=== PATIENT | female | born 1950 | race Caucasian/White ===

== ENCOUNTER 2020-02-10 18:45 | Inpatient (IN) ==
--- NOTE | 2020-02-10 19:08 | XRay Report ---
XR chest 1V portable CLINICAL HISTORY: Shortness of breath. COMPARISON STUDY: No previous studies for comparison. FINDINGS: A chondroid proximal left humeral lesion favors an enchondroma. There is no pneumothorax. Small bilateral pleural effusions, right larger than left, are noted. There are mild bibasilar opacit ies. There is pulmonary vascular congestion with possible mild pulmonary edema. Moderate enlargement of the cardiac silhouette is noted. Mild left hilar prominence is noted. IMPRESSION: 1. Suspected mild pulmonary edema. 2. Small bilateral pleural effusions with bibasilar opacities, right greater than left. 3. Moderate enlargement of the cardiac silhouette. 4. Mild left hilar prominence. This is likely due to pulmonary vessels however nonemergent PA and lat eral chest radiographs are recommended. ACT 112: Negative or not required by law. Electronically signed by: Mike Gallegos M.D. 02/10/2020 7:07 PM
[2020-02-10 19:11] LABS: Basophils # (auto) 0.03 K/uL (0-0.2); Basophils % (auto) 0.4 %; Eosinophils # (auto) 0.17 K/uL (0-0.5); Eosinophils % (auto) 2.1 %; Hematocrit (blood only) 46.7 % (37-47); Hemoglobin 15.6 g/dL (12.0-16.0); Immature Granulocytes # (auto) 0.02 K/uL (0.00-0.02); Immature Granulocytes % (auto) 0.3 %; Lymphocytes # (auto) 1.26 K/uL (1.2-3.4); Lymphocytes % (auto) 15.8 %; Mean Corpuscular Hemoglobin 32.6 pg (25-34); Mean Corpuscular Hgb Conc 33.4 g/dL (32-36); Mean Corpuscular Volume 97.7 fL (80-100); Mean Platelet Volume 11.5 fL (7.4-10.4); Monocytes # (auto) 0.53 K/uL (0.11-0.59); Monocytes % (auto) 6.7 %; Neutrophils # (auto) 5.94 K/uL (1.4-6.5); Neutrophils % (auto) 74.7 %; Platelet Count 240 K/uL (130-400); RDW Coefficient of Variation 14.9 % (11.5-14.5); RDW Standard Deviation 52.8 fL (36.4-46.3); Red Blood Count 4.78 M/uL (4.2-5.4); White Blood Count 7.95 K/uL (4.8-10.8)
--- NOTE | 2020-02-10 19:17 | Emergency Department Note ---
History of Present Illness General Chief complaint: Cardiac Assessment Time Seen by Provider: 02/10/20 18:46 History of Present Illness The patient is a 69-year-old female who presented to the emergency department by ambulance from her office in [place]. The patient has been complaining of GI symptoms over the last few months. She states that she has been noticing abnormal abdominal distention which is been ongoing for quite some time. She was noted to have an elevation in her LFTs and did have a work-up with gastroenterology. She was complaining of lower extremity swelling and abdominal distention. She was sent for a follow-up appointment at the clinic today and was noted to have an abnormal EKG. She was given aspirin. She was sent to the emergency department by ambulance. The patient denies having any chest pain. She does complain of weight gain as well as orthopnea. She complains of lower extremity swelling but no pain. She does complain of nausea but no vomiting. She states that she does have daily bowel movements but they are smaller in amount to usual. She denies any black stool or bloody stool. She did have an ultrasound in January which revealed mild gallbladder wall thickening with a possible polyp. She was also noted to have a right pleural effusion. She had a HIDA scan on February 022019. This was normal and was administered with CCK. The patient was started on proton pump inhibitors. She was also started on dicyclomine. Home Medications Home Medications Medication Instructions Recorded Confirmed Type docusate sodium [Stool Softener] 100 mg PO BID 02/10/20 02/10/20 History omeprazole 20 mg PO QAM 02/10/20 02/10/20 History Allergies Allergy/AdvReac Type Severity Reaction Status Date / Time No Known Allergies Allergy Verified 02/10/20 19:37 Past Med/Surg History Medical History Dyslipidemia Surgical History Hx of dilation and curettage Hx of tubal ligation S/P tonsillectomy Family History Other Breast cancer FHx: multiple myeloma FHx: uterine cancer Social History Preferred Language: Occitan Feels Safe at Home: Yes Smoking Status: Current every day smoker Hx Alcohol Use: Yes Hx Substance Use: No Review of Systems See HPI for pertinent positives & negatives. and A total of 10 systems reviewed and were otherwise negative Physical Exam Vital Signs Vital Signs - 24 hr 02/10/20 18:49 02/10/20 18:52 02/10/20 18:54 Temperature 36.6 C Temperature Source Oral Pulse Rate 110 H 109 H 109 H Pulse Rate [Apical] Pulse Rate from SpO2 Sensor 110 H 110 H Respiratory Rate 33 H 26 H 18 Respiratory Effort / Characteristics Blood Pressure 144/95 H 144/95 H Blood Pressure [Left Arm] Blood Pressure Mean 113 111 Blood Pressure Mean [Left Arm] Blood Pressure Position Sitting Pulse Oximetry 95 95 98 Oxygen Delivery Method Room Air Room Air Room Air Sepsis Recent Fever Within 48 Hours No Sepsis New/Unexplained Change in Mental Status No Sepsis Action Taken by Nursing No Action Required 02/10/20 19:00 02/10/20 19:10 02/10/20 19:20 Temperature Temperature Source Pulse Rate 109 H 110 H 105 H Pulse Rate [Apical] Pulse Rate from SpO2 Sensor Respiratory Rate 22 40 H 36 H Respiratory Effort / Characteristics Blood Pressure Blood Pressure [Left Arm] Blood Pressure Mean Blood Pressure Mean [Left Arm] Blood Pressure Position Pulse Oximetry Oxygen Delivery Method Room Air Room Air Room Air Sepsis Recent Fever Within 48 Hours Sepsis New/Unexplained Change in Mental Status Sepsis Action Taken by Nursing 02/10/20 19:30 02/10/20 19:40 02/10/20 19:50 Temperature Temperature Source Pulse Rate 108 H 102 H 100 H Pulse Rate [Apical] 100 H Pulse Rate from SpO2 Sensor Respiratory Rate 30 H 31 H 31 H Respiratory Effort / Characteristics Blood Pressure 127/90 Blood Pressure [Left Arm] 127/90 Blood Pressure Mean 103 Blood Pressure Mean [Left Arm] 102 Blood Pressure Position Pulse Oximetry 95 Oxygen Delivery Method Room Air Room Air Room Air Sepsis Recent Fever Within 48 Hours Sepsis New/Unexplained Change in Mental Status Sepsis Action Taken by Nursing 02/10/20 20:00 02/10/20 20:10 02/10/20 20:20 Temperature Temperature Source Pulse Rate 102 H 99 H 98 H Pulse Rate [Apical] Pulse Rate from SpO2 Sensor Respiratory Rate 29 H 29 H 28 H Respiratory Effort / Characteristics Blood Pressure 133/92 Blood Pressure [Left Arm] Blood Pressure Mean 115 Blood Pressure Mean [Left Arm] Blood Pressure Position Pulse Oximetry Oxygen Delivery Method Room Air Room Air Room Air Sepsis Recent Fever Within 48 Hours Sepsis New/Unexplained Change in Mental Status Sepsis Action Taken by Nursing 02/10/20 20:30 02/10/20 21:15 02/10/20 21:20 Temperature Temperature Source Pulse Rate 94 H 111 H 106 H Pulse Rate [Apical] Pulse Rate from SpO2 Sensor 106 H Respiratory Rate 28 H 29 H 37 H Respiratory Effort / Characteristics Blood Pressure Blood Pressure [Left Arm] Blood Pressure Mean Blood Pressure Mean [Left Arm] Blood Pressure Position Pulse Oximetry 95 Oxygen Delivery Method Room Air Room Air Room Air Sepsis Recent Fever Within 48 Hours Sepsis New/Unexplained Change in Mental Status Sepsis Action Taken by Nursing 02/10/20 21:30 02/10/20 22:13 02/10/20 22:47 Temperature Temperature Source Pulse Rate 101 H Pulse Rate [Apical] 102 H 103 H Pulse Rate from SpO2 Sensor 101 H Respiratory Rate 22 20 35 H Respiratory Effort / Characteristics Spontaneous SOB on Exertion Blood Pressure Blood Pressure [Left Arm] 123/95 Blood Pressure Mean Blood Pressure Mean [Left Arm] 104 Blood Pressure Position Pulse Oximetry 95 96 94 Oxygen Delivery Method Room Air Room Air Room Air Sepsis Recent Fever Within 48 Hours Sepsis New/Unexplained Change in Mental Status Sepsis Action Taken by Nursing GENERAL: Patient is awake alert in no acute distress patient is resting comfortably and showing no signs of anxiety EYES: The conjunctivae are clear. The pupils are round and reactive. EARS, NOSE, MOUTH AND THROAT: The nose is without any evidence of any deformity. Mucous membranes are moist. Tongue is midline. NECK: The neck is nontender and supple. RESPIRATORY: Diminished breath sounds are noted at both bases. There were faint rales at the right base. There was no tachypnea or conversational dyspnea. CARDIOVASCULAR: Regular rate and rhythm noted there no murmurs rubs or gallops normal S1 normal S2. GASTROINTESTINAL: The abdomen was moderately distended and diffusely tender. There is no guarding or rigidity. There is no specific area of tenderness. MUSCULOSKELETAL/EXTREMITIES: There is no evidence of gross deformity full range of motion is noted in the hips and shoulders. SKIN: There is no obvious evidence of any rash. Skin was warm and dry. There is pedal edema bilaterally. Pulses are symmetric in both feet. NEUROLOGIC: Patient is awake alert and oriented x3 strength is symmetric bee llar reflexes are 2+ bilaterally Course Course 2150: I discussed this case with Dr. Lea. He was covering for the [facility] hospitalist group. He is agreed to evaluate the patient in the emergency department for further management disposition. Administered Medications Ioversol (Optiray 320 125ml) 107 ml IV ONCE PRN PRN Reason: Interaction Checking Stop: 02/14/20 20:56 Last Admin: 02/10/20 20:58 Dose: 107 ml Documented by: [id number] Discontinued Medications Albuterol (Duoneb) 3 ml NEB NOW STA Stop: 02/10/20 22:00 Last Admin: 02/10/20 22:12 Dose: 3 ml Documented by: [id number] Furosemide (Lasix) 40 mg IV NOW STA Stop: 02/10/20 21:58 Last Admin: 02/10/20 22:04 Dose: 40 mg Documented by: [id number] Metoprolol Tartrate (Lopressor) 12.5 mg PO NOW STA Stop: 02/10/20 22:07 Last Admin: 02/10/20 22:48 Dose: 12.5 mg Documented by: [id number] Medical Decision Making Differential Diagnosis Etiologies such as appendicitis, diverticulitis, obstruction, inflammatory bowel disease, renal colic, PUD, biliary pathology, pancreatitis, mesenteric ischemia, aortic pathology, infections, genitourinary, UTI, perforated viscus, as well as others were entertained. Medical Records Attestation: I reviewed the patient's medical records. Home Medications Current Medication List: was personally reviewed by me Laboratory Data Attestation: I reviewed the patient's lab results. Result diagrams: 02/10/20 18:25 02/10/20 18:25 Lab Results 02/10/20 02/10/20 02/10/20 Range/Units 18:25 18:25 18:25 WBC 7.95 (4.8-10.8) K/uL RBC 4.78 (4.2-5.4) M/uL Hgb 15.6 (12.0-16.0) g/dL Hct 46.7 (37-47) % MCV 97.7 (80-100) fL MCH 32.6 (25-34) pg MCHC 33.4 (32-36) g/dL RDW Std Deviation 52.8 H (36.4-46.3) fL RDW Coeff of Angélica 14.9 H (11.5-14.5) % Plt Count 240 (130-400) K/uL MPV 11.5 H (7.4-10.4) fL Immature Gran % (Auto) 0.3 % Neut % (Auto) 74.7 % Lymph % (Auto) 15.8 % Yates % (Auto) 6.7 % Eos % (Auto) 2.1 % Baso % (Auto) 0.4 % Immature Gran # (Auto) 0.02 (0.00-0.02) K/uL Neut # (Auto) 5.94 (1.4-6.5) K/uL Lymph # (Auto) 1.26 (1.2-3.4) K/uL Yates # (Auto) 0.53 (0.11-0.59) K/uL Eos # (Auto) 0.17 (0-0.5) K/uL Baso # (Auto) 0.03 (0-0.2) K/uL ESR 9 (0-21) mm/hr APTT (21.0-31.0) Seconds PTT Ratio Sodium 139 (136-145) mmol/L Potassium 4.3 (3.5-5.1) mmol/L Chloride 107 (98-107) mmol/L Carbon Dioxide 28 (21-32) mmol/L Anion Gap 4.0 (3-11) BUN 21 H (7-18) mg/dl Creatinine 1.18 (0.6-1.2) mg/dl Est Cr Clr Drug Dosing 41.8 ml/min Est GFR ( Amer) 54.9 Est GFR (Non-Af Amer) 47.4 BUN/Creatinine Ratio 17.8 (10-20) Glucose 123 H (70-99) mg/dl Calcium 8.9 (8.5-10.1) mg/dl Magnesium Cancelled Total Bilirubin 0.5 (0.2-1) mg/dl AST 39 H (15-37) U/L ALT 71 (12-78) U/L Alkaline Phosphatase 105 (45-117) U/L Troponin I (0-0.045) ng/ml C-Reactive Protein 0.67 H (0-0.29) mg/dl Total Protein 6.7 (6.4-8.2) gm/dl Albumin 3.2 L (3.4-5.0) gm/dl Globulin 3.5 (2.5-4.0) gm/dl Albumin/Globulin Ratio 0.9 (0.9-2) Lipase 209 (73-393) U/L TSH Cancelled Urine Color Urine Appearance (Clear) Urine pH (4.5-7.5) Ur Specific [place] (1.000-1.030) Urine Protein (Negative) Urine Glucose (UA) (Negative) Urine Ketones (Negative) Urine Blood (Negative) Urine Nitrite (Negative) Urine Bilirubin (Negative) Urine Urobilinogen (Negative) Ur Leukocyte Esterase (Negative) Urine WBC (Auto) (0-5) /hpf Urine RBC (Auto) (0-4) /hpf U Hyaline Cast (Auto) (0-5) /lpf U Epithel Cells (Auto) (0-5) /lpf Urine Bacteria (Auto) (Negative) 02/10/20 02/10/20 02/10/20 Range/Units 18:25 20:45 21:00 WBC (4.8-10.8) K/uL RBC (4.2-5.4) M/uL Hgb (12.0-16.0) g/dL Hct (37-47) % MCV (80-100) fL MCH (25-34) pg MCHC (32-36) g/dL RDW Std Deviation (36.4-46.3) fL RDW Coeff of Angélica (11.5-14.5) % Plt Count (130-400) K/uL MPV (7.4-10.4) fL Immature Gran % (Auto) % Neut % (Auto) % Lymph % (Auto) % Yates % (Auto) % Eos % (Auto) % Baso % (Auto) % Immature Gran # (Auto) (0.00-0.02) K/uL Neut # (Auto) (1.4-6.5) K/uL Lymph # (Auto) (1.2-3.4) K/uL Yates # (Auto) (0.11-0.59) K/uL Eos # (Auto) (0-0.5) K/uL Baso # (Auto) (0-0.2) K/uL ESR (0-21) mm/hr APTT 23.3 (21.0-31.0) Seconds PTT Ratio 0.8 Sodium (136-145) mmol/L Potassium (3.5-5.1) mmol/L Chloride (98-107) mmol/L Carbon Dioxide (21-32) mmol/L Anion Gap (3-11) BUN (7-18) mg/dl Creatinine (0.6-1.2) mg/dl Est Cr Clr Drug Dosing ml/min Est GFR ( Amer) Est GFR (Non-Af Amer) BUN/Creatinine Ratio (10-20) Glucose (70-99) mg/dl Calcium (8.5-10.1) mg/dl Magnesium Total Bilirubin (0.2-1) mg/dl AST (15-37) U/L ALT (12-78) U/L Alkaline Phosphatase (45-117) U/L Troponin I 0.021 (0-0.045) ng/ml C-Reactive Protein (0-0.29) mg/dl Total Protein (6.4-8.2) gm/dl Albumin (3.4-5.0) gm/dl Globulin (2.5-4.0) gm/dl Albumin/Globulin Ratio (0.9-2) Lipase (73-393) U/L TSH Urine Color Yellow Urine Appearance Clear (Clear) Urine pH 5.0 (4.5-7.5) Ur Specific [place] 1.025 (1.000-1.030) Urine Protein Negative (Negative) Urine Glucose (UA) Negative (Negative) Urine Ketones Negative (Negative) Urine Blood Negative (Negative) Urine Nitrite Negative (Negative) Urine Bilirubin Negative (Negative) Urine Urobilinogen Negative (Negative) Ur Leukocyte Esterase 1+ H (Negative) Urine WBC (Auto) 5-10 H (0-5) /hpf Urine RBC (Auto) 0-4 (0-4) /hpf U Hyaline Cast (Auto) 0 (0-5) /lpf U Epithel Cells (Auto) 20-30 H (0-5) /lpf Urine Bacteria (Auto) Negative (Negative) 02/10/20 Range/Units 21:00 WBC (4.8-10.8) K/uL RBC (4.2-5.4) M/uL Hgb (12.0-16.0) g/dL Hct (37-47) % MCV (80-100) fL MCH (25-34) pg MCHC (32-36) g/dL RDW Std Deviation (36.4-46.3) fL RDW Coeff of Angélica (11.5-14.5) % Plt Count (130-400) K/uL MPV (7.4-10.4) fL Immature Gran % (Auto) % Neut % (Auto) % Lymph % (Auto) % Yates % (Auto) % Eos % (Auto) % Baso % (Auto) % Immature Gran # (Auto) (0.00-0.02) K/uL Neut # (Auto) (1.4-6.5) K/uL Lymph # (Auto) (1.2-3.4) K/uL Yates # (Auto) (0.11-0.59) K/uL Eos # (Auto) (0-0.5) K/uL Baso # (Auto) (0-0.2) K/uL ESR (0-21) mm/hr APTT (21.0-31.0) Seconds PTT Ratio Sodium (136-145) mmol/L Potassium (3.5-5.1) mmol/L Chloride (98-107) mmol/L Carbon Dioxide (21-32) mmol/L Anion Gap (3-11) BUN (7-18) mg/dl Creatinine (0.6-1.2) mg/dl Est Cr Clr Drug Dosing ml/min Est GFR ( Amer) Est GFR (Non-Af Amer) BUN/Creatinine Ratio (10-20) Glucose (70-99) mg/dl Calcium (8.5-10.1) mg/dl Magnesium 2.5 H Total Bilirubin (0.2-1) mg/dl AST (15-37) U/L ALT (12-78) U/L Alkaline Phosphatase (45-117) U/L Troponin I (0-0.045) ng/ml C-Reactive Protein (0-0.29) mg/dl Total Protein (6.4-8.2) gm/dl Albumin (3.4-5.0) gm/dl Globulin (2.5-4.0) gm/dl Albumin/Globulin Ratio (0.9-2) Lipase (73-393) U/L TSH 2.630 Urine Color Urine Appearance (Clear) Urine pH (4.5-7.5) Ur Specific [place] (1.000-1.030) Urine Protein (Negative) Urine Glucose (UA) (Negative) Urine Ketones (Negative) Urine Blood (Negative) Urine Nitrite (Negative) Urine Bilirubin (Negative) Urine Urobilinogen (Negative) Ur Leukocyte Esterase (Negative) Urine WBC (Auto) (0-5) /hpf Urine RBC (Auto) (0-4) /hpf U Hyaline Cast (Auto) (0-5) /lpf U Epithel Cells (Auto) (0-5) /lpf Urine Bacteria (Auto) (Negative) Imaging Data Radiologist's Impression: CT ANGIOGRAPHY OF THE CHEST, PULMONARY EMBOLUS PROTOCOL CLINICAL HISTORY: Shortness of breath. COMPARISON STUDY: Chest radiograph February 10, 2020 6:53 PM. TECHNIQUE: Following IV administration of 107 mL of Optiray-320, helical axial images of the chest were obtained utilizing the pulmonary embolus protocol. Maximal intensity projections and sagittal and coronal reformats were viewed on an independent 3D workstation. IV contrast was administered without complication. Automated exposure control was utilized for the study. A dose lowering technique was utilized adhering to the principles of ALARA. CT DOSE: 852.77 mGy.cm FINDINGS: No pulmonary emboli are identified opacification of the subsegmental pulmonary arteries within the bilateral lower lobes is suboptimal. The heart is moderately enlarged. There is no pericardial effusion. Small to moderate right and small left pleural effusions are noted. Associated bibasilar opacities favor atelectasis. Interlobular septal thickening indicates pulmonary edema. There are mild groundglass opacities within the lungs. Mild bronchial wall thickening is noted. Bony thorax is unremarkable. The abdomen and pelvis will be reported separately. IMPRESSION: 1. No pulmonary emboli identified although opacification of the subsegmental pulmonary arteries within the bilateral lower lobes is suboptimal. 2. Small to moderate right and small left pleural effusions with associated bibasilar opacities suggestive of atelectasis. 3. Mild pulmonary edema. 4. Moderate cardiomegaly. ACT 112: Negative or not required by law. Electronically signed by: Mike Gallegos M.D. 02/10/2020 9:22 PM Dictated: 02/10/202112 Transcribed: 02/10/202112 XR chest 1V portable CLINICAL HISTORY: Shortness of breath. COMPARISON STUDY: No previous studies for comparison. FINDINGS: A chondroid proximal left humeral lesion favors an enchondroma. There is no pneumothorax. Small bilateral pleural effusions, right larger than left, are noted. There are mild bibasilar opacities. There is pulmonary vascular congestion with possible mild pulmonary edema. Moderate enlargement of the cardiac silhouette is noted. Mild left hilar prominence is noted. IMPRESSION: 1. Suspected mild pulmonary edema. 2. Small bilateral pleural effusions with bibasilar opacities, right greater than left. 3. Moderate enlargement of the cardiac silhouette. 4. Mild left hilar prominence. This is likely due to pulmonary vessels however nonemergent PA and lateral chest radiographs are recommended. ACT 112: Negative or not required by law. Electronically signed by: Mike Gallegos M.D. 02/10/2020 7:07 PM Dictated: 02/10/201903 Transcribed: 02/10/201903 CT OF THE ABDOMEN AND PELVIS WITH CONTRAST CLINICAL HISTORY: Abdominal pain and distention. COMPARISON STUDY: None. TECHNIQUE: Following IV administration of 107 mL of Optiray-320, axial images of the abdomen and pelvis were obtained from the lung bases to the proximal femurs. Images were reviewed in the axial, sagittal, and coronal planes. IV contrast was administered without complication. Automated exposure control was utilized for the study. A dose lowering technique was utilized adhering to the principles of ALARA. Oral contrast was administered. FINDINGS: Please note that the chest CT will be reported separately. Note is made of small to moderate right and small left pleural effusions with moderate cardiomegaly. Mild heterogeneity of the liver is noted. There may be fatty infiltration of the liver. No hepatic lesions are present. The spleen, adrenal glands, right kidney and pancreas are unremarkable. There is scarring within the upper pole of the left kidney. This exam is compromised by motion artifact. There is no biliary or pancreatic ductal dilatation. There is no evidence for a bowel obstruction. The appendix is normal. Sigmoid diverticulosis is noted. There is no convincing evidence for acute diverticulitis. There is trace ascites within the pelvis. No lymphadenopathy is present. No pneumatosis, free air or portal venous gas is present. Major vasculature is patent. IMPRESSION: 1. Trace pelvic ascites. Mild anasarca. 2. No bowel distention. Normal appendix. 3. Possible fatty infiltration of the liver. 4. Colonic diverticulosis without evidence for acute diverticulitis. ACT 112: Negative or not required by law. Electronically signed by: Mike Gallegos M.D. 02/10/2020 9:37 PM ECG Data Attestation: I personally reviewed and interpreted this ECG as follows: Indication: + SOB/dyspnea Rate (beats per minute): 104 Additional Comments: EKG was obtained in the emergency department. My interpret ation is sinus tachycardia at 104 bpm. There is no ectopy. Left bundle branch block pattern was favored. No previous tracing was available for comparison. This tracing was compared to the EKG obtained in the office. There is no significant change from the tracing that was done in the office other than PVCs were noted in the earlier tracing. Blood Pressure Blood Pressure Findings: Normal blood pressure MDM Narrative The patient is a 69-year-old female who presented to the emergency department for evaluation of lower extremity edema and an abnormal EKG. The patient was being worked up for abdominal distention. She had a GI work-up as well as radiographic studies but no definite cause for her symptoms could be found. She was referred back to her primary care physician because of weight gain and lower extremity edema. She is also been experiencing orthopnea. On exam the patient had abnormal brown lung sounds. She appears to have pleural effusion. The patient had CT the chest abdomen pelvis to further evaluate the cause of her lower extremity edema and abdominal discomfort. There was no signs of pulmonary venous thromboembolic disease. The patient was found to have a large pleural effusion. I discussed the patient's laboratory and radiographic studies with her. I do feel that she may require further inpatient work-up for her findings. For this reason I discussed her case with the on-call [facility] hospitalist. They have agreed to evaluate the patient in the emergency department for further management and disposition. Impression & Plan Pleural effusion, Chest pain, Orthopnea, Edema of both lower legs, Abnormal ECG Discharge Plan Visit Data Chief Complaint: Cardiac Assessment ED Provider: Seymour Lara Discharge Problem: Pleural effusion, Chest pain, Orthopnea, Edema of both lower legs, Abnormal ECG Patient Disposition: Being Evaluated by Hospitalist Condition: Good Forms Stand Alone Forms: My [employer] Prescriptions Prescriptions: No Action docusate sodium [Stool Softener] 100 mg capsule 100 mg PO BID RF: 0 omeprazole 20 mg capsule,delayed release(DR/EC) 20 mg PO QAM RF: 0 Referrals Referrals: Girish Barron MD [Primary Care Provider] - Discharge Problem: Chest pain Qualifiers: Chest pain type: unspecified Qualified Code(s): R07.9 - Chest pain, unspecified
[2020-02-10 19:24] LABS: Albumin Level 3.2 gm/dl (3.4-5.0); BUN Creatinine Ratio 17.8 (10-20); Calcium 8.9 mg/dl (8.5-10.1); Creatinine Clr Calc Pharmacy 41.8 ml/min; Est GFR (African American) 54.9; Est GFR (Non-African American) 47.4; Potassium 4.3 mmol/L (3.5-5.1)
[2020-02-10 19:25] LABS: Albumin Globulin Ratio 0.9 (0.9-2); Bilirubin,Total 0.5 mg/dl (0.2-1); C Reactive Protein 0.67 mg/dl (0-0.29); Globulin 3.5 gm/dl (2.5-4.0); Total Protein 6.7 gm/dl (6.4-8.2)
[2020-02-10] MEDS ORDERED: OPTIRAY 320 125ml IV PRN (20:57)
[2020-02-10 21:03] LABS: Appearance Urine Clear (Clear); Bacteria Urine Automated Negative (Negative); Bilirubin Urine Negative (Negative); Blood Urine Negative (Negative); Cast Urine Automated 0 /lpf (0-5); Color Urine Yellow; Epithelial Cell Urine Auto 20-30 /lpf (0-5); Glucose Urine UA Negative (Negative); Ketones Urine Negative (Negative); Leukocyte Esterase Urine 1+ (Negative); Nitrite Urine Negative (Negative); Protein Urine Negative (Negative); RBC Urine Automated 0-4 /hpf (0-4); Specific Gravity Urine 1.025 (1.000-1.030); Urobilinogen Urine Negative (Negative)
--- NOTE | 2020-02-10 21:24 | CT Scan Report ---
CT ANGIOGRAPHY OF THE CHEST, PULMONARY EMBOLUS PROTOCOL CLINICAL HISTORY: Shortness of breath. COMPARISON STUDY: Chest radiograph February 10, 2020 6:53 PM. TECHNIQUE: Following IV administration of 107 mL of Optiray-320, helical axial images of the chest we re obtained utilizing the pulmonary embolus protocol. Maximal intensity projections and sagittal and coronal reformats were viewed on an independent 3D workstation. IV contrast was administered withou t complication. Automated exposure control was utilized for the study. A dose lowering technique wa s utilized adhering to the principles of ALARA. CT DOSE: 852.77 mGy.cm FINDINGS: No pulmonary emboli are identified opacification of the subsegmental pulmonary arteries wi thin the bilateral lower lobes is suboptimal. The heart is moderately enlarged. There is no pericardi al effusion. Small to moderate right and small left pleural effusions are noted. Associated bibasilar opacities favor atelectasis. Interlobular septal thickening indicates pulmonary edema. There are mil d groundglass opacities within the lungs. Mild bronchial wall thickening is noted. Bony thorax is unr emarkable. The abdomen and pelvis will be reported separately. IMPRESSION: 1. No pulmonary emboli identified although opacification of the subsegmental pulmonary arteries withi n the bilateral lower lobes is suboptimal. 2. Small to moderate right and small left pleural effusions with associated bibasilar opacities sugge stive of atelectasis. 3. Mild pulmonary edema. 4. Moderate cardiomegaly. ACT 112: Negative or not required by law. Electronically signed by: Mike Gallegos M.D. 02/10/2020 9:22 PM
--- NOTE | 2020-02-10 21:38 | CT Scan Report ---
CT OF THE ABDOMEN AND PELVIS WITH CONTRAST CLINICAL HISTORY: Abdominal pain and distention. COMPARISON STUDY: None. TECHNIQUE: Following IV administration of 107 mL of Optiray-320, axial images of the abdomen and pelv is were obtained from the lung bases to the proximal femurs. Images were reviewed in the axial, sagit bridger, and coronal planes. IV contrast was administered without complication. Automated exposure contr ol was utilized for the study. A dose lowering technique was utilized adhering to the principles of ALARA. Oral contrast was administered. FINDINGS: Please note that the chest CT will be reported separately. Note is made of small to moderat e right and small left pleural effusions with moderate cardiomegaly. Mild heterogeneity of the liver is noted. There may be fatty infiltration of the liver. No hepatic lesions are present. The spleen, a drenal glands, right kidney and pancreas are unremarkable. There is scarring within the upper pole of the left kidney. This exam is compromised by motion artifact. There is no biliary or pancreatic duct al dilatation. There is no evidence for a bowel obstruction. The appendix is normal. Sigmoid divertic ulosis is noted. There is no convincing evidence for acute diverticulitis. There is trace ascites wit hin the pelvis. No lymphadenopathy is present. No pneumatosis, free air or portal venous gas is prese nt. Major vasculature is patent. IMPRESSION: 1. Trace pelvic ascites. Mild anasarca. 2. No bowel distention. Normal appendix. 3. Possible fatty infiltration of the liver. 4. Colonic diverticulosis without evidence for acute diverticulitis. ACT 112: Negative or not required by law. Electronically signed by: Mike Gallegos M.D. 02/10/2020 9:37 PM
[2020-02-10] MEDS ORDERED: FUROSEMIDE 40 MG/4 ML VIAL IV STA (21:57)
[2020-02-10] MEDS ORDERED: ALBUT/IPRATROP 3MG/0.5MG NEB 3 ML VIAL NEB STA (21:59)
[2020-02-10] MEDS ORDERED: METOPROLOL TARTRATE 25 MG TAB PO STA (22:06)
[2020-02-10 22:24] LABS: Partial Thromboplastin Ratio 0.8; Partial Thromboplastin Time 23.3 Seconds (21.0-31.0)
--- NOTE | 2020-02-10 22:38 | History & Physical Report ---
Date of Service February 10, 2020 Assessment & Plan (1) CHF (congestive heart failure): Subacute symptoms over the last few weeks Cardiomyopathy [ischemic vs nonischemic etio (? alcohol)] hyperlipidemia (not on statin rx as per patient preference) ongoing tobacco abuse PCU Diuretic Rx Strict I/Os, daily weights, CHF education Beta-cachorro at low dose for now Aspirin for CAD prevention until ischemic etio for CHF symptoms ruled out TTE, Cardiology consult RE CHF nicotine patch PRN DVT prophylaxis. Lovenox subcu Full code Text document was generated using [employer] voice recognition software. It may contain grammatical or spelling errors. Kindly contact undersigned for clarification of any documentation item in question. History of Present Illness Caregiver Chief Complaint: Shortness of breath, abnormal EKG Primary Care Provider: Girish Barron MD History obtained from patient and records. Medical history significant for hyperlipidemia (not on statin rx as per patient preference), daily alcohol intake, ongoing tobacco abuse. 2 weeks history of shortness of breath especially on exertion without chest pain. Weight gain with some leg swelling over the last few months associated with some bloating symptoms. Denies inordinate salty food intake. No recent flulike illness. Hepatic steatosis noted on outpatient GI work-up. Patient seen at PCPs office today for worsening shortness of breath associated with orthopnea symptoms. EKG at the office showed possible ST elevation on V2 V3 as per records. Aspirin given at the office. Patient transported by EMS to the ER. 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, big data developer Allergies Allergy/AdvReac Type Severity Reaction Status Date / Time No Known Allergies Allergy Verified 02/10/20 19:37 Home Medications Home Medications Medication Instructions Recorded Confirmed Type docusate sodium [Stool Softener] 100 mg PO BID 02/10/20 02/10/20 History omeprazole 20 mg PO QAM 02/10/20 02/10/20 History Past Med/Surg History Medical History Dyslipidemia Surgical History Hx of dilation and curettage Hx of tubal ligation S/P tonsillectomy Family History Other Breast cancer FHx: multiple myeloma FHx: uterine cancer Social History Preferred Language: Georgian Communication Ability: Effective 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 Beliefs That Will Affect Care: None Current Living Situation: Alone Other Information That Helps Us Care for You: No Feels Safe at Home: Yes Safety Concerns: Feels Safe At This Time Smoking Status: Former smoker Hx Alcohol Use: No Hx Substance Use: No Review of Systems Review of Systems: As per HPI, all 10 systems reviewed, all other ROS negative Physical Exam Physical Exam: GENERAL: Comfortable, obese, slightly anxious, pleasant, minimal respiratory distress SKIN: Normal color, warm HEENT: [place] palpebral conjunctivae, no ptosis, moist buccal mucosa NECK : Supple, short neck, no tenderness CHEST : Decreased breath sounds , no tenderness HEART : Tachycardic, diminished S1-S2 , no obvious murmurs ABDOMEN: Some distention, nontender EXTREMITIES : Minimal LE swelling, no LE tenderness, no other conspicuous deformities noted NEUROLOGIC : Coherent, no facial asymmetry, mild hearing impairment, no other gross focality Results & Data Results & Data ([facility]) Vital Signs (Past 12 Hours) Vital Signs Temp Pulse Pulse Resp BP BP Pulse Ox 02/10/20 22:13 102 H 20 96 02/10/20 21:30 101 H 22 95 02/10/20 21:20 106 H 37 H 95 02/10/20 21:15 111 H 29 H 02/10/20 20:30 94 H 28 H 02/10/20 20:20 98 H 28 H 02/10/20 20:10 99 H 29 H 02/10/20 20:00 102 H 29 H 133/92 02/10/20 19:50 100 H 100 H 31 H 127/90 127/90 95 02/10/20 19:40 102 H 31 H 02/10/20 19:30 108 H 30 H 02/10/20 19:20 105 H 36 H 02/10/20 19:10 110 H 40 H 02/10/20 19:00 109 H 22 02/10/20 18:54 36.6 C 109 H 18 144/95 H 98 02/10/20 18:52 109 H 26 H 95 02/10/20 18:49 110 H 33 H 144/95 H 95 Laboratory Results Laboratory Results WBC 7.95 K/uL (4.8-10.8) 02/10/20 18:25 RBC 4.78 M/uL (4.2-5.4) 02/10/20 18:25 Hgb 15.6 g/dL (12.0-16.0) 02/10/20 18:25 Hct 46.7 % (37-47) 02/10/20 18: MCV 97.7 fL (80-100) 02/10/20 18:25 MCH 32.6 pg (25-34) 02/10/20 18: MCHC 33.4 g/dL (32-36) 02/10/20 18: RDW Std Deviation 52.8 fL (36.4-46.3) H 02/10/20 18: RDW Coeff of Angélica 14.9 % (11.5-14.5) H 02/10/20 18: Plt Count 240 K/uL (130-400) 02/10/20 18:25 MPV 11.5 fL (7.4-10.4) H 02/10/20 18:25 Immature Gran % (Auto) 0.3 % 02/10/20 18:25 Neut % (Auto) 74.7 % 02/10/20 18:25 Lymph % (Auto) 15.8 % 02/10/20 18:25 Ashley % (Auto) 6.7 % 02/10/20 18:25 Eos % (Auto) 2.1 % 02/10/20 18:25 Baso % (Auto) 0.4 % 02/10/20 18:25 Immature Gran # (Auto) 0.02 K/uL (0.00-0.02) 02/10/20 18: Neut # (Auto) 5.94 K/uL (1.4-6.5) 02/10/20 18:25 Lymph # (Auto) 1.26 K/uL (1.2-3.4) 02/10/20 18:25 Ashley # (Auto) 0.53 K/uL (0.11-0.59) 02/10/20 18:25 Eos # (Auto) 0.17 K/uL (0-0.5) 02/10/20 18:25 Baso # (Auto) 0.03 K/uL (0-0.2) 02/10/20 18:25 ESR 9 mm/hr (0-21) 02/10/20 18:25 APTT 23.3 Seconds (21.0-31.0) 02/10/20 18:25 PTT Ratio 0.8 02/10/20 18:25 Sodium 139 mmol/L (136-145) 02/10/20 18:25 Potassium 4.3 mmol/L (3.5-5.1) 02/10/20 18:25 Chloride 107 mmol/L (98-107) 02/10/20 18:25 Carbon Dioxide 28 mmol/L (21-32) 02/10/20 18:25 Anion Gap 4.0 (3-11) 02/10/20 18:25 BUN 21 mg/dl (7-18) H 02/10/20 18:25 Creatinine 1.18 mg/dl (0.6-1.2) 02/10/20 18:25 Est Cr Clr Drug Dosing 41.8 ml/min 02/10/20 18:25 Est GFR ( Amer) 54.9 02/10/20 18:25 Est GFR (Non-Af Amer) 47.4 02/10/20 18:25 BUN/Creatinine Ratio 17.8 (10-20) 02/10/20 18:25 Glucose 123 mg/dl (70-99) H 02/10/20 18:25 Calcium 8.9 mg/dl (8.5-10.1) 02/10/20 18:25 Magnesium Cancelled 02/10/20 18:25 Total Bilirubin 0.5 mg/dl (0.2-1) 02/10/20 18:25 AST 39 U/L (15-37) H 02/10/20 18:25 ALT 71 U/L (12-78) 02/10/20 18:25 Alkaline Phosphatase 105 U/L (45-117) 02/10/20 18:25 Troponin I 0.021 ng/ml (0-0.045) 02/10/20 21:00 C-Reactive Protein 0.67 mg/dl (0-0.29) H 02/10/20 18:25 Total Protein 6.7 gm/dl (6.4-8.2) 02/10/20 18:25 Albumin 3.2 gm/dl (3.4-5.0) L 02/10/20 18:25 Globulin 3.5 gm/dl (2.5-4.0) 02/10/20 18:25 Albumin/Globulin Ratio 0.9 (0.9-2) 02/10/20 18:25 Lipase 209 U/L (73-393) 02/10/20 18:25 TSH Cancelled 02/10/20 18:25 Urine Color Yellow 02/10/20 20:45 Urine Appearance Clear (Clear) 02/10/20 20:45 Urine pH 5.0 (4.5-7.5) 02/10/20 20:45 Ur Specific [place] 1.025 (1.000-1.030) 02/10/20 20:45 Urine Protein Negative (Negative) 02/10/20 20:45 Urine Glucose (UA) Negative (Negative) 02/10/20 20:45 Urine Ketones Negative (Negative) 02/10/20 20:45 Urine Blood Negative (Negative) 02/10/20 20:45 Urine Nitrite Negative (Negative) 02/10/20 20:45 Urine Bilirubin Negative (Negative) 02/10/20 20:45 Urine Urobilinogen Negative (Negative) 02/10/20 20:45 Ur Leukocyte Esterase 1+ (Negative) H 02/10/20 20:45 Urine WBC (Auto) 5-10 /hpf (0-5) H 02/10/20 20:45 Urine RBC (Auto) 0-4 /hpf (0-4) 02/10/20 20:45 U Hyaline Cast (Auto) 0 /lpf (0-5) 02/10/20 20:45 U Epithel Cells (Auto) 20-30 /lpf (0-5) H 02/10/20 20:45 Urine Bacteria (Auto) Negative (Negative) 02/10/20 20:[address] chest: 1. No pulmonary emboli identified although opacification of the subsegmental pulmonary arteries within the bilateral lower lobes is suboptimal. 2. Small to moderate right and small left pleural effusions with associated bibasilar opacities suggestive of atelectasis. 3. Mild pulmonary edema. 4. Moderate cardiomegaly. CT abdomen pelvis: 1. Trace pelvic ascites. Mild anasarca. 2. No bowel distention. Normal appendix. 3. Possible fatty infiltration of the liver. 4. Colonic diverticulosis without evidence for acute diverticulitis. EKG as per my interpretation : Rate 110, sinus tachycardia, LAD, LAFB, incomplete LBBB, anteroseptal infarct, PVCs
[2020-02-10 22:46] LABS: Magnesium 2.5 mg/dl (1.8-2.4); Thyroid Stimulating Hormone 2.63 uIu/ml (0.300-4.500)
[2020-02-11] MEDS ORDERED: OXYCODONE HCL IR 5 MG TAB (IMMEDIATE RELEASE) PO PRN (00:08)
[2020-02-11] MEDS ORDERED: NITROGLYCERIN SL 0.4 MG/TAB TAB SL PRN (00:08)
[2020-02-11] MEDS ORDERED: LORazepam 0.25 MG/0.5 ML VIAL IV PRN (00:08)
[2020-02-11] MEDS ORDERED: COUGH DROP (SUGAR FREE) LOZ 24 LOZ/1 BOX BUCCAL PRN (04:59)
[2020-02-11 07:00] LABS: Basophils # (auto) 0.04 K/uL (0-0.2); Basophils % (auto) 0.6 %; Eosinophils # (auto) 0.22 K/uL (0-0.5); Eosinophils % (auto) 3.5 %; Hematocrit (blood only) 44.2 % (37-47); Hemoglobin 14.9 g/dL (12.0-16.0); Immature Granulocytes # (auto) 0.01 K/uL (0.00-0.02); Immature Granulocytes % (auto) 0.2 %; Lymphocytes # (auto) 1.54 K/uL (1.2-3.4); Lymphocytes % (auto) 24.2 %; Mean Corpuscular Hemoglobin 33.2 pg (25-34); Mean Corpuscular Hgb Conc 33.7 g/dL (32-36); Mean Corpuscular Volume 98.4 fL (80-100); Mean Platelet Volume 11.4 fL (7.4-10.4); Monocytes # (auto) 0.49 K/uL (0.11-0.59); Monocytes % (auto) 7.7 %; Neutrophils # (auto) 4.06 K/uL (1.4-6.5); Neutrophils % (auto) 63.8 %; Platelet Count 225 K/uL (130-400); RDW Coefficient of Variation 14.9 % (11.5-14.5); RDW Standard Deviation 54.1 fL (36.4-46.3); Red Blood Count 4.49 M/uL (4.2-5.4); White Blood Count 6.36 K/uL (4.8-10.8)
[2020-02-11 07:38] LABS: BUN Creatinine Ratio 17.5 (10-20); Calcium 8.6 mg/dl (8.5-10.1); Creatinine Clr Calc Pharmacy 44.4 ml/min; Est GFR (African American) 59.7; Est GFR (Non-African American) 51.5
[2020-02-11] MEDS: DOCUSATE SODIUM 100 MG CAP PO SCH ×2 (08:22→21:32)
[2020-02-11] MEDS: PANTOprazole 40 MG TAB PO SCH (08:23)
[2020-02-11] MEDS: ASPIRIN 81 MG ECTAB PO SCH (08:23)
[2020-02-11] MEDS: FUROSEMIDE 40 MG in SYRINGE 0 ML IV SCH ×2 (08:27→17:13)
[2020-02-11] MEDS: ENOXAPARIN INJ 40 MG/0.4 ML SYR SQ SCH (08:28)
[2020-02-11] MEDS ORDERED: METOPROLOL TARTRATE 25 MG TAB PO SCH (09:00)
[2020-02-11] MEDS ORDERED: FOLIC ACID 1 MG TAB PO SCH (09:00)
[2020-02-11] MEDS ORDERED: THIAMINE HCL 100 MG TAB PO SCH (09:00)
[2020-02-11] MEDS ORDERED: FUROSEMIDE 40 MG/4 ML VIAL IV SCH (09:00)
--- NOTE | 2020-02-11 13:20 | Cardiology Consultation ---
Date of Consultation February 11, 2020 Assessment & Plan (1) Acute left systolic heart failure: The patient does present and is significantly volume overloaded. Responding well to IV diuresis and will continue with Lasix 40 mg IV twice daily. Her volume status should be followed clinically Electrolytes followed closely and repleted as necessary. (2) Mitral regurgitation: New finding, severe. Likely no pulmonary hypertension Likely the nidus for her cardiomyopathy Will likely require surgical evaluation for intervention in the future (3) Cardiomyopathy: Newly discovered. Severe. Doubt ischemia as the cause, however, will require rule out. To be determined further ischemic evaluation at this time. Will change beta-cachorro to evidence-based beta-cachorro in the a.m. We will also start aldosterone antagonist in the a.m. ARB should be started if her blood pressure tolerates above med changes Continue with loop diuretic as well for acute volume overload (4) Tobacco abuse: Counseled on the absolute need for smoking cessation History of Present Illness Reason for Consultation: Acute LV systolic heart failure Requesting Physician: Dr. Donnelly Attending Physician: Rickie Donnelly MD History of Present Illness It was my pleasure to see Ms. Perkins in consultation today February 11, 2020. She is a very pleasant 69-year-old woman who is not known to our cardiology practice. She presents to [facility] on 02/11/2020 with complaints of worsening abdominal distention and lower extremity edema. She states her symptoms started approximately 2 weeks ago. Her abdomen first became significantly bloated and she became short of breath which she attributed to her abdominal fullness. Her shortness of breath is particularly worsened when she lie down and she is not been able to lie flat for 2 weeks. She is also been getting dyspneic with exertion but likely has not sprains any chest pain, palpitations, lightheadedness, dizziness or syncope. She was seen by her PCP and a GI work-up was started but unremarkable. Her symptoms presented to the point where she presented to [facility] today and was found to be significantly volume overloaded. She received a dose of IV Lasix in the ER with significant improvement of her symptoms. She denies any previous cardiac history other than being told she had a murmur as a child. Allergies Allergy/AdvReac Type Severity Reaction Status Date / Time No Known Allergies Allergy Verified 02/10/20 19:37 Home Medications Home Medications Medication Instructions Recorded Confirmed Type docusate sodium [Stool Softener] 100 mg PO BID 02/10/20 02/10/20 History omeprazole 20 mg PO QAM 02/10/20 02/10/20 History Patient History Medical History Dyslipidemia Surgical History Hx of dilation and curettage Hx of tubal ligation S/P tonsillectomy Family History Other Breast cancer FHx: multiple myeloma FHx: uterine cancer Social History Preferred Language: Welsh Communication Ability: Effective 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 No acute distress. HEENT: Normocephalic, atraumatic. Pupils equal, round and reactive to light and accommodation. Extraocular muscles are intact. Anicteric sclera. Moist mucous membranes. Neck: No JVD. No bruit. Cardiovascular: Regular. Positive S-4. Normal S-1 and S-2. No S-3. 3/6 holosystolic ejection murmur, left sternal border, mid-clavicular line with radiation to the axilla. No rubs. Pulmonary: Decreased breath sounds in the bilateral bases with scant crackles Abdomen: Bowel sounds x 4, distended. No rebound, guarding or tenderness. No organomegaly. Extremities: No clubbing, cyanosis. +1 b/l le pitting edema. +2 pedal pulses bilaterally. Skin: Warm and dry. Results & Data ([facility]) Vital Signs (Past 12 Hours) Vital Signs Temp Pulse Resp BP BP Pulse Ox 02/11/20 12:43 36.5 C 83 20 101/59 L 95 02/11/20 08:16 36.7 C 92 H 20 125/85 93 02/11/20 03:56 36.3 C L 86 20 98/71 L 95
--- NOTE | 2020-02-11 15:30 | Electrocardiogram Report ---
Test Reason : Blood Pressure : / mmHG Vent. Rate : 109 BPM Atrial Rate : 109 BPM P-R Int : 188 ms QRS Dur : 120 ms QT Int : 364 ms P-R-T Axes : 093 -40 032 degrees QTc Int : 490 ms Poor data quality, interpretation may be adversely affected Sinus tachycardia Left bundle branch block Left axis deviation Abnormal ECG No previous ECGs available Confirmed by Efraín Batista ([id number]) on 02/11/2020 3:30:44 PM Referred By: REFERRED SELF Confirmed By:Efraín Batista
--- NOTE | 2020-02-11 15:38 | Electrocardiogram Report ---
Test Reason : Blood Pressure : / mmHG Vent. Rate : 105 BPM Atrial Rate : 105 BPM P-R Int : 164 ms QRS Dur : 124 ms QT Int : 386 ms P-R-T Axes : 076 -31 068 degrees QTc Int : 510 ms Sinus tachycardia Possible Left atrial enlargement Left bundle branch block Left axis deviation Abnormal ECG When compared with ECG of 10-FEB-2020 18:56, (unconfirmed) No significant change was found Confirmed by Efraín Batista ([id number]) on 02/11/2020 3:37:51 PM Referred By: REFERRED SELF Confirmed By:Efraín Batista
--- NOTE | 2020-02-11 15:55 | Hospitalist Progress Note ---
Date of Service February 11, 2020 Assessment & Plan (1) CHF (congestive heart failure): 69-year-old female with history of dyslipidemia, alcoholism, smoking, presenting with shortness of breath Congestive heart failure, systolic type, likely acute on chronic exacerbation Resting well so far EF 15% Discussed with airport operations supervisor Dr. Whalen Continue Lasix 40 mg IV every 12 hours, metoprolol 12.5 mg p.o. twice daily Further recommendations per Dr. Whalen Alcoholism We will start alcohol withdrawal protocol including gabapentin taper Smoker Patient declining nicotine patch Counseled on alcohol as well as tobacco cessation hyperlipidemia (not on statin rx as per patient preference) DVT prophylaxis. Lovenox subcu Full code Disposition Anticipate discharge to home medically stable Admission and Anticipated Discharge Date Admission Date: February 10, 2020 Subjective Follow-up for CHF exacerbation Seen sitting up in bed, comfortable, in good spirits States she feels improved today Shortness of breath has resolved, no abdominal bloating Denies chest pain, palpitations, dizziness No tremors, anxiety, hallucinations No other symptoms Review of Systems Review of Systems: All systems reviewed & are unremarkable except as noted in HPI & below Physical Exam Physical Exam: General- oriented x 3, not in distress, speaks in sentences with no effort or accessory muscle use Head- atraumatic Eyes- PERRL, EOMI, anicteric ENT- oropharynx clear Neck- supple, no JVD, no adenopathy, no thyromegaly; carotids +2/2, no bruits appreciated Lungs-mild rales bilateral bases Heart- normal rate, regular rhythm; no murmur, no gallop, no rub appreciated Abdomen- normal bowel sounds, nondistended, soft, nontender, no masses or hepatosplenomegaly Extremities-mild space pretibial edema, no calf tenderness; peripheral pulses i ntact Neuro- alert, oriented x 3; CN 2-12 grossly intact; motor 5/5 bilaterally;sensation 100% on all extremities; no other gross focal neurologic deficits Skin- warm & dry Results & Data Results & Data ([facility]) Vital Signs (Past 12 Hours) Vital Signs Temp Pulse Pulse Resp BP BP Pulse Ox 02/11/20 15:47 36.5 C 88 21 98/70 L 96 02/11/20 15:44 87 02/11/20 12:43 36.5 C 83 20 101/59 L 95 02/11/20 08:16 36.7 C 92 H 20 125/85 93 02/11/20 03:56 36.3 C L 86 20 98/71 L 95 Laboratory Results Laboratory Results - last 24 hr 02/10/20 02/10/20 02/10/20 18:25 18:25 18:25 WBC 7.95 RBC 4.78 Hgb 15.6 Hct 46.7 MCV 97.7 MCH 32.6 MCHC 33.4 RDW Std Deviation 52.8 H RDW Coeff of Angélica 14.9 H Plt Count 240 MPV 11.5 H Immature Gran % (Auto) 0.3 Neut % (Auto) 74.7 Lymph % (Auto) 15.8 [place] % (Auto) 6.7 Eos % (Auto) 2.1 Baso % (Auto) 0.4 Immature Gran # (Auto) 0.02 Neut # (Auto) 5.94 Lymph # (Auto) 1.26 [place] # (Auto) 0.53 Eos # (Auto) 0.17 Baso # (Auto) 0.03 ESR 9 APTT PTT Ratio Sodium 139 Potassium 4.3 Chloride 107 Carbon Dioxide 28 Anion Gap 4.0 BUN 21 H Creatinine 1.18 Est Cr Clr Drug Dosing 41.8 Est GFR ( Amer) 54.9 Est GFR (Non-Af Amer) 47.4 BUN/Creatinine Ratio 17.8 Glucose 123 H Calcium 8.9 Magnesium Cancelled Total Bilirubin 0.5 AST 39 H ALT 71 Alkaline Phosphatase 105 Troponin I C-Reactive Protein 0.67 H Total Protein 6.7 Albumin 3.2 L Globulin 3.5 Albumin/Globulin Ratio 0.9 Triglycerides Cholesterol LDL Cholesterol, Calc VLDL Cholesterol, Calc HDL Cholesterol Cholesterol/HDL Ratio Lipase 209 TSH Cancelled Urine Color Urine Appearance Urine pH Ur Specific [place] Urine Protein Urine Glucose (UA) Urine Ketones Urine Blood Urine Nitrite Urine Bilirubin Urine Urobilinogen Ur Leukocyte Esterase Urine WBC (Auto) Urine RBC (Auto) U Hyaline Cast (Auto) U Epithel Cells (Auto) Urine Bacteria (Auto) Hepatitis C Ab Screen 02/10/20 02/10/20 02/10/20 18:25 20:45 21:00 WBC RBC Hgb Hct MCV MCH MCHC RDW Std Deviation RDW Coeff of Angélica Plt Count MPV Immature Gran % (Auto) Neut % (Auto) Lymph % (Auto) [place] % (Auto) Eos % (Auto) Baso % (Auto) Immature Gran # (Auto) Neut # (Auto) Lymph # (Auto) [place] # (Auto) Eos # (Auto) Baso # (Auto) ESR APTT 23.3 PTT Ratio 0.8 Sodium Potassium Chloride Carbon Dioxide Anion Gap BUN Creatinine Est Cr Clr Drug Dosing Est GFR ( Amer) Est GFR (Non-Af Amer) BUN/Creatinine Ratio Glucose Calcium Magnesium Total Bilirubin AST ALT Alkaline Phosphatase Troponin I 0.021 C-Reactive Protein Total Protein Albumin Globulin Albumin/Globulin Ratio Triglycerides Cholesterol LDL Cholesterol, Calc VLDL Cholesterol, Calc HDL Cholesterol Cholesterol/HDL Ratio Lipase TSH Urine Color Yellow Urine Appearance Clear Urine pH 5.0 Ur Specific [place] 1.025 Urine Protein Negative Urine Glucose (UA) Negative Urine Ketones Negative Urine Blood Negative Urine Nitrite Negative Urine Bilirubin Negative Urine Urobilinogen Negative Ur Leukocyte Esterase 1+ H Urine WBC (Auto) 5-10 H Urine RBC (Auto) 0-4 U Hyaline Cast (Auto) 0 U Epithel Cells (Auto) 20-30 H Urine Bacteria (Auto) Negative Hepatitis C Ab Screen 02/10/20 02/11/20 02/11/20 21:00 00:12 06:02 WBC 6.36 RBC 4.49 Hgb 14.9 Hct 44.2 MCV 98.4 MCH 33.2 MCHC 33.7 RDW Std Deviation 54.1 H RDW Coeff of Angélica 14.9 H Plt Count 225 MPV 11.4 H Immature Gran % (Auto) 0.2 Neut % (Auto) 63.8 Lymph % (Auto) 24.2 [place] % (Auto) 7.7 Eos % (Auto) 3.5 Baso % (Auto) 0.6 Immature Gran # (Auto) 0.01 Neut # (Auto) 4.06 Lymph # (Auto) 1.54 [place] # (Auto) 0.49 Eos # (Auto) 0.22 Baso # (Auto) 0.04 ESR APTT PTT Ratio Sodium Potassium Chloride Carbon Dioxide Anion Gap BUN Creatinine Est Cr Clr Drug Dosing Est GFR ( Amer) Est GFR (Non-Af Amer) BUN/Creatinine Ratio Glucose Calcium Magnesium 2.5 H Total Bilirubin AST ALT Alkaline Phosphatase Troponin I 0.017 C-Reactive Protein Total Protein Albumin Globulin Albumin/Globulin Ratio Triglycerides Cholesterol LDL Cholesterol, Calc VLDL Cholesterol, Calc HDL Cholesterol Cholesterol/HDL Ratio Lipase TSH 2.630 Urine Color Urine Appearance Urine pH Ur Specific [place] Urine Protein Urine Glucose (UA) Urine Ketones Urine Blood Urine Nitrite Urine Bilirubin Urine Urobilinogen Ur Leukocyte Esterase Urine WBC (Auto) Urine RBC (Auto) U Hyaline Cast (Auto) U Epithel Cells (Auto) Urine Bacteria (Auto) Hepatitis C Ab Screen 02/11/20 02/11/20 06:02 06:02 WBC RBC Hgb Hct MCV MCH MCHC RDW Std Deviation RDW Coeff of Angélica Plt Count MPV Immature Gran % (Auto) Neut % (Auto) Lymph % (Auto) [place] % (Auto) Eos % (Auto) Baso % (Auto) Immature Gran # (Auto) Neut # (Auto) Lymph # (Auto) [place] # (Auto) Eos # (Auto) Baso # (Auto) ESR APTT PTT Ratio Sodium 141 Potassium 4.0 Chloride 105 Carbon Dioxide 31 Anion Gap 6.0 BUN 19 H Creatinine 1.10 Est Cr Clr Drug Dosing 44.4 Est GFR ( Amer) 59.7 Est GFR (Non-Af Amer) 51.5 BUN/Creatinine Ratio 17.5 Glucose 101 H Calcium 8.6 Magnesium Total Bilirubin AST ALT Alkaline Phosphatase Troponin I C-Reactive Protein Total Protein Albumin Globulin Albumin/Globulin Ratio Triglycerides 169 H Cholesterol 167 LDL Cholesterol, Calc 106 VLDL Cholesterol, Calc 34 HDL Cholesterol 27 Cholesterol/HDL Ratio 6 Lipase TSH Urine Color Urine Appearance Urine pH Ur Specific [place] Urine Protein Urine Glucose (UA) Urine Ketones Urine Blood Urine Nitrite Urine Bilirubin Urine Urobilinogen Ur Leukocyte Esterase Urine WBC (Auto) Urine RBC (Auto) U Hyaline Cast (Auto) U Epithel Cells (Auto) Urine Bacteria (Auto) Hepatitis C Ab Screen Neg
[2020-02-11] MEDS ORDERED: GABAPENTIN 1200MG ALCOHOL WITHDRAWAL LOAD PO STA (15:56)
[2020-02-11] MEDS ORDERED: LORazepam 1 MG TAB PO PRN (15:56)
[2020-02-11] MEDS ORDERED: GABAPENTIN 600 MG TAB PO SCH (16:00)
[2020-02-11] MEDS: THIAMINE HCL 100 MG TAB PO SCH (17:13)
[2020-02-11] MEDS: FOLIC ACID 1 MG TAB PO SCH (17:13)
[2020-02-11] MEDS: GABAPENTIN 600 MG TAB PO SCH (21:32)
[2020-02-12] MEDS: GABAPENTIN 600 MG TAB PO SCH ×3 (03:53→20:21)
[2020-02-12] MEDS: PANTOprazole 40 MG TAB PO SCH (07:51)
[2020-02-12] MEDS: ASPIRIN 81 MG ECTAB PO SCH (07:51)
[2020-02-12] MEDS: METOPROLOL SUCC 25MG EXT REL TAB PO SCH (07:52)
[2020-02-12] MEDS: DOCUSATE SODIUM 100 MG CAP PO SCH ×2 (07:52→20:20)
[2020-02-12] MEDS: FOLIC ACID 1 MG TAB PO SCH (07:52)
[2020-02-12] MEDS: ENOXAPARIN INJ 40 MG/0.4 ML SYR SQ SCH (07:52)
[2020-02-12] MEDS: THIAMINE HCL 100 MG TAB PO SCH (07:55)
[2020-02-12] MEDS: FUROSEMIDE 40 MG in SYRINGE 0 ML IV SCH (07:55)
[2020-02-12] MEDS ORDERED: SPIRONOLACTONE 12.5 MG TAB PO SCH (09:00)
[2020-02-12 09:46] LABS: BUN Creatinine Ratio 16.9 (10-20); Calcium 8.6 mg/dl (8.5-10.1); Creatinine Clr Calc Pharmacy 38.5 ml/min; Est GFR (African American) 51.2; Est GFR (Non-African American) 44.2; Magnesium 2.2 mg/dl (1.8-2.4); Potassium 3.4 mmol/L (3.5-5.1)
[2020-02-12] MEDS ORDERED: lisinopriL 5 MG TAB PO ONE (11:29)
--- NOTE | 2020-02-12 11:35 | Cardiology Progress Note ---
Date of Service February 12, 2020 Assessment & Plan (1) Acute left systolic heart failure: (2) Mitral regurgitation: (3) Cardiomyopathy: (4) Tobacco abuse: The patient is clinically comfortable and I believe out of congestive heart failure. I am going to switch her IV Lasix over to oral. She was started on long-acting metoprolol I think the addition of an SANDRA inhibitor is important for guideline directed medications. I will hold her Aldactone that was started yesterday and start low-dose lisinopril today. Subjective The patient is feeling markedly improved. She has no new cardiac complaints. Review of Systems Review of Systems: All systems reviewed & are unremarkable except as noted in HPI & below Nothing additional to add. Physical Exam Physical Exam: General: no acute distress and stated age Head: normocephalic, no masses, lesions, tenderness or abnormalities Eyes: conjunctiva are pink and non-injected, sclera clear Neck: supple, no adenopathy, no bruits, normal jugular venous pulse, no hepatojugular reflux Chest: normal shape and normal respiratory effort Lungs: clear to auscultation and percussion Cardiac Exam: - regular rate & rhythm, no murmurs gallops or rubs - normal S1, normal S2 and S3 is present. Pulses: 2(+) throughout Abdomen: abdomen soft, non-tender, no abnormal masses and no hepatosplenomegaly Musculoskeletal: no gait disturbance, no joint inflammation, no deforming arthritis Extremities: no edema and no cyanosis Neuro: grossly normal exam Results & Data Vital Signs (Past 12 Hours) Vital Signs Temp Pulse Pulse Resp BP BP Pulse Ox 02/12/20 11: 36.8 C 108 H 18 104/77 90 02/12/20 08:10 36.1 C L 94 H 18 110/71 92 02/12/20 03:14 36.6 C 90 17 101/62 90 02/12/20 00:52 02/11/20 23:46 36.6 C 68 17 108/72 95 02/11/20 23:45 86 Pulse Ox 02/12/20 11:20 02/12/20 08:10 02/12/20 03:14 02/12/20 00:52 95 02/11/20 23:46 02/11/20 23:45 95 Laboratory Results Laboratory Results - last 24 hr 02/11/20 02/12/20 16:02 09:09 Sodium 141 Potassium 3.4 L Chloride 104 Carbon Dioxide 32 Anion Gap 5.0 BUN 21 H Creatinine 1.25 H Est Cr Clr Drug Dosing 38.5 Est GFR ( Amer) 51.2 Est GFR (Non-Af Amer) 44.2 BUN/Creatinine Ratio 16.9 Glucose 99 Calcium 8.6 Magnesium 2.2 Folate 15.16 Medications Administered Current Inpatient Medications Acetaminophen (Tylenol) 325 mg PO Q6H PRN PRN Reason: Pain or Fever Stop: 03/12/20 00:07 Aspirin (Ecotrin Ectab) 81 mg PO [facility] Stop: 03/12/20 08:59 Last Admin: 02/12/20 07:51 Dose: 81 mg Documented by: Docusate Sodium (Colace) 100 mg PO BID [facility] Stop: 03/12/20 08:59 Last Admin: 02/12/20 07:52 Dose: 100 mg Documented by: Enoxaparin Sodium (Lovenox) 40 mg SQ [facility] Stop: 03/12/20 08:59 Last Admin: 02/12/20 07:52 Dose: 40 mg Documented by: Folic Acid (Folvite) [facility] [facility] [place]: 03/12/20 16:29 Last Admin: 02/12/20 07:52 Dose: 1 mg Documented by: Furosemide (Lasix) 40 mg PO [id number] [facility] Stop: 03/13/20 16:59 Gabapentin (Neurontin) 600 mg PO Q8H [facility] Stop: 02/13/20 06:01 Gabapentin (Neurontin) 600 mg PO Q12H [facility] Stop: 02/14/20 06:01 Gabapentin (Neurontin) 600 mg PO Q24H [facility] Stop: 02/15/20 06:01 Promethazine HCl 12.5 mg/ (Sodium Chloride) 50.5 mls @ 202 mls/hr IV Q6H PRN PRN Reason: Nausea And Vomiting Stop: 03/12/20 00:07 Lorazepam (Ativan) 0.25 mg in 0.5 mls @ 0.5 mls/min IV Q4H PRN PRN Reason: Anxiety Stop: 03/12/20 00:07 Lisinopril (Zestril) 5 mg PO NOW ONE Stop: 02/12/20 11:30 Lisinopril (Zestril) [facility] [place]: 03/14/20 08:59 Lorazepam (Ativan) 1 mg PO ONE PRN; Protocol PRN Reason: EtoH Withdrawal AWSS 6-10 Menthol (Nice) 1 rolf BUCCAL PRN PRN PRN Reason: Sore Throat Stop: 03/12/20 04:58 Last Admin: 02/11/20 05:46 Dose: 1 rolf Documented by: Metoprolol Succinate (Toprol Xl) 25 mg PO [facility] Stop: 03/13/20 08:59 Last Admin: 02/12/20 07:52 Dose: 25 mg Documented by: Nitroglycerin (Nitrostat) 0.4 mg SL UD PRN PRN Reason: Chest Pain Stop: 03/12/20 00:07 Oxycodone HCl (Roxicodone Immediate Rel) 5 mg PO Q4H PRN PRN Reason: Pain Stop: 02/25/20 00:07 Pantoprazole Sodium (Protonix) 40 mg PO [facility] Stop: 03/12/20 08:59 Last Admin: 02/12/20 07:51 Dose: 40 mg Documented by: Thiamine HCl (Vitamin B-1) 100 mg PO [facility] Stop: 03/12/20 16:29 Last Admin: 02/12/20 07:55 Dose: 100 mg Documented by:
[2020-02-12] MEDS ORDERED: POTASSIUM CHLORIDE 20 MEQ TABCR PO SCH (12:15)
--- NOTE | 2020-02-12 12:17 | Hospitalist Progress Note ---
Date of Service February 12, 2020 Assessment & Plan (1) Acute CHF: (1) CHF (congestive heart failure): 69-year-old female with history of dyslipidemia, alcoholism, smoking, presenting with shortness of breath Congestive heart failure, systolic and diastolic type, likely acute on chronic exacerbation Severe Mitral regurgitation - echo: mildly dilated LV chamber size with gloabl wall thinning severely reduced LV systolic function with severe global hypokinesis EF 15- 20% Grade 2 diastolic dysfunction severe mitral regurgitation with pulmonary vein flow reversal severe left atrial enlargement - diuresed well - lasix changed to PO Metoprolol 25mg changed to XL Lisinopril 5mg daily added Alcoholism no signs of overt alcohol withdrawal continue alcohol withdrawal protocol including gabapentin taper Smoker Patient declining nicotine patch Counseled on alcohol as well as tobacco cessation hyperlipidemia - not on statin rx as per patient preference LDL 106 TG 169 DVT prophylaxis. Lovenox subcu Full code Disposition Anticipate discharge to home medically stable Admission and Anticipated Discharge Date Admission Date: February 10, 2020 Subjective ff up for CHF exacerbation, volume overload seen sleeping but easily awakened not in distress, comfortable states she feels improved today no dyspnea, cough no chest pain, palpitations no other symptoms Review of Systems Review of Systems: All systems reviewed & are unremarkable except as noted in HPI & below Physical Exam Physical Exam: General- oriented x 3, not in distress, speaks in sentences with no effort or accessory muscle use Eyes- anicteric Neck- no JVD Lungs- clear breath sounds bilaterally, no rales/wheezes Heart- normal rate, regular rhythm; (+) murmur- holosystolic Abdomen- normal bowel sounds, nondistended, soft, nontender Extremities- no pretibial edema, no calf tenderness Neuro- alert, oriented x 3; no gross focal neurologic deficits Skin- warm & dry Results & Data Results & Data ([facility]) Vital Signs (Past 12 Hours) Vital Signs Temp Pulse Resp BP BP Pulse Ox Pulse Ox 02/12/20 11:20 36.8 C 108 H 18 104/77 90 02/12/20 08:10 36.1 C L 94 H 18 110/71 92 02/12/20 03:14 36.6 C 90 17 101/62 90 02/12/20 00:52 95 Laboratory Results Laboratory Results - last 24 hr 02/11/20 02/12/20 16:02 09:09 Sodium 141 Potassium 3.4 L Chloride 104 Carbon Dioxide 32 Anion Gap 5.0 BUN 21 H Creatinine 1.25 H Est Cr Clr Drug Dosing 38.5 Est GFR ( Amer) 51.2 Est GFR (Non-Af Amer) 44.2 BUN/Creatinine Ratio 16.9 Glucose 99 Calcium 8.6 Magnesium 2.2 Folate 15.16
[2020-02-12] MEDS ORDERED: FUROSEMIDE 40 MG TAB PO SCH (17:00)
[2020-02-12] MEDS ORDERED: ALBUMIN 25% 50 ML IV ONE (19:48)
[2020-02-12 20:32] LABS: BUN Creatinine Ratio 17.7 (10-20); Calcium 8.4 mg/dl (8.5-10.1); Creatinine Clr Calc Pharmacy 36.2 ml/min; Est GFR (African American) 47.5; Magnesium 2.3 mg/dl (1.8-2.4); Potassium 4.7 mmol/L (3.5-5.1)
[2020-02-13 01:55] LABS: Appearance Urine Clear (Clear); Bacteria Urine Automated Negative (Negative); Bilirubin Urine Negative (Negative); Blood Urine Negative (Negative); Color Urine Yellow; Epithelial Cell Urine Auto 20-30 /lpf (0-5); Glucose Urine UA Negative (Negative); Ketones Urine Negative (Negative); Leukocyte Esterase Urine 1+ (Negative); Nitrite Urine Negative (Negative); Protein Urine Negative (Negative); RBC Urine Automated 0-4 /hpf (0-4); Urobilinogen Urine Negative (Negative); pH Urine 8.5 (4.5-7.5)
--- NOTE | 2020-02-13 02:39 | Communication Note ---
Date of Service: February 12, 2020 Made aware by RN of SBP 80s. Patient asymptomatic as per RN. serum crea 1.34 from 1.25 in a.m. AP Hypotension secondary to possible overdiuresis ARF secondary to above IV albumin 1 dose Hold Lasix, lisinopril for now Baseline UA, monitor renal function Will relay to AM provider.
[2020-02-13] MEDS: GABAPENTIN 600 MG TAB PO SCH ×2 (05:46→16:33)
[2020-02-13 06:35] LABS: BUN Creatinine Ratio 20.1 (10-20); Calcium 8.5 mg/dl (8.5-10.1); Est GFR (African American) 58.5; Est GFR (Non-African American) 50.4; Potassium 4.4 mmol/L (3.5-5.1)
[2020-02-13] MEDS: FOLIC ACID 1 MG TAB PO SCH (07:55)
[2020-02-13] MEDS: PANTOprazole 40 MG TAB PO SCH (07:55)
[2020-02-13] MEDS: ENOXAPARIN INJ 40 MG/0.4 ML SYR SQ SCH (07:55)
[2020-02-13] MEDS: ASPIRIN 81 MG ECTAB PO SCH (07:55)
[2020-02-13] MEDS: DOCUSATE SODIUM 100 MG CAP PO SCH ×2 (07:55→20:02)
[2020-02-13] MEDS: THIAMINE HCL 100 MG TAB PO SCH (07:56)
[2020-02-13] MEDS: METOPROLOL SUCC 25MG EXT REL TAB PO SCH ×2 (07:56→11:06)
[2020-02-13] MEDS ORDERED: lisinopriL 5 MG TAB PO SCH (09:00)
--- NOTE | 2020-02-13 09:54 | Cardiology Progress Note ---
Date of Service February 13, 2020 Assessment & Plan (1) Cardiomyopathy: (2) Mitral regurgitation: (3) Acute left systolic heart failure: I reviewed the patient's echocardiogram from earlier in her admission. She has severe mitral regurgitation and it could be the etiology for her cardiomyopathy. 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 Her blood pressure has been running low and unfortunately her medications were held last night and this morning. We have to accept a systolic blood pressure of 90 in this patient with mitral regurgitation and severe cardiomyopathy. She needs the medications. She had a run of nonsustained ventricular tachycardia this morning and I think she would benefit from a beta-cachorro. I will restart the Toprol XL at 12.5 mg daily. I also will provide lisinopril 2.5 mg nightly so that we split the dosing. All her electrolytes appear to be okay. I had a long discussion with the patient and I believe she will require a transesophageal echocardiogram at some point. She does not examine like she is in heart failure right now so I think holding her diuretics at this point would be okay. Subjective The patient was noted to have low blood pressure last night. Unfortunately medications have been held. This morning she had nonsustained ventricular tachycardia. Review of Systems Review of Systems: All systems reviewed & are unremarkable except as noted in HPI & below Nothing additional to add. Physical Exam Physical Exam: General: no acute distress and stated age Head: normocephalic, no masses, lesions, tenderness or abnormalities Eyes: conjunctiva are pink and non-injected, sclera clear Neck: supple, no adenopathy, no bruits, normal jugular venous pulse, no hepatojugular reflux Chest: normal shape and normal respiratory effort Lungs: clear to auscultation and percussion Cardiac Exam: - regular rate & rhythm, no murmurs gallops or rubs - normal S1, normal S2 Pulses: 2(+) throughout Abdomen: abdomen soft, non-tender, no abnormal masses and no hepatosplenomegaly Musculoskeletal: no gait disturbance, no joint inflammation, no deforming arthritis Extremities: no edema and no cyanosis Neuro: grossly normal exam Results & Data Vital Signs (Past 12 Hours) Vital Signs Temp Pulse Pulse Resp BP Pulse Ox 02/13/20 09:39 94/61 L 02/13/20 08:00 92 H 02/13/20 07:51 36.9 C 94 H 28 H 92/44 L 90 02/13/20 03:36 36.8 C 98 H 20 104/71 91 02/12/20 22:59 37.1 C 101 H 17 110/74 93 02/12/20 22:20 111 H Laboratory Results Laboratory Results - last 24 hr 02/12/20 02/12/20 02/13/20 20:05 20:05 01:45 Sodium 137 Potassium 4.7 D Chloride 102 Carbon Dioxide 33 H Anion Gap 2.0 L BUN 24 H Creatinine 1.33 H Est Cr Clr Drug Dosing 36.2 Est GFR ( Amer) 47.5 Est GFR (Non-Af Amer) 41.0 BUN/Creatinine Ratio 17.7 Glucose 116 H Lactate 1.1 Calcium 8.4 L Magnesium 2.3 Urine Color Yellow Urine Appearance Clear Urine pH 8.5 H Ur Specific [place] 1.020 Urine Protein Negative Urine Glucose (UA) Negative Urine Ketones Negative Urine Blood Negative Urine Nitrite Negative Urine Bilirubin Negative Urine Urobilinogen Negative Ur Leukocyte Esterase 1+ H Urine WBC (Auto) 10-30 H Urine RBC (Auto) 0-4 U Hyaline Cast (Auto) 1-5 U Epithel Cells (Auto) 20-30 H Urine Bacteria (Auto) Negative 02/13/20 05:26 Sodium 136 Potassium 4.4 Chloride 103 Carbon Dioxide 29 Anion Gap 4.0 BUN 23 H Creatinine 1.12 Est Cr Clr Drug Dosing 43.0 Est GFR ( Amer) 58.5 Est GFR (Non-Af Amer) 50.4 BUN/Creatinine Ratio 20.1 H Glucose 108 H Lactate Calcium 8.5 Magnesium Urine Color Urine Appearance Urine pH Ur Specific [place] Urine Protein Urine Glucose (UA) Urine Ketones Urine Blood Urine Nitrite Urine Bilirubin Urine Urobilinogen Ur Leukocyte Esterase Urine WBC (Auto) Urine RBC (Auto) U Hyaline Cast (Auto) U Epithel Cells (Auto) Urine Bacteria (Auto) Medications Administered Current Inpatient Medications Acetaminophen (Tylenol) 325 mg PO Q6H PRN PRN Reason: Pain or Fever Stop: 03/12/20 00:07 Aspirin ([facility]rin Ectab) [facility] [place] Stop: 03/12/20 08:59 Last Admin: 02/13/20 07:55 Dose: 81 mg Documented by: Docusate Sodium (Colace) 100 mg PO BID [facility] Stop: 03/12/20 08:59 Last Admin: 02/13/20 07:55 Dose: 100 mg Documented by: Enoxaparin Sodium (Lovenox) 40 mg SQ QAM [facility] Stop: 03/12/20 08:59 Last Admin: 02/13/20 07:55 Dose: 40 mg Documented by: Folic Acid (Folvite) [facility] [place] Stop: 03/12/20 16:29 Last Admin: 02/13/20 07:55 Dose: 1 mg Documented by: Gabapentin (Neurontin) 600 mg PO Q12H [facility] Stop: 02/14/20 06:01 Gabapentin (Neurontin) 600 mg PO Q24H [facility] Stop: 02/15/20 06:01 Promethazine HCl 12.5 mg/ (Sodium Chloride) 50.5 mls @ 202 mls/hr IV Q6H PRN PRN Reason: Nausea And Vomiting Stop: 03/12/20 00:07 Lorazepam (Ativan) 0.25 mg in 0.5 mls @ 0.5 mls/min IV Q4H PRN PRN Reason: Anxiety Stop: 03/12/20 00:07 Lisinopril (Zestril) 2.5 mg PO HS [facility] Stop: 03/14/20 21:59 Lorazepam (Ativan) 1 mg PO ONE PRN; Protocol PRN Reason: EtoH Withdrawal AWSS 6-10 Menthol (Nice) 1 rolf BUCCAL PRN PRN PRN Reason: Sore Throat Stop: 03/12/20 04:58 Last Admin: 02/11/20 05:46 Dose: 1 rolf Documented by: Metoprolol Succinate (Toprol Xl) 12.[facility] [place] Stop: 03/14/20 09:59 Nitroglycerin (Nitrostat) 0.4 mg SL UD PRN PRN Reason: Chest Pain Stop: 03/12/20 00:07 Oxycodone HCl (Roxicodone Immediate Rel) 5 mg PO Q4H PRN PRN Reason: Pain Stop: 02/25/20 00:07 Pantoprazole Sodium (Protonix) [facility] [place] Stop: 03/12/20 08:59 Last Admin: 02/13/20 07:55 Dose: 40 mg Documented by: Thiamine HCl (Vitamin B-1) 100 mg PO QAM [facility] Stop: 03/12/20 16:29 Last Admin: 02/13/20 07:56 Dose: 100 mg Documented by:
[2020-02-13] MEDS: PROMETHAZINE HCL 12.5 MG in SODIUM CHLORIDE 0.9% 50 ML IV PRN (17:03)
--- NOTE | 2020-02-13 17:32 | Hospitalist Progress Note ---
Date of Service February 13, 2020 Assessment & Plan (1) Acute CHF: (1) CHF (congestive heart failure): 69-year-old female with history of dyslipidemia, alcoholism, smoking, presenting with shortness of breath Congestive heart failure, systolic and diastolic type, likely acute on chronic exacerbation Severe Mitral regurgitation - echo: mildly dilated LV chamber size with gloabl wall thinning severely reduced LV systolic function with severe global hypokinesis EF 15- 20% Grade 2 diastolic dysfunction severe mitral regurgitation with pulmonary vein flow reversal severe left atrial enlargement - BP low, crea increased overnight - hold diuretics Metoprolol XL reduced to 12.5mg po daily Lisinopril reduced to 2.5mg po daily Alcoholism - no signs of overt alcohol withdrawal continue alcohol withdrawal protocol including gabapentin taper Smoker Patient declining nicotine patch Counseled on alcohol as well as tobacco cessation hyperlipidemia - not on statin rx as per patient preference LDL 106 TG 169 DVT prophylaxis. Lovenox subcu Full code Disposition Anticipate discharge to home medically stable Admission and Anticipated Discharge Date Admission Date: February 10, 2020 Subjective ff up for CHF seen resting in bed, comfortable denies dizziness, weakness no chest pain, dyspnea, palpitations no anxiety, tremors, hallucinations no other symptoms Review of Systems Review of Systems: All systems reviewed & are unremarkable except as noted in HPI & below Physical Exam Physical Exam: General- oriented x 3, not in distress, speaks in sentences with no effort or accessory muscle use Eyes- anicteric Neck- no JVD Lungs- clear breath sounds bilaterally, no crackles Heart- normal rate, regular rhythm; (+) holosystolic murmur Abdomen- normal bowel sounds, nondistended, soft, nontender Extremities- no pretibial edema, no calf tenderness Neuro- alert, oriented x 3; no gross focal neurologic deficits Skin- warm & dry Results & Data Results & Data ([facility]) Vital Signs (Past 12 Hours) Vital Signs Temp Pulse Pulse Resp BP Pulse Ox 02/13/20 11:00 36.8 C 90 18 99/66 L 94 02/13/20 09:39 94/61 L 02/13/20 08:00 92 H 02/13/20 07:51 36.9 C 94 H 28 H 92/44 L 90
[2020-02-14] MEDS: GABAPENTIN 600 MG TAB PO SCH (05:51)
[2020-02-14 06:50] LABS: BUN Creatinine Ratio 16.9 (10-20); Calcium 8.5 mg/dl (8.5-10.1); Creatinine Clr Calc Pharmacy 46.5 ml/min; Est GFR (African American) 63.9; Est GFR (Non-African American) 55.2; Potassium 4.4 mmol/L (3.5-5.1)
[2020-02-14] MEDS: METOPROLOL SUCC 25MG EXT REL TAB PO SCH (07:55)
[2020-02-14] MEDS: DOCUSATE SODIUM 100 MG CAP PO SCH ×2 (07:55→20:22)
[2020-02-14] MEDS: THIAMINE HCL 100 MG TAB PO SCH (07:56)
[2020-02-14] MEDS: ASPIRIN 81 MG ECTAB PO SCH (07:56)
[2020-02-14] MEDS: PANTOprazole 40 MG TAB PO SCH (07:56)
[2020-02-14] MEDS ORDERED: METOPROLOL TARTRATE 1 MG/ML VIAL IV ONE (09:15)
[2020-02-14] MEDS ORDERED: METOPROLOL TARTRATE 1 MG/ML VIAL IV STA ×2 (09:18→12:59)
[2020-02-14] MEDS ORDERED: AMIODARONE IV BOLUS & DRIP IV STA (09:22)
[2020-02-14] MEDS ORDERED: AMIODARONE / D5W 150 MG/100 ML BAG IV STA (09:22)
[2020-02-14] MEDS ORDERED: STAT IV Infusion **Titration per Protocol STA (09:22)
[2020-02-14] MEDS ORDERED: 0.2 MICRON FILTER SET 1 EA IV ONE (09:30)
[2020-02-14] MEDS: AMIODARONE 450 MG in D5W 250ML IN *POLYOLEFIN BAG* 241 ML IV SCH ×3 (09:46→20:20)
[2020-02-14] MEDS: ENOXAPARIN INJ 40 MG/0.4 ML SYR SQ SCH (10:04)
[2020-02-14] MEDS: FOLIC ACID 1 MG TAB PO SCH (10:04)
--- NOTE | 2020-02-14 10:10 | Cardiology Progress Note ---
Date of Service February 14, 2020 Assessment & Plan (1) Acute CHF: (2) Tobacco abuse: (3) Cardiomyopathy: (4) Mitral regurgitation: (5) Acute left systolic heart failure: The patient was started immediately on an amiodarone infusion when the atrial fibrillation started. Hopefully she will convert quickly back to normal sinus rhythm. She had been doing well and I considered repeating the echocardiogram to see if there was improvement in her MR after diuresis and the start of an SANDRA inhibitor. I will recheck her later today but currently despite the arrhythmia she is stable. (6) Atrial fibrillation: Subjective Patient had the start of rapid atrial fibrillation this morning which is persistent. No chest pain or shortness of breath with this arrhythmia. She appears to be comfortable. Review of Systems Review of Systems: All systems reviewed & are unremarkable except as noted in HPI & below Nothing additional to add. Physical Exam Physical Exam: General: no acute distress and stated age Head: normocephalic, no masses, lesions, tenderness or abnormalities Eyes: conjunctiva are pink and non-injected, sclera clear Neck: supple, no adenopathy, no bruits, normal jugular venous pulse, no hepatojugular reflux Chest: normal shape and normal respiratory effort Lungs: clear to auscultation and percussion Cardiac Exam: - irregular rate & rhythm with tachycardia, no murmurs gallops or rubs - normal S1, normal S2 Pulses: 2(+) throughout Abdomen: abdomen soft, non-tender, no abnormal masses and no hepatosplenomegaly Musculoskeletal: no gait disturbance, no joint inflammation, no deforming arthritis Extremities: no edema and no cyanosis Neuro: grossly normal exam Results & Data Vital Signs (Past 12 Hours) Vital Signs Temp Pulse Pulse Resp BP BP Pulse Ox 02/14/20 08:00 36.7 C 87 22 116/76 98 02/14/20 04:36 36.5 C 89 21 99/62 L 99 02/14/20 00:28 36.6 C 92 H 20 103/78 97 Laboratory Results Laboratory Results - last 24 hr 02/14/20 05:17 Sodium 135 L Potassium 4.4 Chloride 101 Carbon Dioxide 29 Anion Gap 5.0 BUN 18 Creatinine 1.04 Est Cr Clr Drug Dosing 46.5 Est GFR ( Amer) 63.9 Est GFR (Non-Af Amer) 55.2 BUN/Creatinine Ratio 16.9 Glucose 100 H Calcium 8.5 Medications Administered Current Inpatient Medications Acetaminophen (Tylenol) 325 mg PO Q6H PRN PRN Reason: Pain or Fever Stop: 03/12/20 00:07 Amiodarone HCl () 1 ea N/A ONE ONE Stop: 02/14/20 15:46 Aspir[facility] ([facility]rin [facility]ab) [facility] [place] Stop: 03/12/20 08:59 Last Admin: 02/14/20 07:56 Dose: 81 mg Documented by: Docusate Sodium (Colace) 100 mg PO BID [facility] Stop: 03/12/20 08:59 Last Admin: 02/14/20 07:55 Dose: 100 mg Documented by: Enoxaparin Sodium (Lovenox) 40 mg SQ [facility] Stop: 03/12/20 08:59 Last Admin: 02/14/20 10:04 Dose: 40 mg Documented by: Folic Acid (Folvite) [facility] [place] Stop: 03/12/20 16:29 Last Admin: 02/14/20 10:04 Dose: 1 mg Documented by: Gabapentin (Neurontin) 600 mg PO Q24H [facility] Stop: 02/15/20 06:01 Promethazine HCl 12.5 mg/ (Sodium Chloride) 50.5 mls @ 202 mls/hr IV Q6H PRN PRN Reason: Nausea And Vomiting Stop: 03/12/20 00:07 Last Infusion: 02/13/20 17:25 Dose: Infused Documented by: Lorazepam (Ativan) 0.25 mg in 0.5 mls @ 0.5 mls/min IV Q4H PRN PRN Reason: Anxiety Stop: 03/12/20 00:07 Amiodarone HCl 450 mg/ (Dextrose) 250 mls @ 33.333 mls/hr IV .Q7H30M [facility]; Protocol Stop: 03/15/20 09:44 Last Admin: 02/14/20 09:46 Dose: 1 mg/min, 33.3 mls/hr Documented by: Lisinopril (Zestril) 5 mg PO HS [facility] Stop: 03/15/20 20:59 Lorazepam (Ativan) 1 mg PO ONE PRN; Protocol PRN Reason: EtoH Withdrawal AWSS 6-10 Menthol (Nice) 1 rolf BUCCAL PRN PRN PRN Reason: Sore Throat Stop: 03/12/20 04:58 Last Admin: 02/11/20 05:46 Dose: 1 rolf Documented by: Metoprolol Succinate (Toprol Xl) 12.5 mg PO [facility] Stop: 03/14/20 09:59 Last Admin: 02/14/20 07:55 Dose: 12.5 mg Documented by: Nitroglycerin (Nitrostat) 0.4 mg SL UD PRN PRN Reason: Chest Pain Stop: 03/12/20 00:07 Oxycodone HCl (Roxicodone Immediate Rel) 5 mg PO Q4H PRN PRN Reason: Pain Stop: 02/25/20 00:07 Pantoprazole Sodium (Protonix) 40 mg PO [facility] Stop: 03/12/20 08:59 Last Admin: 02/14/20 07:56 Dose: 40 mg Documented by: Thiamine HCl (Vitamin B-1) 100 mg PO [facility] Stop: 03/12/20 16:29 Last Admin: 02/14/20 07:56 Dose: 100 mg Documented by:
--- NOTE | 2020-02-14 11:12 | Hospitalist Progress Note ---
Date of Service February 14, 2020 Assessment & Plan (1) Acute CHF: (1) CHF (congestive heart failure): 69-year-old female with history of dyslipidemia, alcoholism, smoking, presenting with shortness of breath Congestive heart failure, systolic and diastolic type, likely acute on chronic exacerbation Severe Mitral regurgitation - echo: mildly dilated LV chamber size with gloabl wall thinning severely reduced LV systolic function with severe global hypokinesis EF 15- 20% Grade 2 diastolic dysfunction severe mitral regurgitation with pulmonary vein flow reversal severe left atrial enlargement - received lasix IV, became hypotensive, crea increased at one point BP and crea stable now -- started on Metoprolol XL, reduced to 12.5mg po daily and Lisinopril 5mg po daily A fib with RVR -- started 02/14/20 - Amiodarone IV started Alcoholism - no signs of overt alcohol withdrawal continue alcohol withdrawal protocol including gabapentin taper Smoker Patient declining nicotine patch Counseled on alcohol as well as tobacco cessation hyperlipidemia - not on statin rx as per patient preference LDL 106 TG 169 DVT prophylaxis. Lovenox subcu Full code Disposition Anticipate discharge to home medically stable Admission and Anticipated Discharge Date Admission Date: February 10, 2020 Subjective ff up for CHF noted to be in a fib with RVR 140s resting in bed, not in distress states she feels bloated again denies chest pain, dyspnea, palpitations, dizziness no tremors, shaking, anxiety no other symptoms Review of Systems Review of Systems: All systems reviewed & are unremarkable except as noted in HPI & below Physical Exam Physical Exam: General- oriented x 3, not in distress, speaks in sentences with no effort or accessory muscle use Eyes- anicteric Neck- no JVD Lungs- clear breath sounds bilaterally, no rales/wheezes Heart- normal rate, regular rhythm; no murmurs Abdomen- normal bowel sounds, nondistended, soft, nontender Extremities- no pretibial edema, no calf tenderness Neuro- alert, oriented x 3; no gross focal neurologic deficits Skin- warm & dry Results & Data Results & Data ([facility]) Vital Signs (Past 12 Hours) Vital Signs Temp Pulse Pulse Resp BP BP Pulse Ox 02/14/20 08:00 36.7 C 87 22 116/76 98 02/14/20 04:36 36.5 C 89 21 99/62 L 99 02/14/20 00:28 36.6 C 92 H 20 103/78 97
--- NOTE | 2020-02-14 13:36 | Electrocardiogram Report ---
Test Reason : Blood Pressure : / mmHG Vent. Rate : 146 BPM Atrial Rate : 138 BPM P-R Int : 000 ms QRS Dur : 126 ms QT Int : 292 ms P-R-T Axes : 000 -42 085 degrees QTc Int : 455 ms Atrial fibrillation with rapid ventricular response Left axis deviation Left bundle branch block Abnormal ECG When compared with ECG of 10-FEB-2020 18:57, Atrial fibrillation has replaced Sinus rhythm Confirmed by El Monitel ([id number]) on 02/14/2020 1:35:40 PM Referred By: REFERRED SELF Confirmed By:El Montiel
[2020-02-14] MEDS ORDERED: Heparin IV Low Dose *NO* Bolus IV SCH (14:16)
[2020-02-14] MEDS ORDERED: Heparin IV Standard *NO* Bolus ONE (14:16)
--- NOTE | 2020-02-14 14:24 | Communication Note ---
Date of Service: February 14, 2020 The patient remains in atrial fibrillation. Approximately an hour ago she was given 2.5 mg of IV Lopressor which have improved her heart rate to 110-220 bpm in atrial fibrillation. Blood pressure remains marginal and is a problem with medications. Currently manual blood pressure is 110/60. The patient is complaining of her usual abdominal bloating. She has been off of Lasix for over 24 hours and I am going to give her a small dose of IV Lasix so she does not slip back into heart failure. I will continue the amiodarone however, the patient had an IV placed prehospital in the left antecubital space which is now red and erythematous along with a cord indicating phlebitis. The amiodarone will have to be switched to the other arm. Also going to switch her from Lovenox for DVT prophylaxis to IV heparin due to her persistent atrial fibrillation. I am still hopeful she will convert on her own to normal sinus rhythm.
[2020-02-14] MEDS ORDERED: HEPARIN SODIUM/DEXTROSE 25,000 UNITS/500 ML BAG IV SCH (14:30)
[2020-02-14] MEDS ORDERED: FUROSEMIDE 20 MG in SYRINGE 0 ML IV ONE (14:30)
[2020-02-14] MEDS: HEPARIN SODIUM/DEXTROSE 25,000 UNITS/500 ML BAG IV SCH (15:03)
[2020-02-14] MEDS ORDERED: AMIODARONE RATE CHANGE ONE (15:45)
[2020-02-14] MEDS ORDERED: AMIODARONE 450 MG in D5W 250ML IN *POLYOLEFIN BAG* 241 ML IV SCH (15:45)
[2020-02-14] MEDS: PROMETHAZINE HCL 12.5 MG in SODIUM CHLORIDE 0.9% 50 ML IV PRN (16:24)
[2020-02-14] MEDS: lisinopriL 5 MG TAB PO SCH (20:22)
[2020-02-14 23:01] LABS: Partial Thromboplastin Ratio 1.7
[2020-02-14 23:04] LABS: Partial Thromboplastin Time 46.7 Seconds (21.0-31.0)
[2020-02-15] MEDS ORDERED: GABAPENTIN 600 MG TAB PO SCH (06:00)
[2020-02-15 08:01] LABS: Partial Thromboplastin Ratio 1.4; Partial Thromboplastin Time 40.3 Seconds (21.0-31.0)
[2020-02-15] MEDS: METOPROLOL SUCC 25MG EXT REL TAB PO SCH (08:05)
[2020-02-15] MEDS: DOCUSATE SODIUM 100 MG CAP PO SCH ×2 (08:05→21:12)
[2020-02-15] MEDS: PANTOprazole 40 MG TAB PO SCH (08:05)
[2020-02-15] MEDS: THIAMINE HCL 100 MG TAB PO SCH (08:05)
[2020-02-15] MEDS: FOLIC ACID 1 MG TAB PO SCH (08:05)
[2020-02-15] MEDS: ASPIRIN 81 MG ECTAB PO SCH (08:05)
[2020-02-15] MEDS: AMIODARONE 450 MG in D5W 250ML IN *POLYOLEFIN BAG* 241 ML IV SCH (08:06)
[2020-02-15 08:28] LABS: BUN Creatinine Ratio 23.5 (10-20); Calcium 8.7 mg/dl (8.5-10.1); Creatinine Clr Calc Pharmacy 37.3 ml/min; Est GFR (African American) 48.8; Est GFR (Non-African American) 42.1; Potassium 4.6 mmol/L (3.5-5.1)
[2020-02-15] MEDS ORDERED: HEPARIN IV BOLUS 4,000 UNITS in SYRINGE 0 ML IV ONE (08:45)
--- NOTE | 2020-02-15 10:18 | Cardiology Progress Note ---
Date of Service February 15, 2020 Assessment & Plan (1) PAF (paroxysmal atrial fibrillation): (2) Cardiomyopathy: (3) Mitral regurgitation: (4) Acute left systolic heart failure: The patient is maintaining sinus rhythm and I will switch the amiodarone over to p.o. She had a limited echocardiogram completed this morning which I will will review. Hopefully her MR has improved along with her LV function. She has some prerenal azotemia and therefore I will hold her Lasix today. At some point she will need to be switched over from heparin to warfarin. Subjective The patient is feeling improved today. She is maintaining sinus rhythm. Review of Systems Review of Systems: All systems reviewed & are unremarkable except as noted in HPI & below Nothing additional to add. Physical Exam Physical Exam: General: no acute distress and stated age Head: normocephalic, no masses, lesions, tenderness or abnormalities Eyes: conjunctiva are pink and non-injected, sclera clear Neck: supple, no adenopathy, no bruits, normal jugular venous pulse, no hepa tojugular reflux Chest: normal shape and normal respiratory effort Lungs: clear to auscultation and percussion Cardiac Exam: - regular rate & rhythm, no murmurs gallops or rubs - normal S1, normal S2 Pulses: 2(+) throughout Abdomen: abdomen soft, non-tender, no abnormal masses and no hepatosplenomegaly Musculoskeletal: no gait disturbance, no joint inflammation, no deforming arthritis Extremities: no edema and no cyanosis Neuro: grossly normal exam Results & Data Vital Signs (Past 12 Hours) Vital Signs Temp Pulse Resp BP BP Pulse Ox 02/15/20 07:05 36.5 C 74 18 114/73 97 02/15/20 02:58 36.4 C L 74 18 130/82 98 02/15/20 00:00 36.4 C L 83 20 99/66 L 99 02/14/20 23:14 88/60 L Laboratory Results Laboratory Results - last 24 hr 02/14/20 02/15/20 02/15/20 22:08 07:08 07:08 APTT 46.7 H* 40.3 H PTT Ratio 1.7 1.4 Sodium 132 L Potassium 4.6 Chloride 98 Carbon Dioxide 27 Anion Gap 7.0 BUN 31 H D Creatinine 1.30 H Est Cr Clr Drug Dosing 37.3 Est GFR ( Amer) 48.8 Est GFR (Non-Af Amer) 42.1 BUN/Creatinine Ratio 23.5 H Glucose 100 H Calcium 8.7 Medications Administered Current Inpatient Medications Acetaminophen (Tylenol) 325 mg PO Q6H PRN PRN Reason: Pain or Fever Stop: 03/12/20 00:07 Amiodarone HCl (Cordarone) 200 mg PO [facility] Stop: 03/16/20 16:59 Aspirin (Ecotrin Ectab) [address] [facility] Stop: 03/12/20 08:59 Last Admin: 02/15/20 08:05 Dose: 81 mg Documented by: Docusate Sodium (Colace) 100 mg PO BID [facility] Stop: 03/12/20 08:59 Last Admin: 02/15/20 08:05 Dose: 100 mg Documented by: Folic Acid (Folvite) [address] [facility] Stop: 03/12/20 16:29 Last Admin: 02/15/20 08:05 Dose: 1 mg Documented by: Promethazine HCl 12.5 mg/ (Sodium Chloride) 50.5 mls @ 202 mls/hr IV Q6H PRN PRN Reason: Nausea And Vomiting Stop: 03/12/20 00:07 Last Infusion: 02/14/20 16:43 Dose: Infused Documented by: Lorazepam (Ativan) 0.25 mg in 0.5 mls @ 0.5 mls/min IV Q4H PRN PRN Reason: Anxiety Stop: 03/12/20 00:07 Last Admin: 02/14/20 20:45 Dose: 0.5 mls/min Documented by: Heparin Sodium/Dextrose (Heparin Sodium/Dextrose) 25,000 units in 500 mls @ 16 mls/hr IV .Q24H [facility]; Protocol Stop: 03/15/20 14:29 Last Titration: 02/15/20 08:38 Dose: 800 units/hr, 16 mls/hr Documented by: Lisinopril (Zestril) 5 mg PO HS [facility] Stop: 03/15/20 20:59 Last Admin: 02/14/20 20:22 Dose: 5 mg Documented by: Lorazepam (Ativan) 1 mg PO ONE PRN; Protocol PRN Reason: EtoH Withdrawal AWSS 6-10 Menthol (Nice) 1 rolf BUCCAL PRN PRN PRN Reason: Sore Throat Stop: 03/12/20 04:58 Last Admin: 02/11/20 05:46 Dose: 1 rolf Documented by: Metoprolol Succinate (Toprol Xl) [address] [facility] Stop: 03/16/20 08:59 Last Admin: 02/15/20 08:05 Dose: 25 mg Documented by: Nitroglycerin (Nitrostat) 0.4 mg SL UD PRN PRN Reason: Chest Pain Stop: 03/12/20 00:07 Oxycodone HCl (Roxicodone Immediate Rel) 5 mg PO Q4H PRN PRN Reason: Pain Stop: 02/25/20 00:07 Pantoprazole Sodium (Protonix) [address] [facility] Stop: 03/12/20 08:59 Last Admin: 02/15/20 08:05 Dose: 40 mg Documented by: Thiamine HCl (Vitamin B-1) [address] [facility] Stop: 03/12/20 16:29 Last Admin: 02/15/20 08:05 Dose: 100 mg Documented by:
[2020-02-15] MEDS ORDERED: AMIODARONE 200 MG TAB PO ONE (11:45)
[2020-02-15] MEDS: METOCLOPRAMIDE HCL INJ 5 MG/ML 2 ML VIAL IV PRN ×2 (15:23→21:33)
[2020-02-15 15:30] LABS: Partial Thromboplastin Ratio 2.6
[2020-02-15 15:32] LABS: Partial Thromboplastin Time 73.1 Seconds (21.0-31.0)
[2020-02-15] MEDS: HEPARIN SODIUM/DEXTROSE 25,000 UNITS/500 ML BAG IV SCH ×2 (15:33→23:26)
[2020-02-15] MEDS: WARFARIN SOD 5 MG TAB PO SCH (16:44)
[2020-02-15] MEDS: AMIODARONE 200 MG TAB PO SCH (16:45)
--- NOTE | 2020-02-15 17:55 | Hospitalist Progress Note ---
Date of Service February 15, 2020 Assessment & Plan (1) Acute CHF: (1) CHF (congestive heart failure): 69-year-old female with history of dyslipidemia, alcoholism, smoking, presenting with shortness of breath Congestive heart failure, systolic and diastolic type, likely acute on chronic exacerbation Severe Mitral regurgitation - new diagnosis of CHF - echo: mildly dilated LV chamber size with gloabl wall thinning severely reduced LV systolic function with severe global hypokinesis EF 15- 20% Grade 2 diastolic dysfunction severe mitral regurgitation with pulmonary vein flow reversal severe left atrial enlargement - received lasix IV, became hypotensive, crea increased at one point BP and crea stable now -- started on Metoprolol XL titrated, now at 25mg po daily Lisinopril 5mg po daily Lasix held for elevated crea of 1.3 A fib with RVR -- started 02/14/20 - Amiodarone IV started--> converted to SR since - transitioned from IV to PO Amiodarone Heparin + Warfarin started Alcoholism - no signs of overt alcohol withdrawal continue alcohol withdrawal protocol, already finished Gabapentin protocol Smoker - Patient declining nicotine patch - Counseled on alcohol as well as tobacco cessation hyperlipidemia - not on statin rx as per patient preference LDL 106 TG 169 DVT prophylaxis. heparin drip Full code Disposition Anticipate discharge to home medically stable will need home health services or [facility] at home for CHF Admission and Anticipated Discharge Date Admission Date: February 10, 2020 Subjective ff up for acute CHF exacerbation remains in SR while on Amio drip resting in bed, comfortable, not in distress states she feels improved today compared to yesterday no chest pain, dyspnea no abdominal bloating no other symptoms Review of Systems Review of Systems: All systems reviewed & are unremarkable except as noted in HPI & below Physical Exam Physical Exam: General- oriented x 3, not in distress, speaks in sentences with no effort or accessory muscle use Eyes- anicteric Neck- no JVD Lungs- clear BS BL no rales Heart- normal rate, regular rhythm; no murmurs Abdomen- normal bowel sounds, nondistended, soft, nontender Extremities- no pretibial edema, no calf tenderness Neuro- alert, oriented x 3; no gross focal neurologic deficits Skin- warm & dry Results & Data Results & Data ([facility]) Vital Signs (Past 12 Hours) Vital Signs Temp Pulse Resp BP BP Pulse Ox 02/15/20 15:43 36.3 C L 65 18 86/55 L 98 02/15/20 11:18 68 20 78/54 L 81/57 L 100 02/15/20 07:05 36.5 C 74 18 114/73 97 Laboratory Results Laboratory Results - last 24 hr 02/14/20 02/15/20 02/15/20 22:08 07:08 07:08 APTT 46.7 H* 40.3 H PTT Ratio 1.7 1.4 Sodium 132 L Potassium 4.6 Chloride 98 Carbon Dioxide 27 Anion Gap 7.0 BUN 31 H D Creatinine 1.30 H Est Cr Clr Drug Dosing 37.3 Est GFR ( Amer) 48.8 Est GFR (Non-Af Amer) 42.1 BUN/Creatinine Ratio 23.5 H Glucose 100 H Calcium 8.7 02/15/20 14:54 APTT 73.1 H* PTT Ratio 2.6 Sodium Potassium Chloride Carbon Dioxide Anion Gap BUN Creatinine Est Cr Clr Drug Dosing Est GFR ( Amer) Est GFR (Non-Af Amer) BUN/Creatinine Ratio Glucose Calcium
[2020-02-15] MEDS: lisinopriL 5 MG TAB PO SCH (21:35)
[2020-02-15 21:50] LABS: Partial Thromboplastin Ratio 1.6; Partial Thromboplastin Time 43.6 Seconds (21.0-31.0)
[2020-02-15] MEDS ORDERED: HEPARIN IV BOLUS 2,000 UNITS in SYRINGE 0 ML IV ONE (22:45)
[2020-02-16 05:16] LABS: BUN Creatinine Ratio 26.5 (10-20); Calcium 8.4 mg/dl (8.5-10.1); Creatinine Clr Calc Pharmacy 37.9 ml/min; Est GFR (African American) 49.7; Est GFR (Non-African American) 42.9; Magnesium 2.3 mg/dl (1.8-2.4)
[2020-02-16 05:24] LABS: INR 1.2 (0.9-1.1); Partial Thromboplastin Ratio 2.1; Partial Thromboplastin Time 59.1 Seconds (21.0-31.0); Prothrombin Time 12.7 Seconds (9.0-12.0)
[2020-02-16] MEDS: AMIODARONE 200 MG TAB PO SCH ×2 (07:51→15:58)
[2020-02-16] MEDS: THIAMINE HCL 100 MG TAB PO SCH (07:54)
[2020-02-16] MEDS: PANTOprazole 40 MG TAB PO SCH (07:54)
[2020-02-16] MEDS: METOPROLOL SUCC 25MG EXT REL TAB PO SCH (07:54)
[2020-02-16] MEDS: DOCUSATE SODIUM 100 MG CAP PO SCH ×2 (07:54→19:54)
[2020-02-16] MEDS: ASPIRIN 81 MG ECTAB PO SCH (07:54)
[2020-02-16] MEDS: FOLIC ACID 1 MG TAB PO SCH (07:54)
[2020-02-16] MEDS ORDERED: FUROSEMIDE 20 MG TAB PO ONE (09:19)
--- NOTE | 2020-02-16 09:19 | Cardiology Progress Note ---
Date of Service February 16, 2020 Assessment & Plan (1) PAF (paroxysmal atrial fibrillation): (2) Ischemic cardiomyopathy: (3) Acute CHF: (4) Tobacco abuse: (5) Mitral regurgitation: I reviewed the patient's echocardiogram yesterday. This echocardiogram is little bit more clear and it appears that the patient had a remote anterior wall myocardial infarction which resulted in an ischemic cardiomyopathy. The mitral regurgitation unfortunately is centrally located and most likely due to dilatation of the mitral annulus along with dyssynchrony of the left ventricle. This patient will need an ICD and perhaps may benefit from a biventricular pacemaker. At this point were going to continue to load her with warfarin. I suspect she will be discharged in the next 1 to 2 days with a LifeVest. After discharge we will do an outpatient pharmacologic nuclear stress test and then refer her to the EP service for an ICD/biventricular pacemaker. She is hyponatremic today and I am going to tighten her fluid restriction to 1500 cc daily. I do not know she will tolerate a daily dose of Lasix her BUN and creatinine are improving and I think she should have a 20 mg oral dose of Lasix today. She will most likely need some sort of diuretic perhaps Lasix every other day but I believe she will need diuretics after discharge. Subjective Patient had an uneventful night. Maintaining sinus rhythm. Review of Systems Review of Systems: All systems reviewed & are unremarkable except as noted in HPI & below Nothing additional to add. Physical Exam Physical Exam: General: no acute distress and stated age Head: normocephalic, no masses, lesions, tenderness or abnormalities Eyes: conjunctiva are pink and non-injected, sclera clear Neck: supple, no adenopathy, no bruits, normal jugular venous pulse, no hepatojugular reflux Chest: normal shape and normal respiratory effort Lungs: clear to auscultation and percussion Cardiac Exam: - regular rate & rhythm, no murmurs gallops or rubs - normal S1, normal S2 Pulses: 2(+) throughout Abdomen: abdomen soft, non-tender, no abnormal masses and no hepatosplenomegaly Musculoskeletal: no gait disturbance, no joint inflammation, no deforming arthritis Extremities: no edema and no cyanosis Neuro: grossly normal exam Results & Data Vital Signs (Past 12 Hours) Vital Signs Temp Pulse Pulse Resp BP Pulse Ox 02/16/20 07:35 67 02/16/20 07:00 36.3 C L 72 16 98/63 L 99 02/16/20 03:25 36.8 C 72 19 96/65 L 98 02/16/20 00:08 64 02/15/20 23:38 36.6 C 67 20 97/66 L 97 Laboratory Results Laboratory Results - last 24 hr 02/15/20 02/15/20 02/16/20 14:54 21:27 04:22 PT 12.7 H INR 1.2 H APTT 73.1 H* 43.6 H 59.1 H* PTT Ratio 2.6 1.6 2.1 Sodium Potassium Chloride Carbon Dioxide Anion Gap BUN Creatinine Est Cr Clr Drug Dosing Est GFR ( Amer) Est GFR (Non-Af Amer) BUN/Creatinine Ratio Glucose Calcium Magnesium 02/16/20 04:22 PT INR APTT PTT Ratio Sodium 126 L Potassium 4.0 Chloride 99 Carbon Dioxide 28 Anion Gap -1.0 L BUN 34 H Creatinine 1.28 H Est Cr Clr Drug Dosing 37.9 Est GFR ( Amer) 49.7 Est GFR (Non-Af Amer) 42.9 BUN/Creatinine Ratio 26.5 H Glucose 104 H Calcium 8.4 L Magnesium 2.3 Medications Administered Current Inpatient Medications Acetaminophen (Tylenol) 325 mg PO Q6H PRN PRN Reason: Pain or Fever Stop: 03/12/20 00:07 [facility] Stop: 03/16/20 16:59 Last Admin: 02/16/20 07:51 Dose: 200 mg Documented by: Aspirin (Ecotrin Ectab) 81 mg PO [facility] Stop: 03/12/20 08:59 Last Admin: 02/16/20 07:54 Dose: 81 mg Documented by: Docusate Sodium (Colace) 100 mg PO BID [facility] Stop: 03/12/20 08:59 Last Admin: 02/16/20 07:54 Dose: 100 mg Documented by: Folic Acid (Folvite) 1 mg PO [facility] Stop: 03/12/20 16:29 Last Admin: 02/16/20 07:54 Dose: 1 mg Documented by: Promethazine HCl 12.5 mg/ (Sodium Chloride) 50.5 mls @ 202 mls/hr IV Q6H PRN PRN Reason: Nausea And Vomiting Stop: 03/12/20 00:07 Last Infusion: 04/13/20 16:43 Dose: Infused Documented by: Lorazepam (Ativan) 0.25 mg in 0.5 mls @ 0.5 mls/min IV Q4H PRN PRN Reason: Anxiety Stop: 03/12/20 00:07 Last Admin: 02/14/20 20:45 Dose: 0.5 mls/min Documented by: Heparin Sodium/Dextrose (Heparin Sodium/Dextrose) 25,000 units in 500 mls @ 16 mls/hr IV .Q24H [facility]; Protocol Stop: 03/15/20 14:29 Last Titration: 02/16/20 07:15 Dose: 800 units/hr, 16 mls/hr Documented by: Lisinopril (Zestril) 5 mg PO [facility] Stop: 03/15/20 20:59 Last Admin: 02/15/20 21:35 Dose: Not Given Documented by: Menthol (Nice) 1 rolf BUCCAL PRN PRN PRN Reason: Sore Throat Stop: 03/12/20 04:58 Last Admin: 02/11/20 05:46 Dose: 1 rolf Documented by: Metoclopramide HCl (Reglan) 10 mg IV Q6H PRN PRN Reason: Nausea Stop: 03/16/20 12:51 Last Admin: 02/15/20 21:33 Dose: 10 mg Documented by: Metoprolol Succinate (Toprol Xl) 25 mg PO [facility] Stop: 03/16/20 08:59 Last Admin: 02/16/20 07:54 Dose: 25 mg Documented by: Nitroglycerin (Nitrostat) 0.4 mg SL UD PRN PRN Reason: Chest Pain Stop: 03/12/20 00:07 Oxycodone HCl (Roxicodone Immediate Rel) 5 mg PO Q4H PRN PRN Reason: Pain Stop: 02/25/20 00:07 Pantoprazole Sodium (Protonix) 40 mg PO [facility] Stop: 03/12/20 08:59 Last Admin: 02/16/20 07:54 Dose: 40 mg Documented by: Thiamine HCl (Vitamin B-1) 100 mg PO [facility] Stop: 03/12/20 16:29 Last Admin: 02/16/20 07:54 Dose: 100 mg Documented by: Warfarin Sodium (Coumadin) 5 mg PO DAILY@1600 [facility] Stop: 03/16/20 15:59 Last Admin: 02/15/20 16:44 Dose: 5 mg Documented by:
[2020-02-16] MEDS ORDERED: NURSING DECISION MEDICATION ONE (10:19)
[2020-02-16] MEDS: SODIUM CHLORIDE 0.65% NA SOLN 45 ML (OCEAN) PRN (10:50)
--- NOTE | 2020-02-16 15:55 | Hospitalist Progress Note ---
Date of Service February 16, 2020 Assessment & Plan (1) Acute CHF: (1) CHF (congestive heart failure): admitted with acute decompensation of biventricular CHF combined systolic and diastolic with underlying significant valvular heart disease Severe Mitral regurgitation - new diagnosis this admission - echo: mildly dilated LV chamber size with gloabl wall thinning severely reduced LV systolic function with severe global hypokinesis EF 15- 20% Grade 2 diastolic dysfunction severe mitral regurgitation with pulmonary vein flow reversal severe left atrial enlargement Continue fluid restriction 1500 mL daily Lasix dosing reduced to 20 mg daily, monitoring creatinine -appreciate input from Cardiology : Possible ischemic cardiomyopathy, echo shows evidence of remote anterior wall WA Patient will AICD placement and will benefit from a biventricular pacemaker on Coumadin anticoagulation Afib Will need be discharged home with LifeVest Patient will need outpatient pharmacological nuclear stress test for ischemic work-up Later referred to EP service for ICD biventricular placement -- started on Metoprolol XL 25mg po daily Lisinopril 5mg po daily A fib with RVR Due to severe ischemic cardiomyopathy causing decompensated CHF Started on p.o. amiodarone, remains in normal sinus rhythm Continue IV heparin and Coumadin goal INR 23 Alcoholism - no signs of overt alcohol withdrawal continue alcohol withdrawal protocol, finished Gabapentin protocol Smoker - Patient declining nicotine patch - Counseled on alcohol as well as tobacco cessation hyperlipidemia - LDL 106 TG 169 Will need statin with goal LDL less than 70 DVT prophylaxis. heparin drip/Coumadin Full code Disposition Anticipate discharge to home medically stable will need home health services or [facility] at home for CHF Admission and Anticipated Discharge Date Admission Date: February 10, 2020 Subjective no SOB , no cough or orthopnea no chest pain , no fever or chills comfortable , offers no complain Review of Systems Review of Systems: All systems reviewed & are unremarkable except as noted in HPI & below Constitutional: no fever and no chills Respiratory: no cough, no dyspnea and no dyspnea on exertion Cardiovascular: no chest pain, no orthopnea, no palpitations, no lightheadedness and no syncope Physical Exam Constitutional: WD/WN, vitals as above no acute distress Eyes: PERRL, conjunctivae normal, anicteric sclerae ENMT: external ear and nose normal, oropharynx normal Neck: trachea midline, no thyromegaly Respiratory: normal respiratory effort, lungs clear to auscultation Cardiovascular: RRR, no murmur, no edema Gastrointestinal (Abdomen): normal bowel sounds, soft, nontender, no hepatosplenomegaly Musculoskeletal: no cyanosis or clubbing, extremities motor strength 5/5 Skin: no rashes, warm and dry Neurologic: PERRL, EOMI, accommodation nl, no face palsy, no dysarthria Psychiatric: A+Ox3, euthymic affect Results & Data Results & Data ([facility]) Vital Signs (Past 12 Hours) Vital Signs Temp Pulse Pulse Resp BP BP Pulse Ox 02/16/20 15:25 36.6 C 56 L 18 105/65 100 02/16/20 12:00 36.7 C 56 L 105/65 92 02/16/20 07:35 67 02/16/20 07:30 77 106/72 02/16/20 07:00 36.3 C L 72 16 98/63 L 99
[2020-02-16] MEDS: WARFARIN SOD 5 MG TAB PO SCH (15:58)
[2020-02-16] MEDS: lisinopriL 5 MG TAB PO SCH (19:53)
[2020-02-16] MEDS: ACETAMINOPHEN 325 MG TAB PO PRN (19:53)
[2020-02-16] MEDS ORDERED: ATORVASTATIN 20 MG TAB PO SCH (21:00)
[2020-02-17] MEDS: ACETAMINOPHEN 325 MG TAB PO PRN ×2 (03:42→09:52)
[2020-02-17] MEDS: HEPARIN SODIUM/DEXTROSE 25,000 UNITS/500 ML BAG IV SCH (05:41)
[2020-02-17 06:16] LABS: INR 1.2 (0.9-1.1); Partial Thromboplastin Ratio 1.6; Prothrombin Time 12.9 Seconds (9.0-12.0)
[2020-02-17 06:17] LABS: Partial Thromboplastin Time 45.7 Seconds (21.0-31.0)
[2020-02-17 06:34] LABS: Calcium 8.6 mg/dl (8.5-10.1); Est GFR (African American) 67.9; Est GFR (Non-African American) 58.6; Magnesium 2.4 mg/dl (1.8-2.4); Potassium 3.8 mmol/L (3.5-5.1)
[2020-02-17] MEDS ORDERED: HEPARIN IV BOLUS 2,000 UNITS in SYRINGE 0 ML IV ONE (06:45)
[2020-02-17] MEDS: PANTOprazole 40 MG TAB PO SCH (08:34)
[2020-02-17] MEDS: AMIODARONE 200 MG TAB PO SCH (08:34)
[2020-02-17] MEDS: DOCUSATE SODIUM 100 MG CAP PO SCH (08:34)
[2020-02-17] MEDS: FOLIC ACID 1 MG TAB PO SCH (08:35)
[2020-02-17] MEDS: THIAMINE HCL 100 MG TAB PO SCH (08:35)
[2020-02-17] MEDS: ASPIRIN 81 MG ECTAB PO SCH (08:35)
[2020-02-17] MEDS: METOPROLOL SUCC 25MG EXT REL TAB PO SCH (08:37)
--- NOTE | 2020-02-17 09:31 | Cardiology Progress Note ---
Date of Service February 17, 2020 Assessment & Plan (1) Ischemic cardiomyopathy: (2) PAF (paroxysmal atrial fibrillation): (3) Mitral regurgitation: (4) Acute left systolic heart failure: The patient will be fitted for a LifeVest today. I believe she is on a stable group of medications and she should continue them at home. Her sodium has improved today with a fluid restriction. I will arrange follow-up as an outpatient. She will have an outpatient pharmacologic nuclear stress test and eventually will be evaluated by the EP service for a primary prevention ICD and potentially resynchronization with a by ventricular pacemaker. Subjective The patient had an uneventful night. She has not been fitted for the LifeVest yet but is scheduled for today. Review of Systems Review of Systems: All systems reviewed & are unremarkable except as noted in HPI & below Nothing additional to add. Physical Exam Physical Exam: General: no acute distress and stated age Head: normocephalic, no masses, lesions, tenderness or abnormalities Eyes: conjunctiva are pink and non-injected, sclera clear Neck: supple, no adenopathy, no bruits, normal jugular venous pulse, no hepatojugular reflux Chest: normal shape and normal respiratory effort Lungs: clear to auscultation and percussion Cardiac Exam: - regular rate & rhythm, no murmurs gallops or rubs - normal S1, normal S2 Pulses: 2(+) throughout Abdomen: abdomen soft, non-tender, no abnormal masses and no hepatosplenomegaly Musculoskeletal: no gait disturbance, no joint inflammation, no deforming arthritis Extremities: no edema and no cyanosis Neuro: grossly normal exam Results & Data Vital Signs (Past 12 Hours) Vital Signs Temp Pulse Pulse Resp BP BP Pulse Ox 02/17/20 08:37 94/59 L 02/17/20 07:10 36.5 C 62 19 97/63 L 100 02/17/20 03:31 36.6 C 73 20 92/60 L 100 02/17/20 00:48 64 02/16/20 23:15 36.5 C 65 18 100/65 100 Laboratory Results Laboratory Results - last 24 hr 02/17/20 02/17/20 05:27 05:27 PT 12.9 H INR 1.2 H APTT 45.7 H* PTT Ratio 1.6 Sodium 136 D Potassium 3.8 Chloride 101 Carbon Dioxide 30 Anion Gap 5.0 BUN 24 H Creatinine 0.99 Est Cr Clr Drug Dosing 49.0 Est GFR ( Amer) 67.9 Est GFR (Non-Af Amer) 58.6 BUN/Creatinine Ratio 24.0 H Glucose 99 Calcium 8.6 Magnesium 2.4 Medications Administered Current Inpatient Medications Acetaminophen (Tylenol) 325 mg PO Q6H PRN PRN Reason: Pain or Fever Stop: 03/12/20 00:07 Last Admin: 02/17/20 03:42 Dose: 325 mg Documented by: Amiodarone HCl (Cordarone) [facility] Stop: 03/16/20 16:59 Last Admin: 02/17/20 08:34 Dose: 200 mg Documented by: Aspirin (Ecotrin Ectab) 81 mg PO [facility] Stop: 03/12/20 08:59 Last Admin: 02/17/20 08:35 Dose: 81 mg Documented by: Atorvastatin Calcium (Lipitor) 20 mg PO [facility] Stop: 03/17/20 20:59 Last Admin: 02/16/20 19:54 Dose: 20 mg Documented by: Docusate Sodium (Colace) 100 mg PO BID [facility] Stop: 03/12/20 08:59 Last Admin: 02/17/20 08:34 Dose: 100 mg Documented by: Folic Acid (Folvite) 1 mg PO [facility] Stop: 03/12/20 16:29 Last Admin: 02/17/20 08:35 Dose: 1 mg Documented by: Promethazine HCl 12.5 mg/ (Sodium Chloride) 50.5 mls @ 202 mls/hr IV Q6H PRN PRN Reason: Nausea And Vomiting Stop: 03/12/20 00:07 Last Infusion: 02/14/20 16:43 Dose: Infused Documented by: Lorazepam (Ativan) 0.25 mg in 0.5 mls @ 0.5 mls/min IV Q4H PRN PRN Reason: Anxiety Stop: 03/12/20 00:07 Last Admin: 02/14/20 20:45 Dose: 0.5 mls/min Documented by: Heparin Sodium/Dextrose (Heparin Sodium/Dextrose) 25,000 units in 500 mls @ 17 mls/hr IV .Q24H [facility]; Protocol Stop: 03/15/20 14:29 Last Titration: 02/17/20 06:54 Dose: 850 units/hr, 17 mls/hr Documented by: Lisinopril (Zestril) 5 mg PO HS [facility] Stop: 03/15/20 20:59 Last Admin: 02/16/20 19:53 Dose: 5 mg Documented by: Menthol (Nice) 1 rolf BUCCAL PRN PRN PRN Reason: Sore Throat Stop: 03/12/20 04:58 Last Admin: 02/11/20 05:46 Dose: 1 rolf Documented by: Metoclopramide HCl (Reglan) 10 mg IV Q6H PRN PRN Reason: Nausea Stop: 03/16/20 12:51 Last Admin: 02/15/20 21:33 Dose: 10 mg Documented by: Metoprolol Succinate (Toprol Xl) 25 mg PO [facility] Stop: 03/16/20 08:59 Last Admin: 02/17/20 08:37 Dose: Not Given Documented by: Nitroglycerin (Nitrostat) 0.4 mg SL UD PRN PRN Reason: Chest Pain Stop: 03/12/20 00:07 Oxycodone HCl (Roxicodone Immediate Rel) 5 mg PO Q4H PRN PRN Reason: Pain Stop: 02/25/20 00:07 Pantoprazole Sodium (Protonix) 40 mg PO [facility] Stop: 03/12/20 08:59 Last Admin: 02/17/20 08:34 Dose: 40 mg Documented by: Sodium Chloride ([place] Nasal) 1 sprays NA QID PRN PRN Reason: Dryness Stop: 03/17/20 10:27 Last Admin: 02/16/20 10:50 Dose: 1 sprays Documented by: Thiamine HCl (Vitamin B-1) 100 mg PO [facility] Stop: 03/12/20 16:29 Last Admin: 02/17/20 08:35 Dose: 100 mg Documented by: Warfarin Sodium (Coumadin) 5 mg PO DAILY@1600 [facility] Stop: 03/16/20 15:59 Last Admin: 02/16/20 15:58 Dose: 5 mg Documented by:
[2020-02-17] MEDS ORDERED: FUROSEMIDE 20 MG TAB PO SCH (09:45)
[2020-02-17] MEDS: SODIUM CHLORIDE 0.65% NA SOLN 45 ML (OCEAN) PRN (09:47)
--- NOTE | 2020-02-17 11:23 | Hospitalist Progress Note ---
Date of Service February 17, 2020 Assessment & Plan (1) Acute CHF: (1) CHF (congestive heart failure): admitted with acute decompensation of biventricular CHF combined systolic and diastolic with underlying significant valvular heart disease Severe Mitral regurgitation noted in ECHO -appreciate input from Cardiology : Possible ischemic cardiomyopathy, echo shows evidence of remote anterior wall CO Patient will AICD placement and will benefit from a biventricular pacemaker on Coumadin anticoagulation Afib fitted with LifeVest today being discharged home outpatient cardiology follow up and pharmacological nuclear stress test for ischemic [id number] be scheduled by [facility] Cardiology Later will be referred to EP service for ICD biventricular placement -- started on Metoprolol XL 25mg po daily Lisinopril 5mg po daily cont Aspirin 81 mg daily - no prior Dx of CAD or CHF -newly diagnosed during this admission - echo: mildly dilated LV chamber size with global wall thinning severely reduced LV systolic function with severe global hypokinesis EF 15- 20% Grade 2 diastolic dysfunction severe mitral regurgitation with pulmonary vein flow reversal severe left atrial enlargement Continue fluid restriction 1500 mL daily Lasix 20 mg daily, Lisinopril 5 mg daily pt is counselled to avoid salt in diet A fib with RVR Due to severe ischemic cardiomyopathy causing decompensated CHF Started on p.o. amiodarone, remains in normal sinus rhythm treated with IV heparin and Coumadin goal INR 23 pt is discharged today with Coumadin 2.5 mg daily -needs close monitoring of INR by coag clinic for drug interaction with Amiodarone Alcoholism - no signs of overt alcohol withdrawal continue alcohol withdrawal protocol, finished Gabapentin protocol Smoker - Patient declined nicotine patch - Counseled on alcohol as well as tobacco cessation hyperlipidemia - LDL 106 TG 169 Atorvastatin 20 mg daily added with goal LDL less than 70 DVT prophylaxis. Coumadin Full code Disposition stable to be discharged home today Admission and Anticipated Discharge Date Admission Date: February 10, 2020 Subjective no complain of Shortness of breath no chest pain or chest heaviness no cough ,no fever or chills Fitted with Live Vest today Review of Systems Review of Systems: All systems reviewed & are unremarkable except as noted in HPI & below Constitutional: no fever and no chills Respiratory: no cough, no dyspnea, no dyspnea on exertion, no pain with cough, no sputum production and no wheezing Cardiovascular: no chest pain, no dyspnea, no orthopnea, no paroxysmal nocturnal dyspnea, no lightheadedness, no syncope and no edema Physical Exam Constitutional: WD/WN, vitals as above no acute distress Eyes: PERRL, conjunctivae normal, anicteric sclerae ENMT: external ear and nose normal, oropharynx normal Neck: trachea midline, no thyromegaly Respiratory: normal respiratory effort, lungs clear to auscultation Cardiovascular: RRR, no murmur, no edema Gastrointestinal (Abdomen): normal bowel sounds, soft, nontender, no hepatosplenomegaly Musculoskeletal: no cyanosis or clubbing, extremities motor strength 5/5 Skin: no rashes, warm and dry Neurologic: PERRL, EOMI, accommodation nl, no face palsy, no dysarthria Psychiatric: A+Ox3, euthymic affect Results & Data Results & Data ([facility]) Vital Signs (Past 12 Hours) Vital Signs Temp Pulse Pulse Resp BP Pulse Ox 02/17/20 08:37 94/59 L 02/17/20 07:10 36.5 C 62 19 97/63 L 100 02/17/20 03:31 36.6 C 73 20 92/60 L 100 02/17/20 00:48 64
--- NOTE | 2020-02-17 11:47 | Discharge Summary ---
Date of Service February 17, 2020 Admission HPI Per Admitting Provider History obtained from patient and records. Medical history significant for hyperlipidemia (not on statin rx as per patient preference), daily alcohol intake, ongoing tobacco abuse. 2 weeks history of shortness of breath especially on exertion without chest pain. Weight gain with some leg swelling over the last few months associated with some bloating symptoms. Denies inordinate salty food intake. No recent flulike illness. Hepatic steatosis noted on outpatient GI work-up. Patient seen at PCPs office today for worsening shortness of breath associated with orthopnea symptoms. EKG at the office showed possible ST elevation on V2 V3 as per records. Aspirin given at the office. Patient transported by EMS to the ER. 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, company manager Principal Diagnosis CONGESTIVE HEART FAILURE SEVERE MITRAL VALVE DISEASE ATRIAL FIBRILLATION Discharge Exam Constitutional WD/WN, vitals as above no acute distress Eyes PERRL, conjunctivae normal, anicteric sclerae ENMT external ear and nose normal, oropharynx normal Neck trachea midline, no thyromegaly Respiratory normal respiratory effort, lungs clear to auscultation Cardiovascular RRR, no murmur, no edema Gastrointestinal (Abdomen) normal bowel sounds, soft, nontender, no hepatosplenomegaly Musculoskeletal no cyanosis or clubbing, extremities motor strength 5/5 Skin no rashes, warm and dry Neurologic PERRL, EOMI, accommodation nl, no face palsy, no dysarthria Psychiatric A+Ox3, euthymic affect Discharge Data Allergies Allergy/AdvReac Type Severity Reaction Status Date / Time No Known Allergies Allergy Verified 02/10/20 19:37 Consultations 02/10/20 21:50 ED Decision to Admit Stat 02/11/20 00:08 Consult Cardiology Routine Ordered Studies 02/10/20 18:53 CT abd pelvis oral and IV con Stat 02/10/20 19:19 CT angio chest PE protocol Stat Hospital Course (1) Acute CHF: (1) CHF (congestive heart failure): admitted with acute decompensation of biventricular CHF combined systolic and diastolic with underlying significant valvular heart disease Severe Mitral regurgitation noted in ECHO -appreciate input from Cardiology : Possible ischemic cardiomyopathy, echo shows evidence of remote anterior wall OR Patient will AICD placement and will benefit from a biventricular pacemaker on Coumadin anticoagulation Afib fitted with LifeVest today being discharged home outpatient cardiology follow up and pharmacological nuclear stress test for ischemic [id number] be scheduled by [facility] Cardiology Later will be referred to EP service for ICD biventricular placement -- started on Metoprolol XL 25mg po daily Lisinopril 5mg po daily cont Aspirin 81 mg daily - no prior Dx of CAD or CHF -newly diagnosed during this admission - echo: mildly dilated LV chamber size with global wall thinning severely reduced LV systolic function with severe global hypokinesis EF 15- 20% Grade 2 diastolic dysfunction severe mitral regurgitation with pulmonary vein flow reversal severe left atrial enlargement Continue fluid restriction 1500 mL daily Lasix 20 mg daily, Lisinopril 5 mg daily pt is counselled to avoid salt in diet A fib with RVR Due to severe ischemic cardiomyopathy causing decompensated CHF Started on p.o. amiodarone, remains in normal sinus rhythm treated with IV heparin and Coumadin goal INR 23 pt is discharged today with Coumadin 2.5 mg daily -needs close monitoring of INR by coag clinic for drug interaction with Amiodarone Alcoholism - no signs of overt alcohol withdrawal continue alcohol withdrawal protocol, finished Gabapentin protocol Smoker - Patient declined nicotine patch - Counseled on alcohol as well as tobacco cessation hyperlipidemia - LDL 106 TG 169 Atorvastatin 20 mg daily added with goal LDL less than 70 DVT prophylaxis. Coumadin Full code Disposition stable to be discharged home today Total Time Total Time Spent Total Time Spent (In Minutes): 40 mins Total Time Includes: Examination of the Patient, Discharge Planning, Medication Reconciliation and Communication With Other Providers Discharge Plan Discharge Items Patient Disposition: Home - Self-Care Reason For Visit: CHF Discharge Diagnosis: CONGESTIVE HEART FAILURE SEVERE MITRAL VALVE DISEASE ATRIAL FIBRILLATION Condition on Discharge: Good Activity: Resume your previous activity Non-emergency contact: Primary Care Provider Call non-emergency contact if: you have any medication questions Follow-up/Referrals: Mikey Maldonado DO [[employer]] - Girish Barron MD [Primary Care Provider] - 02/21/20 9:20 am Diet: Heart Healthy and Low Sodium (2gm) Fluids: 1500ml (6 cups) Ambulatory Orders: Prothrombin Time INR (Routine) Timeframe: 20200218 Location: Determined by Patient Ordered By: Jesusita Mari Addtl Attending Provider Instructions: IT IS VERY IMPORTANT FOR YOU TO QUIT SMOKING TO PREVENT FUTURE HEART ATTACK CARDIOLOGY FOLLOW UP IN 1-2 WEEKS , OFFICE WILL CALL WITH APPOINTMENT YOU ARE DISCHARGED WITH [facility] WILL SCHEDULE FOR CARDIAC STRESS TEST AND ELECTROPHYSIOLOGY FOLLOW UP FOR PACEMAKER /AICD PLACEMENT YOU ARE DISCHARGED WITH BLOOD THINNER COUMADIN 2.5 MG TAKE 1 TABLET DAILY FOLLOW UP WITH COUMADIN CLINIC FOR PT/INR MONITORING AND COUMADIN DOSE ADJUSTMENT Call your Primary Care doctor if any of the following symptoms or problems start or get worse: * Shortness of breath or difficulty breathing * Wake up at night short of breath * Chest pain * Cough * Swelling of your hands, feet, or legs * More fatigued or tired with your normal activity * Palpitations - sudden fast heart beats WEIGHT * Weigh yourself every morning after using the bathroom. * Use the same scale. * Wear the same amount of clothing. * Write your weight down on a chart. * Call your Primary Care doctor if you gain more than 2-3 pounds in 1-2 days. MEDICATIONS * Use this discharge instruction sheet for medication instructions. * Take your medications at the time your doctor ordered. * Do not skip a dose of your medicines. * If you miss a dose of medicine, take it as soon as possible, but DO NOT DOUBLE A DOSE. * Read your medicine information when you get home. * Know all of the side effects of your medicine. If in doubt, ask your pharmacist * Call your Primary Care doctor's office if you have any side effects. * Be sure all of your doctors know what medicine and herbs you take (including cold, flu, and herbal medicine). Take the following with you to your follow-up doctor appointments: * Weight Chart * Medication List * List of questions Do not drink excessive alcohol, beer or wine. Pending Studies at Discharge: Yes Studies:: INR LEVEL CHECK TOMORROW Friday02/18/20 Stand-Alone Forms: My [facility], Smoking Cessation Medications and DC Order Prescriptions: New warfarin [Coumadin] 2.5 mg tablet 2.5 mg PO DAILY Qty: 30 RF: 2 atorvastatin 20 mg Tablet 20 mg PO HS Qty: 30 RF: 2 amiodarone 200 mg Tablet 200 mg PO BID Qty: 60 RF: 2 aspirin 81 mg Tablet,Delayed Release (Dr/Ec) 81 mg PO QAM 30 Days Qty: 30 RF: 2 nitroglycerin [Nitrostat] 0.4 mg Tablet, Sublingual 0.4 mg sublingual UD PRN (Reason: CHEST PAIN) Qty: 30 RF: 2 lisinopril [Zestril] 5 mg Tablet 5 mg PO HS 30 Days Qty: 30 RF: 2 furosemide 20 mg Tablet 20 mg PO QAM Qty: 30 RF: 2 metoprolol succinate 25 mg Tablet Extended Release 24 Hr 25 mg PO QAM 30 Days Qty: 30 RF: 2 Continued docusate sodium [Stool Softener] 100 mg capsule 100 mg PO BID RF: 0 omeprazole 20 mg capsule,delayed release(DR/EC) 20 mg PO QAM RF: 0 Discharge Orders: Discharge Order (Routine); Ordered 02/17/20 Ordered By: Jesusita Echols/Other Patient Handouts: Heart Failure, Low-Salt Choices, Heart Valve Probs, Mitral Insufficiency, Smoking Quit Plan, Withdrawal Smoking [place], Smoking Health Effects, Discharge Instructions for Atrial Fibrillation, Cardiomyopathy Dc, Heart Failure Dc, Foods Heart Healthy, Stroke Prevent Live W Atrial Fib, AFib Admission Data Admit Date/Time: 02/10/20 22:39 Attending Provider: Jesusita Mari Admit Provider: Rivas Hung Primary Care Provider: Girish Barron Other Providers: Rivas Hung ; Leandro Squires Other Interventions: Discharge Summary Assessment (RN) Last Done: 02/17/20 11:09
== END 2020-02-17 13:57 | disposition home or self-care (01) | DRG 292 ==
LOC: ED 18:45 → 2S 22:39 → SUATTDRO 22:39 → 2S 23:40

== ENCOUNTER 2020-03-20 16:32 | Inpatient (IN) ==
[2020-03-20 18:53] LABS: Basophils # (auto) 0.03 K/uL (0-0.2); Basophils % (auto) 0.4 %; Eosinophils # (auto) 0.06 K/uL (0-0.5); Eosinophils % (auto) 0.8 %; Hematocrit (blood only) 45.7 % (37-47); Hemoglobin 15.7 g/dL (12.0-16.0); Immature Granulocytes # (auto) 0.02 K/uL (0.00-0.02); Immature Granulocytes % (auto) 0.3 %; Lymphocytes # (auto) 1.47 K/uL (1.2-3.4); Lymphocytes % (auto) 20.4 %; Mean Corpuscular Hemoglobin 32.6 pg (25-34); Mean Corpuscular Hgb Conc 34.4 g/dL (32-36); Monocytes # (auto) 0.58 K/uL (0.11-0.59); Neutrophils # (auto) 5.05 K/uL (1.4-6.5); Neutrophils % (auto) 70.1 %; Platelet Count 185 K/uL (130-400); RDW Coefficient of Variation 15.6 % (11.5-14.5); RDW Standard Deviation 53.6 fL (36.4-46.3); Red Blood Count 4.81 M/uL (4.2-5.4); White Blood Count 7.21 K/uL (4.8-10.8)
--- NOTE | 2020-03-20 18:56 | XRay Report ---
SINGLE VIEW CHEST CLINICAL HISTORY: Atypical chest pain. FINDINGS: An AP, portable, upright chest radiograph is compared to chest x-ray and chest CT dated 02/09. The examination is degraded by portable technique and patient rotation. The heart is enlarged noting atherosclerotic calcification of the thoracic aorta. The pulmonary vasculature is noncongested . There is bibasilar atelectasis. Question trace pleural effusions. No airspace consolidation is seen typical for pneumonia. No pneumothorax is seen. The skeletal structures are osteopenic. The bony tho rax is grossly intact. IMPRESSION: 1. Cardiomegaly without radiographic evidence of congestive failure. 2. Suspect trace pleural effusions. ACT 112: Negative or not required by law. Electronically signed by: Sundar Copeland M.D. 03/20/2020 6:54 PM
[2020-03-20 19:16] LABS: INR 5.3 (0.9-1.1); Partial Thromboplastin Ratio 1.2; Partial Thromboplastin Time 33.1 Seconds (21.0-31.0)
[2020-03-20 19:26] LABS: Alanine Aminotransferase 68 U/L (12-78); Albumin Level 3.2 gm/dl (3.4-5.0); Aspartate Aminotransferase 64 U/L (15-37); BUN Creatinine Ratio 26.6 (10-20); Blood Urea Nitrogen 42 mg/dl (7-18); Calcium 8.8 mg/dl (8.5-10.1); Carbon Dioxide 31 mmol/L (21-32); Chloride 94 mmol/L (98-107); Est GFR (African American) 38.6; Est GFR (Non-African American) 33.3; Glucose 130 mg/dl (70-99); Lipase 154 U/L (73-393); Magnesium 2.3 mg/dl (1.8-2.4); Potassium 3.5 mmol/L (3.5-5.1); Sodium 137 mmol/L (136-145)
[2020-03-20 19:52] LABS: Albumin Globulin Ratio 0.9 (0.9-2); Alkaline Phosphatase 172 U/L (45-117); Bilirubin,Total 0.6 mg/dl (0.2-1); Globulin 3.6 gm/dl (2.5-4.0); NT Pro B Type Natriuretic Pept 6117 pg/ml (0-900); Phosphorus 4.1 mg/dl (2.5-4.9); Total Protein 6.8 gm/dl (6.4-8.2); Troponin I 0.046 ng/ml (0-0.045)
[2020-03-20] MEDS ORDERED: STAT IV Infusion **Titration per Protocol STA (20:07)
[2020-03-20] MEDS ORDERED: FAMOTIDINE 20MG IV PUSH 20 MG/5 ML SYR IV STA (20:07)
[2020-03-20] MEDS ORDERED: FUROSEMIDE 40 MG/4 ML VIAL IV STA (20:07)
[2020-03-20] MEDS ORDERED: dilTIAZem HCL 125 MG in DEXTROSE 5% 100 ML IV SCH (20:15)
[2020-03-20] MEDS ORDERED: HEPARIN 25000 UNIT/500 ML D5W IV ONE (21:48)
[2020-03-20] MEDS ORDERED: HEPARIN SODIUM/DEXTROSE 25,000 UNITS/500 ML BAG IV SCH (22:37)
[2020-03-20] MEDS ORDERED: NITROGLYCERIN SL 0.4 MG/TAB TAB SL PRN ×2 (22:37)
[2020-03-20] MEDS ORDERED: DICYCLOMINE HCL 10 MG CAP PO PRN (22:37)
[2020-03-20] MEDS ORDERED: Heparin IV Low Dose *NO* Bolus IV SCH (22:50)
[2020-03-20] MEDS ORDERED: PNEUMOCOCCAL ADMINISTRATION CHARGE ONE (23:11)
[2020-03-20] MEDS ORDERED: PNEUMOCOCCAL POLYSACCHARIDES 25 MCG/0.5 ML VIAL/SYR IM ONE (23:11)
[2020-03-20] MEDS: lisinopriL 5 MG TAB PO SCH (23:54)
[2020-03-21] MEDS: ATORVASTATIN 20 MG TAB PO SCH ×2 (00:14→20:35)
--- NOTE | 2020-03-21 00:28 | History and Physical Report ---
DATE OF ADMISSION: 03/20/2020 CHIEF COMPLAINT: Abdominal discomfort and some shortness of breath on exertion. HISTORY OF PRESENT ILLNESS: This is a 69-year-old female with past medical history significant for hyperlipidemia, atrial fibrillation, CHF combined, hx of nonsustained ventricular tachycardia, non-rheumatic mitral valve regurgitation, left bundle branch block, history of coronary artery disease presents with rapid AFib. The patient says whenever she gets fluid in her stomach, she gets bloated and nausea feeling and some pressure in her abdomen. She is also feeling on and off palpitations and she went to cardiology office today. She has recent history of ischemic cardiomyopathy with late presentation of an anterior wall DC and she has developed AFib and paroxysmal V-tach. She is on amiodarone, on LifeVest. Echo done in 02/15/2020 shows EF of 15-20% even after medical therapy thus plan for AICD on 03/22/2020.She has gained about 5-10 pounds and increased lower extremity edema . Has some cough and some nausea.In the clinic today, she was in atrial flutter with RVR and she was advised to come to the ER for Cardizem drip and possible Lasix. The patient resting comfortably and blood pressure is somewhat on the lower side, received a dose of Lasix. Denies any chest pain, no fever, no chills, no headaches. She says she has medications sometimes cause blurred visions or dizziness. No runny nose, no sore throat. Appetite is okay. Did not sleep well last night because of abdominal discomfort. Normal bowel and bladder movements. No hematuria, no burning micturition, no blood in the stools. No rash. ALLERGIES: No known drug allergies. PAST MEDICAL HISTORY: As mentioned above. PAST SURGICAL HISTORY: Ligation of oviduct, tonsillectomy, treatment of incomplete . MEDICATIONS: The patient is on Coumadin 5-7.5 mg as directed, amiodarone 200 mg p.o. daily, Lipitor 20 mg p.o. at bedtime, Lasix 20 mg p.o. daily, lisinopril 5 mg p.o. at bedtime, Toprol-XL 25 mg p.o. daily, nitroglycerin 0.4 mg sublingual p.r.n., aspirin 81 mg p.o. daily, dicyclomine 10 mg p.o. t.i.d. p.r.n., Colace 100 mg p.o. b.i.d., omeprazole 20 mg p.o. daily. FAMILY HISTORY: Significant for father had multiple myeloma, mother had breast cancer. Sister has breast cancer. Paternal grandmother had uterine cancer. SOCIAL HISTORY: , smokes 1 pack a day for 13 years, currently smoking 5 cigarettes daily. She drinks 4 drinks of alcohol per week. No drug use. REVIEW OF SYMPTOMS: As per HPI. Rest of review of symptoms negative. PHYSICAL EXAMINATION: GENERAL: The patient is of moderate built. HEENT: No pallor, no icterus. Pupils equal, round, and reactive to light. NECK: No JVD, no neck masses. CARDIOVASCULAR: S1, S2 heard. Tachycardia, irregular rhythm. RESPIRATORY SYSTEM: Normal AP diameter. No accessory muscle use. No wheezing, no crackles. ABDOMEN: Soft, bowel sounds present. Mild abdominal discomfort. No guarding. No rigidity. CENTRAL NERVOUS SYSTEM: Cranial nerves II-XII grossly intact, nonfocal. EXTREMITIES: Bilateral lower extremity, +2 edema present. LABORATORY DATA: WBC 7.3, hemoglobin 15.7, hematocrit 45.7, platelets 185. PT 5.1, INR 5.3, APTT 33.1. Sodium 137, potassium 3.5, chloride 94, bicarbonate 31, BUN 42, creatinine 1.58, serum glucose 130, calcium 8.8, phosphorus 4.1, magnesium 2.3, total bilirubin 0.6, AST 64, ALT 68, alkaline phosphatase 172. Troponin I 0.04. BNP 6117. Lipase 154. TSH 6.3, free T4 1.5. Chest x-ray shows cardiomegaly without radiographic evidence of congestive heart failure, suspect trace pleural effusions. EKG: Rapid atrial flutter with PVCs at a rate of 138, T-wave inversions in inferior leads. ASSESSMENT AND PLAN: A 69-year-old female with ischemic cardiomyopathy, atrial fibrillation, presents with abdominal discomfort and rapid atrial fibrillation. 1. Rapid atrial fibrillation. Will continue home amiodarone, started on low dosage Cardizem drip. INR is supratherapeutic. Follow PT/INR in a.m. and closely monitor in tele floor. Cardiology consult. 2. Ischemic cardiomyopathy, EF of 15-20%, history of recent DC, received a dose of IV Lasix in the ER, creatinine is 1.6. We will follow the labs in a.m. and further diuretics as per cardiology in a.m. Continue lisinopril with hold parameters. Planned for AICD possible this hospitalization. Close monitor. 3. Mild elevation in troponin, most likely demand ischemia. Follow serial cardiac enzymes. 4. Alcoholism. Not drinking lately.. 5. Hyperlipidemia, on statin. 6. Acute kidney injury: Could be cardiorenal. We will follow the labs in a.m., the patient received a dose of IV Lasix in the ER today. 7. Deep venous thrombosis prophylaxis. INR is supratherapeutic. DISPOSITION: Closely monitor in tele floor. Level 1 full code. Expect discharge home and follow with family doctor. RON
--- NOTE | 2020-03-21 00:45 | Emergency Department Note ---
Impression & Plan Atrial fibrillation with RVR, Ischemic cardiomyopathy, Volume overload, CKD (chronic kidney disease) ED Provider Note NAME: PRABHA BURROWS AGE: 69 SEX: F ARRIVES VIA: Walk-In INFORMANT: Patient, ED PROVIDER(S): Jose Juan Ivey MD CHIEF COMPLAINT: Shortness of breath PLAN: Disposition: Admit MEDICAL DECISION MAKING: The patient is a pleasant 69-year-old woman with a past medical history of CAD, ischemic cardiomyopathy, paroxysmal VT currently with life vest, paroxysmal A. fib on Coumadin who presents emergency department with worsening shortness of breath and abdominal bloating over the past several days in the setting of having a scheduled AICD placement this Thursday 03/22 seen by cardiology clinic today and referred the emergency department for evaluation and admission for rate control and IV diuresis with increased weight gain/fluid retention and afib with rvr. On arrival the patient is no acute distress, afebrile with heart rates ranging from the 100s to 140s and blood pressure 80s-100s/50s-70s. O2 sat 96% on RA. On exam patient appears Euvolemic to slightly fluid overloaded, Scant BLE edema. Diminished at bases, otherwise clear. EKG demonstrates aflutter with rvr. Chronic LBBB. No sgarbossa criteria. Chest Xray without vascular congestion or pulmonary edema but with likely trace effusions. WBC, H/H, platelets wnl. Chemistry without acidosis. Cr. 1.5 similar to prior range of values. AST 64 approximate to prior value. Otherwise, LFTs and electrolytes unremarkable. Troponin 0.046. BNP6K without prior for comparison. UA with epitheleal cells and patient denies urinary sx. Given the patient's worsening sx in the setting of her RVR and increased fluid retention, reasonable to admit for further management/optimization for AICD placement. Patient is agreeable. Patient ordered for diltiazem drip without bolus for cautious rate control in the setting of low BP. Additionally ordered for IV lasix. Case was discussed with Dr. Moore, [facility] hospitalist, who will evaluate the patient for admission. Triage Nursing notes reviewed and agree them. Additional history obtained from [facility] records Prior medical records reviewed Vital Signs: reviewed and remarkable for low blood pressure. Differential diagnosis: Reactive airway disease, pneumonia, pneumothorax, COPD, CHF, infections, cardiac ischemia, pulmonary embolism, musculoskeletal, gastrointestinal, as well as other pathologies. ER treatment provided: See below. Diagnostics interpreted by me: ECG: Atrial flutter with variable AV block, 138 bpm, no ectopy, LAD, LBBB, No sgarbossa criteria. Cardiac Monitoring: An order for continuous cardiac monitoring was placed and demonstrated atrial flutter, 138 bpm, no ectopy. Laboratory studies: See below Imaging studies: SINGLE VIEW CHEST CLINICAL HISTORY: Atypical chest pain. FINDINGS: An AP, portable, upright chest radiograph is compared to chest x-ray and chest CT dated 02/10/2020. The examination is degraded by portable technique and patient rotation. The heart is enlarged noting atherosclerotic calcification of the thoracic aorta. The pulmonary vasculature is noncongested. There is bibasilar atelectasis. Question trace pleural effusions. No airspace cons olidation is seen typical for pneumonia. No pneumothorax is seen. The skeletal structures are osteopenic. The bony thorax is grossly intact. IMPRESSION: 1. Cardiomegaly without radiographic evidence of congestive failure. 2. Suspect trace pleural effusions. ACT 112: Negative or not required by law. Consultation(s): Case was discussed with Dr. Moore, [facility] hospitalist, who will evaluate the patient for admission. HPI: The patient is a pleasant 69-year-old woman with a past medical history of CAD, ischemic cardiomyopathy, paroxysmal VT currently with life vest, paroxysmal A. fib on Coumadin who presents emergency department with worsening shortness of breath and abdominal bloating over the past several days in the setting of hav ing a scheduled AICD placement this Thursday 03/22 seen by cardiology clinic today and referred the emergency department for evaluation and admission for rate control and IV diuresis with increased weight gain/fluid retention and afib with rvr. Denies fevers, cough, nausea, vomiting, diarrhea, or urinary sx. ROS: See above HPI for pertinent positives & negatives. A total of 10 systems reviewed and were otherwise negative. PAST MEDICAL HISTORY:See Below PAST SURGICAL HISTORY:See Below FAMILY HISTORY:See Below SOCIAL HISTORY:See Below HOME MEDICATIONS:See Below ALLERGIES:See Below VITALS:See Below PHYSICAL EXAMINATION: GENERAL: Awake, alert, fatigued-appearing, in no distress HENT: Normocephalic, atraumatic. Oropharynx with dry mucous membranes and ot herwise unremarkable. EYES: Normal conjunctiva. Sclera non-icteric. NECK: Supple. No nuchal rigidity. FROM. No JVD. RESPIRATORY: Diminished at the bases and otherwise clear to auscultation. CARDIAC: Tachycardic rate, irregular rhythm. Extremities warm and well perfused. Pulses equal. ABDOMEN: Soft, non-distended. No tenderness to palpation. No rebound or guarding. No masses. RECTAL: Deferred. MUSCULOSKELETAL: Chest examination reveals no tenderness. The back is symmetrical on inspection without obvious abnormality. There is no CVA tenderness to palpation. No joint edema. LOWER EXTREMITIES: Calves are equal size bilaterally and non-tender. Scant BLE edema. No discoloration. NEURO: Normal sensorium. No sensory or motor deficits noted. SKIN: No rash or jaundice noted. ED COURSE: Critical Care: I have personally spent greater than 45 minutes of critical care time in the direct management of this patient. This includes bedside care, interpretation of diagnostic studies, and testing, discussion with consultants, patient, and family members, and other required patient management activities. This 45 minutes is in excess of all separately billable procedures. Jose Juan Ivey MD Past Med/Surg History Medical History Atrial fibrillation Dyslipidemia Ischemic cardiomyopathy (Acute) Surgical History Hx of dilation and curettage Hx of tubal ligation S/P tonsillectomy Family History Other Breast cancer FHx: multiple myeloma FHx: uterine cancer Social History Preferred Language: Zambian Communication Ability: Effective Free Lance Artist Required: No Beliefs That Will Affect Care: None Current Living Situation: Spouse Other Information That Helps Us Care for You: No Feels Safe at Home: Yes Safety Concerns: Feels Safe At This Time Smoking Status: Current some day smoker Tobacco Type: cigarettes ; Cigarettes Per Day: 2 ; Do You Dip or Chew Tobacco: No ; Second Hand Exposure: No ; Tobacco Cessation Education Requested by Patient: No Hx Alcohol Use: No Hx Substance Use: No Allergies Allergies Allergy/AdvReac Type Severity Reaction Status Date / Time No Known Allergies Allergy Verified 02/10/20 19:37 Home Meds Home Medications Medication Instructions Recorded Confirmed amiodarone 200 mg PO DAILY 03/20/20 03/20/20 dicyclomine 10 mg PO TID PRN 03/20/20 03/20/20 metoprolol succinate 25 mg PO QAM 03/20/20 03/20/20 Previous Rx's Medication Instructions Recorded aspirin 81 mg PO QAM 30 Days #30 tab 02/17/20 atorvastatin 20 mg PO HS #30 tab 02/17/20 furosemide 20 mg PO QAM #30 tab 02/17/20 lisinopril [Zestril] 5 mg PO HS 30 Days #30 tab 02/17/20 nitroglycerin [Nitrostat] 0.4 mg SUBLINGUAL UD PRN #30 tab 02/17/20 warfarin [Coumadin] 2.5 mg PO DAILY #30 tab 02/17/20 Results & Data (ED) Vital Signs Vital Signs - 24 hr 03/20/20 16:35 03/20/20 17:14 03/20/20 18:01 Temperature 36.6 C Temperature Source Oral Pulse Rate 142 H 143 H Pulse Rate [Bilateral Apical] Pulse Rate from SpO2 Sensor 156 H Pulse Rhythm Regular Respiratory Rate 20 18 Respiratory Effort / Characteristics Non-Labored Spontaneous Respiratory Depth Normal Blood Pressure 81/62 L Blood Pressure [Right Arm] Blood Pressure Mean 68 84 Blood Pressure Mean [Right Arm] Blood Pressure Position Sitting Pulse Oximetry 98 95 Oxygen Delivery Method Room Air Room Air Sepsis Recent Fever Within 48 Hours No Sepsis New/Unexplained Change in Mental Status No Sepsis Action Taken by Nursing No Action Required 03/20/20 18:06 03/20/20 18:11 03/20/20 18:16 Temperature Temperature Source Pulse Rate 128 H 129 H 126 H Pulse Rate [Bilateral Apical] Pulse Rate from SpO2 Sensor 151 H Pulse Rhythm Respiratory Rate 28 H 32 H 24 Respiratory Effort / Characteristics Respiratory Depth Blood Pressure 91/71 L 80/71 L Blood Pressure [Right Arm] Blood Pressure Mean 82 72 Blood Pressure Mean [Right Arm] Blood Pressure Position Pulse Oximetry 99 Oxygen Delivery Method Sepsis Recent Fever Within 48 Hours Sepsis New/Unexplained Change in Mental Status Sepsis Action Taken by Nursing 03/20/20 18:30 03/20/20 18:31 03/20/20 18:42 Temperature Temperature Source Pulse Rate 129 H 127 H 153 H Pulse Rate [Bilateral Apical] Pulse Rate from SpO2 Sensor 149 H 135 H 145 H Pulse Rhythm Respiratory Rate 23 27 H 32 H Respiratory Effort / Characteristics Respiratory Depth Blood Pressure 94/71 L Blood Pressure [Right Arm] Blood Pressure Mean 78 78 Blood Pressure Mean [Right Arm] Blood Pressure Position Pulse Oximetry 95 95 97 Oxygen Delivery Method Sepsis Recent Fever Within 48 Hours Sepsis New/Unexplained Change in Mental Status Sepsis Action Taken by Nursing 03/20/20 18:46 03/20/20 19:01 03/20/20 19:53 Temperature Temperature Source Pulse Rate 131 H Pulse Rate [Bilateral Apical] 131 H 126 H Pulse Rate from SpO2 Sensor 121 H Pulse Rhythm Respiratory Rate 31 H 20 20 Respiratory Effort / Characteristics Respiratory Depth Blood Pressure Blood Pressure [Right Arm] 83/59 L 107/64 Blood Pressure Mean 79 Blood Pressure Mean [Right Arm] 67 78 Blood Pressure Position Pulse Oximetry 95 98 97 Oxygen Delivery Method Room Air Room Air Sepsis Recent Fever Within 48 Hours Sepsis New/Unexplained Change in Mental Status Sepsis Action Taken by Nursing 03/20/20 20:52 Temperature Temperature Source Pulse Rate Pulse Rate [Bilateral Apical] 128 H Pulse Rate from SpO2 Sensor Pulse Rhythm Respiratory Rate 20 Respiratory Effort / Characteristics Respiratory Depth Blood Pressure Blood Pressure [Right Arm] 94/72 L Blood Pressure Mean Blood Pressure Mean [Right Arm] 79 Blood Pressure Position Pulse Oximetry 100 Oxygen Delivery Method Room Air Sepsis Recent Fever Within 48 Hours Sepsis New/Unexplained Change in Mental Status Sepsis Action Taken by Nursing Laboratory Data Attestation: I reviewed the patient's lab results. Result diagrams: 03/20/20 18:45 03/20/20 18:45 Lab Results 03/20/20 03/20/20 03/20/20 Range/Units 18:45 18:45 18:45 WBC 7.21 (4.8-10.8) K/uL RBC 4.81 (4.2-5.4) M/uL Hgb 15.7 (12.0-16.0) g/dL Hct 45.7 (37-47) % MCV 95.0 (80-100) fL MCH 32.6 (25-34) pg MCHC 34.4 (32-36) g/dL RDW Std Deviation 53.6 H (36.4-46.3) fL RDW Coeff of Angélica 15.6 H (11.5-14.5) % Plt Count 185 (130-400) K/uL MPV 13.0 H (7.4-10.4) fL Immature Gran % (Auto) 0.3 % Neut % (Auto) 70.1 % Lymph % (Auto) 20.4 % [place] % (Auto) 8.0 % Eos % (Auto) 0.8 % Baso % (Auto) 0.4 % Immature Gran # (Auto) 0.02 (0.00-0.02) K/uL Neut # (Auto) 5.05 (1.4-6.5) K/uL Lymph # (Auto) 1.47 (1.2-3.4) K/uL [place] # (Auto) 0.58 (0.11-0.59) K/uL Eos # (Auto) 0.06 (0-0.5) K/uL Baso # (Auto) 0.03 (0-0.2) K/uL PT 51.0 H (9.0-12.0) Seconds INR 5.3 H (0.9-1.1) APTT 33.1 H (21.0-31.0) Seconds PTT Ratio 1.2 Sodium 137 (136-145) mmol/L Potassium 3.5 (3.5-5.1) mmol/L Chloride 94 L (98-107) mmol/L Carbon Dioxide 31 (21-32) mmol/L Anion Gap 12.0 H (3-11) BUN 42 H (7-18) mg/dl Creatinine 1.58 H (0.6-1.2) mg/dl Est Cr Clr Drug Dosing Not Reportable Est GFR ( Amer) 38.6 Est GFR (Non-Af Amer) 33.3 BUN/Creatinine Ratio 26.6 H (10-20) Glucose 130 H (70-99) mg/dl Calcium 8.8 (8.5-10.1) mg/dl Phosphorus 4.1 (2.5-4.9) mg/dl Magnesium 2.3 (1.8-2.4) mg/dl Total Bilirubin 0.6 (0.2-1) mg/dl AST 64 H (15-37) U/L ALT 68 (12-78) U/L Alkaline Phosphatase 172 H (45-117) U/L Troponin I 0.046 H* (0-0.045) ng/ml NT-Pro-B Natriuret Pep 6117 H (0-900) pg/ml Total Protein 6.8 (6.4-8.2) gm/dl Albumin 3.2 L (3.4-5.0) gm/dl Globulin 3.6 (2.5-4.0) gm/dl Albumin/Globulin Ratio 0.9 (0.9-2) Lipase 154 (73-393) U/L TSH 6.390 H (0.300-4.500) uIu/ml Free T4 1.50 (0.8-1.6) ng/dl Specimen Hemolysis Administered Medications Atorvastatin Calcium (Lipitor) 20 mg PO HS BERNIE Stop: 04/19/20 22:36 Last Admin: 03/21/20 00:14 Dose: 20 mg Documented by: [id number] Diltiazem HCl 125 mg/ Dextrose 125 mls @ 5 mls/hr IV .Q24H BERNIE; Protocol Stop: 04/19/20 20:14 Last Titration: 03/20/20 23:03 Dose: 5 mg/hr, 5 mls/hr Documented by: [id number] Cosigned by: [id number] Admin: 03/20/20 20:46 Dose: 5 mg/hr, 5 mls/hr Documented by: [id number] Cosigned by: [id number] Heparin Sodium/Dextrose (Heparin Sodium/Dextrose) 25,000 units in 500 mls @ 14 mls/hr IV .Q24H BERNIE; Protocol Stop: 04/19/20 22:36 Last Admin: 03/20/20 23:03 Dose: 700 units/hr, 14 mls/hr Documented by: [id number] Cosigned by: [id number] Lisinopril (Zestril) 5 mg PO HS BERNIE Stop: 04/19/20 22:36 Last Admin: 03/20/20 23:54 Dose: Not Given Documented by: [id number] Discontinued Medications Furosemide (Lasix) 20 mg IV NOW STA Stop: 03/20/20 20:08 Last Admin: 03/20/20 20:23 Dose: 20 mg Documented by: [id number] Heparin Sodium/Dextrose (Heparin Sodium/Dextrose) Confirm Administered Dose 25,000 units IV .STK-MED ONE Stop: 03/20/20 21:49 Last Admin: 03/20/20 22:10 Dose: 700 units Documented by: [id number] Cosigned by: [id number] Heparin Sodium/Dextrose () 1 ea IV Q15M BERNIE; Protocol Stop: 03/21/20 03:00 Last Admin: 03/20/20 23:57 Dose: Not Given Documented by: [id number] Famotidine (Pepcid 20mg Iv Push) 20 mg in 5 mls @ 2.5 mls/min IV NOW STA Stop: 03/20/20 20:08 Last Admin: 03/20/20 20:23 Dose: 2.5 mls/min Documented by: [id number] Miscellaneous () 1 ea N/A NOW STA Stop: 03/20/20 20:08 Last Admin: 03/20/20 21:14 Dose: Not Given Documented by: [id number] Blood Pressure Blood Pressure Findings: Low blood pressure Blood Pressure Disposition: further management by hospitalist Discharge Plan Visit Data *Final* Discharge Date/Time: 03/20/20 22:30 Chief Complaint: Cardiac Assessment Stated Complaint: PACEMAKER ED Provider: Jose Juan Ivey Discharge Problem: Atrial fibrillation with RVR, Ischemic cardiomyopathy, Volume overload, CKD (chronic kidney disease) Patient Disposition: Admitted As Inpatient Discharge Instructions Interventions: ED Discharge Assessment Last Done: 03/20/20 22:30 Discharge Problem: Volume overload Qualifiers: Hypervolemia type: unspecified Qualified Code(s): E87.70 - Fluid overload, unspecified
[2020-03-21 02:42] LABS: Appearance Urine Clear (Clear); Bacteria Urine Automated Negative (Negative); Bilirubin Urine Negative (Negative); Blood Urine Negative (Negative); Color Urine Yellow; Glucose Urine UA Negative (Negative); Ketones Urine Negative (Negative); Leukocyte Esterase Urine 2+ (Negative); Nitrite Urine Negative (Negative); Protein Urine Negative (Negative); Specific Gravity Urine 1.019 (1.000-1.030); Urobilinogen Urine Negative (Negative)
[2020-03-21 02:54] LABS: RBC Urine Automated 0-4 /hpf (0-4)
[2020-03-21 05:06] LABS: Basophils # (auto) 0.05 K/uL (0-0.2); Basophils % (auto) 0.8 %; Eosinophils % (auto) 1.5 %; Immature Granulocytes # (auto) 0.01 K/uL (0.00-0.02); Immature Granulocytes % (auto) 0.2 %; Lymphocytes # (auto) 1.65 K/uL (1.2-3.4); Mean Corpuscular Hemoglobin 31.6 pg (25-34); Mean Corpuscular Hgb Conc 33.3 g/dL (32-36); Mean Corpuscular Volume 94.7 fL (80-100); Mean Platelet Volume 12.7 fL (7.4-10.4); Monocytes # (auto) 0.52 K/uL (0.11-0.59); Monocytes % (auto) 7.9 %; Neutrophils # (auto) 4.27 K/uL (1.4-6.5); Neutrophils % (auto) 64.6 %; Platelet Count 159 K/uL (130-400); RDW Coefficient of Variation 15.5 % (11.5-14.5); RDW Standard Deviation 52.7 fL (36.4-46.3); Red Blood Count 4.75 M/uL (4.2-5.4)
[2020-03-21 05:26] LABS: BUN Creatinine Ratio 28.2 (10-20); Calcium 8.2 mg/dl (8.5-10.1); Creatinine Clr Calc Pharmacy 32.6 ml/min; Est GFR (African American) 43.1; Est GFR (Non-African American) 37.2; Magnesium 2.2 mg/dl (1.8-2.4); Potassium 3.5 mmol/L (3.5-5.1)
[2020-03-21 05:27] LABS: INR 5.3 (0.9-1.1); Partial Thromboplastin Ratio 1.8; Prothrombin Time 51.3 Seconds (9.0-12.0)
[2020-03-21 05:33] LABS: Troponin I 0.054 ng/ml (0-0.045)
[2020-03-21 05:38] LABS: Partial Thromboplastin Time 49.4 Seconds (21.0-31.0)
[2020-03-21] MEDS ORDERED: DIGOXIN 500 MCG/2 ML AMP IV ONE (08:20)
[2020-03-21] MEDS ORDERED: FUROSEMIDE 80 MG in SYRINGE 0 ML IV ONE (09:00)
[2020-03-21] MEDS ORDERED: DIGOXIN 500 MCG in SYRINGE 9 ML IV ONE (09:00)
[2020-03-21] MEDS ORDERED: AMIODARONE 200 MG TAB PO SCH (09:00)
[2020-03-21] MEDS: ASPIRIN 81 MG ECTAB PO SCH (09:17)
[2020-03-21] MEDS: POTASSIUM CHLORIDE 20 MEQ TABCR PO SCH (09:17)
--- NOTE | 2020-03-21 09:34 | Cardiology Consultation ---
Date of Consultation March 21, 2020 Assessment & Plan (1) Ischemic cardiomyopathy: (2) Atrial fibrillation with RVR: (3) Volume overload: (4) CKD (chronic kidney disease): (5) Acute left systolic heart failure: (6) Mitral regurgitation: As mentioned above the patient's heparin has been placed on hold due to his supratherapeutic INR. The patient will continue oral amiodarone and has been loaded with digoxin. She will not receive a maintenance dose of digoxin due to potential toxicity but it is okay to load the patient with digoxin while on amiodarone. She is receiving extra diuretics. Pending the results of the above, hopefully she can receive her biventricular pacemaker later this week. Since the patient had a repeat INR that indicates still a therapeutic number at 5.4, I will give vitamin K 2.5 mg p.o. now. History of Present Illness Attending Physician: Jesusita Mari MD History of Present Illness This is a 69-year-old female with an ischemic cardiomyopathy and severe LV dysfunction. She also has a left bundle branch block with severe mitral regurgitation due to dyssynchrony. She was scheduled for to have an ICD/biventricular pacemaker inserted. During her last hospital admission she had runs of both atrial fibrillation as well as nonsustained ventricular tachycardia and was given a LifeVest after being started on amiodarone. The patient of the past several days has felt symptoms of bloating which was her initial presentation due to congestive heart failure. It progressed over the past several days and she presented to the clinic yesterday and heart failure along with atrial fibrillation with RVR. Upon presentation to the hospital she was at first started on a diltiazem drip which has since been discontinued due to her heart failure. She has been continued on amiodarone and now is being loaded with digoxin based on the recommendations of EP. Her outpatient INR seem to be subtherapeutic at 1.7 however the hospital INR is 5.4. Heparin was initially started but is now been discontinued. She denies chest pain. She has not felt her heart racing. She received no therapies from her LifeVest. Past medical history: 1. Recurrent atrial flutter with RVR at 146 bpm, symptomatic 2. Acute systolic HF, likely related to recent return of aflutter RVR. Evidence of volume overload on exam 3. Chronic systolic heart failure with severely reduced LVEF 4. Paroxysmally atrial fibrillation 5. Estimated left ventricular ejection fraction is around 30% 6. Severe mitral regurgitation Allergies Allergy/AdvReac Type Severity Reaction Status Date / Time No Known Allergies Allergy Verified 02/10/20 19:37 Home Medications Home Medications Medication Instructions Recorded Confirmed Type aspirin 81 mg PO QAM 30 Days #30 tab 02/17/20 03/22/20 Rx atorvastatin 20 mg PO HS #30 tab 02/17/20 03/22/20 Rx furosemide 20 mg PO QAM #30 tab 02/17/20 03/22/20 Rx lisinopril [Zestril] 5 mg PO HS 30 Days #30 tab 02/17/20 03/22/20 Rx nitroglycerin [Nitrostat] 0.4 mg SUBLINGUAL UD PRN #30 tab 02/17/20 03/22/20 Rx warfarin [Coumadin] 2.5 mg PO DAILY #30 tab 02/17/20 03/22/20 Rx amiodarone 200 mg PO DAILY 03/20/20 03/22/20 History dicyclomine 10 mg PO TID PRN 03/20/20 03/22/20 History metoprolol succinate 25 mg PO QAM 03/20/20 03/22/20 History docusate sodium [Colace] 100 mg PO BID 03/22/20 03/22/20 History omeprazole magnesium [Prilosec OTC] 20 mg PO DAILY 03/22/20 03/22/20 History Patient History Medical History Atrial fibrillation Dyslipidemia Ischemic cardiomyopathy (Acute) Surgical History Hx of dilation and curettage Hx of tubal ligation S/P tonsillectomy Family History Other Breast cancer FHx: multiple myeloma FHx: uterine cancer Social History Preferred Language: Indonesian Communication Ability: Effective Bench Molder Required: No Beliefs That Will Affect Care: None Current Living Situation: Spouse Feels Safe at Home: Yes Smoking Status: Current some day smoker Tobacco Type: cigarettes ; Cigarettes Per Day: 2 ; Second Hand Exposure: No ; Hx Alcohol Use: No Hx Substance Use: No Review of Systems Review of Systems: All systems reviewed & are unremarkable except as noted in HPI & below Physical Exam Physical Exam: General: no acute distress and stated age Head: normocephalic, no masses, lesions, tenderness or abnormalities Eyes: conjunctiva are pink and non-injected, sclera clear Neck: supple, no adenopathy, no bruits, normal jugular venous pulse, no hepatojugular reflux Chest: normal shape and normal respiratory effort Lungs: clear to auscultation and percussion Cardiac Exam: - irregular rate & rhythm, no murmurs gallops or rubs - normal S1, normal S2 Pulses: 2(+) throughout Abdomen: abdomen soft, non-tender, no abnormal masses and no hepatosplenomegaly Musculoskeletal: no gait disturbance, no joint inflammation, no deforming arthritis Extremities: no edema and no cyanosis Neuro: grossly normal exam Results & Data ([facility]) Vital Signs (Past 12 Hours) Vital Signs Temp Pulse Pulse Resp BP BP Pulse Ox 03/21/20 09:17 128 H 03/21/20 08:30 130 H 24 90/77 L 03/21/20 08:00 36.7 C 130 H 25 H 97/57 L 03/21/20 07:41 130 H 25 H 101/70 03/21/20 07:01 128 H 27 H 84/57 L 97 03/21/20 03:54 36.5 C 130 H 19 94/68 L 96 03/21/20 00:00 36.7 C 120 H 16 87/64 L 98 03/20/20 22:46 37.1 C 131 H 20 92/61 L 96 03/20/20 22:08 132 H 20 113/90 98 03/20/20 21:38 130 H 20 126/79 98 Laboratory Results Laboratory Results - last 24 hr 03/20/20 03/20/20 03/20/20 18:45 18:45 18:45 WBC 7.21 RBC 4.81 Hgb 15.7 Hct 45.7 MCV 95.0 MCH 32.6 MCHC 34.4 RDW Std Deviation 53.6 H RDW Coeff of Angélica 15.6 H Plt Count 185 MPV 13.0 H Immature Gran % (Auto) 0.3 Neut % (Auto) 70.1 Lymph % (Auto) 20.4 Anson % (Auto) 8.0 Eos % (Auto) 0.8 Baso % (Auto) 0.4 Immature Gran # (Auto) 0.02 Neut # (Auto) 5.05 Lymph # (Auto) 1.47 Anson # (Auto) 0.58 Eos # (Auto) 0.06 Baso # (Auto) 0.03 PT 51.0 H INR 5.3 H APTT 33.1 H PTT Ratio 1.2 Sodium 137 Potassium 3.5 Chloride 94 L Carbon Dioxide 31 Anion Gap 12.0 H BUN 42 H Creatinine 1.58 H Est Cr Clr Drug Dosing Not Reportable Est GFR ( Amer) 38.6 Est GFR (Non-Af Amer) 33.3 BUN/Creatinine Ratio 26.6 H Glucose 130 H Calcium 8.8 Phosphorus 4.1 Magnesium 2.3 Total Bilirubin 0.6 AST 64 H ALT 68 Alkaline Phosphatase 172 H Troponin I 0.046 H* NT-Pro-B Natriuret Pep 6117 H Total Protein 6.8 Albumin 3.2 L Globulin 3.6 Albumin/Globulin Ratio 0.9 Lipase 154 TSH 6.390 H Free T4 1.50 Specimen Hemolysis Urine Color Urine Appearance Urine pH Ur Specific Lincoln Urine Protein Urine Glucose (UA) Urine Ketones Urine Blood Urine Nitrite Urine Bilirubin Urine Urobilinogen Ur Leukocyte Esterase Urine WBC (Auto) Urine RBC (Auto) U Hyaline Cast (Auto) U Epithel Cells (Auto) Urine Bacteria (Auto) Urine Yeast Nasal Screen MRSA (PCR) 03/20/20 03/20/20 03/21/20 22:55 Unknown 02:30 WBC RBC Hgb Hct MCV MCH MCHC RDW Std Deviation RDW Coeff of Angélica Plt Count MPV Immature Gran % (Auto) Neut % (Auto) Lymph % (Auto) Anson % (Auto) Eos % (Auto) Baso % (Auto) Immature Gran # (Auto) Neut # (Auto) Lymph # (Auto) Anson # (Auto) Eos # (Auto) Baso # (Auto) PT INR APTT PTT Ratio Sodium Potassium Chloride Carbon Dioxide Anion Gap BUN Creatinine Est Cr Clr Drug Dosing Est GFR ( Amer) Est GFR (Non-Af Amer) BUN/Creatinine Ratio Glucose Calcium Phosphorus Magnesium Total Bilirubin AST ALT Alkaline Phosphatase Troponin I 0.056 H* NT-Pro-B Natriuret Pep Total Protein Albumin Globulin Albumin/Globulin Ratio Lipase TSH Free T4 Specimen Hemolysis Urine Color Yellow Urine Appearance Clear Urine pH 5.0 Ur Specific Lincoln 1.019 Urine Protein Negative Urine Glucose (UA) Negative Urine Ketones Negative Urine Blood Negative Urine Nitrite Negative Urine Bilirubin Negative Urine Urobilinogen Negative Ur Leukocyte Esterase 2+ H Urine WBC (Auto) 10-30 H Urine RBC (Auto) 0-4 U Hyaline Cast (Auto) 1-5 U Epithel Cells (Auto) 10-20 H Urine Bacteria (Auto) Negative Urine Yeast Not Reportable Nasal Screen MRSA (PCR) Negative 03/21/20 03/21/20 03/21/20 04:50 04:50 04:50 WBC 6.60 RBC 4.75 Hgb 15.0 Hct 45.0 MCV 94.7 MCH 31.6 MCHC 33.3 RDW Std Deviation 52.7 H RDW Coeff of Angélica 15.5 H Plt Count 159 MPV 12.7 H Immature Gran % (Auto) 0.2 Neut % (Auto) 64.6 Lymph % (Auto) 25.0 Anson % (Auto) 7.9 Eos % (Auto) 1.5 Baso % (Auto) 0.8 Immature Gran # (Auto) 0.01 Neut # (Auto) 4.27 Lymph # (Auto) 1.65 Anson # (Auto) 0.52 Eos # (Auto) 0.10 Baso # (Auto) 0.05 PT 51.3 H INR 5.3 H APTT 49.4 H* PTT Ratio 1.8 Sodium 136 Potassium 3.5 Chloride 97 L Carbon Dioxide 32 Anion Gap 7.0 BUN 41 H Creatinine 1.44 H Est Cr Clr Drug Dosing 32.6 Est GFR ( Amer) 43.1 Est GFR (Non-Af Amer) 37.2 BUN/Creatinine Ratio 28.2 H Glucose 116 H Calcium 8.2 L Phosphorus Magnesium 2.2 Total Bilirubin AST ALT Alkaline Phosphatase Troponin I 0.054 H* NT-Pro-B Natriuret Pep Total Protein Albumin Globulin Albumin/Globulin Ratio Lipase TSH Free T4 Specimen Hemolysis Urine Color Urine Appearance Urine pH Ur Specific Lincoln Urine Protein Urine Glucose (UA) Urine Ketones Urine Blood Urine Nitrite Urine Bilirubin Urine Urobilinogen Ur Leukocyte Esterase Urine WBC (Auto) Urine RBC (Auto) U Hyaline Cast (Auto) U Epithel Cells (Auto) Urine Bacteria (Auto) Urine Yeast Nasal Screen MRSA (PCR) Medications Administered Current Inpatient Medications Acetaminophen (Tylenol) 650 mg PO Q4H PRN PRN Reason: Pain or Fever Stop: 04/19/20 22:36 Amiodarone HCl (Cordarone) 200 mg PO DAILY [facility] Stop: 04/20/20 08:59 Last Admin: 03/21/20 07:31 Dose: 200 mg Documented by: Aspirin ([facility]rin [facility]ctab) [facility] Stop: 04/20/20 08:59 Last Admin: 03/21/20 09:17 Dose: 81 mg Documented by: Atorvastatin Calcium (Lipitor) 20 mg PO [facility] Stop: 04/19/20 22:36 Last Admin: 03/21/20 00:14 Dose: 20 mg Documented by: Dicyclomine HCl (Bentyl) 10 mg PO TID PRN PRN Reason: Cramps Stop: 04/19/20 22:36 Lisinopril (Zestril) 5 mg PO [facility] Stop: 04/19/20 22:36 Last Admin: 03/20/20 23:54 Dose: Not Given Documented by: Metoprolol Succinate (Toprol Xl) [facility] Stop: 04/20/20 08:59 Nitroglycerin (Nitrostat) 0.4 mg SL UD PRN PRN Reason: Chest Pain Stop: 04/19/20 22:36 Ondansetron HCl (Zofran) 4 mg IV Q6H PRN PRN Reason: Nausea Stop: 04/20/20 09:22 Potassium Chloride (Klor-Con M20) 20 meq PO [facility] Stop: 04/20/20 08:59 Last Admin: 03/21/20 09:17 Dose: 20 meq Documented by: (1) Volume overload Hypervolemia type: unspecified Qualified Code(s): E87.70 - Fluid overload, unspecified
[2020-03-21] MEDS: ONDANSETRON INJ 2 MG/ML 2 ML VIAL IV PRN ×2 (09:49→19:44)
[2020-03-21] MEDS ORDERED: PHYTONADIONE 5 MG TAB PO ONE ×2 (10:00→15:15)
[2020-03-21 11:00] LABS: INR 3.5 (0.9-1.1); Prothrombin Time 34.5 Seconds (9.0-12.0)
[2020-03-21 11:09] LABS: Calcium 8.4 mg/dl (8.5-10.1); Creatinine Clr Calc Pharmacy 31.9 ml/min; Est GFR (African American) 41.7; Potassium 3.9 mmol/L (3.5-5.1)
[2020-03-21] MEDS: METOPROLOL SUCC 25MG EXT REL TAB PO SCH (11:14)
[2020-03-21] MEDS ORDERED: PHYTONADIONE 2.5 MG in SODIUM CHLORIDE 0.9% 50 ML IV ONE (12:05)
[2020-03-21] MEDS ORDERED: AMIODARONE IV BOLUS & DRIP IV STA (14:48)
[2020-03-21] MEDS ORDERED: STAT IV Infusion **Titration per Protocol STA (14:48)
--- NOTE | 2020-03-21 14:59 | Communication Note ---
Date of Service: March 21, 2020 The patient continues to be tachycardic with heart rates in the 120s. She typically runs a low blood pressure which makes it difficult to treat her heart failure as well as arrhythmias. Previous hospital admission responded well to IV amiodarone. Also it is uncertain as to how compliant she has been with her medications before being admitted. Therefore, I think it is reasonable to try a bolus and drip of amiodarone for heart rate control.
[2020-03-21] MEDS ORDERED: AMIODARONE / D5W 150 MG/100 ML BAG IV ONE (15:00)
[2020-03-21] MEDS ORDERED: 0.2 MICRON FILTER SET 1 EA IV ONE (15:30)
[2020-03-21] MEDS: AMIODARONE 450 MG in D5W 250ML IN *POLYOLEFIN BAG* 241 ML IV SCH (15:32)
--- NOTE | 2020-03-21 15:40 | Electrocardiogram Report ---
Test Reason : Blood Pressure : / mmHG Vent. Rate : 138 BPM Atrial Rate : 258 BPM P-R Int : 000 ms QRS Dur : 140 ms QT Int : 342 ms P-R-T Axes : 087 -66 090 degrees QTc Int : 518 ms Atrial flutter with variable A-V block with premature ventricular or aberrantly conducted complexes Left axis deviation Non-specific intra-ventricular conduction block Poor R wave progression, consider anterior AR vs. lead placement vs. LVH Abnormal ECG When compared with ECG of 14-FEB-2020 09:19, Atrial flutter has replaced Atrial fibrillation T wave inversion now evident in Inferior leads Confirmed by Clarence Joe ([id number]) on 03/21/2020 3:40:38 PM Referred By: REFERRED SELF Confirmed By:Pepe Joe
--- NOTE | 2020-03-21 15:53 | Electrocardiogram Report ---
Test Reason : Blood Pressure : / mmHG Vent. Rate : 129 BPM Atrial Rate : 258 BPM P-R Int : 000 ms QRS Dur : 138 ms QT Int : 400 ms P-R-T Axes : 000 -68 063 degrees QTc Int : 586 ms Atrial flutter with 2:1 A-V conduction Left axis deviation Left bundle branch block Abnormal ECG When compared with ECG of 20-MAR-2020 17:08, (unconfirmed) Borderline criteria for Lateral infarct are no longer Present Confirmed by Clarence Joe ([id number]) on 03/21/2020 3:52:23 PM Referred By: REFERRED SELF Confirmed By:Pepe Joe
[2020-03-21] MEDS: ACETAMINOPHEN 325 MG TAB PO PRN ×2 (16:07→20:37)
--- NOTE | 2020-03-21 16:43 | Hospitalist Progress Note ---
Date of Service March 21, 2020 Assessment & Plan (1) Ischemic cardiomyopathy: Hypertensive heart and CKD 3 with chronic systolic/diastolic heart failure pt admitted with acute decompensation of combined systolic and diastolic heart failure vol overload -in creased abdominal girth , lower ext edema , BERNARD Echo done in 02/15/2020 shows EF of 15-20% pt was on life vest scheduled for AICD placement in am (2) Atrial fibrillation with RVR: due to decompensated CHF on IC amiodarone on coumadin already INR elevated apprecite input from cardiology given vit K for planned AICD placement in am (3) CKD (chronic kidney disease): acute renal failure on CKD stage 3 possible to decompensated CHF /rapid afib causing poor renal perfusion given IV lasix for diuresis follow BMP elevated troponin : type 2 NSTEMI due to demand ischemia in setting of decomensated biventricular CHF /afib rvr appreciate input from cardiology cont cardiac meds scheduled for AICD placement for severe ischemic cardiomyopathy FULL CODE Admission and Anticipated Discharge Date Admission Date: March 20, 2020 Subjective pt reports of improvement of sob no complain of chest pain or palpitation no cough or fever scheduled for AICD placement in am Physical Exam Constitutional: WD/WN, vitals as above Eyes: PERRL, conjunctivae normal, anicteric sclerae ENMT: external ear and nose normal, oropharynx normal Neck: trachea midline, no thyromegaly Respiratory: normal respiratory effort; no respiratory distress and no cough Auscultation: + rales Cardiovascular: Rate/Rhythm: + abnormal rhythm Extremities: + pedal edema and + edema Gastrointestinal (Abdomen): Percussion/Palpation: abdomen soft; abdomen nontender Musculoskeletal: no cyanosis or clubbing, extremities motor strength 5/5 Extremities: strength 5/5 throughout Neurologic: PERRL, EOMI, accommodation nl, no face palsy, no dysarthria Psychiatric: A+Ox3, euthymic affect Results & Data Results & Data ([facility]) Vital Signs (Past 12 Hours) Vital Signs Temp Pulse Pulse Resp BP BP Pulse Ox 03/21/20 15:23 121 H 22 104/67 95 03/21/20 15:20 36.6 C 121 H 20 80/73 L 98 03/21/20 15:01 119 H 27 H 03/21/20 14:30 121 H 27 H 101/61 03/21/20 11:00 106 H 29 H 120/70 03/21/20 10:30 122 H 23 107/73 96 03/21/20 10:01 103 H 21 106/64 03/21/20 09:51 124 H 23 97/70 L 03/21/20 09:17 128 H 03/21/20 09:02 130 H 26 H 101/67 03/21/20 08:30 130 H 24 90/77 L 03/21/20 08:00 36.7 C 130 H 25 H 97/57 L 03/21/20 07:41 130 H 25 H 101/70 03/21/20 07:01 128 H 27 H 84/57 L 97
[2020-03-21 18:47] LABS: INR 2.6 (0.9-1.1); Prothrombin Time 26.4 Seconds (9.0-12.0)
[2020-03-21] MEDS: lisinopriL 5 MG TAB PO SCH (20:34)
[2020-03-21] MEDS ORDERED: AMIODARONE RATE CHANGE ONE (21:30)
[2020-03-22] MEDS: ACETAMINOPHEN 325 MG TAB PO PRN ×3 (00:43→23:52)
[2020-03-22] MEDS: AMIODARONE 450 MG in D5W 250ML IN *POLYOLEFIN BAG* 241 ML IV SCH ×3 (01:19→16:20)
[2020-03-22 04:22] LABS: INR 2.6 (0.9-1.1); Prothrombin Time 25.6 Seconds (9.0-12.0)
[2020-03-22] MEDS: ASPIRIN 81 MG ECTAB PO SCH (08:22)
[2020-03-22] MEDS: POTASSIUM CHLORIDE 20 MEQ TABCR PO SCH (08:22)
[2020-03-22] MEDS: METOPROLOL SUCC 25MG EXT REL TAB PO SCH (08:22)
--- NOTE | 2020-03-22 10:09 | Cardiology Progress Note ---
Date of Service March 22, 2020 Assessment & Plan (1) Ischemic cardiomyopathy: (2) Atrial fibrillation with RVR: (3) Volume overload: (4) CKD (chronic kidney disease): (5) Acute left systolic heart failure: (6) Mitral regurgitation: The patient's INR is acceptable today and she will receive a BIV pacemaker. Heart rates remained a little high but acceptable. Otherwise she is stable and ready to go. Subjective Patient waiting for BIV placement later this morning. Review of Systems Review of Systems: All systems reviewed & are unremarkable except as noted in HPI & below Nothing additional to add. Physical Exam Physical Exam: General: no acute distress and stated age Head: normocephalic, no masses, lesions, tenderness or abnormalities Eyes: conjunctiva are pink and non-injected, sclera clear Neck: supple, no adenopathy, no bruits, normal jugular venous pulse, no hepatojugular reflux Chest: normal shape and normal respiratory effort Lungs: clear to auscultation and percussion Cardiac Exam: - regular rate & rhythm, no murmurs gallops or rubs - normal S1, normal S2 Pulses: 2(+) throughout Abdomen: abdomen soft, non-tender, no abnormal masses and no hepatosplenomegaly Musculoskeletal: no gait disturbance, no joint inflammation, no deforming arthritis Extremities: no edema and no cyanosis Neuro: grossly normal exam Results & Data Vital Signs (Past 12 Hours) Vital Signs Temp Pulse Pulse Resp BP BP Pulse Ox 03/22/20 08:03 111 H 17 03/22/20 07:56 36.6 C 115 H 19 108/75 94 03/22/20 04:54 36.6 C 112 H 18 98/68 L 96 03/22/20 00:00 103 H 03/21/20 23:32 36.5 C 105 H 31 H 96/67 L 93 Laboratory Results Laboratory Results - last 24 hr 03/21/20 03/21/20 03/21/20 10:37 10:37 10:37 PT 34.5 H INR 3.5 H Sodium 136 Potassium 3.9 Chloride 96 L Carbon Dioxide 32 Anion Gap 8.0 BUN 41 H Creatinine 1.48 H Est Cr Clr Drug Dosing 31.9 Est GFR ( Amer) 41.7 Est GFR (Non-Af Amer) 36.0 BUN/Creatinine Ratio 28.0 H Glucose 164 H Calcium 8.4 L Troponin I 0.044 Hepatitis C Ab Screen 03/21/20 03/22/20 03/22/20 18:22 03:54 03:54 PT 26.4 H 25.6 H INR 2.6 H 2.6 H Sodium Potassium Chloride Carbon Dioxide Anion Gap BUN Creatinine Est Cr Clr Drug Dosing Est GFR ( Amer) Est GFR (Non-Af Amer) BUN/Creatinine Ratio Glucose Calcium Troponin I Hepatitis C Ab Screen Neg Medications Administered Current Inpatient Medications Acetaminophen (Tylenol) 650 mg PO Q4H PRN PRN Reason: Pain or Fever Stop: 04/19/20 22:36 Last Admin: 03/22/20 08:26 Dose: 650 mg Documented by: Aspirin (Ecotrin Ectab) 81 mg PO [facility] Stop: 04/20/20 08:59 Last Admin: 03/22/20 08:22 Dose: 81 mg Documented by: Atorvastatin Calcium (Lipitor) 20 mg PO [facility] Stop: 04/19/20 22:36 Last Admin: 03/21/20 20:35 Dose: 20 mg Documented by: Dicyclomine HCl (Bentyl) 10 mg PO TID PRN PRN Reason: Cramps Stop: 04/19/20 22:36 Amiodarone HCl 450 mg/ (Dextrose) 250 mls @ 33.333 mls/hr IV .Q7H30M [facility]; Protocol Stop: 04/20/20 15:29 Last Titration: 03/22/20 08:22 Dose: 0.5 mg/min, 16.7 mls/hr Documented by: Lisinopril (Zestril) 5 mg PO [facility] Stop: 04/19/20 22:36 Last Admin: 03/21/20 20:34 Dose: Not Given Documented by: Metoprolol Succinate (Toprol Xl) 25 mg PO [facility] Stop: 04/20/20 08:59 Last Admin: 03/22/20 08:22 Dose: 25 mg Documented by: Nitroglycerin (Nitrostat) 0.4 mg SL UD PRN PRN Reason: Chest Pain Stop: 04/19/20 22:36 Ondansetron HCl (Zofran) 4 mg IV Q6H PRN PRN Reason: Nausea Stop: 04/20/20 09:22 Last Admin: 03/21/20 19:44 Dose: 4 mg Documented by: Potassium Chloride (Klor-Con M20) 20 meq PO QAM [facility] Stop: 04/20/20 08:59 Last Admin: 03/22/20 08:22 Dose: 20 meq Documented by: (1) Volume overload Hypervolemia type: unspecified Qualified Code(s): E87.70 - Fluid overload, unspecified
[2020-03-22] MEDS ORDERED: BACITRACIN INJ 50,000 UNIT VIAL ONE (11:43)
[2020-03-22] MEDS ORDERED: BUPIVACAINE 0.25% 30 ML VIAL ONE (11:43)
[2020-03-22] MEDS ORDERED: LIDOCAINE HCL 1% 20 ML VIAL ONE (11:43)
[2020-03-22] MEDS ORDERED: MIDAZOLAM HCL 5 MG/ML 1 ML VIAL ONE ×2 (11:45→13:32)
[2020-03-22] MEDS ORDERED: fentaNYL citrate 100 MCG/2 ML VIAL ONE ×2 (11:45→12:59)
[2020-03-22] MEDS ORDERED: CEFAZOLIN 250 MG/ML 1 GM VIAL ONE (11:45)
--- NOTE | 2020-03-22 11:47 | History & Physical Bridge Note ---
Date of Service March 22, 2020 History & Physical Bridge Note I have examined the patient, reviewed the History & Physical and in the interval since the performance of the History & Physical I have noted the following changes of clinical significance: pt for BIV ICD due to NICM, LBBB and chronic systolic HF; consents obtained
--- NOTE | 2020-03-22 11:48 | Pre Anesthesia Assessment ---
Date of Service March 22, 2020 Pre Sedation Assessment Vital Signs Temp Pulse Pulse Resp BP BP Pulse Ox 03/22/20 10:00 108 H 18 03/22/20 08:03 111 H 17 03/22/20 07:56 36.6 C 115 H 19 108/75 94 03/22/20 04:54 36.6 C 112 H 18 98/68 L 96 03/22/20 00:00 103 H 03/21/20 23:32 36.5 C 105 H 31 H 96/67 L 93 03/21/20 20:15 98 H 03/21/20 19:40 114 H 23 101/42 L 97 03/21/20 19:16 106 H 21 89/46 L 03/21/20 19:05 36.6 C 103 H 30 H 85/50 L 95 03/21/20 15:23 121 H 22 104/67 95 03/21/20 15:20 36.6 C 121 H 20 80/73 L 98 03/21/20 15:01 119 H 27 H 03/21/20 14:30 121 H 27 H 101/61 Cardiovascular + tachycardic Respiratory normal respiratory effort, lungs clear to auscultation Pre-Sedation Airway Assessment Smoking Status: Current some day smoker Hx Sleep Apnea: No Short, Thick Neck: No Thyromental Distance: > or= 3.5 Finger Breadths Oral Cavity: + Dentures Mallampati Class: III ASA: ASA3 NPO Status Date of Last Intake of Fluids: 03/21/20 Time of Last Intake of Fluids: 21:00 Date of Last Intake of Solid Food: 03/21/20 Time of Last Intake of Solid Foods: 21:00 Procedure Planning Contraindications for Sedation: none Current Medications Reviewed: Yes Notes The planned sedation has been discussed with the patient. Informed Consent was obtained. I have identified the patient, determined the appropriateness of sedation and have assessed the patient immediately prior to the procedure. All medicine(s) and interventions are by my order.
--- NOTE | 2020-03-22 12:40 | Hospitalist Progress Note ---
Date of Service March 22, 2020 Assessment & Plan (1) Acute left systolic heart failure: (2) Ischemic cardiomyopathy: pt admitted with acute decompensation of combined systolic heart failure volume overload -increased abdominal girth , lower ext edema , BERNARD Echo done in 02/15/2020 shows EF of 15-20% pt wearing life vest - last hospitalization - discharged on lifevest scheduled for biventricular pacemaker placement today (03/22) (3) Atrial fibrillation with RVR: due to decompensated CHF on IC amiodarone loaded w/ digoxin initially on cardizem gtt which was stopped on coumadin already rate better controlled today INR therapeutic today appreciate input from cardiology given vit K yesterday for suprather. INR, for planned bivent. pacemaker placement today (4) CKD (chronic kidney disease): acute renal failure on CKD stage 3 possible to decompensated CHF /rapid afib causing poor renal perfusion given IV lasix for diuresis follow BMP elevated troponin : type 2 NSTEMI due to demand ischemia in setting of decomensated biventricular CHF /afib rvr appreciate input from cardiology cont cardiac meds scheduled for bivent. pacemaker placement for severe ischemic cardiomyopathy, LBBB and chronic systolic HF FULL CODE Admission and Anticipated Discharge Date Admission Date: March 20, 2020 Subjective Patient seen and examined in room E 111 this morning, patient sitting up in bed, in no acute distress. Currently denies any chest pain, palpitations, shortness of breath however she states that if she is not resting she does get short of breath. Current heart rate is about 108. States she was already seen by cardiology this morning, plan for possible biventricular pacemaker later today. Patient also denies any fevers, chills, abdominal pain, nausea or vomiting. Denies any dizziness or lightheadedness. She is speaking in full sentences. Review of Systems Review of Systems: All systems reviewed & are unremarkable except as noted in HPI & below Constitutional: no fever and no chills Respiratory: no cough and no dyspnea (but reports dyspnea w/ mild exertion) Cardiovascular: no chest pain and no palpitations Gastrointestinal: no abdominal pain, no nausea and no vomiting Physical Exam Physical Exam: Constitutional: Elderly female sitting up in bed in NAD, WD/WN, vitals as above Eyes: EOMI, PERRL, conjunctivae normal, anicteric sclerae ENMT: external ear and nose normal, oropharynx normal Neck: trachea midline, no thyromegaly Respiratory: normal respiratory effort; no respiratory distress and no cough Auscultation: + mild b/l rales Cardiovascular: Rate/Rhythm: tachycardic HR 108 and irregular, syst. murmur, Extremities: + pedal edema b/l Chest: pt wearing lifevest Gastrointestinal (Abdomen): Percussion/Palpation: abdomen soft; abdomen nontender, + bowel sounds, mildly distended Musculoskeletal: no cyanosis or clubbing, extremities motor strength 5/5 Extremities: strength 5/5 throughout, moves extremities spontaneously Neurologic: PERRL, EOMI, accommodation nl, no face palsy, no dysarthria, moves extremities spontaneously Psychiatric: A+Ox3, euthymic affect Results & Data Results & Data ([facility]) Vital Signs (Past 12 Hours) Vital Signs Temp Pulse Pulse Resp BP Pulse Ox 03/22/20 10:00 108 H 18 03/22/20 08:03 111 H 17 03/22/20 07:56 36.6 C 115 H 19 108/75 94 03/22/20 04:54 36.6 C 112 H 18 98/68 L 96 Laboratory Results 03/22/20 03/22/20 03/21/20 Range/Units 03:54 03:54 18:22 PT 25.6 H 26.4 H (9.0-12.0) Seconds INR 2.6 H 2.6 H (0.9-1.1) Hepatitis C Ab Screen Neg (Neg) Medications Administered Current Inpatient Medications Acetaminophen (Tylenol) 650 mg PO Q4H PRN PRN Reason: Pain or Fever Stop: 04/19/20 22:36 Last Admin: 03/22/20 08:26 Dose: 650 mg Documented by: Aspirin ([facility]rin Ectab) [facility] [place]: 04/20/20 08:59 Last Admin: 03/22/20 08:22 Dose: 81 mg Documented by: Atorvastatin Calcium (Lipitor) 20 mg PO [facility] Stop: 04/19/20 22:36 Last Admin: 03/21/20 20:35 Dose: 20 mg Documented by: Dicyclomine HCl (Bentyl) 10 mg PO TID PRN PRN Reason: Cramps Stop: 04/19/20 22:36 Amiodarone HCl 450 mg/ (Dextrose) 250 mls @ 33.333 mls/hr IV .Q7H30M [facility]; Protocol Stop: 04/20/20 15:29 Last Titration: 03/22/20 08:22 Dose: 0.5 mg/min, 16.7 mls/hr Documented by: Lisinopril (Zestril) 5 mg PO [facility] Stop: 04/19/20 22:36 Last Admin: 03/21/20 20:34 Dose: Not Given Documented by: Metoprolol Succinate (Toprol Xl) 25 mg PO [facility] Stop: 04/20/20 08:59 Last Admin: 03/22/20 08:22 Dose: 25 mg Documented by: Nitroglycerin (Nitrostat) 0.4 mg SL UD PRN PRN Reason: Chest Pain Stop: 04/19/20 22:36 Ondansetron HCl (Zofran) 4 mg IV Q6H PRN PRN Reason: Nausea Stop: 04/20/20 09:22 Last Admin: 03/21/20 19:44 Dose: 4 mg Documented by: Potassium Chloride (Klor-Con M20) 20 meq PO [facility] Stop: 04/20/20 08:59 Last Admin: 03/22/20 08:22 Dose: 20 meq Documented by:
--- NOTE | 2020-03-22 14:18 | Post Anesthesia Assessment ---
Date of Service March 22, 2020 Post Sedation Assessment Vital Signs Temp Pulse Pulse Resp BP BP Pulse Ox 03/22/20 10:00 108 H 18 03/22/20 08:03 111 H 17 03/22/20 07:56 36.6 C 115 H 19 108/75 94 03/22/20 04:54 36.6 C 112 H 18 98/68 L 96 03/22/20 00:00 103 H 03/21/20 23:32 36.5 C 105 H 31 H 96/67 L 93 03/21/20 20:15 98 H 03/21/20 19:40 114 H 23 101/42 L 97 03/21/20 19:16 106 H 21 89/46 L 03/21/20 19:05 36.6 C 103 H 30 H 85/50 L 95 03/21/20 15:23 121 H 22 104/67 95 03/21/20 15:20 36.6 C 121 H 20 80/73 L 98 03/21/20 15:01 119 H 27 H 03/21/20 14:30 121 H 27 H 101/61 Recovery Score Activity: Moves 4 extremities Respiration: Deep Breath/Cough Circulation: +/-20% PreAnes Value Consciousness: Fully Awake Oxygen Saturation: > 92% On Room Air Discharge Sedation Level of Care: Fast Track Phase II Post Sedation Plan On clinical assessment, the patient appears to have tolerated the sedation without complications. Patient is recovering as anticipated. Patient will continue to be monitored by nursing and may be discharged when sedation discharge criteria are met per below protocol. Upon Completions of procedure up to 15 minutes continue every 5 minute vital signs and the P.A.R. score; then discharge to a Phase I or Fast Track to Phase II per the following guidelines: * Discharge Patient to appropriate Phase II area if PAR is 8 or greater or return to pre- procedure baseline. The post - procedure orders will be as directed. * If PAR score is less than 8 or not return to pre-procedure baseline then patient will follow Phase I monitoring till PAR is reached for Phase II. The Phase I may be done in procedure room or may call to secure a Phase I area. * If naloxone or flumazenil are used for reversal, hold in Phase I for continued monitoring from when last reversal dose was given for a minimum of 60 minutes or longer pending the nurse and/or physician discretion of patient condition before discharge to Phase II. Please call the Sedation Physician to re-evaluate and complete post-note for discharge to Phase II area. Do NOT discharge from procedure sedation or Phase 1 until post- sedation evaluation note is complete by procedure /sedation MD Sedation Discharge Instructions to be given to the patient at discharge to home.
--- NOTE | 2020-03-22 14:18 | Operative Report ---
Post Operative Report Pre & Post Diagnosis ICM, LBBB, chronic systolic HF NYHA Class III Operation Date: 03/22/20 12:00 <No data on this case meets the specified criteria> I identified the patient and participated in the time-out.: Yes Procedure Operation Date: 03/22/20 12:00 Actual Procedures p ICD Insertion Single or Dual - DO ericka Soler Lead LV (No Priopr Implant) - DO ericka Soler Venogram, Unilateral - Leelee Lainez DO Surgeon Leelee Lainez, Litigation Coordinator none Estimated Blood Loss 75 Findings Consistent with Post-Op Diagnosis Specimens none Description of Procedure see official report I attest to the content of the Intraoperative Record and any orders documented therein. Any exceptions are noted below.
--- NOTE | 2020-03-22 14:45 | Electrocardiogram Report ---
Test Reason : Blood Pressure : / mmHG Vent. Rate : 101 BPM Atrial Rate : 220 BPM P-R Int : 000 ms QRS Dur : 146 ms QT Int : 342 ms P-R-T Axes : 000 256 034 degrees QTc Int : 443 ms Atrial flutter with variable A-V block Non-specific intra-ventricular conduction block Possible Lateral infarct , age undetermined Abnormal ECG When compared with ECG of 21-MAR-2020 08:21, No significant change was found Confirmed by Clarence Joe ([id number]) on 03/22/2020 2:45:25 PM Referred By: REFERRED SELF Confirmed By:Pepe Joe
--- NOTE | 2020-03-22 16:23 | Electrocardiogram Report ---
Test Reason : Blood Pressure : / mmHG Vent. Rate : 070 BPM Atrial Rate : 070 BPM P-R Int : 000 ms QRS Dur : 158 ms QT Int : 516 ms P-R-T Axes : 000 018 037 degrees QTc Int : 557 ms AV dual-paced rhythm Abnormal ECG When compared with ECG of 22-MAR-2020 07:24, Electronic ventricular pacemaker has replaced Atrial flutter Confirmed by Clarence Joe ([id number]) on 03/22/2020 4:23:24 PM Referred By: REFERRED SELF Confirmed By:Pepe Joe
[2020-03-22] MEDS ORDERED: WARFARIN SOD 2 MG TAB PO ONE (18:00)
[2020-03-22] MEDS: ATORVASTATIN 20 MG TAB PO SCH (20:17)
[2020-03-22] MEDS: lisinopriL 5 MG TAB PO SCH (20:17)
--- NOTE | 2020-03-23 06:59 | XRay Report ---
XR chest 2V PA/lateral CLINICAL HISTORY: post biv icd implant COMPARISON STUDY: Chest CT February 10, 2020. Chest radiograph March 20, 2020. FINDINGS: There is no pneumothorax following placement of a left subclavian biventricular pacer/AICD. Lead tips project over the right atrial appendage and right ventricle and a third lead extending thr ough the coronary sinus. Moderate cardiomegaly is noted. Small to moderate right pleural effusion jered ears to have increased in size. There is a trace left pleural effusion. There is pulmonary vascular c ongestion. IMPRESSION: 1. No pneumothorax following placement of a left subclavian biventricular pacer/AICD. 2. Small to moderate right and trace left pleural effusions. Pulmonary vascular congestion. ACT 112: Negative or not required by law. Electronically signed by: Mike Gallegos M.D. 03/23/2020 6:58 AM
[2020-03-23] MEDS: METOPROLOL SUCC 25MG EXT REL TAB PO SCH (07:34)
[2020-03-23] MEDS: POTASSIUM CHLORIDE 20 MEQ TABCR PO SCH (07:35)
[2020-03-23] MEDS: ASPIRIN 81 MG ECTAB PO SCH (07:35)
[2020-03-23 07:49] LABS: Hematocrit (blood only) 41.1 % (37-47); Hemoglobin 13.6 g/dL (12.0-16.0); Mean Corpuscular Hemoglobin 31.8 pg (25-34); Mean Corpuscular Hgb Conc 33.1 g/dL (32-36); Mean Platelet Volume 12.5 fL (7.4-10.4); Platelet Count 153 K/uL (130-400); RDW Standard Deviation 53.6 fL (36.4-46.3); Red Blood Count 4.28 M/uL (4.2-5.4); White Blood Count 7.05 K/uL (4.8-10.8)
[2020-03-23 08:05] LABS: INR 1.4 (0.9-1.1); Prothrombin Time 14.7 Seconds (9.0-12.0)
[2020-03-23 08:17] LABS: BUN Creatinine Ratio 28.6 (10-20); Calcium 8.4 mg/dl (8.5-10.1); Creatinine Clr Calc Pharmacy 42.3 ml/min; Est GFR (African American) 58.5; Est GFR (Non-African American) 50.4; Magnesium 2.3 mg/dl (1.8-2.4); Phosphorus 2.3 mg/dl (2.5-4.9)
[2020-03-23] MEDS ORDERED: WARFARIN SOD 5 MG TAB PO ONE (08:30)
--- NOTE | 2020-03-23 08:36 | Cardiology Progress Note ---
Date of Service March 23, 2020 Assessment & Plan (1) CHF (congestive heart failure): Subjective POD 1 from BiV ICD; pt doing well; minimal pain at the incision site. Breathing and abdominal bloating improved. Review of Systems Review of Systems: All systems reviewed & are unremarkable except as noted in HPI & below Physical Exam Physical Exam: aaox3, NAD NC/AT, EOMI Supple No JVD Nrl S1/S2, No murmur CTA b/l no w/r/r soft nt/nd no LE edema b/l skin intact no focal deficits left pectoral incision intact, no hematoma mild ecchymosis Results & Data Vital Signs (Past 12 Hours) Vital Signs Temp Pulse Pulse Resp BP Pulse Ox 03/23/20 07:38 36.9 C 84 18 115/60 96 03/23/20 04:39 36.4 C L 72 16 102/69 95 03/23/20 00:00 69 03/22/20 23:24 36.5 C 70 16 103/70 94 Abnormal Lab Results 03/22/20 03/23/20 03/23/20 03:54 07:33 07:33 WBC 7.05 RBC 4.28 Hgb 13.6 Hct 41.1 MCV 96.0 MCH 31.8 MCHC 33.1 RDW Std Deviation 53.6 H RDW Coeff of Angélica 16.0 H Plt Count 153 MPV 12.5 H PT INR Sodium 134 L Potassium 4.0 Chloride 94 L Carbon Dioxide 32 Anion Gap 8.0 BUN 32 H Creatinine 1.12 D Est Cr Clr Drug Dosing 42.3 Est GFR ( Amer) 58.5 Est GFR (Non-Af Amer) 50.4 BUN/Creatinine Ratio 28.6 H Glucose 108 H Calcium 8.4 L Phosphorus 2.3 L Magnesium 2.3 Hepatitis C Ab Screen Neg 03/23/20 07:33 WBC RBC Hgb Hct MCV MCH MCHC RDW Std Deviation RDW Coeff of Angélica Plt Count MPV PT 14.7 H INR 1.4 H Sodium Potassium Chloride Carbon Dioxide Anion Gap BUN Creatinine Est Cr Clr Drug Dosing Est GFR ( Amer) Est GFR (Non-Af Amer) BUN/Creatinine Ratio Glucose Calcium Phosphorus Magnesium Hepatitis C Ab Screen Telemetr Diagnostic Findings CXR: no PTX, leads in position ECG: AP-LV paced ICD Interrogation Today: Normal function and lead testing; no arrhythmias Medications Administered Current Inpatient Medications Acetaminophen (Tylenol) 650 mg PO Q4H PRN PRN Reason: Pain or Fever Stop: 04/19/20 22:36 Last Admin: 03/22/20 23:52 Dose: 650 mg Documented by: Aspirin (Ecotrin Ectab) 81 mg PO [facility] Stop: 04/20/20 08:59 Last Admin: 03/23/20 07:35 Dose: 81 mg Documented by: Atorvastatin Calcium (Lipitor) 20 mg PO [facility] Stop: 04/19/20 22:36 Last Admin: 03/22/20 20:17 Dose: 20 mg Documented by: Dicyclomine HCl (Bentyl) 10 mg PO TID PRN PRN Reason: Cramps Stop: 04/19/20 22:36 Lisinopril (Zestril) 5 mg PO [facility] Stop: 04/19/20 22:36 Last Admin: 03/22/20 20:17 Dose: 5 mg Documented by: Metoprolol Succinate (Toprol Xl) 25 mg PO [facility] Stop: 04/20/20 08:59 Last Admin: 03/23/20 07:34 Dose: 25 mg Documented by: Miscellaneous Information (Nursing To Pharmacy Communication) 1 ea N/A ONE ONE Stop: 03/23/20 08:32 Nitroglycerin (Nitrostat) 0.4 mg SL UD PRN PRN Reason: Chest Pain Stop: 04/19/20 22:36 Ondansetron HCl (Zofran) 4 mg IV Q6H PRN PRN Reason: Nausea Stop: 04/20/20 09:22 Last Admin: 03/21/20 19:44 Dose: 4 mg Documented by: Potassium Chloride (Klor-Con M20) 20 meq PO [facility] Stop: 04/20/20 08:59 Last Admin: 03/23/20 07:35 Dose: 20 meq Documented by:
--- NOTE | 2020-03-23 10:26 | Hospitalist Progress Note ---
Date of Service March 23, 2020 Assessment & Plan (1) Acute left systolic heart failure: (2) Ischemic cardiomyopathy: pt admitted with acute decompensation of systolic heart failure volume overload -increased abdominal girth , lower ext edema , BERNARD Echo done in 02/15/2020 shows EF of 15-20% On admission pt wearing life vest - last hospitalization - discharged on lifevest Now s/p biventricular pacemaker placement (03/22) by Dr. Lainez - tolerated procedure well (3) Atrial fibrillation with RVR: due to decompensated CHF on amiodarone loaded w/ digoxin initially on cardizem gtt which was stopped on coumadin already INR currently subtherapeutic due to procedure appreciate input from cardiology (4) CKD (chronic kidney disease): acute renal failure on CKD stage 3 possible to decompensated CHF /rapid afib causing poor renal perfusion given IV lasix for diuresis follow BMP elevated troponin : type 2 NSTEMI due to demand ischemia in setting of decomensated biventricular CHF /afib rvr appreciate input from cardiology cont cardiac meds Now s/p bivent. pacemaker placement (03/22) for severe ischemic cardiomyopathy, LBBB and chronic systolic HF FULL CODE Admission and Anticipated Discharge Date Admission Date: March 20, 2020 Subjective POD 1 from BiV ICD; pt tolerated procedure well ,minimal pain at the incision site. Currently patient is sitting up in bed, in no acute distress. Denies any fevers, chills, chest pain, shortness of breath, abdominal pain, nausea or vomiting. Review of Systems Review of Systems: All systems reviewed & are unremarkable except as noted in HPI & below Constitutional: no fever and no chills Respiratory: no cough and no dyspnea Cardiovascular: no chest pain and no palpitations Gastrointestinal: no abdominal pain, no nausea and no vomiting Physical Exam Physical Exam: Constitutional: Elderly female sitting up in bed in NAD, WD/WN, vitals as above Eyes: EOMI, PERRL, conjunctivae normal, anicteric sclerae ENMT: external ear and nose normal, oropharynx normal Neck: trachea midline, no thyromegaly Respiratory: normal respiratory effort; no respiratory distress and no cough A uscultation: + mild b/l rales Cardiovascular: Rate/Rhythm: Regular, +syst. murmur, Extremities: + pedal edema b/l Gastrointestinal (Abdomen): Percussion/Palpation: abdomen soft; abdomen nontender, + bowel sounds, mildly distended Musculoskeletal: no cyanosis or clubbing, moves extremities spontaneously, left arm in a sling due to procedure Neurologic: PERRL, EOMI, accommodation nl, no face palsy, no dysarthria, moves extremities spontaneously Psychiatric: A+Ox3, euthymic affect Results & Data Results & Data ([facility]) Vital Signs (Past 12 Hours) Vital Signs Temp Pulse Pulse Resp BP Pulse Ox 03/23/20 07:38 36.9 C 84 18 115/60 96 03/23/20 04:39 36.4 C L 72 16 102/69 95 03/23/20 00:00 69 03/22/20 23:24 36.5 C 70 16 103/70 94 Laboratory Results 03/23/20 03/23/20 03/23/20 Range/Units 07:33 07:33 07:33 WBC 7.05 (4.8-10.8) K/uL RBC 4.28 (4.2-5.4) M/uL Hgb 13.6 (12.0-16.0) g/dL Hct 41.1 (37-47) % MCV 96.0 (80-100) fL MCH 31.8 (25-34) pg MCHC 33.1 (32-36) g/dL RDW Std Deviation 53.6 H (36.4-46.3) fL RDW Coeff of Angélica 16.0 H (11.5-14.5) % Plt Count 153 (130-400) K/uL MPV 12.5 H (7.4-10.4) fL PT 14.7 H (9.0-12.0) Seconds INR 1.4 H (0.9-1.1) Sodium 134 L (136-145) mmol/L Potassium 4.0 (3.5-5.1) mmol/L Chloride 94 L (98-107) mmol/L Carbon Dioxide 32 (21-32) mmol/L Anion Gap 8.0 (3-11) BUN 32 H (7-18) mg/dl Creatinine 1.12 D (0.6-1.2) mg/dl Est Cr Clr Drug Dosing 42.3 ml/min Est GFR ( Amer) 58.5 Est GFR (Non-Af Amer) 50.4 BUN/Creatinine Ratio 28.6 H (10-20) Glucose 108 H (70-99) mg/dl Calcium 8.4 L (8.5-10.1) mg/dl Phosphorus 2.3 L (2.5-4.9) mg/dl Magnesium 2.3 (1.8-2.4) mg/dl Medications Administered Current Inpatient Medications Acetaminophen (Tylenol) 650 mg PO Q4H PRN PRN Reason: Pain or Fever Stop: 04/19/20 22:36 Last Admin: 03/22/20 23:52 Dose: 650 mg Documented by: Aspirin (Ecotrin Ectab) 81 mg PO [facility] Stop: 04/20/20 08:59 Last Admin: 03/23/20 07:35 Dose: 81 mg Documented by: Atorvastatin Calcium (Lipitor) 20 mg PO [facility] Stop: 04/19/20 22:36 Last Admin: 03/22/20 20:17 Dose: 20 mg Documented by: Dicyclomine HCl (Bentyl) 10 mg PO TID PRN PRN Reason: Cramps Stop: 04/19/20 22:36 Lisinopril (Zestril) 5 mg PO [facility] Stop: 04/19/20 22:36 Last Admin: 03/22/20 20:17 Dose: 5 mg Documented by: Metoprolol Succinate (Toprol Xl) 25 mg PO [facility] Stop: 04/20/20 08:59 Last Admin: 03/23/20 07:34 Dose: 25 mg Documented by: Miscellaneous (No Heparin Or Lmwh) 1 ea N/A QS [facility] Stop: 04/22/20 08:59 Nitroglycerin (Nitrostat) 0.4 mg SL UD PRN PRN Reason: Chest Pain Stop: 04/19/20 22:36 Ondansetron HCl (Zofran) 4 mg IV Q6H PRN PRN Reason: Nausea Stop: 04/20/20 09:22 Last Admin: 03/21/20 19:44 Dose: 4 mg Documented by: Potassium Chloride (Klor-Con M20) 20 meq PO [facility] Stop: 04/20/20 08:59 Last Admin: 03/23/20 07:35 Dose: 20 meq Documented by:
--- NOTE | 2020-03-23 10:56 | Cardiology Progress Note ---
Date of Service March 23, 2020 Assessment & Plan (1) Ischemic cardiomyopathy: (2) Atrial fibrillation with RVR: (3) Volume overload: (4) CKD (chronic kidney disease): (5) Acute left systolic heart failure: (6) Mitral regurgitation: The patient tolerated her procedure well yesterday. We are still adjusting medications. She will be restarted on oral amiodarone today. She received an additional dose of warfarin this morning. It will take several days for her INR to be therapeutic. The INR will not hold up her discharge. Subjective The patient is alert today. Still recovering from her surgery yesterday. Review of Systems Review of Systems: All systems reviewed & are unremarkable except as noted in HPI & below Nothing additional to add. Physical Exam Physical Exam: General: no acute distress and stated age Head: normocephalic, no masses, lesions, tenderness or abnormalities Eyes: conjunctiva are pink and non-injected, sclera clear Neck: supple, no adenopathy, no bruits, normal jugular venous pulse, no hepatojugular reflux Chest: normal shape and normal respiratory effort Lungs: clear to auscultation and percussion Cardiac Exam: - regular rate & rhythm, no murmurs gallops or rubs - normal S1, normal S2 Pulses: 2(+) throughout Abdomen: abdomen soft, non-tender, no abnormal masses and no hepatosplenomegaly Musculoskeletal: no gait disturbance, no joint inflammation, no deforming arthritis Extremities: no edema and no cyanosis Neuro: grossly normal exam Results & Data Vital Signs (Past 12 Hours) Vital Signs Temp Pulse Pulse Resp BP Pulse Ox 03/23/20 10:39 68 03/23/20 08:00 68 03/23/20 07:38 36.9 C 84 18 115/60 96 03/23/20 04:39 36.4 C L 72 16 102/69 95 03/23/20 00:00 69 03/22/20 23:24 36.5 C 70 16 103/70 94 Laboratory Results Laboratory Results - last 24 hr 03/23/20 03/23/20 03/23/20 07:33 07:33 07:33 WBC 7.05 RBC 4.28 Hgb 13.6 Hct 41.1 MCV 96.0 MCH 31.8 MCHC 33.1 RDW Std Deviation 53.6 H RDW Coeff of Angélica 16.0 H Plt Count 153 MPV 12.5 H PT 14.7 H INR 1.4 H Sodium 134 L Potassium 4.0 Chloride 94 L Carbon Dioxide 32 Anion Gap 8.0 BUN 32 H Creatinine 1.12 D Est Cr Clr Drug Dosing 42.3 Est GFR ( Amer) 58.5 Est GFR (Non-Af Amer) 50.4 BUN/Creatinine Ratio 28.6 H Glucose 108 H Calcium 8.4 L Phosphorus 2.3 L Magnesium 2.3 Medications Administered Current Inpatient Medications Acetaminophen (Tylenol) 650 mg PO Q4H PRN PRN Reason: Pain or Fever Stop: 04/19/20 22:36 Last Admin: 03/22/20 23:52 Dose: 650 mg Documented by: Amiodarone HCl (Cordarone) 200 mg PO [facility] Stop: 04/22/20 10:59 Aspirin (Ecotrin Ectab) 81 mg PO [facility] Stop: 04/20/20 08:59 Last Admin: 03/23/20 07:35 Dose: 81 mg Documented by: Atorvastatin Calcium (Lipitor) 20 mg PO [facility] Stop: 04/19/20 22:36 Last Admin: 03/22/20 20:17 Dose: 20 mg Documented by: Dicyclomine HCl (Bentyl) 10 mg PO TID PRN PRN Reason: Cramps Stop: 04/19/20 22:36 Lisinopril (Zestril) 5 mg PO [facility] Stop: 04/19/20 22:36 Last Admin: 03/22/20 20:17 Dose: 5 mg Documented by: Metoprolol Succinate (Toprol Xl) 25 mg PO [facility] Stop: 04/20/20 08:59 Last Admin: 03/23/20 07:34 Dose: 25 mg Documented by: Miscellaneous (No Heparin Or Lmwh) 1 ea N/A QS [facility] Stop: 04/22/20 08:59 Last Admin: 03/23/20 10:44 Dose: 1 ea Documented by: Nitroglycerin (Nitrostat) 0.4 mg SL UD PRN PRN Reason: Chest Pain Stop: 04/19/20 22:36 Ondansetron HCl (Zofran) 4 mg IV Q6H PRN PRN Reason: Nausea Stop: 04/20/20 09:22 Last Admin: 03/21/20 19:44 Dose: 4 mg Documented by: Potassium Chloride (Klor-Con M20) 20 meq PO [facility] Stop: 04/20/20 08:59 Last Admin: 03/23/20 07:35 Dose: 20 meq Documented by: (1) Volume overload Hypervolemia type: unspecified Qualified Code(s): E87.70 - Fluid overload, unspecified
[2020-03-23] MEDS: AMIODARONE 200 MG TAB PO SCH (11:24)
[2020-03-23] MEDS: POLYETHYLENE (MIRALAX) 17 GM PACK PO SCH (13:03)
[2020-03-23] MEDS ORDERED: POLYETHYLENE (MIRALAX) 17 GM PACK ONE (13:05)
[2020-03-23] MEDS: lisinopriL 5 MG TAB PO SCH (21:16)
[2020-03-23] MEDS: ATORVASTATIN 20 MG TAB PO SCH (21:16)
[2020-03-24 06:35] LABS: Hematocrit (blood only) 37.4 % (37-47); Hemoglobin 12.7 g/dL (12.0-16.0); Mean Corpuscular Hemoglobin 32.3 pg (25-34); Mean Corpuscular Volume 95.2 fL (80-100); Mean Platelet Volume 11.9 fL (7.4-10.4); Platelet Count 117 K/uL (130-400); RDW Standard Deviation 54.2 fL (36.4-46.3); Red Blood Count 3.93 M/uL (4.2-5.4); White Blood Count 6.47 K/uL (4.8-10.8)
[2020-03-24 06:46] LABS: INR 1.3 (0.9-1.1); Prothrombin Time 13.3 Seconds (9.0-12.0)
[2020-03-24 07:06] LABS: BUN Creatinine Ratio 29.6 (10-20); Calcium 8.3 mg/dl (8.5-10.1); Creatinine Clr Calc Pharmacy 56.1 ml/min; Est GFR (African American) 81.6; Est GFR (Non-African American) 70.4; Magnesium 2.3 mg/dl (1.8-2.4); Potassium 4.1 mmol/L (3.5-5.1)
[2020-03-24] MEDS: AMIODARONE 200 MG TAB PO SCH (07:59)
[2020-03-24] MEDS: POLYETHYLENE (MIRALAX) 17 GM PACK PO SCH (08:00)
[2020-03-24] MEDS: METOPROLOL SUCC 25MG EXT REL TAB PO SCH (08:00)
[2020-03-24] MEDS: POTASSIUM CHLORIDE 20 MEQ TABCR PO SCH (08:00)
[2020-03-24] MEDS: ASPIRIN 81 MG ECTAB PO SCH (08:00)
--- NOTE | 2020-03-24 09:20 | Hospitalist Progress Note ---
Date of Service March 24, 2020 Assessment & Plan (1) Acute left systolic heart failure: (2) Ischemic cardiomyopathy: pt admitted with acute decompensation of systolic heart failure volume overload -increased abdominal girth , lower ext edema , BERNARD Echo done in 02/15/2020 shows EF of 15-20% On admission pt wearing life vest - last hospitalization - discharged on lifevest Now s/p biventricular pacemaker placement (03/22) by Dr. Lainez - tolerated procedure well (3) Atrial fibrillation with RVR: due to decompensated CHF on amiodarone loaded w/ digoxin initially on cardizem gtt which was stopped on coumadin already INR currently subtherapeutic due to procedure appreciate input from cardiology -She was given increased dose of warfarin yesterday, now plan to continue her home warfarin regimen and follow-up INR as outpatient (4) CKD (chronic kidney disease): acute renal failure on CKD stage 3 possible to decompensated CHF /rapid afib causing poor renal perfusion given IV lasix for diuresis follow BMP elevated troponin : type 2 NSTEMI due to demand ischemia in setting of decomensated biventricular CHF /afib rvr appreciate input from cardiology cont cardiac meds Now s/p bivent. pacemaker placement (03/22) for severe ischemic cardiomyopathy, LBBB and chronic systolic HF FULL CODE Disposition: Discussed with cardiology, patient is ready for discharge. She will follow-up with cardiology, appointment will be arranged. Admission and Anticipated Discharge Date Admission Date: March 20, 2020 Subjective No acute events overnight. Patient is feeling well, sitting up in bed, comfortable. He denies any chest pain, shortness of breath, palpitations. She has some ecchymosis around incision site, continues to wear her left arm in a sling. Also denies any fevers or chills, cough, dizziness or lightheadedness. Discussed with cardiology, patient ready for discharge. Review of Systems Review of Systems: All systems reviewed & are unremarkable except as noted in HPI & below Constitutional: no fever and no chills Respiratory: no cough and no dyspnea Cardiovascular: no chest pain and no palpitations Gastrointestinal: no abdominal pain, no nausea and no vomiting Physical Exam Physical Exam: Constitutional: Elderly female sitting up in bed in NAD, WD/WN, vitals as above Eyes: EOMI, PERRL, conjunctivae normal, anicteric sclerae ENMT: external ear and nose normal, oropharynx normal Neck: trachea midline, no thyromegaly Respiratory: normal respiratory effort; no respiratory distress and no cough Auscultation: CTAB Cardiovascular: Rate/Rhythm: Regular, +syst. murmur, Extremities: + mild pedal edema b/l Gastrointestinal (Abdomen): Percussion/Palpation: abdomen soft; abdomen nontender, + bowel sounds, mildly distended Musculoskeletal: no cyanosis or clubbing, moves extremities spontaneously, left arm in a sling due to procedure, some ecchymosis noted over incision site Neurologic: PERRL, EOMI, accommodation nl, no face palsy, no dysarthria, moves extremities spontaneously Psychiatric: A+Ox3, euthymic affect Results & Data Results & Data ([facility]) Vital Signs (Past 12 Hours) Vital Signs Temp Pulse Resp BP Pulse Ox 03/24/20 07:18 36.4 C L 69 18 86/56 L 97 03/24/20 04:13 36.4 C L 74 18 103/71 95 03/24/20 00:00 36.5 C 79 20 109/73 96 Laboratory Results 03/24/20 03/24/20 03/24/20 Range/Units 06:22 06:22 06:22 WBC 6.47 (4.8-10.8) K/uL RBC 3.93 L (4.2-5.4) M/uL Hgb 12.7 (12.0-16.0) g/dL Hct 37.4 (37-47) % MCV 95.2 (80-100) fL MCH 32.3 (25-34) pg MCHC 34.0 (32-36) g/dL RDW Std Deviation 54.2 H (36.4-46.3) fL RDW Coeff of Angélica 16.0 H (11.5-14.5) % Plt Count 117 L (130-400) K/uL MPV 11.9 H (7.4-10.4) fL PT 13.3 H (9.0-12.0) Seconds INR 1.3 H (0.9-1.1) Sodium 135 L (136-145) mmol/L Potassium 4.1 (3.5-5.1) mmol/L Chloride 98 (98-107) mmol/L Carbon Dioxide 30 (21-32) mmol/L Anion Gap 7.0 (3-11) BUN 25 H (7-18) mg/dl Creatinine 0.85 (0.6-1.2) mg/dl Est Cr Clr Drug Dosing 56.1 ml/min Est GFR ( Amer) 81.6 Est GFR (Non-Af Amer) 70.4 BUN/Creatinine Ratio 29.6 H (10-20) Glucose 96 (70-99) mg/dl Calcium 8.3 L (8.5-10.1) mg/dl Magnesium 2.3 (1.8-2.4) mg/dl Medications Administered Current Inpatient Medications Acetaminophen (Tylenol) 650 mg PO Q4H PRN PRN Reason: Pain or Fever Stop: 04/19/20 22:36 Last Admin: 03/22/20 23:52 Dose: 650 mg Documented by: Amiodarone HCl (Cordarone) 200 mg PO [facility] Stop: 04/22/20 10:59 Last Admin: 03/24/20 07:59 Dose: 200 mg Documented by: Aspirin (Ecotrin Ectab) 81 mg PO [facility] Stop: 04/20/20 08:59 Last Admin: 03/24/20 08:00 Dose: 81 mg Documented by: Atorvastatin Calcium (Lipitor) 20 mg PO [facility] Stop: 04/19/20 22:36 Last Admin: 03/23/20 21:16 Dose: 20 mg Documented by: Dicyclomine HCl (Bentyl) 10 mg PO TID PRN PRN Reason: Cramps Stop: 04/19/20 22:36 Lisinopril (Zestril) 5 mg PO [facility] Stop: 04/19/20 22:36 Last Admin: 03/23/20 21:16 Dose: 5 mg Documented by: Metoprolol Succinate (Toprol Xl) 25 mg PO [facility] Stop: 04/20/20 08:59 Last Admin: 03/24/20 08:00 Dose: 25 mg Documented by: Miscellaneous (No Heparin Or Lmwh) 1 ea N/A [facility] Stop: 04/22/20 08:59 Last Admin: 03/24/20 08:00 Dose: 1 ea Documented by: Nitroglycerin (Nitrostat) 0.4 mg SL UD PRN PRN Reason: Chest Pain Stop: 04/19/20 22:36 Ondansetron HCl (Zofran) 4 mg IV Q6H PRN PRN Reason: Nausea Stop: 04/20/20 09:22 Last Admin: 03/21/20 19:44 Dose: 4 mg Documented by: Polyethylene Glycol (Miralax Powder Packet) 17 gm PO DAILY [facility] Stop: 04/22/20 13:14 Last Admin: 03/24/20 08:00 Dose: 17 gm Documented by: Potassium Chloride (Klor-Con M20) 20 meq PO QAM [facility] Stop: 04/20/20 08:59 Last Admin: 03/24/20 08:00 Dose: 20 meq Documented by:
--- NOTE | 2020-03-24 09:29 | Cardiology Progress Note ---
Date of Service March 24, 2020 Assessment & Plan (1) Ischemic cardiomyopathy: (2) Atrial fibrillation with RVR: (3) Volume overload: (4) CKD (chronic kidney disease): (5) Mitral regurgitation: The patient is ready for discharge today. I will provide follow-up through our clinic. She will also have a wound check early next week for her device. Our coag clinic should contact her as well for follow-up pro time and management of her warfarin. Subjective The patient has no new complaints today. She is anxious to return home. Review of Systems Review of Systems: All systems reviewed & are unremarkable except as noted in HPI & below Nothing additional to add. Physical Exam Physical Exam: General: no acute distress and stated age Head: normocephalic, no masses, lesions, tenderness or abnormalities Eyes: conjunctiva are pink and non-injected, sclera clear Neck: supple, no adenopathy, no bruits, normal jugular venous pulse, no hepatojugular reflux Chest: normal shape and normal respiratory effort Lungs: clear to auscultation and percussion Cardiac Exam: - regular rate & rhythm, no murmurs gallops or rubs - normal S1, normal S2 Pulses: 2(+) throughout Abdomen: abdomen soft, non-tender, no abnormal masses and no hepatosplenomegaly Musculoskeletal: no gait disturbance, no joint inflammation, no deforming arthritis Extremities: no edema and no cyanosis Neuro: grossly normal exam Results & Data Vital Signs (Past 12 Hours) Vital Signs Temp Pulse Resp BP Pulse Ox 03/24/20 07:18 36.4 C L 69 18 86/56 L 97 03/24/20 04:13 36.4 C L 74 18 103/71 95 03/24/20 00:00 36.5 C 79 20 109/73 96 Laboratory Results Laboratory Results - last 24 hr 03/24/20 03/24/20 03/24/20 06:22 06:22 06:22 WBC 6.47 RBC 3.93 L Hgb 12.7 Hct 37.4 MCV 95.2 MCH 32.3 MCHC 34.0 RDW Std Deviation 54.2 H RDW Coeff of Angélica 16.0 H Plt Count 117 L MPV 11.9 H PT 13.3 H INR 1.3 H Sodium 135 L Potassium 4.1 Chloride 98 Carbon Dioxide 30 Anion Gap 7.0 BUN 25 H Creatinine 0.85 Est Cr Clr Drug Dosing 56.1 Est GFR ( Amer) 81.6 Est GFR (Non-Af Amer) 70.4 BUN/Creatinine Ratio 29.6 H Glucose 96 Calcium 8.3 L Magnesium 2.3 Medications Administered Current Inpatient Medications Acetaminophen (Tylenol) 650 mg PO Q4H PRN PRN Reason: Pain or Fever Stop: 04/19/20 22:36 Last Admin: 03/22/20 23:52 Dose: 650 mg Documented by: Amiodarone HCl (Cordarone) 200 mg PO [facility] Stop: 04/22/20 10:59 Last Admin: 03/24/20 07:59 Dose: 200 mg Documented by: Aspirin (Ecotrin Ectab) 81 mg PO [facility] Stop: 04/20/20 08:59 Last Admin: 03/24/20 08:00 Dose: 81 mg Documented by: Atorvastatin Calcium (Lipitor) 20 mg PO [facility] Stop: 04/19/20 22:36 Last Admin: 03/23/20 21:16 Dose: 20 mg Documented by: Dicyclomine HCl (Bentyl) 10 mg PO TID PRN PRN Reason: Cramps Stop: 04/19/20 22:36 Lisinopril (Zestril) 5 mg PO [facility] Stop: 04/19/20 22:36 Last Admin: 03/23/20 21:16 Dose: 5 mg Documented by: Metoprolol Succinate (Toprol Xl) 25 mg PO [facility] Stop: 04/20/20 08:59 Last Admin: 03/24/20 08:00 Dose: 25 mg Documented by: Miscellaneous (No Heparin Or Lmwh) 1 ea N/A [facility] Stop: 04/22/20 08:59 Last Admin: 03/24/20 08:00 Dose: 1 ea Documented by: Nitroglycerin (Nitrostat) 0.4 mg SL UD PRN PRN Reason: Chest Pain Stop: 04/19/20 22:36 Ondansetron HCl (Zofran) 4 mg IV Q6H PRN PRN Reason: Nausea Stop: 04/20/20 09:22 Last Admin: 03/21/20 19:44 Dose: 4 mg Documented by: Polyethylene Glycol (Miralax Powder Packet) 17 gm PO DAILY [facility] Stop: 04/22/20 13:14 Last Admin: 03/24/20 08:00 Dose: 17 gm Documented by: Potassium Chloride (Klor-Con M20) 20 meq PO QAM [facility] Stop: 04/20/20 08:59 Last Admin: 03/24/20 08:00 Dose: 20 meq Documented by: Warfarin Sodium (Coumadin) 2.5 mg PO DAILY@1600 [facility] Stop: 04/23/20 15:59 (1) Volume overload Hypervolemia type: unspecified Qualified Code(s): E87.70 - Fluid overload, unspecified
--- NOTE | 2020-03-24 10:18 | Operative Report (OR) ---
DATE OF OPERATION: 03/22/2020 PREOPERATIVE DIAGNOSES: Ischemic cardiomyopathy, left bundle branch block and chronic systolic heart failure with reduced ejection fraction, [place] Heart Association class 3. POSTOPERATIVE DIAGNOSES: Ischemic cardiomyopathy, left bundle branch block and chronic systolic heart failure with reduced ejection fraction, [place] Heart Association class 3 in addition to coronary sinus dissection. PROCEDURE: Biventricular rate responsive implantable cardiac defibrillator along with peripheral venogram and coronary sinus venogram. SURGEON: Leelee Lainez DO. ASSISTANTS: None. ANESTHESIA: Monitored conscious sedation administered under my supervision by Felisha Baltazar. Start time 12:01, end time 2:11. Total of 6 mg of Versed and 150 mcg of fentanyl. INTRAVENOUS FLUIDS: 65 mL. ANTIBIOTICS: 1 gram of Ancef. TOTAL IV CONTRAST: 35 mL. BLOOD LOSS: 75 mL. URINE OUTPUT: Not applicable. SPECIMENS: None. FINDINGS: See below. DRAINS: None. CONDITION: Stable. COMPLICATIONS: Dissection of the coronary sinus, but was stable. INDICATIONS: This is a 69-year-old female with past medical history for ischemic cardiomyopathy, ejection fraction 30%, nonsustained ventricular tachycardia, coronary artery disease with a nuclear stress test showing a large prior old myocardial infarction, severe mitral regurgitation, hypertension, hyperlipidemia, left bundle branch block, chronic systolic heart failure, [place] Heart Association class 3, paroxysmal atrial fibrillation on amiodarone and Coumadin CHADS2-VASc score of 4. She was recommended biventricular defibrillator due to her ischemic cardiomyopathy, heart failure, and left bundle branch block. CONSENT: Consent was obtained prior to the patient going into the electrophysiology lab. The patient was informed of risks, benefits and alternative of procedure. Risks include but not limited to sudden cardiac , cardiac arrhythmias, cerebrovascular accident, myocardial infarction, injury to the blood vessels, chamber of the heart, lung, bleeding, and infection. The patient understood these risks and agreed to the procedure as planned. Informed consent was obtained. DESCRIPTION OF THE PROCEDURE: The patient was brought into the electrophysiology lab in a fasting state. She was connected to continuous radiation monitor. Timeout was performed to ensure patient identity and procedure correctly. The patient received prophylactic antibiotics prior to incision. She was prepped and draped over the left infraclavicular space in normal surgical standard fashion. Monitored conscious sedation was given throughout the procedure for patient's comfort level. [place] precautions were maintained throughout the procedure. 10 mL 1% lidocaine, bupivacaine mixture were given in the left deltopectoral groove. Incision was made in left deltopectoral groove. Blunt dissection was performed down to identify the cephalic vein. Cephalic vein was not identified, so peripheral venogram using 10 mL of contrast followed by 20 mL flush was performed to identify the axillary vein. Venous axillary was obtained in 2 needle stick without any complications. Guidewires were inserted without any resistance. An 9.5-Bengali sheath was inserted over the more lateral stick and the dilator over the guidewire, the dilator was removed and a second guidewire was inserted over that stick to allow for retained venous access. The sheath was removed and flushed and dilator reinserted over it and then it was reinserted in one of guidewires. Guidewire and dilator were removed. Then, the right ventricular defibrillator lead was advanced into right ventricle and positioned in intraventricular apex under fluoroscopic guidance. There was adequate pacing and sensing thresholds and no diaphragmatic stimulation with high output pacing. The 9.5-Bengali was peeled away and lead was fixated to pectoralis muscle using 0 silk suture. A second 8-Bengali sheath was inserted over the retained guidewire without any resistance. Guidewire and dilator removed and then the right atrial lead was advanced into right atrium and positioned interatrial appendage. The patient was in atrial flutter, but there was adequate sensing of the flutter waves. The sheath was then slit and the lead was fixated to pectoralis muscle using 0 silk suture. Since the patient was on Coumadin and she did have high venous backflow, a pursestring using a 2-[address] needle was placed around this more lateral puncture site to maintain backbleeding. Then a 9.5-Bengali sheath was inserted over the guidewire in the more medial access site. The guidewire and dilator removed and the Medtronic MPX coronary sinus catheter sheath was advanced into the right atrium over a guidewire under fluoroscopic guidance. The guidewire and dilator were removed. Then using the [employer] Decapolar diagnostic catheter, the coronary sinus was cannulated. I did not push hard at all, but there was upon giving contrast, a post-contrast dissection was noted. However, in this puff of contrast, I was able to see that there was a very proximal takeoff bailout branch. I was able to pull back on the MPX catheter and placed a Whisper wire through out into this vessel. I then advanced a 90 inner over the Whisper wire and then was able to advance the MPX further into it. The patient remained stable from the coronary sinus dissection with stable blood pressures and heart rates. I then advanced the LV lead out over the Whisper wire into this bailout branch. There was adequate pacing and sensing thresholds and no diaphragmatic stimulation with high output pacing. The Whisper wire was replaced with a stylette. Then the inner 90 was slit under fluoroscopic guidance followed by the MPX was slid under fluoroscopic guidance. Then the 9.5-Bengali sheath was slit and the lead was fixated to pectoralis muscle using 0 silk suture. Defibrillator pocket was created using blunt dissection over the pectoralis muscle within the pectoralis fascia. I did put a 2-0 pursestring around the more medial venous puncture site as well as there was some backbleeding. The pocket was then flushed with copious amounts of bacitracin saline wash and inspected for hemostasis. The leads were then attached to the defibrillator making sure that the pins were in appropriate position, passed set screw and set screws were all tightened. Defibrillator was then placed in an antibiotic pouch followed then by being placed in the pocket, making sure that the leads were lying flat beneath the device. The incision was then closed in 3-layer fashion with 2-0 Vicryl interrupted suture followed by 3-0 Vicryl interrupted suture followed by 4-0 Monocryl running stitch and Dermabond was applied followed then by Omi and micropore dressing. EQUIPMENT: 1. The pulse generator is a [employer] MRI Quad EXTRUSION DIE COORDINATOR-D SureScan, [id number], serial #[id number]. 2. Tyrx pouch was reference number [id number], lot #[id number]. 3. Right atrial lead Medtronic 5076-52 cm, serial #[id number]. 4. Right ventricular lead, Medtronic 6935M-62 cm, serial #[id number]. 5. Left ventricular lead, Medtronic 4598-88 cm, serial #[id number]. INTRAOPERATIVE TESTIN. Right atrial lead flutter waves were 3.4 millivolts, impedance 707 ohms, no threshold testing. The patient is in flutter. 2. Right ventricular lead: R waves 3.6 millivolts, impedance 595 ohms, threshold 1.1 volts at 0.5 milliseconds. 3. Left ventricular lead programmed LV3 to RV coil, impedance 470 ohms, threshold 0.3 volts at 1 milliseconds. FINAL MEASUREMENTS THROUGH THE DEVICE: 1. Right atrial lead flutter waves 3 millivolts, impedance 532 ohms, no threshold testing as patient is in flutter. 2. Right ventricular lead: R-wave 7.5 millivolts, impedance 418 ohms, threshold 0.5 volts at 0.4 milliseconds. 3. The RV coil was 56 ohms. The left ventricular lead is programmed LV1 to RV coil is 418 ohms with 2.5 volts at 1 millisecond. FINAL PARAMETERS: DDDR 60/140, right ventricular and right atrial amplitude 3.5 volts, pulse width 0.4 milliseconds, sensitivity 0.3 millivolts. Left ventricular amplitude 4 volts and pulse width 1 millisecond. A VT monitor zone at 146 beats per minute for 32 detection intervals a VT zone at 167 beats per minute for 16 detection intervals and a VF zone at 200 beats per minute for 30/40 detection intervals. After the patient was taken away into the holding area, I did actually atrial burst pace her out of her atrial flutter back in to A paced and LV only paced. IMPRESSION: Successful biventricular rate responsive implantable cardiac defibrillator implantation under fluoroscopic guidance along with peripheral and coronary sinus venogram as well as burst atrial pacing her out of atrial flutter complicated with a coronary sinus dissection that was stable secondary all due to ischemic cardiomyopathy, chronic heart failure, and left bundle branch block. PLAN: Monitor patient overnight, 12-lead ECG, chest x-ray. She is not allowed to lift left elbow or left shoulder for 1 month. She cannot lift more than 10 pounds with the left arm for 2 weeks. She is to leave the dressing on and dry until her wound check next week. We can keep the IV amiodarone go until tomorrow. She is not allowed any systemic IV heparin or Lovenox. I attest to the content of the Intraoperative Record and any orders documented therein. Any exception s are noted below.
--- NOTE | 2020-03-24 13:09 | Discharge Summary ---
Date of Service March 24, 2020 Admission HPI Per Admitting Provider This is a 69-year-old female with past medical history significant for hyperlipidemia, atrial fibrillation, CHF combined, hx of nonsustained ventricular tachycardia, non-rheumatic mitral valve regurgitation, left bundle branch block, history of coronary artery disease presents with rapid AFib. The patient says whenever she gets fluid in her stomach, she gets bloated and nausea feeling and some pressure in her abdomen. She is also feeling on and off palpitations and she went to cardiology office today. She has recent history of ischemic cardiomyopathy with late presentation of an anterior wall DC and she has developed AFib and paroxysmal V-tach. She is on amiodarone, on LifeVest. Echo done in 02/15/2020 shows EF of 15-20% even after medical therapy thus plan for AICD on 03/22/2020.She has gained about 5-10 pounds and increased lower extremity edema . Has some cough and some nausea.In the clinic today, she was in atrial flutter with RVR and she was advised to come to the ER for Cardizem drip and possible Lasix. The patient resting comfortably and blood pressure is somewhat on the lower side, received a dose of Lasix. Denies any chest pain, no fever, no chills, no headaches. She says she has medications sometimes cause blurred visions or dizziness. No runny nose, no sore throat. Appetite is okay. Did not sleep well last night because of abdominal discomfort. Normal bowel and bladder movements. No hematuria, no burning micturition, no blood in the stools. No rash. Admission Exam Per Admitting Provider GENERAL: The patient is of moderate built. HEENT: No pallor, no icterus. Pupils equal, round, and reactive to light. NECK: No JVD, no neck masses. CARDIOVASCULAR: S1, S2 heard. Tachycardia, irregular rhythm. RESPIRATORY SYSTEM: Normal AP diameter. No accessory muscle use. No wheezing, no crackles. ABDOMEN: Soft, bowel sounds present. Mild abdominal discomfort. No guarding. No rigidity. CENTRAL NERVOUS SYSTEM: Cranial nerves II-XII grossly intact, nonfocal. EXTREMITIES: Bilateral lower extremity, +2 edema present. Principal Diagnosis Atrial fibrillation with RVR Acute decompensated systolic heart failure /volume overload Hx of Ischemic cardiomyopathy Mitral regurgitation LBBB Now status post biventricular pacemaker placement by Dr. Lainez (03/22/20) Discharge Exam Constitutional: Elderly female sitting up in bed in NAD, WD/WN, vitals as above Eyes: EOMI, PERRL, conjunctivae normal, anicteric sclerae ENMT: external ear and nose normal, oropharynx normal Neck: trachea midline, no thyromegaly Respiratory: normal respiratory effort; no respiratory distress and no cough Auscultation: CTAB Cardiovascular: Rate/Rhythm: Regular, +syst. murmur, Extremities: + mild pedal edema b/l Gastrointestinal (Abdomen): Percussion/Palpation: abdomen soft; abdomen nont musa, + bowel sounds, mildly distended Musculoskeletal: no cyanosis or clubbing, moves extremities spontaneously, left arm in a sling due to procedure, some ecchymosis noted over incision site Neurologic: PERRL, EOMI, accommodation nl, no face palsy, no dysarthria, moves extremities spontaneously Psychiatric: A+Ox3, euthymic affect Discharge Data Allergies Allergy/AdvReac Type Severity Reaction Status Date / Time No Known Allergies Allergy Verified 02/10/20 19:37 Consultations 03/20/20 20:07 ED Decision to Admit Stat 03/20/20 22:37 Consult Case Management - Discharge Planning Routine 03/21/20 08:00 Consult Cardiology Routine Procedures Performed Operation Date: 03/22/20 12:00 Actual Procedures p ICD Insertion Single or Dual - Leelee Lainez DO s Lead LV (No Priopr Implant) - Leelee Lainez DO s Venogram, Unilateral - Leelee Lainez DO Ordered Studies 03/22/20 11:53 CL Cath Imgs for PACS use only Routine 03/22/20 12:00 EP Lab Images for PACS ONCE Hospital Course (1) Acute left systolic heart failure: (2) Ischemic cardiomyopathy: pt admitted with acute decompensation of systolic heart failure volume overload -increased abdominal girth , lower ext edema , BERNARD Echo done in 02/15/2020 shows EF of 15-20% On admission pt wearing life vest - last hospitalization - discharged on lifevest Now s/p biventricular pacemaker placement (03/22) by Dr. Lainez - tolerated procedure well (3) Atrial fibrillation with RVR: due to decompensated CHF on amiodarone loaded w/ digoxin initially on cardizem gtt which was stopped on coumadin already INR currently subtherapeutic due to procedure appreciate input from cardiology -She was given increased dose of warfarin yesterday, now plan to continue her home warfarin regimen and follow-up INR as outpatient (4) CKD (chronic kidney disease): acute renal failure on CKD stage 3 possible to decompensated CHF /rapid afib causing poor renal perfusion given IV lasix for diuresis follow BMP elevated troponin : type 2 NSTEMI due to demand ischemia in setting of decomensated biventricular CHF /afib rvr appreciate input from cardiology cont cardiac meds Now s/p bivent. pacemaker placement (03/22) for severe ischemic cardiomyopathy, LBBB and chronic systolic HF Disposition: Discussed with cardiology, patient is ready for discharge. She will follow-up with cardiology, appointment will be arranged. Total Time Total Time Spent Total Time Spent (In Minutes): 40 Total Time Includes: Examination of the Patient, Discharge Planning, Medication Reconciliation and Communication With Other Providers Discharge Plan Discharge Items Patient Disposition: Home - Self-Care Reason For Visit: A FIB AND ABDOMINAL DISCOMFORT Discharge Diagnosis: Atrial fibrillation with RVR Acute decompensated systolic heart failure /volume overload Hx of Ischemic cardiomyopathy Mitral regurgitation LBBB Now status post biventricular pacemaker placement by Dr. Lainez (03/22/20) Activity: As commented below Activity Comment: do not lift the left elbow over the left shoulder for 1 month Lifting: No more than 10 pounds Lifting Comment: do not lift more than 10 pounds with the left arm for 2 weeks Bathing: Keep incision dry Bathing Comment: keep dressing on & dry until wound check next week Sexual Activity: After two weeks Non-emergency contact: Molding Process Technician Call non-emergency contact if: you have any medication questions and your symptoms worsen Follow-up/Referrals: Lex Savage MD [Primary Care Provider] - 03/29/20 12:00 pm (03/29/2020 12:00 PM Provider Girish Barron MD Department Internal Medicine [facility] ) Diet: Heart Healthy Addtl Attending Provider Instructions: Device and wound check at [facility] on 03/31/2020 at 1pm Please try to wear the surgical bra as much as possible for the next 2 weeks Please look at the incision/device area daily for the next month; if you notice any concerns call Dr. Lainez's office You are not allowed to lift left elbow or left shoulder for 1 month. You cannot lift more than 10 pounds with the left arm for 2 weeks. Leave the dressing on and dry until your wound check next week. Make sure to continue to take your home medications, specifically amiodarone 200 mg daily and metoprolol succinate 25 mg daily. I discussed this with your pharmacist, you should have these medications at home. If you do not have any of these medications, please make sure to contact your primary care doctor, hospital, or your capture manager. Addtl Dairy Products Maker Provider Instructions: Call your Primary Care doctor if any of the following symptoms or problems start or get worse: * Shortness of breath or difficulty breathing * Wake up at night short of breath * Chest pain * Cough * Swelling of your hands, feet, or legs * More fatigued or tired with your normal activity * Palpitations - sudden fast heart beats WEIGHT * Weigh yourself every morning after using the bathroom. * Use the same scale. * Wear the same amount of clothing. * Write your weight down on a chart. * Call your Primary Care doctor if you gain more than 2-3 pounds in 1-2 days. MEDICATIONS * Use this discharge instruction sheet for medication instructions. * Take your medications at the time your doctor ordered. * Do not skip a dose of your medicines. * If you miss a dose of medicine, take it as soon as possible, but DO NOT DOUBLE A DOSE. * Read your medicine information when you get home. * Know all of the side effects of your medicine. If in doubt, ask your pharmacist * Call your Primary Care doctor's office if you have any side effects. * Be sure all of your doctors know what medicine and herbs you take (including cold, flu, and herbal medicine). Take the following with you to your follow-up doctor appointments: * Weight Chart * Medication List * List of questions Do not drink excessive alcohol, beer or wine. Pending Studies at Discharge: No Stand-Alone Forms: My AppSame, Smoking Cessation Medications and DC Order Prescriptions: Continued docusate sodium [Colace] 100 mg Capsule 100 mg PO BID RF: 0 omeprazole magnesium [Prilosec OTC] 20 mg Tablet,Delayed Release (Dr/Ec) 20 mg PO DAILY RF: 0 dicyclomine 10 mg capsule 10 mg PO TID PRN (Reason: Cramps) RF: 0 metoprolol succinate 25 mg tablet extended release 24 hr 25 mg PO QAM RF: 0 amiodarone 200 mg tablet 200 mg PO DAILY RF: 0 warfarin [Coumadin] 2.5 mg tablet 2.5 mg PO DAILY Qty: 30 RF: 2 atorvastatin 20 mg Tablet 20 mg PO HS Qty: 30 RF: 2 aspirin 81 mg Tablet,Delayed Release (Dr/Ec) 81 mg PO QAM 30 Days Qty: 30 RF: 2 nitroglycerin [Nitrostat] 0.4 mg Tablet, Sublingual 0.4 mg sublingual UD PRN (Reason: CHEST PAIN) Qty: 30 RF: 2 lisinopril [Zestril] 5 mg Tablet 5 mg PO HS 30 Days Qty: 30 RF: 2 furosemide 20 mg Tablet 20 mg PO QAM Qty: 30 RF: 2 Discharge Orders: Discharge Order (Routine); Ordered 03/24/20 Ordered By: Wesley Echols/Other Patient Handouts: What to Know When TakingWarfarin Admission Data Admit Date/Time: 03/20/20 20:56 Attending Provider: Wesley Mcmanus Admit Provider: Robert Moore Primary Care Provider: Lex Savage Other Providers: Robert Moore ; Mikey Maldonado ; Jesusita Mari Other Interventions: Discharge Summary Assessment (RN) Last Done: 03/24/20 12:20
[2020-03-24] MEDS ORDERED: WARFARIN SOD 2.5 MG TAB PO SCH (16:00)
--- NOTE | 2020-03-29 11:26 | Coding Query ---
CONGESTIVE HEART FAILURE There is documentation on H&P of CHF combined and Cardiology Consult documents Acute left Systolic Heart Failure, Progress Note on 03/21 documents as patient admitted with Acute Decompensation of Combined Systolic and Diastolic Heart Failure and the Op Report documents Chronic Systolic CHF, and the later chart and Discharge Summary document as patient admitted with Acute Decompensation of Systolic Heart Failure. Please clarify below, in your clinical opinion, due to the conflicting documentation. To Promote full compliance with coding requirements relating to patient care, physician participation is requested in all cases of animal ecologist uncertainty. Please assist us with the following questions. A diagnosis of Congestive Heart Failure is documented in the patient's medical record. To accurately code this diagnosis and to compare patient severity, we ask that you specify the type of heart failure by placing an X within the parenthesis (x). SYSTOLIC HEART FAILURE ( ) Acute ( ) Chronic ( x) Acute on Chronic ( ) Rheumatic ( ) Unknown DIASTOLIC HEART FAILURE ( ) Acute ( ) Chronic ( ) Acute on Chronic ( ) Rheumatic ( ) Unknown COMBINED SYSTOLIC AND DIASTOLIC HEART FAILURE ( ) Acute ( ) Chronic ( ) Acute on Chronic ( ) Rheumatic ( ) Unknown Thank you Jenn VELASQUEZ
--- NOTE | 2020-03-29 11:29 | Coding Query ---
CODING QUERY To promote full compliance with coding requirements relating to patient care, provider participation is requested in all cases of museum technician uncertainty. Please assist us with the question(s) below: Coding Question(s): The Operative Report document Coronary Sinus Dissection. Please specify below, in your clinical opinion. ( X ) This was a complication of the procedure-but stable and nothing further to do. ( ) This was not a complication of the procedure ( ) This was Other: Please Specify Physician's Response(s): Thank you Jenn Bosch Principal Diagnosis: "that condition established after study, to be chiefly responsible for occasioning the admission of the patient to the hospital for care." Co-Existing Principal Diagnosis: "when two or more diagnoses equally meet the criteria for principal diagnosis as determined by the circumstances of admission, diagnostic work up, and/or therapy provided, and the Alphabetic Index, Tabular List, or another coding guideline does not provide sequencing direction, any one of the diagnoses may be sequenced first." "When the physician has documented what appears to be a current diagnosis in the body of the record, but has not included the diagnosis in the final diagnostic statement, the physician should be asked whether the diagnosis should be added." (Source [facility]oding [facility] 2 QTR90. p3-4) RON
== END 2020-03-24 13:35 | disposition home or self-care (01) | DRG 226 ==
LOC: ED 16:32 → 1E 20:56 → SUATTDRO 20:56 → 1E 22:30 → 2S 03-22 16:40
PROC: EPB.ICD (2020-03-22 12:00)

== ENCOUNTER 2020-03-25 20:25 | Inpatient (IN) ==
[2020-03-25 21:38] LABS: Basophils # (auto) 0.01 K/uL (0-0.2); Basophils % (auto) 0.1 %; Eosinophils # (auto) 0.17 K/uL (0-0.5); Eosinophils % (auto) 2.3 %; Hematocrit (blood only) 41.2 % (37-47); Hemoglobin 13.9 g/dL (12.0-16.0); Immature Granulocytes # (auto) 0.01 K/uL (0.00-0.02); Immature Granulocytes % (auto) 0.1 %; Lymphocytes # (auto) 1.01 K/uL (1.2-3.4); Lymphocytes % (auto) 13.5 %; Mean Corpuscular Hemoglobin 32.4 pg (25-34); Mean Corpuscular Hgb Conc 33.7 g/dL (32-36); Mean Platelet Volume 11.2 fL (7.4-10.4); Monocytes # (auto) 0.83 K/uL (0.11-0.59); Monocytes % (auto) 11.1 %; Neutrophils # (auto) 5.45 K/uL (1.4-6.5); Neutrophils % (auto) 72.9 %; Platelet Count 156 K/uL (130-400); RDW Coefficient of Variation 16.6 % (11.5-14.5); RDW Standard Deviation 56.5 fL (36.4-46.3); Red Blood Count 4.29 M/uL (4.2-5.4); White Blood Count 7.48 K/uL (4.8-10.8)
[2020-03-25 22:00] LABS: Calcium 8.5 mg/dl (8.5-10.1); Creatinine Clr Calc Pharmacy 46.2 ml/min; Est GFR (African American) 63.9; Est GFR (Non-African American) 55.2; Potassium 4.2 mmol/L (3.5-5.1)
[2020-03-25 22:01] LABS: INR 1.2 (0.9-1.1); Partial Thromboplastin Ratio 0.9; Partial Thromboplastin Time 26.1 Seconds (21.0-31.0); Prothrombin Time 12.1 Seconds (9.0-12.0)
[2020-03-25 22:04] LABS: Albumin Globulin Ratio 0.9 (0.9-2); Bilirubin,Total 0.9 mg/dl (0.2-1); Globulin 3.3 gm/dl (2.5-4.0); Total Protein 6.3 gm/dl (6.4-8.2); Troponin I 0.045 ng/ml (0-0.045)
--- NOTE | 2020-03-25 22:10 | Emergency Department Note ---
History of Present Illness General Chief complaint: Edema To Extremity Stated complaint: EDEMA IN LOWER EXTREMITIES, LEFT ARM REDNESS Time Seen by Provider: 03/25/20 21:29 History of Present Illness This is a 69-year-old female that presents to the emergency department via private vehicle with complaints of "edema in lower extremities, left arm redness". The patient states that she just recently had a pacemaker placed to the left anterior chest and notes that she has bilateral lower extremity edema and left arm edema with associated redness. She denies any chest pain, fevers, chills or shortness of breath. She states that she was discharged from here on this past Friday and notes that it was shortly thereafter that she began with the lower extremity edema. She denies any true pain in the lower extremities. No additional trauma or injury. Home Medications Home Medications Medication Instructions Recorded Confirmed Type aspirin 81 mg PO QAM 30 Days #30 tab 02/17/20 03/25/20 Rx atorvastatin 20 mg PO HS #30 tab 02/17/20 03/25/20 Rx furosemide 20 mg PO QAM #30 tab 02/17/20 03/25/20 Rx lisinopril [Zestril] 5 mg PO HS 30 Days #30 tab 02/17/20 03/25/20 Rx nitroglycerin [Nitrostat] 0.4 mg SUBLINGUAL UD PRN #30 tab 02/17/20 03/25/20 Rx warfarin [Coumadin] 2.5 mg PO DAILY #30 tab 02/17/20 03/25/20 Rx amiodarone 200 mg PO DAILY 03/20/20 03/25/20 History dicyclomine 10 mg PO TID PRN 03/20/20 03/25/20 History metoprolol succinate 25 mg PO QAM 03/20/20 03/25/20 History docusate sodium [Colace] 100 mg PO BID 03/22/20 03/25/20 History omeprazole magnesium [Prilosec OTC] 20 mg PO DAILY 03/22/20 03/25/20 History Allergies Allergy/AdvReac Type Severity Reaction Status Date / Time No Known Allergies Allergy Verified 03/25/20 20:48 Past Med/Surg History Medical History Atrial fibrillation absolutely no systemic lovenox or heparin. 5mg coumadin now. stop IV amiodarone Dyslipidemia Ischemic cardiomyopathy (Acute) POD 1 from BiV ICD; doing well ok for discharge home from EP perspective Surgical History Hx of dilation and curettage Hx of tubal ligation S/P tonsillectomy Family History Other Breast cancer FHx: multiple myeloma FHx: uterine cancer Social History Preferred Language: Thai Communication Ability: Effective Therapist Rrt Required: No Beliefs That Will Affect Care: None Current Living Situation: Spouse Other Information That Helps Us Care for You: No Feels Safe at Home: Yes Safety Concerns: Feels Safe At This Time Smoking Status: Current some day smoker Tobacco Type: cigarettes ; Cigarettes Per Day: 2 ; Do You Dip or Chew Tobacco: No ; Second Hand Exposure: No ; Tobacco Cessation Education Requested by Patient: No Hx Alcohol Use: No Hx Substance Use: No Review of Systems A total of 10 systems reviewed and were otherwise negative Physical Exam Vital Signs Vital Signs - 24 hr 03/25/20 20:28 03/25/20 21:00 03/25/20 22:00 Temperature 36.8 C Temperature Source Oral Pulse Rate 82 Pulse Rate [Finger] 80 81 Pulse Rhythm Regular Pulse Strength Normal Respiratory Rate 20 20 20 Respiratory Effort / Characteristics Non-Labored Spontaneous Respiratory Depth Normal Respiratory Pattern Regular Blood Pressure 106/70 Blood Pressure [Right Arm] 106/72 122/83 Blood Pressure Mean 82 Blood Pressure Mean [Right Arm] 83 96 Blood Pressure Position Sitting Pulse Oximetry 98 98 98 Oxygen Delivery Method Room Air Room Air Room Air Sepsis Recent Fever Within 48 Hours No Sepsis Action Taken by Nursing No Action Required 03/25/20 23:21 03/26/20 00:30 Temperature Temperature Source Pulse Rate Pulse Rate [Finger] 93 H 81 Pulse Rhythm Pulse Strength Respiratory Rate 24 22 Respiratory Effort / Characteristics Respiratory Depth Respiratory Pattern Blood Pressure Blood Pressure [Right Arm] 126/86 122/87 Blood Pressure Mean Blood Pressure Mean [Right Arm] 99 98 Blood Pressure Position Pulse Oximetry 95 98 Oxygen Delivery Method Room Air Room Air Sepsis Recent Fever Within 48 Hours Sepsis Action Taken by Nursing VITAL SIGNS - Vital signs and nursing notes were reviewed. Stable and afebrile. GENERAL -69-year-old female appearing her stated age who is in no acute distress. Communicates well with provider and answers questions appropriately. SKIN -there is erythema surrounding what appears to be a recent IV access site to the left proximal forearm on the ventral aspect that extends to the left bicep with overlying bruising. This is erythematous and slightly indurated. HEAD - NC/AT. EYES - Sclera anicteric. EARS - No deformities of external structures noted on gross examination bilaterally. NOSE - Midline and without cyanosis. MOUTH/OROPHARYNX - Without perioral cyanosis. Buccal mucosa pink and moist and without leukoplakia. Tongue midline with equal elevation of palate bilaterally. NECK - Neck with FROM. Supple to palpation. No lymphadenopathy noted. No nuchal rigidity. LUNGS - Chest wall symmetric without accessory muscle use, intercostals retractions, or central cyanosis. Normal vesicular breath sounds CTA B/L. No wheezes, rales, or rhonchi appreciated. CARDIAC -regular rate with pacemaker noted. ABDOMEN - Abdominal contour normal without pulsations or visible masses. BS normoactive all four quadrants. No tenderness, palpable masses, hepatosplenomegaly, or ascites noted. EXTREMITIES - No clubbing or peripheral cyanosis. There is bilateral lower extremity edema noted. This is mildly pitting. NEUROLOGIC - Cranial nerves II through XII grossly intact. Sensory intact to light touch throughout. PSYCH - A&O, and cooperates fully with examiner. Pt is very pleasant and interacts well with examiner. Course Administered Medications Amiodarone HCl (Cordarone) 200 mg PO DAILY [facility] Stop: 04/25/20 08:59 Last Admin: 03/26/20 07:21 Dose: 200 mg Documented by: [id number] Aspirin (Ecotrin Ectab) 81 mg PO QAM BERNIE Stop: 04/25/20 08:59 Last Admin: 03/26/20 07:21 Dose: 81 mg Documented by: [id number] Docusate Sodium (Colace) 100 mg PO BID BERNIE Stop: 04/25/20 08:59 Last Admin: 03/26/20 07:21 Dose: 100 mg Documented by: [id number] Pantoprazole Sodium (Protonix) 40 mg PO DAILY BERNIE Stop: 04/25/20 08:59 Last Admin: 03/26/20 07:22 Dose: 40 mg Documented by: [id number] Discontinued Medications Furosemide (Lasix) 40 mg IV NOW [facility] Stop: 03/26/20 00:38 Last Admin: 03/26/20 01:22 Dose: 40 mg Documented by: [id number] Doxycycline Hyclate 100 mg/ (Dextrose) 110 mls @ 50 mls/hr IV NOW STA Stop: 03/26/20 03:35 Last Infusion: 03/26/20 04:30 Dose: 0 mls/hr Documented by: [id number] Admin: 03/26/20 02:12 Dose: 50 mls/hr Documented by: [id number] Warfarin Sodium (Coumadin) 5 mg PO NOW ONE Stop: 03/26/20 03:07 Last Admin: 03/26/20 04:35 Dose: 5 mg Documented by: [id number] Medical Decision Making Laboratory Data Result diagrams: 03/26/20 05:33 03/26/20 05:33 Lab Results 03/25/20 03/25/20 03/25/20 Range/Units 21:30 21:30 21:30 WBC 7.48 (4.8-10.8) K/uL RBC 4.29 (4.2-5.4) M/uL Hgb 13.9 (12.0-16.0) g/dL Hct 41.2 (37-47) % MCV 96.0 (80-100) fL MCH 32.4 (25-34) pg MCHC 33.7 (32-36) g/dL RDW Std Deviation 56.5 H (36.4-46.3) fL RDW Coeff of Angélica 16.6 H (11.5-14.5) % Plt Count 156 (130-400) K/uL MPV 11.2 H (7.4-10.4) fL Immature Gran % (Auto) 0.1 % Neut % (Auto) 72.9 % Lymph % (Auto) 13.5 % [place] % (Auto) 11.1 % Eos % (Auto) 2.3 % Baso % (Auto) 0.1 % Immature Gran # (Auto) 0.01 (0.00-0.02) K/uL Neut # (Auto) 5.45 (1.4-6.5) K/uL Lymph # (Auto) 1.01 L (1.2-3.4) K/uL [place] # (Auto) 0.83 H (0.11-0.59) K/uL Eos # (Auto) 0.17 (0-0.5) K/uL Baso # (Auto) 0.01 (0-0.2) K/uL PT 12.1 H (9.0-12.0) Seconds INR 1.2 H (0.9-1.1) APTT 26.1 (21.0-31.0) Seconds PTT Ratio 0.9 Sodium 137 (136-145) mmol/L Potassium 4.2 (3.5-5.1) mmol/L Chloride 99 (98-107) mmol/L Carbon Dioxide 29 (21-32) mmol/L Anion Gap 8.0 (3-11) BUN 20 H (7-18) mg/dl Creatinine 1.04 (0.6-1.2) mg/dl Est Cr Clr Drug Dosing 46.2 ml/min Est GFR ( Amer) 63.9 Est GFR (Non-Af Amer) 55.2 BUN/Creatinine Ratio 19.0 (10-20) Glucose 95 (70-99) mg/dl Calcium 8.5 (8.5-10.1) mg/dl Magnesium 2.4 (1.8-2.4) mg/dl Total Bilirubin 0.9 (0.2-1) mg/dl AST 50 H (15-37) U/L ALT 68 (12-78) U/L Alkaline Phosphatase 188 H (45-117) U/L Troponin I 0.045 (0-0.045) ng/ml NT-Pro-B Natriuret Pep 3155 H (0-900) pg/ml Total Protein 6.3 L (6.4-8.2) gm/dl Albumin 3.0 L (3.4-5.0) gm/dl Globulin 3.3 (2.5-4.0) gm/dl Albumin/Globulin Ratio 0.9 (0.9-2) Urine Color Urine Appearance (Clear) Urine pH (4.5-7.5) Ur Specific Colony (1.000-1.030) Urine Protein (Negative) Urine Glucose (UA) (Negative) Urine Ketones (Negative) Urine Blood (Negative) Urine Nitrite (Negative) Urine Bilirubin (Negative) Urine Urobilinogen (Negative) Ur Leukocyte Esterase (Negative) Urine WBC (Auto) (0-5) /hpf Urine RBC (Auto) (0-4) /hpf U Hyaline Cast (Auto) (0-5) /lpf U Epithel Cells (Auto) (0-5) /lpf Urine Bacteria (Auto) (Negative) 03/25/20 Range/Units 23:20 WBC (4.8-10.8) K/uL RBC (4.2-5.4) M/uL Hgb (12.0-16.0) g/dL Hct (37-47) % MCV (80-100) fL MCH (25-34) pg MCHC (32-36) g/dL RDW Std Deviation (36.4-46.3) fL RDW Coeff of Angélica (11.5-14.5) % Plt Count (130-400) K/uL MPV (7.4-10.4) fL Immature Gran % (Auto) % Neut % (Auto) % Lymph % (Auto) % [place] % (Auto) % Eos % (Auto) % Baso % (Auto) % Immature Gran # (Auto) (0.00-0.02) K/uL Neut # (Auto) (1.4-6.5) K/uL Lymph # (Auto) (1.2-3.4) K/uL [place] # (Auto) (0.11-0.59) K/uL Eos # (Auto) (0-0.5) K/uL Baso # (Auto) (0-0.2) K/uL PT (9.0-12.0) Seconds INR (0.9-1.1) APTT (21.0-31.0) Seconds PTT Ratio Sodium (136-145) mmol/L Potassium (3.5-5.1) mmol/L Chloride (98-107) mmol/L Carbon Dioxide (21-32) mmol/L Anion Gap (3-11) BUN (7-18) mg/dl Creatinine (0.6-1.2) mg/dl Est Cr Clr Drug Dosing ml/min Est GFR ( Amer) Est GFR (Non-Af Amer) BUN/Creatinine Ratio (10-20) Glucose (70-99) mg/dl Calcium (8.5-10.1) mg/dl Magnesium (1.8-2.4) mg/dl Total Bilirubin (0.2-1) mg/dl AST (15-37) U/L ALT (12-78) U/L Alkaline Phosphatase (45-117) U/L Troponin I (0-0.045) ng/ml NT-Pro-B Natriuret Pep (0-900) pg/ml Total Protein (6.4-8.2) gm/dl Albumin (3.4-5.0) gm/dl Globulin (2.5-4.0) gm/dl Albumin/Globulin Ratio (0.9-2) Urine Color Yellow Urine Appearance Clear (Clear) Urine pH 7.0 (4.5-7.5) Ur Specific Colony 1.014 (1.000-1.030) Urine Protein Negative (Negative) Urine Glucose (UA) Negative (Negative) Urine Ketones Negative (Negative) Urine Blood Negative (Negative) Urine Nitrite Negative (Negative) Urine Bilirubin Negative (Negative) Urine Urobilinogen Negative (Negative) Ur Leukocyte Esterase 1+ H (Negative) Urine WBC (Auto) 1-5 (0-5) /hpf Urine RBC (Auto) 0-4 (0-4) /hpf U Hyaline Cast (Auto) 1-5 (0-5) /lpf U Epithel Cells (Auto) 20-30 H (0-5) /lpf Urine Bacteria (Auto) Negative (Negative) Imaging Data Radiologist's Impression: XR chest 1V portable HISTORY: Leg swelling. COMPARISON: Chest 03/23/2020. FINDINGS: No pneumothorax. Left-sided pacemaker/defibrillator. The heart remains mildly enlarged. There is mild central pulmonary vascular congestion without overt edema. Small right pleural effusion has improved. IMPRESSION: 1. Cardiomegaly and mild congestive change are similar to the prior study. 2. Small right pleural effusion has improved. ACT 112: Negative or not required by law. Electronically signed by: Oliver Gregory M.D. 03/25/2020 10:17 PM US VENOUS LEFT UPPER EXTREMITY: Superficial thrombophlebitis involving multiple segments of the left basilic and cephalic veins. No deep vein thrombosis. Pacer wires within the left subclavian vein. Radiologist: Pablo Oleary M.D. Study ready at 23:25 and initial results transmitted at 23:47 US VENOUS BILATERAL LOWER EXTREMITIES: No DVT Radiologist: Pablo Oleary M.D. Study ready at 23:27 and initial results transmitted at 23:47 MDM Narrative Patient was seen and evaluated as above in room A02. Review was performed of nursing notes and vital signs. I did review pertinent previous visits and patient history. After obtaining a thorough history and physical examination the above work up was performed. Patient presents to us today with acute onset of lower extremity edema status post recent discharge/pacemaker placement. She also has left upper extremity edema with an area of erythema to the left forearm. Lower extremities are free of DVT via ultrasound and there is concern that the edema is secondary to her heart. CBC reveals no leukocytosis or anemia. No emergent metabolic disturbance. INR appears to be subtherapeutic. Patient's BNP is 3155. Troponin is high normal. Urinalysis does not suggest infection. Chest x-ray reveals cardiomegaly and mild congestive change. There is also superficial thrombophlebitis involving multiple segments of the left basilic and cephalic veins. No DVT. No DVT in the lower extremities as previously discussed. I am not able to rule out cellulitis overlying the superficial thrombophlebitis. Given the patient's acute lower extremity edema in the absence of DVT I do believe that further evaluation and management the inpatient setting is warranted. Case discussed with the hospitalist/attending. Please refer to further documentation regarding her stay. In the evaluation and treatment of this patient, the following differential diagnoses were considered: NE, ASC, Dysrhythmia, Angina, Mediastinitis, GERD, Esophagitis, PE, Pneumonia, Bronchitis, Costochondritis, Rib Fracture, Zoster. Impression & Plan Edema of both lower legs, Superficial thrombophlebitis of arm Discharge Plan Visit Data *Final* Discharge Date/Time: 03/26/20 02:21 Chief Complaint: Edema To Extremity Stated Complaint: EDEMA IN LOWER EXTREMITIES, LEFT ARM REDNESS ED Provider: Esau Arana ED Midlevel Provider: Edward Matamoros Discharge Problem: Edema of both lower legs, Superficial thrombophlebitis of arm Patient Disposition: Admitted As Inpatient Condition: Good Discharge Instructions Interventions: ED Discharge Assessment Last Done: 03/26/20 02:21
--- NOTE | 2020-03-25 22:18 | XRay Report ---
XR chest 1V portable HISTORY: Leg swelling. COMPARISON: Chest 03/23/2020. FINDINGS: No pneumothorax. Left-sided pacemaker/defibrillator. The heart remains mildly enlarged. The re is mild central pulmonary vascular congestion without overt edema. Small right pleural effusion [place] s improved. IMPRESSION: 1. Cardiomegaly and mild congestive change are similar to the prior study. 2. Small right pleural effusion has improved. ACT 112: Negative or not required by law. Electronically signed by: Oliver Gregory M.D. 03/25/2020 10:17 PM
[2020-03-25 23:35] LABS: Appearance Urine Clear (Clear); Bacteria Urine Automated Negative (Negative); Bilirubin Urine Negative (Negative); Blood Urine Negative (Negative); Color Urine Yellow; Epithelial Cell Urine Auto 20-30 /lpf (0-5); Glucose Urine UA Negative (Negative); Ketones Urine Negative (Negative); Leukocyte Esterase Urine 1+ (Negative); Nitrite Urine Negative (Negative); Protein Urine Negative (Negative); RBC Urine Automated 0-4 /hpf (0-4); Specific Gravity Urine 1.014 (1.000-1.030); Urobilinogen Urine Negative (Negative)
[2020-03-26] MEDS ORDERED: FUROSEMIDE 40 MG/4 ML VIAL IV STA (00:37)
[2020-03-26 00:56] LABS: Magnesium 2.4 mg/dl (1.8-2.4)
[2020-03-26] MEDS ORDERED: DOXYCYCLINE HYCLATE 100 MG in DEXTROSE 5% 100 ML IV STA (01:24)
--- NOTE | 2020-03-26 02:36 | History & Physical Report ---
Date of Service March 26, 2020 Assessment & Plan (1) Fluid retention: hx chronic systolic heart failure secondary to ischemic cardiomyopathy (EF 15 to 20%, TTE 2019) sp ICD hx severe MR Residual fluid retention from recent confinement for decompensated heart failure LUE cellulitis hx ICD placement No sepsis hx CAD as per records hx LBBB A. fib on Coumadin, paced rhythm, INR subtherapeutic HTN, stable hyperlipidemia on statin Rx ongoing tobacco abuse. OBS PCU Diuretic Rx Strict I/Os, daily weights, CHF education, fluid restriction Doxycycline, local measures for LUE cellulitis Cardiology consult RE fluid retention, post op eval nicotine patch PRN DVT prophylaxis. Coumadin INR goal between 2 and 3 Full code Text document was generated using BPT voice recognition software. It may contain grammatical or spelling errors. Kindly contact undersigned for clarification of any documentation item in question. History of Present Illness Redness Chief Complaint: Bilateral leg swelling, left arm swelling Primary Care Provider: Lex Savage MD History obtained from patient and records. Medical history significant for chronic systolic heart failure secondary to ischemic cardiomyopathy (EF 15 to 20%, TTE 2019) sp ICD, CAD as per records, chronic LBBB, A. fib on Coumadin, hx VT, severe mitral regurgitation, HTN, hyperlipidemia, daily alcohol intake, ongoing tobacco abuse. Recent confinement from March 20-2023 A. fib with RVR, decompensated heart failure. Patient underwent ICD placement for ischemic cardiomyopathy during confinement. According to patient, she had noticed progressive left upper extremity (operative site) redness. No fever, no chills. Upon discharge 2 days ago, patient noted bilateral leg swelling on the way to the car. No chest pain, no S OB, no cough. Patient denies dietary indiscretion. Compliant with home meds. Patient returned to ER because of persistent swelling in the left arm and both legs. 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, caregivers homecare Allergies Allergy/AdvReac Type Severity Reaction Status Date / Time No Known Allergies Allergy Verified 03/25/20 20:48 Home Medications Home Medications Medication Instructions Recorded Confirmed Type aspirin 81 mg PO QAM 30 Days #30 tab 02/17/20 03/25/20 Rx atorvastatin 20 mg PO HS #30 tab 02/17/20 03/25/20 Rx furosemide 20 mg PO QAM #30 tab 02/17/20 03/25/20 Rx lisinopril [Zestril] 5 mg PO HS 30 Days #30 tab 02/17/20 03/25/20 Rx nitroglycerin [Nitrostat] 0.4 mg SUBLINGUAL UD PRN #30 tab 02/17/20 03/25/20 Rx warfarin [Coumadin] 2.5 mg PO DAILY #30 tab 02/17/20 03/25/20 Rx amiodarone 200 mg PO DAILY 03/20/20 03/25/20 History dicyclomine 10 mg PO TID PRN 03/20/20 03/25/20 History metoprolol succinate 25 mg PO QAM 03/20/20 03/25/20 History docusate sodium [Colace] 100 mg PO BID 03/22/20 03/25/20 History omeprazole magnesium [Prilosec OTC] 20 mg PO DAILY 03/22/20 03/25/20 History Past Med/Surg History Medical History Atrial fibrillation absolutely no systemic lovenox or heparin. 5mg coumadin now. stop IV amiodarone Dyslipidemia Ischemic cardiomyopathy (Acute) POD 1 from BiV ICD; doing well ok for discharge home from EP perspective Surgical History Hx of dilation and curettage Hx of tubal ligation S/P tonsillectomy Family History Other Breast cancer FHx: multiple myeloma FHx: uterine cancer Social History Preferred Language: Latvian Communication Ability: Effective Aerotriangulation Specialist Required: No Beliefs That Will Affect Care: None Current Living Situation: Spouse Other Information That Helps Us Care for You: No Feels Safe at Home: Yes Safety Concerns: Feels Safe At This Time Smoking Status: Current some day smoker Tobacco Type: cigarettes ; Cigarettes Per Day: 2 ; Do You Dip or Chew Tobacco: No ; Second Hand Exposure: No ; Tobacco Cessation Education Requested by Patient: No Hx Alcohol Use: No Hx Substance Use: No Review of Systems Review of Systems: As per HPI, all 10 systems reviewed, all other ROS negative Physical Exam Physical Exam: GENERAL: Comfortable, pleasant, no respiratory distress, obese SKIN: Normal color, warm HEENT: [place] palpebral conjunctivae, no ptosis, dry buccal mucosa NECK : Supple, no tenderness CHEST : Decreased breath sounds , no tenderness HEART : RRR, diminished S1-S2 , systolic murmur ABDOMEN: Some distention, nontender EXTREMITIES : Bilateral LE swelling, no LE tenderness, mild erythematous mil ration left upper arm with tenderness, no other conspicuous deformities noted NEUROLOGIC : Coherent, no facial asymmetry, no other gross focality Results & Data Results & Data ([facility]) Vital Signs (Past 12 Hours) Vital Signs Temp Pulse Pulse Resp BP BP Pulse Ox 03/26/20 02:00 86 24 123/72 97 03/26/20 00:30 81 22 122/87 98 03/25/20 23:21 93 H 24 126/86 95 03/25/20 22:00 81 20 122/83 98 03/25/20 21:00 80 20 106/72 98 03/25/20 20:28 36.8 C 82 20 106/70 98 Laboratory Results Laboratory Results WBC 7.48 K/uL (4.8-10.8) 03/25/20 21:30 RBC 4.29 M/uL (4.2-5.4) 03/25/20 21:30 Hgb 13.9 g/dL (12.0-16.0) 03/25/20 21:30 Hct 41.2 % (37-47) 03/25/20 21:30 MCV 96.0 fL (80-100) 03/25/20 21:30 MCH 32.4 pg (25-34) 03/25/20 21:30 MCHC 33.7 g/dL (32-36) 03/25/20 21:30 RDW Std Deviation 56.5 fL (36.4-46.3) H 03/25/20 21:30 RDW Coeff of Angélica 16.6 % (11.5-14.5) H 03/25/20 21:30 Plt Count 156 K/uL (130-400) 03/25/20 21:30 MPV 11.2 fL (7.4-10.4) H 03/25/20 21:30 Immature Gran % (Auto) 0.1 % 03/25/20 21:30 Neut % (Auto) 72.9 % 03/25/20 21:30 Lymph % (Auto) 13.5 % 03/25/20 21:30 [place] % (Auto) 11.1 % 03/25/20 21:30 Eos % (Auto) 2.3 % 03/25/20 21:30 Baso % (Auto) 0.1 % 03/25/20 21:30 Immature Gran # (Auto) 0.01 K/uL (0.00-0.02) 03/25/20 21:30 Neut # (Auto) 5.45 K/uL (1.4-6.5) 03/25/20 21: Lymph # (Auto) 1.01 K/uL (1.2-3.4) L 03/25/20 21:30 [place] # (Auto) 0.83 K/uL (0.11-0.59) H 03/25/20 21:30 Eos # (Auto) 0.17 K/uL (0-0.5) 03/25/20 21:30 Baso # (Auto) 0.01 K/uL (0-0.2) 03/25/20 21:30 PT 12.1 Seconds (9.0-12.0) H 03/25/20 21:30 INR 1.2 (0.9-1.1) H 03/25/20 21:30 APTT 26.1 Seconds (21.0-31.0) 03/25/20 21: PTT Ratio 0.9 03/25/20 21:30 Sodium 137 mmol/L (136-145) 03/25/20 21:30 Potassium 4.2 mmol/L (3.5-5.1) 03/25/20 21:30 Chloride 99 mmol/L (98-107) 03/25/20 21: Carbon Dioxide 29 mmol/L (21-32) 03/25/20 21:30 Anion Gap 8.0 (3-11) 03/25/20 21:30 BUN 20 mg/dl (7-18) H 03/25/20 21:30 Creatinine 1.04 mg/dl (0.6-1.2) 03/25/20 21: Est Cr Clr Drug Dosing 46.2 ml/min 03/25/20 21:30 Est GFR ( Amer) 63.9 03/25/20 21:30 Est GFR (Non-Af Amer) 55.2 03/25/20 21: BUN/Creatinine Ratio 19.0 (10-20) 03/25/20 21:30 Glucose 95 mg/dl (70-99) 03/25/20 21: Calcium 8.5 mg/dl (8.5-10.1) 03/25/20: Magnesium 2.4 mg/dl (1.8-2.4) 03/25/20 21: Total Bilirubin 0.9 mg/dl (0.2-1) 03/25/20 21:30 AST 50 U/L (15-37) H 03/25/20 21: ALT 68 U/L (12-78) 03/25/20: Alkaline Phosphatase 188 U/L (45-117) H 03/25/20 21:30 Troponin I 0.045 ng/ml (0-0.045) 03/25/20: NT-Pro-B Natriuret Pep 3155 pg/ml (0-900) H 03/25/20 21:30 Total Protein 6.3 gm/dl (6.4-8.2) L 03/25/20 21: Albumin 3.0 gm/dl (3.4-5.0) L 03/25/20 21: Globulin 3.3 gm/dl (2.5-4.0) 03/25/20 21: Albumin/Globulin Ratio 0.9 (0.9-2) 03/25/20: Urine Color Yellow 03/25/20: Urine Appearance Clear (Clear) 03/25/20: Urine pH 7.0 (4.5-7.5) 03/25/20: Ur Specific [place] 1.014 (1.000-1.030) 03/25/20: Urine Protein Negative (Negative) 03/25/20 Urine Glucose (UA) Negative (Negative) 03/25/20: Urine Ketones Negative (Negative) 03/25/20: Urine Blood Negative (Negative) 03/25/20 Urine Nitrite Negative (Negative) 05/23/20 23:20 Urine Bilirubin Negative (Negative) 03/25/20 23:20 Urine Urobilinogen Negative (Negative) 03/25/20 23:20 Ur Leukocyte Esterase 1+ (Negative) H 03/25/20 23:20 Urine WBC (Auto) 1-5 /hpf (0-5) 03/25/20 23:20 Urine RBC (Auto) 0-4 /hpf (0-4) 03/25/20 23:20 U Hyaline Cast (Auto) 1-5 /lpf (0-5) 03/25/20 23:20 U Epithel Cells (Auto) 20-30 /lpf (0-5) H 03/25/20 23:20 Urine Bacteria (Auto) Negative (Negative) 03/25/20 23:20 Diagnostic Findings Chest x-ray : 1. Cardiomegaly and mild congestive change are similar to the prior study. 2. Small right pleural effusion has improved. Ultrasound venous LUE initial read: Superficial thrombophlebitis involving multiple segments of the left basilic and cephalic veins. No DVT. Pacer wires within the left subclavian vein. Ultrasound LE venous Dopplers initial read: No DVT EKG as per my interpretation : Rate 80, paced rhythm
[2020-03-26] MEDS ORDERED: WARFARIN SOD 5 MG TAB PO ONE (03:06)
[2020-03-26] MEDS ORDERED: ACETAMINOPHEN 325 MG TAB PO PRN (03:06)
[2020-03-26] MEDS ORDERED: PROMETHAZINE HCL 12.5 MG in SODIUM CHLORIDE 0.9% 50 ML IV PRN (03:06)
[2020-03-26] MEDS ORDERED: NITROGLYCERIN SL 0.4 MG/TAB TAB SL PRN ×2 (03:06)
[2020-03-26 06:18] LABS: Hematocrit (blood only) 40.3 % (37-47); Hemoglobin 13.6 g/dL (12.0-16.0); Mean Corpuscular Hemoglobin 32.6 pg (25-34); Mean Corpuscular Hgb Conc 33.7 g/dL (32-36); Mean Corpuscular Volume 96.6 fL (80-100); Platelet Count 145 K/uL (130-400); Red Blood Count 4.17 M/uL (4.2-5.4); White Blood Count 6.19 K/uL (4.8-10.8)
[2020-03-26 06:20] LABS: Mean Platelet Volume 11.4 fL (7.4-10.4); RDW Coefficient of Variation 16.7 % (11.5-14.5); RDW Standard Deviation 56.9 fL (36.4-46.3)
[2020-03-26 06:21] LABS: Basophils # (auto) 0.02 K/uL (0-0.2); Basophils % (auto) 0.3 %; Eosinophils # (auto) 0.36 K/uL (0-0.5); Eosinophils % (auto) 5.8 %; Immature Granulocytes # (auto) 0.01 K/uL (0.00-0.02); Immature Granulocytes % (auto) 0.2 %; Lymphocytes # (auto) 0.95 K/uL (1.2-3.4); Lymphocytes % (auto) 15.3 %; Monocytes # (auto) 0.57 K/uL (0.11-0.59); Monocytes % (auto) 9.2 %; Neutrophils # (auto) 4.28 K/uL (1.4-6.5); Neutrophils % (auto) 69.2 %
[2020-03-26 06:24] LABS: INR 1.2 (0.9-1.1); Prothrombin Time 12.2 Seconds (9.0-12.0)
[2020-03-26 06:36] LABS: Calcium 8.4 mg/dl (8.5-10.1); Creatinine Clr Calc Pharmacy 48.5 ml/min; Est GFR (African American) 68.7; Est GFR (Non-African American) 59.3
[2020-03-26] MEDS: DOCUSATE SODIUM 100 MG CAP PO SCH ×2 (07:21→20:25)
[2020-03-26] MEDS: ASPIRIN 81 MG ECTAB PO SCH (07:21)
[2020-03-26] MEDS: AMIODARONE 200 MG TAB PO SCH (07:21)
[2020-03-26] MEDS: PANTOprazole 40 MG TAB PO SCH (07:22)
[2020-03-26] MEDS ORDERED: FUROSEMIDE 40 MG/4 ML VIAL IV ONE (09:00)
--- NOTE | 2020-03-26 09:52 | Electrocardiogram Report ---
Test Reason : Blood Pressure : / mmHG Vent. Rate : 079 BPM Atrial Rate : 079 BPM P-R Int : 168 ms QRS Dur : 150 ms QT Int : 442 ms P-R-T Axes : 070 002 041 degrees QTc Int : 506 ms Atrial-sensed ventricular-paced rhythm Normal sinus rhythm Abnormal ECG When compared with ECG of 22-MAR-2020 14:55, Vent. rate has increased BY 9 BPM sinus has replaced an atrial paced rhythm Confirmed by Henry David ([id number]) on 03/26/2020 9:52:20 AM Referred By: REFERRED SELF Confirmed By:Henry David
--- NOTE | 2020-03-26 10:06 | Ultrasound Report ---
BILATERAL LOWER EXTREMITY VENOUS DOPPLER CLINICAL HISTORY: Recent pacemaker placement, lower extremity edema, COMPARISON STUDY: No previous studies for comparison. TECHNIQUE: Sonography of the deep venous system of the bilateral lower extremities was performed. Co mpression and augmentation were evaluated. FINDINGS: The bilateral common femoral, superficial femoral and popliteal veins were compressible. A ugmentation was normal. Flow was shown within the deep calf vessels. IMPRESSION: No evidence of deep venous thrombus within the bilateral lower extremities. ACT 112: Negative or not required by law. Electronically signed by: Mike Gallegos M.D. 03/26/2020 10:04 AM
--- NOTE | 2020-03-26 10:06 | Ultrasound Report ---
US venous doppler UE LT CLINICAL HISTORY: Recent pacemaker placement, lower extremity edema, left arm edema COMPARISON STUDY: No previous studies for comparison. FINDINGS: No deep venous thrombus is identified within the left upper extremity. Pacer wires within t he left subclavian vein are noted. Portions of the left subclavian vein are not well visualized on th is exam. Note is made of superficial thrombus within multiple segments of the left basilic and cephal ic veins. Thrombus within the basilic vein is within the upper arm and proximal forearm. Thrombus wit hin the cephalic vein is within the distal upper arm and antecubital fossa. IMPRESSION: 1. No deep venous thrombus within the left upper extremity. Portions of the left subclavian vein obsc ured by bandages. 2. Superficial thrombus within portions of the left cephalic and basilic veins, as described above. ACT 112: Negative or not required by law. Electronically signed by: Mike Gallegos M.D. 03/26/2020 10:04 AM
[2020-03-26] MEDS: METOPROLOL SUCC 25MG EXT REL TAB PO SCH (10:23)
--- NOTE | 2020-03-26 10:24 | Cardiology Consultation ---
Date of Consultation March 26, 2020 Assessment & Plan (1) Ischemic cardiomyopathy: (2) Acute left systolic heart failure: (3) PAF (paroxysmal atrial fibrillation): Continue coumadin load, daily INR levels. Furosemide 20 mg IV x 1 now, then 20 mg BID at 7 am, 1400 tomorrow (low dose, spread out due to h/o low LVEF, low BP). Add low dose spironolactone. Consider transition from lisinopril to Entresto, if BP allows. Starting spironolactone first as it is more affordable. Unfortunately, dosing and administration of ideal medications is limited by her relatively low blood pressure. (4) Superficial thrombophlebitis of arm: Duplex reveals superficial thrombus within portions of the basilic and cephalic veins, with thrombus in the area of the proximal left forearm. The patient presents with a subtherapeutic INR, 1.2. There is been recent issues with her having labile INR readings. Per the she is to be on Coumadin 7.5 mg every Friday, and 5 mg the remaining days of the week. The patient tells me that she was taking "1 pill "instead of 2 pills. I think therefore she may have been taking either 2.5 mg or even perhaps 5 mg. Concerned about the risk of developing a left pocket hematoma while on heparin, and will therefore proceed with resuming her Coumadin 5 mg. Update INR tomorrow. Agree with antibiotic therapy given recent Bi V pacemaker / ICD. Concerned about a superimposed cellulitis, which would be a dangerous situation given her recent cardiac device. This was discussed with Dr. Mcmanus and we therefore transition her from oral doxycycline to IV vancomycin and cefepime for now. Dr Maldonado rounding of 03/27, I will return on 03/28/2020. History of Present Illness Attending Physician: Wesley Mcmanus MD History of Present Illness Eva Perkins is a 69 year old female seen in cardiology consultation per the request of Dr Mtz for the evaluation of CHF. Her primary network control technician is Dr Maldonado. The patient has a longstanding history of dyslipidemia, cigarette smoking, and alcohol use. Her cardiac history dates back to February 2020 when she presented to [facility] with shortness of breath, volume overload symptoms. She was found to have a left bundle branch block, atrial fibrillation, and severe left ventricular systolic dysfunction as well as severe mitral regurgitation related to her dilated cardiomyopathy with tethering of the mitral valve leaflets and resultant mild coaptation from left ventricular chamber dilatation. The 2D findings of the echocardiogram performed during admission are suggestive of left ventricular dyssynchrony. She was placed on appropriate medication therapy, and underwent a follow-up pharmacologic nuclear stress test as an outpatient on 02/23/2020, with findings of a large fixed perfusion defect encompassing the anteroseptal, anterior, apical, and inferior myocardial manzo, with normal perfusion to the circumflex territory noted. Calculated LVEF by gated SPECT was 28%. She had been seen as an outpatient by electrophysiology, and outpatient biventricular pacemaker AICD was planned, however in the meantime, she had reverted back to atrial fibrillation with rapid ventricular response, along with congestive heart failure symptoms, prompting admission last week. She underwent implantation of a [employer] biventricular pacemaker ICD on 03/22/[address] Lainez. During that admission she remained on her prior to hospital dose of amiodarone, and antitachycardia pacing was utilized to restore sinus rhythm. She was subsequently discharged on 03/24/2020. She however presented back to the emergency department last evening just after 10 PM with plaint of bilateral lower extremity edema, and left arm redness. She had been found to have a phlebitis, likely with superimposed cellulitis of the medial portion of her left arm below the elbow, at the site of a previous IV access, per the patient's recollection. She also notes significant worsening lower extremity edema. She received 40 mg of IV furosemide at 1023 last evening with mild interval improvement in her lower extremity edema. At the time my assessment, ongoing sinus rhythm with atrial biventricular control pacemaker activity noted on the monitor without recurrence of atrial fibrillation. PMH: Chronic systolic heart failure (diagnosed 02/2020) Presumed Ischemic Cardiomyopathy, Fixed perfusion defect, on nuclear perfusion imaging, 02/23/20 Paroxysmal atrial fibrillation for which pt is on amiodarone therapy Mitral regurgitation due to dilated cardiomyopathy Dyslipidemia History of alcohol use Allergies Allergy/AdvReac Type Severity Reaction Status Date / Time No Known Allergies Allergy Verified 03/25/20 20:48 Home Medications Home Medications Medication Instructions Recorded Confirmed Type aspirin 81 mg PO QAM 30 Days #30 tab 02/17/20 03/25/20 Rx atorvastatin 20 mg PO HS #30 tab 02/17/20 03/25/20 Rx furosemide 20 mg PO QAM #30 tab 02/17/20 03/25/20 Rx lisinopril [Zestril] 5 mg PO HS 30 Days #30 tab 02/17/20 03/25/20 Rx nitroglycerin [Nitrostat] 0.4 mg SUBLINGUAL UD PRN #30 tab 02/17/20 03/25/20 Rx warfarin [Coumadin] 2.5 mg PO DAILY #30 tab 02/17/20 03/25/20 Rx amiodarone 200 mg PO DAILY 03/20/20 03/25/20 History dicyclomine 10 mg PO TID PRN 03/20/20 03/25/20 History metoprolol succinate 25 mg PO QAM 03/20/20 03/25/20 History docusate sodium [Colace] 100 mg PO BID 03/22/20 03/25/20 History omeprazole magnesium [Prilosec OTC] 20 mg PO DAILY 03/22/20 03/25/20 History Patient History Medical History Atrial fibrillation absolutely no systemic lovenox or heparin. 5mg coumadin now. stop IV amiodarone Dyslipidemia Ischemic cardiomyopathy (Acute) POD 1 from BiV ICD; doing well ok for discharge home from EP perspective Surgical History Hx of dilation and curettage Hx of tubal ligation S/P tonsillectomy Family History Other Breast cancer FHx: multiple myeloma FHx: uterine cancer Social History Preferred Language: Mongolian Communication Ability: Effective Ssn/Ssbn Assistant Navigator Required: No Beliefs That Will Affect Care: None Current Living Situation: Spouse Other Information That Helps Us Care for You: No Feels Safe at Home: Yes Safety Concerns: Feels Safe At This Time Smoking Status: Current some day smoker Tobacco Type: cigarettes ; Cigarettes Per Day: 2 ; Do You Dip or Chew Tobacco: No ; Second Hand Exposure: No ; Tobacco Cessation Education Requested by Patient: No Hx Alcohol Use: No Hx Substance Use: No Review of Systems Review of Systems: All systems reviewed & are unremarkable except as noted in HPI & below Physical Exam Physical Exam: Temp Pulse Resp BP Pulse Ox 36.6 C 71 18 116/63 98 03/26/20 12:56 03/26/20 12:56 03/26/20 12:56 03/26/20 12:56 03/26/20 12:56 Constitutional: WD/WN, vitals as above no acute distress Respiratory: normal respiratory effort, lungs clear to auscultation Cardiovascular: Rate/Rhythm: regular rhythm Heart Sounds: + murmur (I/6 systolic murmur) Extremities: + edema (1-2+ bilateral lower extremity edema mid tibia) Chest (Breasts): Chest: + pacemaker (BiV PM / ICD pocket in the left infraclavicular space, with clean dry and intact incision, no erythema, no drainage) Gastrointestinal (Abdomen): normal bowel sounds, soft, nontender, no hepatosplenomegaly Musculoskeletal: Left arm, erythema of the medial aspect, distal to the elbow, prior IV site Neurologic: PERRL, EOMI, accommodation nl, no face palsy, no dysarthria Results & Data ([facility]) Vital Signs (Past 12 Hours) Vital Signs Temp Pulse Pulse Resp BP Pulse Ox Pulse Ox 03/26/20 08:51 36.8 C 76 20 114/77 98 03/26/20 08:00 71 03/26/20 03:06 100 03/26/20 02:40 36.7 C 79 79 18 106/74 100 03/26/20 02:00 86 24 123/72 97 03/26/20 00:30 81 22 122/87 98 03/25/20 23:21 93 H 24 126/86 95 Laboratory Results Radiology Report: US venous doppler UE LT CLINICAL HISTORY: Recent pacemaker placement, lower extremity edema, left arm edema FINDINGS: No deep venous thrombus is identified within the left upper extremity. Pacer wires within the left subclavian vein are noted. Portions of the left subclavian vein are not well visualized on this exam. Note is made of superficial thrombus within multiple segments of the left basilic and cephalic veins. Thrombus within the basilic vein is within the upper arm and proximal forearm. Thrombus within the cephalic vein is within the distal upper arm and antecubital fossa. IMPRESSION: 1. No deep venous thrombus within the left upper extremity. Portions of the left subclavian vein obscured by bandages. 2. Superficial thrombus within portions of the left cephalic and basilic veins, as described above. Diagnostic Findings EKG performed 03/25/20202125 and reviewed independently: Atrial sensed, ventricular paced rhythm Transthoracic echocardiogram performed after her recent AICD procedure, on 03/23/2020 with images reviewed independently today at the undersigned: Moderate left ventricular chamber dilatation Severe left ventricular systolic dysfunction, there is dyssynchronous contraction of the interventricular septum, severe global hypokinesis otherwise, ventricular septum and anterior manzo are thin Qualitative LVEF 15-20%. Severe left atrial dilatation is present. Severe mitral valve regurgitation is present, with tethering of the mitral valve leaflets due to left ventricular chamber dilatation and resultant mild coaptation.
[2020-03-26] MEDS ORDERED: FUROSEMIDE 20 MG in SYRINGE 0 ML IV ONE (10:30)
[2020-03-26] MEDS ORDERED: VANCOMYCIN CONSULT ACTIVE PRN (10:55)
[2020-03-26] MEDS ORDERED: VANCOMYCIN HCL 1,750 MG in SODIUM CHLORIDE 0.9% 500 ML IV ONE (11:15)
[2020-03-26] MEDS: SPIRONOLACTONE 12.5 MG TAB PO SCH (11:29)
--- NOTE | 2020-03-26 12:10 | Pharmacy Report ---
Pharmacy Abx Initial Consult - Date of Service March 26, 2020 - Pharmacy Dosing Scope Date of Consult: 03/26/20 Consultation requested by: Dr. Mcmanus Pharmacy is consulted to initiate vancomycin IV dosing therapy, order appropriate labs and adjust drug dose/frequency. - Subjective The patient is a 69 year old F admitted on 03/26/20 10:55. - Objective Height: 5 ft Weight: 71.6 kg Vital Signs (Past 12hrs): Vital Signs Temp Pulse Pulse Resp BP Pulse Ox Pulse Ox 03/26/20 08:51 36.8 C 76 20 114/77 98 03/26/20 08:00 71 03/26/20 03:06 100 03/26/20 02:40 36.7 C 79 79 18 106/74 100 03/26/20 02:00 86 24 123/72 97 03/26/20 00:30 81 22 122/87 98 Lab Results (24hrs): Laboratory Tests (24 Hours) 03/26/20 03/26/20 03/25/20 05:33 05:33 21:30 WBC 6.19 Neut # (Auto) 4.28 Creatinine 0.98 1.04 Est Cr Clr Drug Dosing 48.5 46.2 03/25/20 21:30 WBC 7.48 Neut # (Auto) 5.45 Creatinine Est Cr Clr Drug Dosing - Risk Factors for Resistance Recent pacemaker placement - Assessment & Plan Assessment 69 year old F receiving vancomycin therapy for LUE cellulitis Plan Vancomycin IV * Estimated PK Parameters: Vd 0.6 L/kg, Alex 0.04 hr-1, t1/2 17 hr * Loading dose: 1750 mg (24.4 mg/kg) * Maintenance dose: 1000 mg IV (14 mg/kg) every 24 hours * Goal trough level: 10-15 mcg/mL * Trough will be ordered prior to 3rd-4th dose * Extended dosing interval has been selected due to likelihood of drug accumulation in obese patient Pharmacy will continue to follow and will adjust dose/frequency as necessary. Thank you.
[2020-03-26] MEDS ORDERED: CEFEPIME CONSULT ACTIVE PRN (12:51)
[2020-03-26] MEDS: CEFEPIME 2,000 MG in SYRINGE 7.5 ML IV SCH (14:12)
[2020-03-26] MEDS: VANCOMYCIN HCL 1,000 MG in SODIUM CHLORIDE 0.9% 250 ML IV SCH (14:24)
[2020-03-26] MEDS: WARFARIN SOD 5 MG TAB PO SCH (15:06)
[2020-03-26] MEDS: ATORVASTATIN 20 MG TAB PO SCH (20:26)
[2020-03-26] MEDS ORDERED: DOXYCYCLINE HYCLATE 100 MG CAP PO SCH (21:00)
[2020-03-26] MEDS ORDERED: lisinopriL 5 MG TAB PO SCH (21:00)
[2020-03-27 07:11] LABS: INR 1.3 (0.9-1.1); Prothrombin Time 13.2 Seconds (9.0-12.0)
[2020-03-27 07:30] LABS: BUN Creatinine Ratio 19.7 (10-20); Calcium 8.6 mg/dl (8.5-10.1); Creatinine Clr Calc Pharmacy 52.2 ml/min; Est GFR (African American) 75.1; Est GFR (Non-African American) 64.8; Potassium 4.5 mmol/L (3.5-5.1)
[2020-03-27] MEDS: FUROSEMIDE 20 MG in SYRINGE 0 ML IV SCH ×2 (07:47→14:04)
[2020-03-27] MEDS: PANTOprazole 40 MG TAB PO SCH (07:48)
[2020-03-27] MEDS: SPIRONOLACTONE 12.5 MG TAB PO SCH (07:49)
[2020-03-27] MEDS: DOCUSATE SODIUM 100 MG CAP PO SCH ×2 (07:49→20:25)
[2020-03-27] MEDS: ASPIRIN 81 MG ECTAB PO SCH (07:49)
[2020-03-27] MEDS: METOPROLOL SUCC 25MG EXT REL TAB PO SCH (07:49)
[2020-03-27] MEDS: AMIODARONE 200 MG TAB PO SCH (07:49)
[2020-03-27] MEDS ORDERED: FUROSEMIDE 20 MG in SYRINGE 0 ML IV SCH (08:00)
--- NOTE | 2020-03-27 10:01 | Hospitalist Progress Note ---
Date of Service March 27, 2020 Assessment & Plan (1) Fluid retention: secondary to Acute on chronic syst. HF hx chronic systolic heart failure secondary to ischemic cardiomyopathy (EF 15 to 20%, TTE 2019) sp ICD hx severe MR Residual fluid retention from recent confinement for decompensated heart failure Cardiology consulted Furosemide IV, plan to start spironolactone Ideally start entresto Hx of low BP Strict I/Os, daily weights, CHF education, fluid restriction LUE thrombophlebitis/ cellulitis - at the IV access - pacemaker placement hx of recent ICD placement No sepsis Doxycycline started on admission Cardiology consult/ post op eval Given recent BiV pacemaker placement, discussed w/ cardiology to broaden Abx coverage, switched to vanco and cefepime Erythema already improved hx CAD as per records hx LBBB A. fib on Coumadin, paced rhythm, INR subtherapeutic, will increase coumadin dose No IV heparin as it could cause pocket hematoma (recent pacemaker placement) HTN, stable hyperlipidemia on statin Rx ongoing tobacco abuse, nicotine patch PRN, tobacco cessation counselling DVT prophylaxis. Coumadin INR goal between 2 and 3 Full code Admission and Anticipated Discharge Date Admission Date: March 26, 2020 Subjective No acute events overnight. Patient is sitting up in bed, in no acute distress. Says that her arm already looks and feels better. She feels that redness is decreased. She also says that her legs feel good, no increased edema. Denies any fevers, chills, chest pain, shortness of breath, abdominal pain, nausea or vomiting. Review of Systems Review of Systems: All systems reviewed & are unremarkable except as noted in HPI & below Constitutional: no fever and no chills Respiratory: no cough and no dyspnea Cardiovascular: no chest pain, no palpitations and no edema Gastrointestinal: no abdominal pain, no nausea and no vomiting Physical Exam Physical Exam: GENERAL: Elderly female sitting up in bed in NAD HEENT: NC/AT, EOMI, PERRL, pink palpebral conjunctivae NECK : Supple, no tenderness CHEST : + pacemaker, incision clean/ dry/ intact, Lungs CTAB no wheezing, rhonchi, somewhat decreased breath sounds HEART : RRR, diminished S1-S2 , soft systolic murmur ABDOMEN: normal bowel sounds, obese, soft, mild distention, nontender to palpation EXTREMITIES : Bilateral trace LE edema, no LE tenderness, mild erythematous induration left upper arm with tenderness (improved),moves extremities spontaneously SKIN: warm, dry, well perfused, multiple tattoos, erythema at IV access site of LUE as above NEUROLOGIC : alert and oriented x3, no facial asymmetry, speech fluent, moves extremities spontaneously and w/o difficulty Results & Data Results & Data ([facility]) Vital Signs (Past 12 Hours) Vital Signs Temp Pulse Pulse Resp BP Pulse Ox 03/27/20 07:06 36.5 C 71 19 102/67 95 03/27/20 03:47 36.7 C 70 18 114/70 95 03/26/20 23:28 36.8 C 79 17 124/79 93 03/26/20 22:20 72 Laboratory Results 03/27/20 03/27/20 Range/Units 06:35 06:35 PT 13.2 H (9.0-12.0) Seconds INR 1.3 H (0.9-1.1) Sodium 140 (136-145) mmol/L Potassium 4.5 (3.5-5.1) mmol/L Chloride 105 (98-107) mmol/L Carbon Dioxide 27 (21-32) mmol/L Anion Gap 8.0 (3-11) BUN 18 (7-18) mg/dl Creatinine 0.91 (0.6-1.2) mg/dl Est Cr Clr Drug Dosing 52.2 ml/min Est GFR ( Amer) 75.1 Est GFR (Non-Af Amer) 64.8 BUN/Creatinine Ratio 19.7 (10-20) Glucose 97 (70-99) mg/dl Calcium 8.6 (8.5-10.1) mg/dl Medications Administered Current Inpatient Medications Acetaminophen (Tylenol) 650 mg PO Q4H PRN PRN Reason: Pain or Fever Stop: 04/25/20 03:05 Amiodarone HCl (Cordarone) 200 mg PO DAILY [facility] Stop: 04/25/20 08:59 Last Admin: 03/27/20 07:49 Dose: 200 mg Documented by: Aspirin (Ecotrin Ectab) 81 mg PO QAM [facility] Stop: 04/25/20 08:59 Last Admin: 03/27/20 07:49 Dose: 81 mg Documented by: Atorvastatin Calcium (Lipitor) 20 mg PO HS [facility] Stop: 04/25/20 20:59 Last Admin: 03/26/20 20:26 Dose: 20 mg Documented by: Docusate Sodium (Colace) 100 mg PO BID [facility] Stop: 04/25/20 08:59 Last Admin: 03/27/20 07:49 Dose: 100 mg Documented by: Promethazine HCl 12.5 mg/ (Sodium Chloride) 50.5 mls @ 202 mls/hr IV Q6H PRN PRN Reason: Nausea And Vomiting Stop: 04/25/20 03:05 Furosemide 20 mg/ Syringe 2 mls @ 4 mls/min IV [id number] [facility]ERNIE Stop: 04/26/20 06:59 Last Admin: 03/27/20 07:47 Dose: 4 mls/min Documented by: Vancomycin HCl 1,000 mg/ (Sodium Chloride) 270 mls @ 125 mls/hr IV Q24H [facility]; Protocol Stop: 04/03/20 10:59 Cefepime HCl 2,000 mg/ Syringe 20 mls @ 5 mls/min IV Q24H [facility]; Protocol Stop: 04/02/20 13:59 Last Admin: 03/26/20 14:12 Dose: 5 mls/min Documented by: Lisinopril (Zestril) 5 mg PO HS [facility] Stop: 04/25/20 20:59 Last Admin: 03/26/20 20:26 Dose: 5 mg Documented by: Metoprolol Succinate (Toprol Xl) 25 mg PO QAM [facility] Stop: 04/25/20 08:59 Last Admin: 03/27/20 07:49 Dose: 25 mg Documented by: Miscellaneous Information (Consult) 1 ea N/A UD PRN PRN Reason: Consult Stop: 04/25/20 10:54 Miscellaneous Information (Cefepime Consult Active) 1 ea N/A UD PRN PRN Reason: Consult Stop: 04/25/20 12:50 Nitroglycerin (Nitrostat) 0.4 mg UD PRN PRN Reason: Chest Pain Stop: 04/25/20 03:05 Pantoprazole Sodium (Protonix) 40 mg PO DAILY [facility] Stop: 04/25/20 08:59 Last Admin: 03/27/20 07:48 Dose: 40 mg Documented by: Spironolactone (Aldactone) 12.5 mg PO DAILY [facility] Stop: 04/25/20 10:29 Last Admin: 03/27/20 07:49 Dose: 12.5 mg Documented by: Warfarin Sodium (Coumadin) 5 mg PO DAILY@1600 BERNIE Stop: 04/25/20 15:59 Last Admin: 03/26/20 15:06 Dose: 5 mg Documented by:
--- NOTE | 2020-03-27 10:18 | Cardiology Progress Note ---
Date of Service March 27, 2020 Assessment & Plan (1) Ischemic cardiomyopathy: (2) Acute left systolic heart failure: (3) PAF (paroxysmal atrial fibrillation): Continue coumadin load, daily INR levels. Furosemide 20 mg IV x 1 now, then 20 mg BID at 7 am, 1400 tomorrow (low dose, spread out due to h/o low LVEF, low BP). Add low dose spironolactone. Consider transition from lisinopril to Entresto, if BP allows. Starting spironolactone first as it is more affordable. Unfortunately, dosing and administration of ideal medications is limited by her relatively low blood pressure. (4) Superficial thrombophlebitis of arm: Duplex reveals superficial thrombus within portions of the basilic and cephalic veins, with thrombus in the area of the proximal left forearm. The patient presents with a subtherapeutic INR, 1.2. There is been recent issu es with her having labile INR readings. Per the she is to be on Coumadin 7.5 mg every Friday, and 5 mg the remaining days of the week. The patient tells me that she was taking "1 pill "instead of 2 pills. I think therefore she may have been taking either 2.5 mg or even perhaps 5 mg. Concerned about the risk of developing a left pocket hematoma while on heparin, and will therefore proceed with resuming her Coumadin 5 mg. Update INR tomorrow. Agree with antibiotic therapy given recent Bi V pacemaker / ICD. Concerned about a superimposed cellulitis, which would be a dangerous situation given her recent cardiac device. This was discussed with Dr. Mcmanus and we therefore transition her from oral doxycycline to IV vancomycin and cefepime for now. Dr Maldonado rounding of 03/27, I will return on 03/28/2020. Subjective No new complaints today. She actually feels better. Review of Systems Review of Systems: All systems reviewed & are unremarkable except as noted in HPI & below Nothing additional to add. Physical Exam Physical Exam: General: no acute distress and stated age Head: normocephalic, no masses, lesions, tenderness or abnormalities Eyes: conjunctiva are pink and non-injected, sclera clear Neck: supple, no adenopathy, no bruits, normal jugular venous pulse, no hepatojugular reflux Chest: normal shape and normal respiratory effort Lungs: clear to auscultation and percussion Cardiac Exam: - regular rate & rhythm, no murmurs gallops or rubs - normal S1, normal S2 Pulses: 2(+) throughout Abdomen: abdomen soft, non-tender, no abnormal masses and no hepatosplenomegaly Musculoskeletal: no gait disturbance, no joint inflammation, no deforming arthritis Extremities: Minimal edema bilaterally. Left arm with phlebitis that is imp roving. Neuro: grossly normal exam Results & Data Vital Signs (Past 12 Hours) Vital Signs Temp Pulse Pulse Resp BP Pulse Ox 03/27/20 07:06 36.5 C 71 19 102/67 95 03/27/20 03:47 36.7 C 70 18 114/70 95 03/26/20 23:28 36.8 C 79 17 124/79 93 03/26/20 22:20 72
[2020-03-27 10:45] LABS: Hematocrit (blood only) 39.1 % (37-47); Mean Corpuscular Hgb Conc 33.2 g/dL (32-36); Mean Corpuscular Volume 96.3 fL (80-100); Mean Platelet Volume 11.6 fL (7.4-10.4); Platelet Count 159 K/uL (130-400); RDW Coefficient of Variation 16.6 % (11.5-14.5); RDW Standard Deviation 56.8 fL (36.4-46.3); Red Blood Count 4.06 M/uL (4.2-5.4)
[2020-03-27] MEDS: VANCOMYCIN HCL 1,000 MG in SODIUM CHLORIDE 0.9% 250 ML IV SCH (11:06)
[2020-03-27] MEDS: CEFEPIME 2,000 MG in SYRINGE 7.5 ML IV SCH (14:04)
[2020-03-27] MEDS: WARFARIN SOD 5 MG TAB PO SCH (17:15)
[2020-03-27] MEDS: ATORVASTATIN 20 MG TAB PO SCH (20:24)
[2020-03-28 06:49] LABS: Hematocrit (blood only) 39.4 % (37-47); Hemoglobin 13.2 g/dL (12.0-16.0); Mean Corpuscular Hemoglobin 32.2 pg (25-34); Mean Corpuscular Hgb Conc 33.5 g/dL (32-36); Mean Corpuscular Volume 96.1 fL (80-100); Mean Platelet Volume 10.7 fL (7.4-10.4); Platelet Count 143 K/uL (130-400); RDW Coefficient of Variation 16.7 % (11.5-14.5); RDW Standard Deviation 56.5 fL (36.4-46.3); White Blood Count 6.09 K/uL (4.8-10.8)
[2020-03-28 07:02] LABS: INR 1.3 (0.9-1.1); Prothrombin Time 13.6 Seconds (9.0-12.0)
[2020-03-28 07:23] LABS: BUN Creatinine Ratio 19.7 (10-20); Calcium 8.3 mg/dl (8.5-10.1); Creatinine Clr Calc Pharmacy 47.9 ml/min; Est GFR (African American) 69.6; Magnesium 2.2 mg/dl (1.8-2.4); Potassium 4.2 mmol/L (3.5-5.1)
[2020-03-28] MEDS: FUROSEMIDE 20 MG in SYRINGE 0 ML IV SCH ×2 (07:44→13:51)
[2020-03-28] MEDS: AMIODARONE 200 MG TAB PO SCH (07:44)
[2020-03-28] MEDS: ASPIRIN 81 MG ECTAB PO SCH (07:45)
[2020-03-28] MEDS: PANTOprazole 40 MG TAB PO SCH (07:45)
[2020-03-28] MEDS: DOCUSATE SODIUM 100 MG CAP PO SCH ×2 (07:45→20:05)
[2020-03-28] MEDS: METOPROLOL SUCC 25MG EXT REL TAB PO SCH (07:45)
[2020-03-28] MEDS: SPIRONOLACTONE 12.5 MG TAB PO SCH (07:45)
[2020-03-28] MEDS: VANCOMYCIN HCL 1,000 MG in SODIUM CHLORIDE 0.9% 250 ML IV SCH (11:18)
[2020-03-28] MEDS: CEFEPIME 2,000 MG in SYRINGE 7.5 ML IV SCH (13:52)
[2020-03-28] MEDS ORDERED: WARFARIN SOD 7.5 MG TAB PO ONE (16:10)
--- NOTE | 2020-03-28 16:11 | Cardiology Progress Note ---
Date of Service March 28, 2020 Assessment & Plan (1) Acute left systolic heart failure: Ischemic cardiomyopathy in the setting of left bundle branch block, severe LV systolic dysfunction, LVEF 15-20%, severe mitral regurgitation due to dilated cardiomyopathy with tethering of the mitral valve leaflets Paroxysmal atrial fibrillation, currently in sinus rhythm on amiodarone Patient diuresed 2.6 L yesterday, with net loss of 1.3 L, and diuresed 2.4 L thus far today, with net loss of 1.3 L. Her lisinopril remains on hold at present. It is most prudent for her to remain in the hospital for ongoing IV diuretics for another 24 hours. (2) Superficial thrombophlebitis of arm: Left arm is improve. Left basilic vein thrombosis noted. Her INR is also subtherapeutic at 1.3. Increase Coumadin dose to 7.5 mg daily, repeat INR tomorrow. We have avoided heparin bridge due to her recent AICD procedure in an effort to reduce risk of pocket hematoma. Subjective Chief complaint: Follow-up lower extremity edema, left arm erythema, pain Subjective: Patient feeling improved, his diarrhea significantly, and she notes her lower extremity edema has improved. Her arm is still red, but much improved compared to when I had seen her 2 days ago. Review of Systems Review of Systems: All systems reviewed & are unremarkable except as noted in HPI & below Physical Exam Physical Exam: Temp Pulse Resp BP Pulse Ox 36.5 C 75 18 116/80 98 03/28/20 15:43 03/28/20 15:43 03/28/20 15:43 03/28/20 15:43 03/28/20 15:43 Constitutional: WD/WN, vitals as above Respiratory: Mildly decreased breath sounds in the bases Cardiovascular: Rate/Rhythm: regular rate Heart Sounds: + murmur (1/6 systolic murmur) Extremities: no edema Chest (Breasts): Chest: + pacemaker (Device pocket is clean dry and intact, no erythema.) Gastrointestinal (Abdomen): normal bowel sounds, soft, nontender, no hepatosplenomegaly Neurologic: PERRL, EOMI, accommodation nl, no face palsy, no dysarthria Results & Data Vital Signs (Past 12 Hours) Vital Signs Temp Pulse Pulse Resp BP Pulse Ox 03/28/20 15:43 36.5 C 75 18 116/80 98 03/28/20 14:44 70 03/28/20 11:39 36.7 C 70 18 108/64 93 03/28/20 07:38 36.9 C 71 76 17 110/76 94 Laboratory Results Coagulation 03/28/20 Range/Units 05:58 PT 13.6 H (9.0-12.0) Seconds CBC 03/28/20 Range/Units 05:58 WBC 6.09 (4.8-10.8) K/uL RBC 4.10 L (4.2-5.4) M/uL Hgb 13.2 (12.0-16.0) g/dL Hct 39.4 (37-47) % Plt Count 143 (130-400) K/uL Comprehensive Metabolic Panel 03/28/20 Range/Units 05:58 Sodium 140 (136-145) mmol/L Potassium 4.2 (3.5-5.1) mmol/L Chloride 105 (98-107) mmol/L Carbon Dioxide 30 (21-32) mmol/L BUN 19 H (7-18) mg/dl Creatinine 0.97 (0.6-1.2) mg/dl Glucose 89 (70-99) mg/dl Calcium 8.3 L (8.5-10.1) mg/dl Intake and Output 03/28/20 03/28/20 03/28/20 06:59 14:59 22:59 Intake Total 150 / 1239 1095 / 1095 Output Total 400 / 2625 2400 / 2400 Balance -250 / -1386 -1305 / -1305 Intake: IV 270 / 270 Vancomycin HCl 1,000 mg In Nss 270 / 270 250 ml @ 125 mls/hr IV Q24H [facility] Rx#:[id number] Oral 150 / 969 825 / 825 Output: Urine 400 / 2625 2400 / 2400 Other: Weight 68.4 kg
[2020-03-28] MEDS: WARFARIN SOD 5 MG TAB PO SCH (16:15)
[2020-03-28] MEDS: ATORVASTATIN 20 MG TAB PO SCH (20:05)
--- NOTE | 2020-03-29 05:18 | Hospitalist Progress Note ---
Date of Service March 28, 2020 Assessment & Plan (1) Fluid retention: secondary to Acute on chronic syst. HF hx chronic systolic heart failure secondary to ischemic cardiomyopathy (EF 15 to 20%, TTE 2019) sp ICD hx severe MR Residual fluid retention from recent confinement for decompensated heart failure Cardiology consulted Furosemide IV, plan to start spironolactone Ideally start entresto Hx of low BP Strict I/Os, daily weights, CHF education, fluid restriction LUE thrombophlebitis/ cellulitis - at the prior IV access - hx of recent ICD placement No sepsis Doxycycline started on admission Cardiology consult/ post op eval Given recent BiV pacemaker placement, discussed w/ cardiology to broaden Abx coverage, switched to vanco and cefepime Erythema already improved Plan to switch to PO Keflex, possibly d/c tomorrow hx CAD as per records hx LBBB A. fib on Coumadin, paced rhythm, INR subtherapeutic, will increase coumadin dose No IV heparin as it could cause pocket hematoma (recent pacemaker placement) HTN, stable hyperlipidemia on statin Rx ongoing tobacco abuse, nicotine patch PRN, tobacco cessation counselling DVT prophylaxis. Coumadin INR goal between 2 and 3 Full code Dispo: home, possibly in next 24-48 hrs Admission and Anticipated Discharge Date Admission Date: March 26, 2020 Subjective No acute events overnight. Pt is sitting up in bed in no acute distress. Lower extremity edema resolved. Left arm erythema, pain improved. Denies any fever, chills, chest pain, shortness of breath, abd. pain nausea or vomiting. Pt says her abdominal discomfort completely resolved since she got the pacer. Review of Systems Review of Systems: All systems reviewed & are unremarkable except as noted in HPI & below Constitutional: no fever and no chills Respiratory: no cough and no dyspnea Cardiovascular: no chest pain and no palpitations Gastrointestinal: no abdominal pain and no vomiting Physical Exam Physical Exam: GENERAL: Elderly female sitting up in bed in NAD HEENT: NC/AT, EOMI, PERRL, pink palpebral conjunctivae NECK : Supple, no tenderness CHEST : + pacemaker, incision clean/ dry/ intact, Lungs CTAB no wheezing, rhonchi, somewhat decreased breath sounds HEART : RRR, diminished S1-S2 , soft systolic murmur ABDOMEN: normal bowel sounds, obese, soft, mild distention, nontender to palpation EXTREMITIES : Bilateral trace LE edema, no LE tenderness, mild erythematous induration left upper arm with tenderness (improved),moves extremities spontaneously SKIN: warm, dry, well perfused, multiple tattoos, erythema at IV access site of LUE as above NEUROLOGIC : alert and oriented x3, no facial asymmetry, speech fluent, moves extremities spontaneously and w/o difficulty Results & Data Results & Data ([facility]) Vital Signs (Past 12 Hours) Vital Signs Temp Pulse Resp BP Pulse Ox 03/28/20 23:14 36.3 C L 79 18 120/76 96 03/28/20 19:19 36.7 C 75 18 119/72 96
[2020-03-29 06:12] LABS: Hematocrit (blood only) 39.5 % (37-47); Hemoglobin 13.3 g/dL (12.0-16.0); Mean Corpuscular Hemoglobin 32.1 pg (25-34); Mean Corpuscular Hgb Conc 33.7 g/dL (32-36); Mean Corpuscular Volume 95.4 fL (80-100); Mean Platelet Volume 10.8 fL (7.4-10.4); Platelet Count 155 K/uL (130-400); RDW Coefficient of Variation 16.5 % (11.5-14.5); RDW Standard Deviation 56.9 fL (36.4-46.3); Red Blood Count 4.14 M/uL (4.2-5.4); White Blood Count 6.24 K/uL (4.8-10.8)
[2020-03-29 06:23] LABS: INR 1.3 (0.9-1.1); Prothrombin Time 13.8 Seconds (9.0-12.0)
[2020-03-29 06:45] LABS: BUN Creatinine Ratio 26.8 (10-20); Calcium 8.9 mg/dl (8.5-10.1); Creatinine Clr Calc Pharmacy 51.5 ml/min; Est GFR (African American) 77.2; Est GFR (Non-African American) 66.6; Potassium 4.1 mmol/L (3.5-5.1)
[2020-03-29] MEDS: DOCUSATE SODIUM 100 MG CAP PO SCH (07:42)
[2020-03-29] MEDS: cephALEXin 500 MG CAP PO SCH ×2 (07:42→13:13)
[2020-03-29] MEDS: ASPIRIN 81 MG ECTAB PO SCH (07:43)
[2020-03-29] MEDS: AMIODARONE 200 MG TAB PO SCH (07:43)
[2020-03-29] MEDS: SPIRONOLACTONE 12.5 MG TAB PO SCH (07:43)
[2020-03-29] MEDS: METOPROLOL SUCC 25MG EXT REL TAB PO SCH (07:43)
[2020-03-29] MEDS: PANTOprazole 40 MG TAB PO SCH (07:43)
[2020-03-29] MEDS: FUROSEMIDE 20 MG in SYRINGE 0 ML IV SCH (07:44)
[2020-03-29] MEDS ORDERED: VANCOMYCIN TROUGH ONE (10:30)
--- NOTE | 2020-03-29 11:51 | Discharge Summary ---
Date of Service March 29, 2020 Admission HPI Per Admitting Provider History obtained from patient and records. Medical history significant for chronic systolic heart failure secondary to ischemic cardiomyopathy (EF 15 to 20%, TTE 2019) sp ICD, CAD as per records, chronic LBBB, A. fib on Coumadin, hx VT, severe mitral regurgitation, HTN, hyperlipidemia, daily alcohol intake, ongoing tobacco abuse. Recent confinement from March 20-2023 A. fib with RVR, decompensated heart failure. Patient underwent ICD placement for ischemic cardiomyopathy during confinement. According to patient, she had noticed progressive left upper extremity (operative site) redness. No fever, no chills. Upon discharge 2 days ago, patient noted bilateral leg swelling on the way to the car. No chest pain, no S OB, no cough. Patient denies dietary indiscretion. Compliant with home meds. Patient returned to ER because of persistent swelling in the left arm and both legs. 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, html developer Admission Exam Per Admitting Provider GENERAL: Comfortable, pleasant, no respiratory distress, obese SKIN: Normal color, warm HEENT: [place]l palpebral conjunctivae, no ptosis, dry buccal mucosa NECK : Supple, no tenderness CHEST : Decreased breath sounds , no tenderness HEART : RRR, diminished S1-S2 , systolic murmur ABDOMEN: Some distention, nontender EXTREMITIES : Bilateral LE swelling, no LE tenderness, mild erythematous induration left upper arm with tenderness, no other conspicuous deformities noted NEUROLOGIC : Coherent, no facial asymmetry, no other gross focality Principal Diagnosis Acute on chronic syst. CHF hx chronic systolic heart failure secondary to ischemic cardiomyopathy (EF 15 to 20%, TTE 2019) sp ICD hx severe MR Residual fluid retention from recent confinement for decompensated heart failure LUE thrombophlebitis/ cellulitis Recent ICD placement CAD as per records LBBB A. fib HTN Discharge Data Allergies Allergy/AdvReac Type Severity Reaction Status Date / Time No Known Allergies Allergy Verified 03/25/20 20:48 Consultations 03/26/20 00:11 ED Decision to Admit Stat 03/26/20 03:06 Consult Cardiology Routine Ordered Studies 03/25/20 21:37 US venous doppler LE BI Urgent US venous doppler UE LT Urgent Hospital Course (1) Fluid retention: Secondary to Acute on chronic syst CHF hx chronic systolic heart failure secondary to ischemic cardiomyopathy (EF 15 to 20%, TTE 2019) sp ICD hx severe MR Residual fluid retention from recent confinement for decompensated heart failure Cardiology on case Furosemide IV, plan to start spironolactone Hx of low BP Strict I/Os, daily weights, CHF education, fluid restriction LUE thrombophlebitis/ cellulitis - at the prior IV access - hx of recent ICD placement No sepsis Doxycycline started on admission Cardiology consult/ post op eval Given recent BiV pacemaker placement, discussed w/ cardiology to broaden Abx coverage, switched to vanco and cefepime Erythema already improved Plan to switch to PO Keflex, DC today hx CAD as per records hx LBBB A. fib on Coumadin, paced rhythm, INR subtherapeutic, will increase coumadin dose No IV heparin as it could cause pocket hematoma (recent pacemaker placement) HTN, stable hyperlipidemia on statin Rx ongoing tobacco abuse, nicotine patch PRN, tobacco cessation counselling Coumadin INR goal between 2 and 3 Dispo: home Total Time Total Time Spent Total Time Spent (In Minutes): 45 mins Total Time Includes: Examination of the Patient, Discharge Planning, Medication Reconciliation and Communication With Other Providers Discharge Plan Discharge Items Patient Disposition: Home - Self-Care Reason For Visit: CHF Discharge Diagnosis: Acute on chronic syst. CHF hx chronic systolic heart failure secondary to ischemic cardiomyopathy (EF 15 to 20%, TTE 2019) sp ICD hx severe MR Residual fluid retention from recent confinement for decompensated heart failure LUE thrombophlebitis/ cellulitis Recent ICD placement CAD as per records LBBB A. fib HTN Condition on Discharge: Good Activity: Resume your previous activity Lifting: None Bathing: Keep incision dry Exercise/Sports: None Driving/Machine Use: none Weightbearing: Full weightbearing Non-emergency contact: Primary Care Provider and [employer] Call non-emergency contact if: you have any medication questions Follow-up/Referrals: Lex Savage MD [Primary Care Provider] - 04/03/20 2:10 pm (04/03/2020 2:10 PM Provider Lex Savage MD Department Family [facility] ) Onur Hurley DO [Welder [employer]] - (2-5 days) Leelee Lainez DO [Physician] - (1-2 weeks) Diet: Heart Healthy Fluids: 1200ml (5 cups) Addtl Attending Provider Instructions: Check INR Friday Pending Studies at Discharge: No Stand-Alone Forms: My [facility] [employer], Smoking Cessation Medications and DC Order Prescriptions: New acetaminophen [Mapap (acetaminophen)] 325 mg Tablet 650 mg PO Q4H PRN (Reason: fever or pain) Qty: 30 RF: 0 warfarin [Coumadin] 7.5 mg Tablet 7.5 mg PO DAILY@1600 Qty: 2 RF: 0 spironolactone 25 mg Tablet 12.5 mg PO DAILY Qty: 30 RF: 0 cephalexin 500 mg Capsule 500 mg PO QID Qty: 40 RF: 0 Continued docusate sodium [Colace] 100 mg Capsule 100 mg PO BID RF: 0 omeprazole magnesium [Prilosec OTC] 20 mg Tablet,Delayed Release (Dr/Ec) 20 mg PO DAILY RF: 0 dicyclomine 10 mg capsule 10 mg PO TID PRN (Reason: Cramps) RF: 0 metoprolol succinate 25 mg tablet extended release 24 hr 25 mg PO QAM RF: 0 amiodarone 200 mg tablet 200 mg PO DAILY RF: 0 atorvastatin 20 mg Tablet 20 mg PO HS Qty: 30 RF: 2 aspirin 81 mg Tablet,Delayed Release (Dr/Ec) 81 mg PO QAM 30 Days Qty: 30 RF: 2 nitroglycerin [Nitrostat] 0.4 mg Tablet, Sublingual 0.4 mg sublingual UD PRN (Reason: CHEST PAIN) Qty: 30 RF: 2 lisinopril [Zestril] 5 mg Tablet 5 mg PO HS 30 Days Qty: 30 RF: 2 furosemide 20 mg Tablet 20 mg PO QAM Qty: 30 RF: 2 Discontinued warfarin [Coumadin] 2.5 mg tablet 2.5 mg PO DAILY Qty: 30 RF: 2 Discharge Orders: Discharge Order (Routine); Ordered 03/29/20 Ordered By: Lamin Redd Admission Data Admit Date/Time: 03/26/20 10:55 Attending Provider: Lamin Redd Admit Provider: Rivas Hung Primary Care Provider: Lex Savage Other Providers: Leelee Lainez ; Rivas Hung
--- NOTE | 2020-03-29 12:00 | Cardiology Progress Note ---
Date of Service March 29, 2020 Assessment & Plan (1) Acute left systolic heart failure: (2) Ischemic cardiomyopathy: (3) Superficial thrombophlebitis of arm: Patient stable for discharge: Med changes: DC PRESSURE TANK OPERATOR furosemide 20 mg daily , start torsemide 10 mg PO daily. Start spironolactone 25 mg / 1/2 tablet daily. Resume PRESSURE TANK OPERATOR lisinopril dose. Continue PRESSURE TANK OPERATOR metoprolol succinate dose. 10 day course of Keflex. Coumadin 7.5 mg today, then 5 mg daily starting tomorrow, needs close [facility] clinic follow up. Disposition: Device check today prior to discharge, will update Dr Redd when completed. I will arrange post hospital follow up with cardio Subjective Patient feeling well. Left arm improved. Telemetry revealed, SR with A-BiV sequential pacemaker activity. Left arm without discomfort, erythema improved. Physical Exam Physical Exam: Temp Pulse Resp BP Pulse Ox 36.4 C L 72 17 95/60 L 96 03/29/20 12:01 03/29/20 12:01 03/29/20 12:01 03/29/20 12:03/29/20 12:01 Constitutional: WD/WN, vitals as above Respiratory: normal respiratory effort, lungs clear to auscultation Cardiovascular: RRR, no murmur, no edema Heart Sounds: + murmur (1/6 SM) Extremities: + edema (LE edema resolved ) Chest (Breasts): Chest: + pacemaker (ICD pocket, clean dry and intact no erythema) Gastrointestinal (Abdomen): normal bowel sounds, soft, nontender, no hepatosplenomegaly Neurologic: PERRL, EOMI, accommodation nl, no face palsy, no dysarthria Results & Data Vital Signs (Past 12 Hours) Vital Signs Temp Pulse Pulse Resp BP Pulse Ox 03/29/20 07:45 76 03/29/20 07:22 36.8 C 73 19 115/75 97 03/29/20 04:00 36.6 C 75 17 115/77 96 Laboratory Results Coagulation 03/29/20 Range/Units 05:48 PT 13.8 H (9.0-12.0) Seconds CBC 03/29/20 Range/Units 05:48 WBC 6.24 (4.8-10.8) K/uL RBC 4.14 L (4.2-5.4) M/uL Hgb 13.3 (12.0-16.0) g/dL Hct 39.5 (37-47) % Plt Count 155 (130-400) K/uL Comprehensive Metabolic Panel 03/29/20 Range/Units 05:48 Sodium 138 (136-145) mmol/L Potassium 4.1 (3.5-5.1) mmol/L Chloride 105 (98-107) mmol/L Carbon Dioxide 27 (21-32) mmol/L BUN 24 H (7-18) mg/dl Creatinine 0.89 (0.6-1.2) mg/dl Glucose 111 H (70-99) mg/dl Calcium 8.9 (8.5-10.1) mg/dl Intake and Output 03/28/20 03/29/20 03/29/20 22:59 06:59 14:59 Intake Total 580 / 1675 Output Total 600 / 3450 450 / 3450 Balance - - / Intake: Oral 580 / 1405 Output: Urine 600 / 3450 450 / 3450 Other: Weight 66.6 kg
[2020-03-29] MEDS ORDERED: WARFARIN SOD 7.5 MG TAB PO SCH (16:00)
[2020-03-30] MEDS ORDERED: TORSEMIDE 10 MG TAB PO SCH (09:00)
[2020-03-30] MEDS ORDERED: cephALEXin 500 MG CAP PO SCH (09:00)
== END 2020-03-29 15:23 | disposition home or self-care (01) | DRG 292 ==
LOC: 2S 20:25 → ED 20:25 → 2S 03-26 02:21 → SUATTDRO 03-26 10:55

== ENCOUNTER 2023-10-30 06:27 | Observation (INO) ==
--- NOTE | 2023-10-13 10:40 | PAT Medication Instructions ---
Medication Instructions Date of Service October 13, 2023 Home Medications Medication Instructions Recorded aspirin 81 mg tablet,delayed 81 mg PO QAM 30 days #30 tabs 02/17/20 release nitroglycerin 0.4 mg sublingual 0.4 mg sublingual UD PRN CHEST 02/17/20 tablet (Nitrostat) PAIN #30 tabs acetaminophen 325 mg tablet (Mapap 650 mg (2 x 325 mg) PO Q4H PRN 03/29/20 (acetaminophen)) fever or pain #30 tabs aspirin 81 mg tablet,delayed release 81 mg PO QAM nitroglycerin 0.4 mg sublingual tablet (Nitrostat) 0.4 mg sublingual UD PRN CHEST PAIN amiodarone 200 mg tablet 200 mg PO QAM metoprolol succinate 25 mg tablet,extended release 24 hr 25 mg PO QAM omeprazole magnesium 20 mg tablet,delayed release (Prilosec OTC) 20 mg PO QAM acetaminophen 325 mg tablet (Mapap (acetaminophen)) 650 mg (2 x 325 mg) PO Q4H PRN fever or pain multivit-iron 18 mg-folic acid 400 mcg-calcium 500 mg-minerals tablet (One-A-Day Womens Formula) 1 tab PO QAM atorvastatin 20 mg tablet 80 mg PO QAM warfarin 2.5 mg tablet 2.5 mg PO UD lisinopril 5 mg tablet 5 mg PO HS torsemide 10 mg tablet 20 mg PO QAM Continue as directed nitroglycerin 0.4 mg sublingual tablet (Nitrostat) 0.4 mg sublingual UD PRN CHEST PAIN (if needed) ASK your prescriber and surgeon warfarin 2.5 mg tablet 2.5 mg PO UD DO NOT take the morning of surgery multivit-iron 18 mg-folic acid 400 mcg-calcium 500 mg-minerals tablet (One-A-Day Womens Formula) 1 tab PO QAM torsemide 10 mg tablet 20 mg PO QAM Take morning of surgery With a small sip of water, OTHERWISE NOTHING TO EAT OR DRINK AFTER MIDNIGHT: aspirin 81 mg tablet,delayed release 81 mg PO QAM (unless surgeon directed otherwise) amiodarone 200 mg tablet 200 mg PO QAM metoprolol succinate 25 mg tablet,extended release 24 hr 25 mg PO QAM omeprazole magnesium 20 mg tablet,delayed release (Prilosec OTC) 20 mg PO QAM acetaminophen 325 mg tablet (Mapap (acetaminophen)) 650 mg (2 x 325 mg) PO Q4H PRN fever or pain (if needed) atorvastatin 20 mg tablet 80 mg PO QAM Take evening before surgery acetaminophen 325 mg tablet (Mapap (acetaminophen)) 650 mg (2 x 325 mg) PO Q4H PRN fever or pain (if needed) lisinopril 5 mg tablet 5 mg PO HS Other Notes If you have any questions please call us at [phone] or [phone] or [phone] or [phone]
--- NOTE | 2023-10-16 11:03 | Anesthesiology Consultation ---
Date of Service October 16, 2023 Assessment & Plan (1) Encounter for pre-operative examination: Chart Review Chart Review: Acceptable Risk for Surgery (pending PCP clearance ) and Patient seen in Pre Admission Testing - Awaiting PCP clearance 10/15/23 ([facility])- please fax testing to PCP (Lizette Navas, [facility]- [phone]) - Check coags AM DOS - Discussed cardiac history with Dr. Saldivar- patient follows routinely with cardio. Stable- patient can proceed as scheduled Per PAT appt on 10/16/23, no recent illness/disease exposures, illness related symptoms, or recent illness/disease positive tests. Will leave to surgeon's discretion if preop Covid testing needed Last seen by cardio 05/26/23= seen for follow up on cardiomyopathy. Hx of anterior wall ID- had ischemic CM with severe LV dysfunction. s/p BiV pacer/ICD. Patient feeling well but device has reached end of life. Ischemic cardiomyopathy. Old anterior wall myocardial infarction. Recent echocardiogram estimated LVEF of 54%. Paroxysmal atrial fibrillation. Status post biventricular pacemaker/ICD. Device has reached end-of-life. Scheduled to meet with EP next week to have it updated. Otherwise she is doing well. Will follow-up in 6 months. Teaching & Discussion Pre-Anesthesia Teaching/Discussion Notes: Instructed NPO after midnight before surgery,except medications with 15 cc of water. Medication instructions provided according to the PAT guidelines. History Surgery Operation Date: 10/30/23 08:20 Proposed Procedures p Right Total Knee Arthroplasty - Onur Reyna MD Height/Weight Height: 5 ft 1 in Weight: 80.2 kg Allergies Allergy/AdvReac Type Severity Reaction Status Date / Time No Known Allergies Allergy Verified 10/09/23 15:25 Medications Home Medications Medication Instructions Recorded Confirmed Last Taken aspirin 81 mg tablet,delayed 81 mg PO QAM 30 days #30 tabs 02/17/20 10/09/23 Unknown release nitroglycerin 0.4 mg sublingual 0.4 mg sublingual UD PRN CHEST 02/17/20 10/09/23 Unknown tablet (Nitrostat) PAIN #30 tabs amiodarone 200 mg tablet 200 mg PO QAM 03/20/20 10/09/23 Unknown metoprolol succinate 25 mg 25 mg PO QAM 03/20/20 10/09/23 Unknown tablet,extended release 24 hr omeprazole magnesium 20 mg 20 mg PO QAM 03/22/20 10/09/23 Unknown tablet,delayed release (Prilosec OTC) acetaminophen 325 mg tablet (Mapap 650 mg (2 x 325 mg) PO Q4H PRN 03/29/20 10/09/23 Unknown (acetaminophen)) fever or pain #30 tabs multivit-iron 18 mg-folic acid 400 1 tab PO QAM 07/23/21 10/09/23 Unknown mcg-calcium 500 mg-minerals tablet (One-A-Day Womens Formula) atorvastatin 20 mg tablet 80 mg PO QAM 08/07/21 10/09/23 Unknown warfarin 2.5 mg tablet 2.5 mg PO UD 08/07/21 10/09/23 06/17/23 lisinopril 5 mg tablet 5 mg PO HS 10/09/23 10/09/23 Unknown torsemide 10 mg tablet 20 mg PO QAM 10/09/23 10/09/23 Unknown Past Medical History Medical History CAD (coronary artery disease) with nuclear stress revealing prior old anterior ID (silent) Obesity HTN (hypertension) CKD (chronic kidney disease) Stage III CHF (congestive heart failure) chronic systolic CHF LBBB (left bundle branch block) Atrial fibrillation on warfarin; follows with [facility] cardio GERD (gastroesophageal reflux disease) well controlled and stable Poor historian Silent myocardial infarction Presence of combination internal cardiac defibrillator (ICD) and pacemaker Implanted 03/2020, Medtronic; had generator change 06/17/2023- last checked 06/27/2023 Ischemic cardiomyopathy EF initially 30% in 2019- s/p ICD in place; EF 54% with 2020 ECHO Dyslipidemia Exercise / Class Metabolic Activity III < 4 Walking/Shop/Light housework (no chest pain or SOB with flat surface ambulation - no walking device needed ) Past Family History Family History Other Breast cancer FHx: multiple myeloma FHx: uterine cancer No family history of adverse response to anesthesia Past Surgical History Surgical History History of implantable cardioverter-defibrillator (ICD) placement medtronic; placed 2019 and generator change with fluoroscopy of leads 06/17/23 [facility] History of tooth extraction Hx of dilation and curettage S/P tonsillectomy Hx of tubal ligation Past Anesthesia History No Hx of Anesthesia Complications and No Family Hx of Anesthesia Complications History of PONV No Hx of PONV and No Hx of Motion Sickness Social History Smoking Status: Current every day smoker tobacco type: cigarettes Smoking cigarettes per day: 20 cigarettes/day Do You Dip or Chew Tobacco: No Hx Alcohol Use: Yes Alcohol type: beer and hard liquor alcohol intake frequency: a few times a week Hx Substance Use: No substance use type: does not use Review of Systems - Chronic cough from smoking/dry throat - Hx of snoring- no hx of sleep study Patient denies chest pain, shortness of breath, dyspnea on exertion, wheezing, palpitations. No hx of seizures, stroke. No hx of blood clots or blood transfusions Physical Exam Vital Signs VITALS BP 131/66 P 78 TEMP 98.0 SP02 97% RESP 16 Constitutional no acute distress ENMT Mouth: + small oral opening; no TMJ clicking Thyromental Distance: > or= 3.5 Finger Breadths (3.5) Mallampati Class: II (smaller airway) All teeth missing Neck + short neck and + limited neck extension (minimal) Respiratory normal respiratory effort; no respiratory distress Auscultation: lungs clear to auscultation bilaterally; no wheezes Cardiovascular Rate/Rhythm: regular rate and regular rhythm Heart Sounds: no murmur Vessels: no carotid bruit Heart sounds mildly diminished throughout Musculoskeletal Spine: no pain with cervical ROM Extremities: extremities normal to inspection Psychiatric Orientation: alert Lab Results Anesthesia Preop Results Results Anesthesia Widget: WBC 5.51 K/ul (4.8-10.8) 10/16/23 Hgb 13.8 g/dl (12.0-16.0) 10/16/23 Hct 42.3 % (37.0-47.0) 10/16/23 Plt 205 K/uL (130-400) 10/16/23 Na 143 mmol/L (136-145) 10/16/23 K 3.8 mmol/L (3.5-5.1) 10/16/23 Cl 106 mmol/L (98-107) 10/16/23 CO2 29 mmol/L (21-32) 10/16/23 BUN 25 mg/dl (6-23) H 10/16/23 Creat 1.46 mg/dl (0.6-1.2) H 10/16/23 Glucose Level 110 mg/dl (70-99(Fasting)) H 10/16/23 PT 28.0 Seconds (9.0-12.0) H 10/16/23 PTT 38 Seconds (21-31) H 10/16/23 INR 2.7 (0.9-1.1) H 10/16/23 Blood Type A Positive 10/16/23 Antibody Screen NEGATIVE 10/16/23 Testing Laboratory Results Elevated creat- stable from 2020- hx of CKD Stage III Elevated coags- on Coumadin Electrocardiogram Date: 10/16/23 Atrial-sensed ventricular paced rhythm at 76bpm Chest X-Ray Date: 10/16/23 FINDINGS: PA and lateral chest radiographs are compared to study dated 08/10/2021. A 3-lead cardiac AICD is unchanged in position and partially obscures the left lower chest. The cardiomediastinal silhouette is unremarkable. Chronic interstitial thickening is similar to previous. There is mild bibasilar scarring/atelectasis. The lungs and pleural spaces are otherwise clear. There is no pneumothorax. The skeletal structures are osteopenic. The bony thorax appears intact. IMPRESSION: 1. Cardiomegaly and AICD without radiographic evidence of congestive failure. 2. No airspace consolidation or pleural effusion is identified. Echocardiogram Date: 09/03/21 LVEF 54%. Borderline global hypokinesis. Mild concentric LVH. Grade 2 diastolic dysfunction. No significant valvular disease. Stress Test Date: 02/23/20 Type: nuclear Abnormal Lexiscan nuclear stress test, positive for scar without ischemia Medium sized scar involving the mid to atypical portions of anterior septum and anterior manzo Above segments are akinetic on gated imaging with otherwise moderate global hypokinesis, LV systolic function is severely reduced with an EF to be 28% Other Testing Pacemaker check 06/27/2023 = [employer] device. Implant date 03/22/2020. Battery life 5.3 years. Atrial pacing 9%. LV pacing 98.5%. GRAIN CLEANER pacing 28.36%. AT AF/AF burden 0%. Mode: DDDR. No recent shocks delivered. Normal device function. Left pectoral device pocket appears to be healing.
[~2023-10-30 06:27] MED LIST: ACETAMINOPHEN 500 MG TAB PO SCH; BUPIVACAINE LIPOSOME/PF 266 MG, BUPIVACAINE/EPINEPHRINE 50 ML, SODIUM CHLORIDE 0.9% PF ... INFIL SCH; CeleBREX 200 MG CAP PO SCH; FAMOTIDINE 20 MG TAB PO SCH; LR 500ML BOLUS, THEN 15ML/HR IV SCH; LR 60ML/HR IV SCH; METOCLOPRAMIDE HCL 10 MG TABLET PO SCH; TRANEXAMIC ACID 1,000 MG **IV Intra-op IV SCH; ceFAZolin 2000MG 2,000 MG/15 ML SYR IV SCH; dexAMETHasone 4 MG TAB PO SCH
--- OUTSIDE RECORDS SUMMARY | 2023-10-30 06:33 | External Medical Summary | Summary of Care ---
Author Name Unknown Organization [facility] Address [address] [place] [address] Phone [phone] Care Team Providers Care Lanolin Plant Operator Name Role Phone Lizette Navas Primary Care Provider Reason for Visit * Reason Comments Follow Up Patient presents in office today for follow-up visit. Encounter Details Date Type Department Care Team (Latest Contact Info) Description 10/15/2023 11:20 AM EST Office Visit Family [facility] [address] [place] [address] Lizette Navas CRNP [address] [place] [address] Preoperative clearance*; Paroxysmal atrial fibrillation (HCC); Biventricular automatic implantable cardioverter defibrillator in situ; Chronic systolic congestive heart failure (HCC); Tobacco use Allergies No known active allergiesdocumented as of this encounter (statuses as of 10/29/2023) Medications Medication Sig Dispensed Refills Start Date End Date Status nitroglycerin (NITROSTAT) 0.4 MG SUBL 0 02/17/2020 Active Acetaminophen 325 MG Oral Tablet 2 Tablets. 0 03/29/2020 Active Aspirin Low Dose 81 MG Oral Tablet Delayed Release (aspirin enteric coated) TAKE 1 TABLET IN THE MORNING 90 Tab 3 04/17/2021 Active One-A-Day Womens 50 Plus Oral Tablet Take 1 Tab by mouth daily. 0 08/01/2021 Active Estradiol 0.1 MG/GM Vaginal Cream (Estrace) Apply pea sized amount (0.5 gm) vaginally twice a week at bedtime. 42.5 g 3 03/18/2023 Active Amiodarone HCl 200 MG Oral Tablet (Cordarone)Indicatio ns:Longstanding persistent atrial fibrillation (HCC) TAKE 1 TABLET BY MOUTH EVERY DAY 90 Tablet 4 03/26/2023 Active Metoprolol Succinate ER 25 MG Oral Tablet Extended Release 24 Hour (toPROL XL) TAKE 1 TABLET BY MOUTH DAILY IN THE MORNING. 90 Tablet 3 03/26/2023 Active Torsemide 10 MG Oral Tablet (Demadex)Indications :Chronic systolic congestive heart failure (HCC) TAKE 2 TABLETS BY MOUTH DAILY 180 Tablet 3 06/23/2023 Active Atorvastatin Calcium 80 MG Oral Tablet (Lipitor)Indications :Coronary artery disease involving [place] coronary artery of [place] heart without angina pectoris,Hyperlipide joao LDL goal <70 Take 1 Tablet by mouth in the morning. 90 Tablet 3 08/11/2023 Active Omeprazole 20 MG Oral Capsule Delayed Release (PriLOSEC)Indication s:Abdominal pain, epigastric TAKE 1 CAPSULE EVERY DAY BEFORE BREAKFAST 90 Capsule 1 08/25/2023 Active Warfarin Sodium 2.5 MG Oral Tablet (Coumadin) TAKE 1-2 TABS BY MOUTH DAILY DIRECTED 180 Tablet 3 10/12/2023 Active Nicotine 21 MG/24HR Transdermal Patch 24 Hour (Nicoderm CQ) Place 1 Patch over 24 hours topically on the skin daily. 28 Patch 0 10/15/2023 Active Hospital, Clinic, or Other Facility Administered Medication Ordered Dose Route Frequency Start Date End Date Status Albuterol Sulfate (Proventil) (2.5 MG/3ML) 0.083% inhalation solution 2.5 mgIndications:Dyspnea on exertion 2.5 mg NEBULIZER ONCE PRN 02/12/2023 02/12/2024 Active documented as of this encounter (statuses as of 10/29/2023) Active Problems Problem Noted Date Diagnosed Date Preoperative clearance 10/15/2023 Vaginal itching 02/05/2023 Tobacco use 02/05/2023 Fatigue 02/05/2023 Biventricular automatic impl antable cardioverter defibrillator in situ 09/03/2021 Medical home patient encounter 09/03/2021 Chronic kidney disease, stage 3b 05/14/2021 Overview: Per CKD protocol Cardiac defibrillator in place 04/05/2020 Ischemic cardiomyopathy 03/14/2020 NSVT (nonsustained ventricular tachycardia) 11/2019 Nonrheumatic mitral valve regurgitation 03/03/20 LBBB (left bundle branch block) 03/03/2020 Atrial fibrillation 02/17/2020 Chronic systolic congestive heart failure 2019 Overview: [facility] Coronary artery disease invo lving [place] coronary artery of [place] heart without angina pectoris 02/10/2020 Overview: old anterior NC DENTURES 02/18/2005 Hyperlipidemia LDL goal <70 documented as of this encounter (statuses as of 10/29/2023) Resolved Problems Problem Noted Date Diagnosed Date Resolved Date Stage 3a chronic kidney disease 10/16/2020 05/17/2021 Overview: Per CKD protocol - Per CKD protocol Chronic kidney disease, stage 3a 09/11/2020 10/19/2020 Overview: Per CKD protocol Alcohol dependence, uncomplicated 04/07/2020 2020 documented as of this encounter (statuses as of 10/29/2023) Immunizations Name Administration Dates Next Due COVID-19 mRNA, LNP-s, No Pre serve, 2-Dose Series (Moderna) 04/04/2021 H1N1 2009 Influenza, IM 12/06/2009 PPD 02/23/2008, 7,09/04/2005,08/22 Pneumococcal Conjugate Vacc, 13 Valent (Prevnar) 05/26/2020 Pneumococcal Polysaccharide PPV23 (Pneumovax) 08/01/2021 Season Influenza, Quad, PF, Adjuvanted, 65+ Yrs, IM (FLUAD) 07/20/2021,08/18/2020 Seasonal Influenza, PF, 6 M & above, IM , (FluLaval or Fluzone) 01/17/2020,07/27/2018,09/29/2017 Seasonal Influenza, Quadriva lent Hd (Fluzone Hd) 08/28/2023,11/19/2022 Seasonal Influenza, Quadriva lent, No Preserve, IM 09/11/2015,09/20/2006 Seasonal Influenza, Split, I IV3, With Preserve, Inj 09/20/2006 TD - Tetanus/Diptheria (ADULT) 08/12/2005 TDAP (age 10 and older)(Boostrix) 2020 Zoster Vaccine Recombinant (Shingrix) 04/30/2021 ,12/23/2020 documented as of this encounter Social History Tobacco Use Types Packs/Day Years Used Date Smoking Tobacco: Every Day Cigarettes 1 40 Smokeless Tobacco: Never Alcohol Use Standard Drinks/Week Comments Yes 0 (1 standard drink = 0.6 oz pur e alcohol) occ AUDIT-C Answer Date Recorded Q1: How often do you have a drink containing alcohol? 4 or more times a week 08/01/2021 Q2: How many drinks containi ng alcohol do you have on a typical day when you are drinking? 1 or 2 Q3: How often do you have si x or more drinks on one occasion? Never 08/01/2021 PHQ-2 Answer Date Recorded PHQ Adult Total Score 1 02/05/2023 Hunger Vital Sign Answer Date Recorded Within the past 12 months, y ou worried that your food would run out before you got the money to buy more. Never true 02/06/20 23 Within the past 12 months, t he food you bought just didn't last and you didn't have money to get more. Never true 02/05/2023 Sex and Gender Information Value Date Recorded Sex Assigned at Female 02/05/2023 1:31 PM EDT Gender Identity Female 02/05/2023 1:31 PM EDT Sexual Orientation Straight 02/05/2023 1: 31 PM EDT Job Start Date Occupation Industry Not on file Not on file Not on file documented as of this encounter Last Filed Vital Signs Vital Sign Reading Time Taken Comments Blood Pressure 128/76 10/15/2023 11:29 AM EST Pulse 86 10/15/2023 11:29 AM EST Temperature - - Respiratory Rate 20 10/15/2023 11:29 AM EST Oxygen Saturation 99% 10/15/2023 11:29 AM EST Inhaled Oxygen Concentration - - Weight 80.4 kg (177 lb 4.8 oz) 10/15/2023 11:29 AM EST Height 152.4 cm (5') 10/15/2023 11:29 AM EST Body Mass Index 34.63 10/15/2023 11:29 AM EST documented in this encounter Progress Notes * Rhed, LizetteMARIA GUADALUPE Busch - 10/15/2023 11:34 AM EST Eva Perkins : 1950 Chief Complaint: Patient is sent for pre-operative medical clearance at the request of Dr. Reyna Planned Surgery: RIGHT KNEE REPLACEMENT Date: 10/30/2023 Planned anesthesia: unknown HPI: 73 year old female presenting for preoperative clearance. Eva is able to walk 1 city block without white and able to ascend 1 flight of step without shortness of breath. Denies difficulty with anesthesia in the past. Patient Active Problem List Diagnosis Code Hyperlipidemia LDL goal <70 E78.5 DENTURES 525.1 Atrial fibrillation ([facility]) I48.91 Chronic systolic congestive heart failure ([facility]) I50.22 Coronary artery disease involving [place] coronary artery of [place] river heart without angina pectoris I25.10 NSVT (nonsustained ventricular tachycardia) ([facility]) I47.29 Nonrheumatic mitral valve regurgitation I34.0 LBBB (left bundle branch block) I44.7 Ischemic cardiomyopathy I25.[address] Z95.810 Chronic kidney disease, stage 3b ([facility]) N18.32 Biventricular automatic implantable cardioverter defibrillator in situ Z95.810 Medical home patient encounter Z00.8 Vaginal itching N89.8 Tobacco use Z72.0 Fatigue R53.83 Past Surgical History: Procedure Laterality Date ECHO, COMPLETE (2D), TRANS-THORACIC 02/10/2020 severy LAE, severe mitral regurg, dilated LV with global thinning, global severe hypokinesis, EF 15-20%, grade 2 diastolic dysfunction INSERT/REPLACE DEFIBRILLATOR W/TRANSVERSE LEAD(S) 03/22/2020 biventircullar cardiac defibrillator LIGATE/CUT OVIDUCT(S) MAMMOGRAM SCREENING-BILATERAL 04/22/06 category 1 negative REMOVAL OF TONSILS, UNDER AGE 12 TREATMENT OF INCOMPLETE due to miscarriage Current Outpatient Medications Medication Sig Dispense Refill nitroglycerin (NITROSTAT) 0.4 MG SUBL Acetaminophen 325 MG Oral Tablet 2 Tablets. Aspirin Low Dose 81 MG Oral Tablet Delayed Release (aspirin enteric coated) TAKE 1 TABLET IN THE MORNING 90 Tab 3 One-A-Day Womens 50 Plus Oral Tablet Take 1 Tab by mouth daily. Estradiol 0.1 MG/GM Vaginal Cream (Estrace) Apply pea sized amount (0.5 gm) vaginally twice a week at bedtime. 42.5 g 3 Amiodarone HCl 200 MG Oral Tablet (Cordarone) TAKE 1 TABLET BY MOUTH EVERY DAY 90 Tablet 4 Metoprolol Succinate ER 25 MG Oral Tablet Extended Release 24 Hour (toPROL XL) TAKE 1 TABLET BY MOUTH DAILY IN THE MORNING. 90 Tablet 3 Torsemide 10 MG Oral Tablet (Demadex) TAKE 2 TABLETS BY MOUTH DAILY 180 Tablet 3 Atorvastatin Calcium 80 MG Oral Tablet (Lipitor) Take 1 Tablet by mouth in the morning. 90 Tablet 3 Omeprazole 20 MG Oral Capsule Delayed Release (PriLOSEC) TAKE 1 CAPSULE EVERY DAY BEFORE BREAKFAST 90 Capsule 1 Warfarin Sodium 2.5 MG Oral Tablet (Coumadin) TAKE 1-2 TABS BY MOUTH DAILY DIRECTED 180 Tablet 3 Current Facility-Administered Medications Medication Dose Route Frequency Provider Last Rate Last Admin Albuterol Sulfate (Proventil) (2.5 MG/3ML) 0.083% inhalation solution 2.5 mg 2.5 mg Nebulizer Once PRN Lizette Navas CRNP 2.5 mg at 07/21/23 1416 Review of patient's allergies indicates: No Known Allergies Social History Socioeconomic History Marital status: Spouse name: Not on file Number of children: 2 Years of education: Not on file Highest education level: Not on file Occupational History Occupation: housewife Tobacco Use Smoking status: Every Day Packs/day: 1.00 Years: 40.00 Additional pack years: 0.00 Total pack years: 40.00 Types: Cigarettes Smokeless tobacco: Never Vaping Use Vaping Use: Never used Substance and Sexual Activity Alcohol use: Yes Comment: occ Drug use: No Sexual activity: Yes Partners: Male control/protection: Surgical Other Topics Concern Not on file Social History Narrative Not on file Social Determinants of Health Financial Resource Strain: Not on file Food Insecurity: No Food Insecurity (02/05/2023) Hunger Vital Sign Worried About Running Out of Food in the Last Year: Never true Ran Out of Food in the Last Year: Never true Transportation Needs: Not on file Physical Activity: Not on file Stress: Not on file Social Connections: Not on file Intimate Partner Violence: Not on file Housing Stability: Not on file Family History Problem Relation Age of Onset Breast Cancer Mother 65 Cancer Father multiple myeloma Breast Cancer Sister 63 Cancer Grandmother (Paternal) uterine Review of Systems Constitutional: Negative for chills, diaphoresis and fever. Respiratory: Positive for cough and shortness of breath. Negative for chest tightness and wheezing. Cardiovascular: Negative for chest pain, palpitations and leg swelling. Gastrointestinal: Negative for abdominal pain, blood in stool, constipation, diarrhea, nausea and vomiting. Neurological: Negative for dizziness and syncope. Psychiatric/Behavioral: Negative for sleep disturbance. Filed Vitals: 10/15/23 1129 BP: 128/76 Pulse: 86 Resp: 20 SpO2: 99% Height: 1.524 m (5') Physical Exam HENT: Head: Normocephalic. Right Ear: Tympanic membrane normal. Left Ear: Tympanic membrane normal. Mouth/Throat: Mouth: Mucous membranes are moist. Eyes: Pupils: Pupils are equal, round, and reactive to light. Cardiovascular: Rate and Rhythm: Normal rate. Pulmonary: Effort: Pulmonary effort is normal. Breath sounds: Decreased breath sounds present. Abdominal: General: Bowel sounds are normal. Palpations: Abdomen is soft. Tenderness: There is no abdominal tenderness. Musculoskeletal: Cervical back: Normal range of motion. Comments: Bilateral knee pain with ambulation Neurological: Mental Status: She is alert and oriented to person, place, and time. Psychiatric: Mood and Affect: Mood normal. Speech: Speech normal. Behavior: Behavior is cooperative. Cognition and Memory: Cognition normal. Judgment: Judgment normal. Assessment 1. Preoperative clearance RE-OPERATIVE TESTS: LABS:CBC and CMP reassuring INR at 2.7 Chest x ray confirms no acute process- cardiomegaly noted. EKG-atrial sensed ventricular paced PRE-OPERATIVE CLEARANCE DISCUSSION: There is no medical contraindication for the proposed surgery and anesthesia. Concerns/Precautions: On warfarin for A fib- defer management and directions to cardiology Smoker- patient is aware this will delay wound healing. Recommend cessation. She is agreeable to try nicotine patch. Defer cardiology clearance to cardiology. 2. Paroxysmal atrial fibrillation (HCC) Regular rate today and controlled 3. Biventricular automatic implantable cardioverter defibrillator in situ 4. Chronic systolic congestive heart failure (HCC) Denies symptoms of CHF Weight is 177 5. Tobacco use Recommend smoking cessation Patient is agreeable to nicotine patch- ordered She is aware of complications caused by smoking when having surgery. I spent a total of 40-54 minutes (exact time 42 mins) on the date of service in preparation, delivery, and documentation of the care provided to Eva Perkins excluding any time spent in the performance of separately billed services. documented in this encounter Nursing Notes * Bekah Gonzalez MED ASSIST - 10/15/2023 11:28 AM EST The patient has been properly identified by confirmation of name and date of . Chief Complaint Patient presents with Follow Up Patient presents in office today for follow-up visit. documented in this encounter Plan of Treatment Upcoming Encounters Date Type Department Care Team (Late st Contact Info) Description 11/14/2023 3:40 PM EST Anticoagulation Pharmacy, [facility] [address] [facility] [place] [address] Pharmacist1, [facility] [address] [facility] [place] [place] [address] 11/25/2023 3:00 PM EST Cardiac Studies Cardiac Studies, [facility] [address] [facility] [place] [address] 12/03/2023 2:30 PM EST Office Visit Cardiology, [facility] [place] [address] Brenda Olguin CRNP [address] [facility] [place] [address] 07/07/2024 11:00 AM EDT Cardiac Studies Cardiology, [facility] [address] [facility] [place] [address] [facility] [address] [facility] [place] [address] Health Maintenance Due Date Last Done Comments DISCUSS TOBACCO CESSATION (REFER TO SMARTSET #3291) 1950 DXA Scan 1950 Albumin/Creatinine Ratio 1969 CKD PHOS USE SMARTSET 60405 1969 Cologuard 1996 Colonoscopy 1996 Colorectal Cancer Screening 1996 Fecal Occult Blood Test 1996 Sigmoidoscopy 1996 Depression Screening 02/06/2024 02/05/2023 GFR 04/16/2024 10/16/2023, 06/03, 02/05/2023, Additional history exists Mammogram 07/18/2024 07/18/2023, 07/04, 07/17/2022, Additional history exists CKD HGB USE SMARTSET 57918 10/16/202410/16, 06/13/2023, 02/05/2023, Additional history exists DTaP,Tdap,and Td Vaccines (2 - Td or Tdap) 2030 2020, 08/12/2005 Zoster Vaccines Completed 04/30/2021, 12/23/2020 Pneumococcal Vaccine: 65+ Years Completed 08/01/2021, 05/26/2020 LUNG CANCER SCREENING - USE SMARTSET [id number] Completed 07/10/2023, 07/04/2022 Influenza Vaccine (FLU shot) Completed , 11/19/2022, 07/20/2021, Additional history exists COVID-19 Vaccine Completed 09/16/2023, 04/04/2021 GARDASIL-HPV IMMUNIZATION SERIES Aged Out No longer eligible based on patient's age to complete this topic Hepatitis B Aged Out No longer eligi ble based on patient's age to complete this topic MENINGOCOCCAL (MENACTRA/MENVEO) Aged Out No longer eligible based on patient's age to complete this topic documented as of this encounter Medical Devices Not on filedocumented as of this encounter Visit Diagnoses Diagnosis Preoperative clearance- Primary Preoperative examination, unspecified Paroxysmal atrial fibrillation (HCC) Atrial fibrillation Biventricular automatic implantable cardioverter defibrillator in situ Chronic systolic congestive heart failure (HCC) Chronic systolic heart failure Tobacco use Tobacco use disorder documented in this encounter Care Teams Lanolin Plant Operator Relationship Specialty Start Date End Date Lizette Navas CRNP [address] [place] [address] PCP - General Nurse Practitioner 10/04/21 documented as of this encounter
--- OUTSIDE RECORDS SUMMARY | 2023-10-30 06:33 | External Medical Summary | Summary of Care ---
Author Name Unknown Organization [facility] Address [address] [place] [address] Phone [phone] Care Team Providers Care Lumber Sorter Name Role Phone Lizette Navas Primary Care Provider Reason for Visit * Reason Onset Date Comments Advice 10/28/2023 Encounter Details Date Type Department Care Team (Late st Contact Info) Description 10/28/2023 Telephone Family Practice [facility] [address] [facility] [place] [address] Lizette Navas CRNP [address] [facility] [place] [address] Advice Allergies No known active allergiesdocumented as of [...] Oral Tablet (Lipitor)Indications :Coronary artery disease involving [place] coronary artery of [place] heart without angina pectoris,Hyperlipide joao LDL goal [...] ventricular tachycardia) 11/2019 Nonrheumatic mitral valve regurgitation 05/01/20 20 LBBB (left bundle branch block) 03/03/2020 Atrial fibrillation 02/17/2020 Chronic systolic congestive heart failure 2019 Overview: [facility] Coronary artery disease invo lving ek[place] coronary artery of ek[place] heart without angina pectoris 02/10/2020 Overview: old anterior [place] DENTURES 02/18/2005 Hyperlipidemia LDL goal <70 documented [...] 04/04/2021 H1N1 2009 Influenza, IM 12/06/2009 PPD 02/23/2008,02/03/2007 Pneumococcal Conjugate Vacc, 13 Valent (Prevnar) 05/26/2020 Pneumococcal Polysaccharide PPV23 (Pneumovax) 08/01/2021 Season Influenza, Quad, PF, Adjuvanted, 65+ Yrs, IM (FLUAD) 07/20/2021,08/18/2020 Seasonal Influenza, PF, 6 M & above, IM , (FluLaval or Fluzone) 01/17/2020,07/27/2018,09/29/2017 Seasonal Influenza, Quadriva lent Hd (Fluzone Hd) 08/28/2023,11/19/2022 Seasonal Influenza, Quadriva lent, No Preserve, IM 09/11/2015,09/20/2006 Seasonal Influenza, Split, I IV3, With Preserve, Inj 09/20/2006 TDAP (age 10 and older)(Boostrix) 2020 Zoster [...] on file documented as of this encounter Miscellaneous Notes * Telephone Encounter - Sharon Corea RN - 10/29/2023 8:13 AM EST Faxed to [facility] * Telephone Encounter - Lizette Navas CRNP - 10/29/2023 6:54 AM EST Noted addended. Please fax to [facility]. Alf, MSN, MARIA GUADALUPE [facility] * Telephone Encounter - Sharon Corea RN - 10/28/2023 3:27 PM EST Called [facility] (ph# [phone]), spoke with Ana Maria - they received a copy of office note from 10/15, they are asking for updated note to state results were reviewed and patient is cleared for procedure, EKG is under scans in the chart there is also a scanned CBC from [facility]. Also that no concern for bruised area mentioned below. They would like this faxed to them at # [phone] * Telephone Encounter - Francie Chao DO - 10/28/2023 3:24 PM EST I don't see a reason to delay - assuming the hematoma is not so large that it caused a drop in hemoglobin or difficulty breathing * Telephone Encounter - Sharon Corea RN - 10/28/2023 2:52 PM EST Spoke with Eva. She had a fall on 10/24, bumped her chest/breast area. Has some bruising, but states it is improving already, she has no pain or problems with breathing/moving around. She did not hit her head. She had called the orthopedics office and [facility] who manages her coumadin after this occurred. Eva states Dr. Cuellar office asked her to check with her PCP that it is ok to proceed with her knee surgery as scheduled? Lizette, Do you see any reason her fall/bruise to chest area should delay her surgery? Thank you! * Telephone Encounter - Latasha Vanegas OSA - 10/28/2023 11:04 AM EST Patient would like to the provider to know that she fell on night. She is fine just a little black and blue. She did get a little lump where the black and blue lili is. She has been taking tylenol for it and the pain goes away. Please contact patient. ALPESH Abdul documented in this encounter Plan of Treatment Upcoming Encounters Date Type Department Care Team (Late st Contact Info) Description 11/14/2023 3:40 PM EST Anticoagulation Pharmacy, [facility] [address] [facility] [place] [address] Pharmacist1, [facility] [address] [facility] [place] [address] 11/25/2023 3:00 PM EST Cardiac Studies [facility] Studies, [facility] [place] [address] 12/03/2023 2:30 PM EST Office Visit Cardiology, [facility] [place] [address] Brenda Olguin CRNP [address] [facility] [place] [address] 07/07/2024 11:00 AM EDT Cardiac Studies Cardiology, [facility] [place] [address] [facility] [address] [facility] [place] [address] Health Maintenance Due Date Last Done Comments DISCUSS TOBACCO CESSATION (REFER TO SMARTSET #3291) 1950 DXA Scan 1950 Albumin/Creatinine Ratio 1969 CKD PHOS USE SMARTSET 19839 1969 Cologuard 1996 Colonoscopy 1996 Colorectal Cancer Screening 1996 Fecal Occult Blood Test 1996 Sigmoidoscopy 1996 Depression Screening 02/06/2024 02/05/2023 GFR 04/16/2024 10/16/2023, 06/03, 02/05/2023, Additional history exists Mammogram 07/18/2024 07/18/2023, 07/04, 07/17/2022, Additional history exists CKD HGB USE SMARTSET 99188 10/16/202410/16, 06/13/2023, 02/05/2023, Additional history exists DTaP,Tdap,and Td Vaccines (2 - Td or Tdap) 2030 2020, 08/12/2005 Zoster Vaccines Completed 04/30/2021, 12/23/2020 Pneumococcal Vaccine: 65+ Years Completed 08/01/2021, 05/26/2020 LUNG CANCER SCREENING - USE SMARTSET 97238 Completed 07/10/2023, 07/04/2022 Influenza Vaccine (FLU shot) [...] Not on filedocumented as of this encounter Care Teams Lumber Sorter Relationship Specialty Start Date End Date Lizette Navas CRNP [address] [place] [address] PCP - General Nurse Practitioner 10/04/21 documented as of this encounter
--- OUTSIDE RECORDS SUMMARY | 2023-10-30 06:33 | External Medical Summary | Summary of Care ---
Author Name Unknown Organization [facility] Address [address] [place] [address] Phone [phone] Care Team Providers Care Warehousing Technician Name Role Phone Lizette Navas Primary Care Provider Reason for Visit * Reason Comments Pre-op Clearance Encounter Details Date Type Department Care Team (Latest Contact Info) Description 10/23/2023 2:30 PM EST Office Visit Cardiology, [facility] [address] [place] [address] Mikey Maldonado, [address] [place] [address] Preop cardiovascular exam*; Coronary artery disease involving [place] coronary artery of [place] heart without angina pectoris; ICD (implantable cardioverter-defibrilla tor) battery depletion; Ischemic cardiomyopathy Allergies No known active allergiesdocumented as of this encounter (statuses as of 10/23/2023) Medications Medication Sig Dispensed Refills Start Date [...] Oral Tablet (Lipitor)Indications :Coronary artery disease involving [place] coronary artery of [place] heart without angina pectoris,Hyperlipide joao LDL goal [...] as of this encounter (statuses as of 10/23/2023) Active Problems Problem Noted Date Diagnosed Date Preoperative clearance 10/15/2023 Vaginal itching 02/05/2023 Tobacco use 02/05/2023 Fatigue 02/05/2023 Biventricular automatic impl antable cardioverter defibrillator in situ 09/03/2021 Medical home patient encounter 09/03/2021 Chronic kidney disease, stage 3b 05/14/2021 Overview: Per CKD protocol Cardiac defibrillator in place 04/05/2020 Ischemic cardiomyopathy 03/14/2020 NSVT (nonsustained ventricular tachycardia) 0511/2019 Nonrheumatic mitral valve regurgitation 03/03/20 20 LBBB (left bundle branch block) 03/03/2020 Atrial fibrillation 02/17/2020 Chronic systolic congestive heart failure 2019 Overview: [facility] Coronary artery disease invo lving [place] coronary artery of [place] heart without angina pectoris 02/10/2020 Overview: old anterior [place] DENTURES 02/18/2005 Hyperlipidemia LDL goal <70 documented as of this encounter (statuses as of 10/23/2023) Resolved Problems Problem Noted Date Diagnosed Date Resolved Date Stage 3a chronic kidney disease 10/16/2020 05/17/2021 Overview: Per CKD protocol - Per CKD protocol Chronic kidney disease, stage 3a 09/11/2020 10/19/2020 Overview: Per CKD protocol Alcohol dependence, uncomplicated 04/07/2020 2020 documented as of this encounter (statuses as of 10/23/2023) Immunizations Name Administration Dates Next Due COVID-19 [...] Day Cigarettes 1 40 Smokeless Tobacco: Never Tobacco Cessation:Ready to Q uit: Not Asked; Counseling Given: Not Answered Alcohol Use Standard Drinks/Week Comments Yes 0 [...] Sign Reading Time Taken Comments Blood Pressure 126/78 10/23/2023 2:36 PM EST Pulse 88 10/23/2023 2:36 PM EST Temperature - - Respiratory Rate 18 10/23/2023 2:36 PM EST Oxygen Saturation - - Inhaled Oxygen Concentration - - Weight 81.4 kg (179 lb 6.4 oz) 10/23/2023 2:36 P M EST Height - - Body Mass Index 35.04 10/15/2023 11:29 AM EST documented in this encounter Progress Notes * Mikey Maldonado, DO - 10/23/2023 2:49 PM EST Cardiology Outpatient Follow-up Eva Perkins is a 73 year old female who is seen for follow-up of pre-op evaluation. HPI: This is a 73-year-old female who presented late with an anterior wall myocardial infarction and hadan ischemic cardiomyopathy with severe LV dysfunction. She received a primary prevention ICD. She has done well over the years and actually her last echocardiogram indicated a left ventricular ejection fraction of 54%. She has no cardiac complaints today. Unfortunately she continues to smoke. She is scheduled to have total knee replacement after the holiday and is here for cardiac risk assessment. Past Medical History: Diagnosis Date Atrial fibrillation (HCC) 02/10/2020 admitted [facility] CHF (congestive heart failure), NYHA class III, chronic, combined (HCC) 02/10/2020 [facility] Coronary artery disease involving [place] coronary artery 02/10/2020 old anterior [place] DENTURES Dyslipidemia, goal LDL below 160 Encounter for hepatitis C screening test for low risk patient 02/21/2020 negative Rabies exposure rescued a rabid raccoon Patient Active Problem List Diagnosis Code Hyperlipidemia LDL goal <70 E78.5 DENTURES 525.1 Atrial fibrillation ([facility]) I48.91 Chronic systolic congestive heart failure ([facility]) I50.22 Coronary artery disease involving [place] coronary artery of [place] heart without angina pectoris I25.10 NSVT (nonsustained ventricular tachycardia) ([facility]) I47.29 Nonrheumatic mitral valve regurgitation I34.0 LBBB (left bundle branch block) I44.7 Ischemic cardiomyopathy I25.[address] Z95.810 Chronic kidney disease, stage 3b ([facility]) N18.32 Biventricular automatic implantable cardioverter defibrillator in situ Z95.810 Medical home patient encounter Z00.8 Vaginal itching N89.8 Tobacco use Z72.0 Fatigue R53.83 Preoperative clearance Z01.818 Past Surgical History: Procedure Laterality Date ECHO, COMPLETE (2D), TRANS-THORACIC 02/10/2020 severy LAE, severe mitral regurg, dilated LV with global thinning, global severe hypokinesis, EF 15-20%, grade 2 diastolic dysfunction INSERT/REPLACE DEFIBRILLATOR W/TRANSVERSE LEAD(S) 03/22/2020 biventircullar cardiac defibrillator LIGATE/CUT OVIDUCT(S) MAMMOGRAM SCREENING-BILATERAL 04/22/06 category 1 negative REMOVAL OF TONSILS, UNDER AGE 13 TREATMENT OF INCOMPLETE due to miscarriage Family History Problem Relation Age of Onset Breast Cancer Mother 65 Cancer Father multiple myeloma Breast Cancer Sister 63 Cancer Grandmother (Paternal) uterine Social History Tobacco Use Smoking status: Every Day Packs/day: 1.00 Years: 40.00 Additional pack years: 0.00 Total pack years: 40.00 Types: Cigarettes Smokeless tobacco: Never Vaping Use Vaping Use: Never used Substance Use Topics Alcohol use: Yes Comment: occ Drug use: No Review of patient's allergies indicates: No Known Allergies Current Outpatient Medications Medication Sig Dispense Refill Acetaminophen 325 MG Oral Tablet 2 Tablets. [...] BY MOUTH DAILY DIRECTED 180 Tablet 3 Nicotine 21 MG/24HR Transdermal Patch 24 Hour (Nicoderm CQ) Place 1 Patch over 24 hours topically on the skin daily. 28 Patch 0 nitroglycerin (NITROSTAT) 0.4 MG SUBL (Patient not taking: Reported on 10/23/2023) Current Facility-Administered Medications Medication Dose Route Frequency Provider Last Rate Last Admin Albuterol Sulfate (Proventil) (2.5 MG/3ML) 0.083% inhalation solution 2.5 mg 2.5 mg Nebulizer Once PRN Lizette Navas CRNP 2.5 mg at 07/21/23 1416 ROS: Review of Systems: See HPI for pertinent positives. All other review of systems is negative. PHYSICAL EXAMINATION BP 126/78 | Pulse 88 | Resp 18 | Wt 81.4 kg (179 lb 6.4 oz) | LMP 09/20/2002 | BMI 35.04 kg/m | BSA 1.86 m Body mass index is 35.04 kg/m. General: no acute distress and stated age Head: normocephalic, no masses, lesions, tenderness or abnormalities Eyes: conjunctiva are pink and non-injected, sclera clear Neck: supple, no adenopathy, no bruits, normal jugular venous pulse, no hepatojugular reflux Chest: normal shape and normal respiratory effort Lungs: clear to auscultation and percussion Cardiac Exam: - regular rate & rhythm, no murmurs gallops or rubs - normal S1, normal S2 Pulses: 2(+) throughout Abdomen: abdomen soft, non-tender, no abnormal masses and no hepatosplenomegaly Musculoskeletal: no gait disturbance, no joint inflammation, no deforming arthritis Extremities: no edema and no cyanosis Neuro: grossly normal exam Laboratory Data Review: Most recent device check indicates a normal functioning device Impression: 1. Ischemic cardiomyopathy 2. Old anterior wall myocardial infarction 3. Recent echocardiogram estimated left ventricular ejection fraction at 54%. 4. Paroxysmally atrial fibrillation 5. Status post biventricular pacemaker/ICD Plan: Utilizing the Ketan criteria the patient's risk for this surgery is 0.9%. She is currently optimally medically managed and should proceed to surgery. Of note is that her PCP provided her with nicotine patches which she started to wear so she can of staying from smoking prior to her surgery. I plan follow-up again in 6 months or earlier if needed. This chart was completed in part utilizing [employer] Speech Voice Recognition Software. Grammatical errors, random word insertions, prounoun errors, and incomplete sentences are an occasional consequence of this system due to software limitations, ambient noise, and hardware issues. Any formal questions or concerns about the content, text, or information contained within the body of this dictation should be directly addressed to the provider for clarification. I spent a total of 30-39 minutes (exact time 36 mins) on the date of service in preparation, delivery, and documentation of the care provided to Eva Perkins excluding any time spent in the performance of separately billed services. Mikey Maldonado, DO Cardiology, [address] [address] 10/23/2023 documented in this encounter Nursing Notes * Sherrie Swann LPN - 10/23/2023 2:35 PM EST Examination Room: 16 Name: Eva Perkins Date of : (1950) Reason for Visit: Pre op clearance Interim Hospitalization(s): Denies Problems/Concerns: Denies Chest Pain/SOB: Denies My [facility] is a way you can talk to your provider online through e-mail. Would you like to sign up? I can activate it for you? ALREADY ACTIVE Patient was instructed to not get up on the exam table until directed and assisted by their provider; patient is to remain seated in the chair/ wheelchair/ exam table for fall prevention and safety reasons. Patient is aware to have assistance to step down off exam table with personnel. Patient voiced full comprehension of instructions. documented in this encounter Plan of Treatment Upcoming Encounters Date Type Department Care Team (Late st Contact Info) Description 11/14/2023 3:40 PM EST [facility] [address] [facility] [place] [address] Pharmacist1, [facility] [address] [facility] [address] 11/25/2023 3:00 PM EST [facility] [place] [address] 12/03/2023 2:30 PM EST Office Visit Cardiology, [facility] [place] [address] Brenda Olguin CRNP [address] [facility] [place] [address] 07/07/2024 11:00 AM EDT [facility]iac Studies [facility] [address] [place] [place] [address] [facility] [address] [place] [address] Health Maintenance Due Date Last Done Comments DISCUSS TOBACCO CESSATION (REFER TO SMARTSET #1925) 1950 DXA Scan 1950 Albumin/Creatinine Ratio 1969 CKD PHOS USE SMARTSET 55204 1969 Cologuard 1996 Colonoscopy 1996 Colorectal Cancer Screening 1996 Fecal Occult Blood Test 1996 Sigmoidoscopy 1996 Depression Screening 02/06/2024 02/05/2023 GFR 04/16/2024 10/16/2023, 06/03, 02/05/2023, Additional history exists Mammogram 07/18/2024 07/18/2023, 07/04, 07/17/2022, Additional history exists CKD HGB USE SMARTSET 71319 10/16/202410/16, 06/13/2023, 02/05/2023, Additional history exists DTaP,Tdap,and Td Vaccines (2 - Td or Tdap) 2030 2020, 08/12/2005 Zoster Vaccines Completed 04/30/2021, 12/23/2020 Pneumococcal Vaccine: 65+ Years Completed 08/01/2021, 05/26/2020 LUNG CANCER SCREENING - USE SMARTSET [id number] Completed 07/10/2023, 07/04/2022 Influenza Vaccine (FLU shot) [...] as of this encounter Visit Diagnoses Diagnosis Preop cardiovascular exam- Primary Pre-operative cardiovascular examination Coronary artery disease involving [place] coronary artery of [place] heart without angina pectoris ICD (implantable cardioverter-defibrillator) battery depletion Ischemic cardiomyopathy Other specified forms of chronic ischemic heart disease documented in this encounter Care Teams Warehousing Technician Relationship Specialty Start Date End Date Lizette Navas CRNP [address] [place] [address] PCP - General Nurse Practitioner 10/04/21 documented as of this encounter"
--- OUTSIDE RECORDS SUMMARY | 2023-10-30 06:33 | External Medical Summary | Summary of Care ---
Author Name Unknown Organization [facility] Address [address] [place] [address] Phone [phone] Care Team Providers Care Milk Pickup Truck Driver Name Role Phone Lizette Navas Primary Care Provider Encounter Details Date Type Department Care Team (Late st Contact Info) Description 10/24/2023 Telephone Family Practice [facility] [address] [facility] [address] Lizette Navas CRNP [address] [place] [address] Allergies No known active allergiesdocumented as of [...] Oral Tablet (Lipitor)Indications :Coronary artery disease involving [place] coronary artery of [place] heart without angina pectoris,Hyperlipide joao LDL goal [...] tachycardia) 11/2019 Nonrheumatic mitral valve regurgitation 03/03/20 20 LBBB (left bundle branch block) 03/03/2020 Atrial fibrillation 02/17/2020 Chronic systolic congestive heart failure 2019 Overview: [facility] Coronary artery disease invo lving [place] coronary artery of [place] heart without angina pectoris 02/10/2020 Overview: old anterior [place] DENTURES 02/18/2005 Hyperlipidemia LDL goal <70 documented [...] encounter Miscellaneous Notes * Telephone Encounter - Lizette Navas CRNP - 10/29/2023 6:55 AM EST See existing JUSTICE Matute, MARIA GUADALUPE [facility] * Telephone Encounter - Lissett Montilla OSA - 10/28/2023 8:10 AM EST Neo gray, would like for pcp to review pre op testing that has been scanned in the system. They need a final clearance prior to surgery 10/30. * Telephone Encounter - Olivia Rivera OSA - 10/24/2023 9:15 AM EST Neo gray, states to review the final clearance entered in [facility] for surgery on 10/30/2023.They need a final approval. Pt was seen 10/15/2023 for the pre op documented in this encounter Plan of Treatment Upcoming Encounters Date Type Department Care Team (Late st Contact Info) Description 11/14/2023 3:40 PM EST Anticoagulation Pharmacy, [facility] [address] [facility] [place] [address] Pharmacist1, [facility] [address] [facility] [address] 11/25/2023 3:00 PM EST Cardiac Studies Cardiac Studies, [facility] [address] [facility] [place] [address] 12/03/2023 2:30 PM EST Office Visit Cardiology, [facility] [address] [facility] [place] [address] Brenda Olguin CRNP [address] [facility] [place] [address] 07/07/2024 11:00 AM EDT Cardiac Studies Cardiology, [facility] [address] [facility] [place] [address] [facility] [address] [facility] [place] [address] Health Maintenance Due Date Last Done Comments DISCUSS TOBACCO CESSATION (REFER TO SMARTSET #3291) 1950 DXA Scan 1950 Albumin/Creatinine Ratio 1969 CKD PHOS USE SMARTSET 37937 1969 Cologuard 1996 Colonoscopy 1996 Colorectal Cancer Screening 1996 Fecal Occult Blood Test 1996 Sigmoidoscopy 1996 Depression Screening 02/06/2024 02/05/2023 GFR 04/16/2024 10/16/2023, 06/03, 02/05/2023, Additional history exists Mammogram 07/18/2024 07/18/2023, 07/04, 07/17/2022, Additional history exists CKD HGB USE SMARTSET 53817 10/16/202410/16, 06/13/2023, 02/05/2023, Additional history exists DTaP,Tdap,and Td Vaccines (2 - Td or Tdap) 2030 2020, 08/12/2005 Zoster Vaccines Completed 04/30/2021, 12/23/2020 Pneumococcal Vaccine: 65+ Years Completed 08/01/2021, 05/26/2020 LUNG CANCER SCREENING - USE SMARTSET [id number] Completed 07/10/2023, 07/04/2022 Influenza Vaccine (FLU shot) [...] filedocumented as of this encounter Care Teams Milk Pickup Truck Driver Relationship Specialty Start Date End Date Lizette Navas CRNP [address] [place] [address] PCP - General Nurse Practitioner 10/04/21 documented as of this encounter
--- OUTSIDE RECORDS SUMMARY | 2023-10-30 06:33 | External Medical Summary | Summary of Care ---
Author Name Unknown Organization [facility] Address [address] [place] [address] Phone [phone] Care Team Providers Care Finance Assistant Name Role Phone Eloise Lizette Debbi LERMA Primary Care Provider Reason for Visit * Reason Onset Date Comments Procedure 10/22/2023 Encounter Details Date Type Department Care Team (Late st Contact Info) Description 10/22/2023 Telephone Pharmacy, [facility] [address] [place] [address] Pharmacist1, [facility] [address] [place] [address] Procedure Allergies No known active allergiesdocumented as of this encounter (statuses as of 10/22/2023) Medications Medication Sig Dispensed Refills Start Date [...] Oral Tablet (Lipitor)Indications :Coronary artery disease involving [place] coronary artery of [place] heart without angina pectoris,Hyperlipide joao LDL goal [...] as of this encounter (statuses as of 10/22/2023) Active Problems Problem Noted Date Diagnosed Date [...] systolic congestive heart failure 2019 Overview: [facility] Coronary artery disease invo lving [place] coronary artery of [place] heart without angina pectoris 02/10/2020 Overview: old anterior [place] DENTURES 02/18/2005 Hyperlipidemia LDL goal <70 documented as of this encounter (statuses as of 10/22/2023) Resolved Problems Problem Noted Date Diagnosed Date Resolved Date Stage 3a chronic kidney disease 10/16/2020 05/17/2021 Overview: Per CKD protocol - Per CKD protocol Chronic kidney disease, stage 3a 09/11/2020 10/19/2020 Overview: Per CKD protocol Alcohol dependence, uncomplicated 04/07/2020 2020 documented as of this encounter (statuses as of 10/22/2023) Immunizations Name Administration Dates Next Due COVID-19 [...] money to buy more. Never true 02/06/20 Within the past 12 months, t he [...] encounter Miscellaneous Notes * Telephone Encounter - Shahram Wilson RPh - 10/22/2023 11:03 AM EST She will need to hold Coumadin for 5 days (10/25-10/29) then take 10mg 10/30 and 10/31. She will resume 2.5 mg every Mon; 5 mg all other days 11/01. Spoke to patient at 11:03 AM. Shahram Meade RPh, CACP, CDE Clinical Pharmacist [facility] 10/22/2023, 11:03 AM * Telephone Encounter - Juliana Israel OSA - 10/22/2023 10:48 AM EST Caller's name: Eva Preferred call back number(OFFICE NUMBER FOR ): [phone] Reason for call: Pt calling to speak with the [facility] she is having knee surgery on 10/30/23. She needsto stop Warfarin 5days prior. She wants to know she is doing it right she said. Please advise and return her call. Thank you, Juliana Israel Police Clerk [facility] 10/22/2023,10:48 AM documented in this encounter Plan of Treatment Upcoming Encounters Date Type Department Care Team (Late st Contact Info) Description 10/23/2023 2:30 PM EST Office Visit Cardiology, [facility] [address] [place] [address] Mikey Maldonado DO [address] [place] [address] 11/14/2023 3:40 PM EST Anticoagulation Pharmacy, [facility] [address] Pharmacist1, [facility] [address] [facility] [place] [address] 11/25/2023 3:00 PM EST Cardiac Studies Cardiac Studies, [facility] [address] [place] [address] 12/03/2023 2:30 PM EST Office Visit Cardiology, [facility] [address] [place] [address] Brenda Olguin CRNP [address] [place] [address] 07/07/2024 11:00 AM EDT Cardiac Studies Cardiology, [facility] [address] [place] [address] [facility] [address] [place] [address] Health Maintenance Due Date Last Done Comments DISCUSS TOBACCO CESSATION (REFER TO SMARTSET #5091) 1950 DXA Scan 1950 Albumin/Creatinine Ratio 1969 CKD PHOS USE SMARTSET 83641 1969 Cologuard 1996 Colonoscopy 1996 Colorectal Cancer Screening 1996 Fecal Occult Blood Test 1996 Sigmoidoscopy 1996 Depression Screening 02/06/2024 02/05/2023 GFR 04/16/2024 10/16/2023, 06/03, 02/05/2023, Additional history exists Mammogram 07/18/2024 07/18/2023, 07/04, 07/17/2022, Additional history exists CKD HGB USE SMARTSET 56312 10/16/202410/16, 06/13/2023, 02/05/2023, Additional history exists DTaP,Tdap,and Td Vaccines (2 - Td or Tdap) 2030 2020, 08/12/2005 Zoster Vaccines Completed 04/30/2021, 12/23/2020 Pneumococcal Vaccine: 65+ Years Completed 08/01/2021, 05/26/2020 LUNG CANCER SCREENING - USE SMARTSET 22036 Completed 07/10/2023, 07/04/2022 Influenza Vaccine (FLU shot) [...] filedocumented as of this encounter Care Teams Finance Assistant Relationship Specialty Start Date End Date Lizette Navas CRNP [address] [place] [address] PCP - General Nurse Practitioner 10/04/21 documented as of this encounter
--- OUTSIDE RECORDS SUMMARY | 2023-10-30 06:33 | External Medical Summary | Summary of Care ---
Author Name Unknown Organization [facility] Address [address] [place] [address] Phone [phone] Care Team Providers Care Field Adjuster Name Role Phone Eloise Lizette Debbi LERMA Primary Care Provider Encounter Details Date Type Department Care Team (Late st Contact Info) Description 10/16/2023 Result Scan Unspecified Department <No scans attached> Allergies No known active allergiesdocumented as of this encounter (statuses as of 10/17/2023) Medications Medication Sig Dispensed Refills Start Date [...] Oral Tablet (Lipitor)Indications :Coronary artery disease involving [place] coronary artery of [place] heart without angina pectoris,Hyperlipide joao LDL goal [...] as of this encounter (statuses as of 10/17/2023) Active Problems Problem Noted Date Diagnosed Date [...] Chronic systolic congestive heart failure 2019 Overview: [facility] Coronary artery disease invo lving [place] coronary artery of [place] heart without angina pectoris 02/10/2020 Overview: old anterior [place] DENTURES 02/18/2005 Hyperlipidemia LDL goal <70 documented as of this encounter (statuses as of 10/17/2023) Resolved Problems Problem Noted Date Diagnosed Date Resolved Date Stage 3a chronic kidney disease 10/16/2020 05/17/2021 Overview: Per CKD protocol - Per CKD protocol Chronic kidney disease, stage 3a 09/11/2020 10/19/2020 Overview: Per CKD protocol Alcohol dependence, uncomplicated 04/07/2020 2020 documented as of this encounter (statuses as of 10/17/2023) Immunizations Name Administration Dates Next Due COVID-19 [...] on file documented as of this encounter Plan of Treatment Upcoming Encounters Date Type Department Care Team (Late st Contact Info) Description 11/14/2023 3:40 PM EST Anticoagulation Pharmacy, [facility] [address] [facility] [place] [address] Pharmacist1, [facility] [address] [facility] [address] 11/25/2023 3:00 PM EST Cardiac Studies Cardiac Studies, [facility] [address] [facility] [place] [address] 12/03/2023 2:30 PM EST Office Visit Cardiology, [facility] 132 [facility] [place] [address] Brenda Olguin CRNP [address] [place] [address] 07/07/2024 11:00 AM EDT Cardiac Studies Cardiology, [facility] [address] [place] [address] [facility] [address] [place] [address] Health Maintenance Due Date Last Done Comments DISCUSS TOBACCO CESSATION (REFER TO SMARTSET #5147) 1950 DXA Scan 1950 Albumin/Creatinine Ratio 1969 CKD PHOS USE SMARTSET 30102 1969 Cologuard 1996 Colonoscopy 1996 Colorectal Cancer Screening 1996 Fecal Occult Blood Test 1996 Sigmoidoscopy 1996 GFR 12/14/2023 10/16/2023, 06/03, 02/05/2023, Additional history exists Depression Screening 02/06/2024 02/05/2023 CKD HGB USE SMARTSET 60575 06/13/202410/16, 06/13/2023, 02/05/2023, Additional history exists Mammogram 07/18/2024 07/18/2023, 07/04, 07/17/2022, Additional history exists DTaP,Tdap,and Td Vaccines (2 - Td or Tdap) 2030 2020, 08/12/2005 Zoster Vaccines Completed 04/30/2021, 12/23/2020 Pneumococcal Vaccine: 65+ Years Completed 08/01/2021, 05/26/2020 LUNG CANCER SCREENING - USE SMARTSET 04250 Completed 07/10/2023, 07/04/2022 Influenza Vaccine (FLU shot) [...] Not on filedocumented as of this encounter Procedures Procedure Name Priority Date/Time Associated Diagnosis Comments EKG SCANNED RESULT 10/16/2023 documented in this encounter Results * EKG SCANNED RESULT (10/16/2023) 10/16/2023 No Physician Data Unknown EKG documented in this encounter Care Teams Field Adjuster Relationship Specialty Start Date End Date Lizette Navas CRNP [address] [place] [address] PCP - General Nurse Practitioner 10/04/21 documented as of this encounter
--- OUTSIDE RECORDS SUMMARY | 2023-10-30 06:33 | External Medical Summary | Summary of Care ---
Author Name Unknown Organization [facility] Address [address] [place] [address] Phone [phone] Care Team Providers Care Urban Planner Name Role Phone Lizette Navas Primary Care Provider Encounter Details Date Type Department Care Team (Late st Contact Info) Description 10/17/2023 Orders Only [facility] [address] [facility] [address] [facility] [address] [facility] [address] Allergies No known active allergiesdocumented as of [...] Oral Tablet (Lipitor)Indications :Coronary artery disease involving [place] coronary artery of [place] heart without angina pectoris,Hyperlipide joao LDL goal [...] Chronic systolic congestive heart failure 2019 Overview: [facility] Coronary artery disease invo lving [place] coronary artery of [place] heart without angina pectoris 02/10/2020 Overview: old [...] Description 11/14/2023 3:40 PM EST Anticoagulation Pharmacy, [facility] [place] [place] [address] Pharmacist1, [facility] [address] [facility] [place] [address] 11/25/2023 3:00 PM EST Cardiac Studies [facility] Studies, [facility] [place] [address] 12/03/2023 2:30 PM EST Office Visit Cardiology, [facility] 132 [facility] [place] [address] Brenda Olguin CRNP 132 [facility] [place] [address] 07/07/2024 11:00 AM EDT Cardiac Studies Cardiology, [facility] [address] [place] [address] [facility] [address] [place] [address] Health Maintenance Due Date Last Done Comments DISCUSS TOBACCO CESSATION (REFER TO SMARTSET #0469) 1950 DXA Scan 1950 Albumin/Creatinine Ratio 1969 CKD PHOS USE SMARTSET 76997 1969 Cologuard 1996 Colonoscopy 1996 Colorectal Cancer Screening 1996 Fecal Occult Blood Test 1996 Sigmoidoscopy 1996 GFR 12/14/2023 10/16/2023, 06/03, 02/05/2023, Additional history exists Depression Screening 02/06/2024 02/05/2023 CKD HGB USE SMARTSET 63925 06/13/202410/16, 06/13/2023, 02/05/2023, Additional history exists Mammogram 07/18/2024 07/18/2023, 07/04, 07/17/2022, Additional history exists DTaP,Tdap,and Td Vaccines (2 - Td or Tdap) 2030 2020, 08/12/2005 Zoster Vaccines Completed 04/30/2021, 12/23/2020 Pneumococcal Vaccine: 65+ Years Completed 08/01/2021, 05/26/2020 LUNG CANCER SCREENING - USE SMARTSET 60754 Completed 07/10/2023, 07/04/2022 Influenza Vaccine (FLU shot) [...] Procedure Name Priority Date/Time Associated Diagnosis Comments XR CHEST 2 VIEWS Routine 10/16/2023 CHEMISTRY-OUTSIDE Routine 10/16/2023 documented in this encounter Results * (ABNORMAL) CHEMISTRY-OUTSIDE (10/16/2023) Not all results display below - see scan for full detail OUTSIDE LAB (SEE SCANNED REPORT) Comment:SEE SCAN: CBCD, PT, INR, PTT, BMP CREATININE-OUTSID E LAB 1.46(A) 0.6 - 1.2 MG/DL OUTSIDE LAB (SEE SCANNED REPORT) EGFR-OUTSIDE LAB 35.6 ML/MIN OUT SIDE LAB (SEE SCANNED REPORT) POTASSIUM-OUTSIDE LAB 3.8 3.5 - 5.1 MMOL/L OUTSIDE LAB (SEE SCANNED REPORT) GLUCOSE-OUTSIDE LAB 110(A) 70 - 99 MG/DL OUTSIDE LAB (SEE SCANNED REPORT) HOURS FASTING OUTSID E LAB (SEE SCANNED REPORT) TRIGLYCERIDES-OUT SIDE LAB OUTSIDE LAB (SEE SCANNED REPORT) CHOLESTEROL-OUTSI DE LAB OUTSIDE LAB (SEE SCANNED REPORT) HDL-OUTSIDE LAB OUTS [facility] LAB (SEE SCANNED REPORT) CHOL/HDL RATIO-OUTSIDE LAB OUTSIDE LA B (SEE SCANNED REPORT) LDL (CALCULATED)-OUTS [place] LAB OUTSIDE LAB (SEE SCANNED REPORT) LDL (DIRECT MEASURE)-OUTSIDE LAB OUTSIDE LAB (SEE SCANNED REPORT) HEMOGLOBIN, [id number] LAB OUTSIDE LAB (SEE SCANNED REPORT) PHOSPHORUS-OUTSID E LAB OUTSIDE LAB (SEE SCANNED REPORT) PTH-OUTSIDE LAB OUTS LAQUITA LAB (SEE SCANNED REPORT) MICROALBUMIN RATIO-OUTSIDE LAB OUTSIDE LA B (SEE SCANNED REPORT) PROTEIN, UA-OUTSIDE LAB OUTSIDE LAB (SEE SCANNED REPORT) HEMOGLOBIN-OUTSID E LAB 13.8 12.0 - 16.0 G/DL OUTSIDE LAB (SEE SCANNED REPORT) 10/16/2023 Onur Reyna MD LABORATORY OUTSIDE LAB (SEE SCANNED REPORT) * XR CHEST 2 VIEWS (10/16/2023) Anatomical Region Laterality Modality Chest Other 10/16/2023 History Per Patient RADIOLOGY (RAD GENER AL) documented in this encounter Care Teams Urban Planner Relationship Specialty Start Date End Date Lizette Navas CRNP [address] [place] [address] PCP - General Nurse Practitioner 10/04/21 documented as of this encounter
--- OUTSIDE RECORDS SUMMARY | 2023-10-30 06:33 | External Medical Summary | Summary of Care ---
Author Name Unknown Organization [facility] Address [address] [place] [address] Phone [phone] Care Team Providers Care Straight Truck Driver Name Role Phone Eloise Lizette LERMA Primary Care Provider Reason for Visit * Reason Onset Date Comments Fall 10/24/2023 Encounter Details Date Type Department Care Team (Late st Contact Info) Description 10/24/2023 Telephone Pharmacy Call Center [address] [place] [address] Pharmacist1, [facility] [address] [place] [address] Fall Allergies No known active allergiesdocumented as of this encounter (statuses as of 10/24/2023) Medications Medication Sig Dispensed Refills Start Date [...] Oral Tablet (Lipitor)Indications :Coronary artery disease involving [place] coronary artery of [place] heart without angina pectoris,Hyperlipide joao LDL goal [...] as of this encounter (statuses as of 10/24/2023) Active Problems Problem Noted Date Diagnosed Date [...] Chronic systolic congestive heart failure 2019 Overview: [facility] Coronary artery disease invo lving [place] coronary artery of [place] heart without angina pectoris 02/10/2020 Overview: old anterior [place] DENTURES 02/18/2005 Hyperlipidemia LDL goal <70 documented as of this encounter (statuses as of 10/24/2023) Resolved Problems Problem Noted Date Diagnosed Date Resolved Date Stage 3a chronic kidney disease 10/16/2020 05/17/2021 Overview: Per CKD protocol - Per CKD protocol Chronic kidney disease, stage 3a 09/11/2020 10/19/2020 Overview: Per CKD protocol Alcohol dependence, uncomplicated 04/07/2020 2020 documented as of this encounter (statuses as of 10/24/2023) Immunizations Name Administration Dates Next Due COVID-19 [...] Telephone Encounter - Shahram Wilson RPh - 10/24/2023 2:10 PM EST Patient Phone Numbers Caller's name: Eva Preferred call back number(OFFICE NUMBER FOR ): [phone] Reason for call: Pt states she had a fall and fell on a wooden chair and now has a large bruise on her chest and side with a bump. Pt would like to speak to Joycelyn Beltran in regards to this to make sure she knows the signs of blood clots. Spoke to the patient and she tripped on a rocking chair on her porch. She fell onto the seat with her chest. I explained what to watch for (SOB, sharp pain). Patient will be holding COumadin over theweekend for a procedure so bruising should improve. She is taking Tylenol for the pain. Shahram Meade RPh, CACP, CDE Clinical Pharmacist [facility] 10/24/2023, 2:11 PM * Telephone Encounter - Kelin Michael PHARM Tech - 10/24/2023 2:01 PM EST Caller's name: Eva Preferred call back number(OFFICE NUMBER FOR ): [phone] Reason for call: Pt states she had a fall and fell on a wooden chair and now has a large bruise on her chest and side with a bump. Pt would like to speak to Joycelyn Beltran in regards to this to make sure she knows the signs of blood clots. Thank you, Kelin Michael [employer] Research Senior Project Manager [facility] ([facility]) (formerly Telepharmacy) 10/24/2023,2:01 PM documented in this encounter Plan of Treatment Upcoming Encounters Date Type Department Care Team (Late st Contact Info) Description 11/14/2023 3:40 PM EST Anticoagulation Pharmacy, [facility] [place] [address] Pharmacist1, [facility] 200 [facility] [place] [address] 11/25/2023 3:00 PM EST Cardiac Studies Cardiac Studies, [facility] 132 [facility] [place] [address] 12/03/2023 2:30 PM EST Office Visit Cardiology, [facility] [place] [address] Brenda Olguin CRNP [address] [place] [address] 07/07/2024 11:00 AM EDT Cardiac Studies Cardiology, [facility] [place] [address] Edie Barrera [facility] [address] [place] [address] Health Maintenance Due Date Last Done Comments DISCUSS TOBACCO CESSATION (REFER TO SMARTSET #0772) 1950 DXA Scan 1950 Albumin/Creatinine Ratio 1969 CKD PHOS USE SMARTSET 03620 1969 Cologuard 1996 Colonoscopy 1996 Colorectal Cancer Screening 1996 Fecal Occult Blood Test 1996 Sigmoidoscopy 1996 Depression Screening 02/06/2024 02/05/2023 GFR 04/16/2024 10/16/2023, 06/03, 02/05/2023, Additional history exists Mammogram 07/18/2024 07/18/2023, 07/04, 07/17/2022, Additional history exists CKD HGB USE SMARTSET 13370 10/16/202410/16, 06/13/2023, 02/05/2023, Additional history exists DTaP,Tdap,and Td Vaccines (2 - Td or Tdap) 2030 2020, 08/12/2005 Zoster Vaccines Completed 04/30/2021, 12/23/2020 Pneumococcal Vaccine: 65+ Years Completed 08/01/2021, 05/26/2020 LUNG CANCER SCREENING - USE SMARTSET 12142 Completed 07/10/2023, 07/04/2022 Influenza Vaccine (FLU shot) [...] filedocumented as of this encounter Care Teams Straight Truck Driver Relationship Specialty Start Date End Date Lizette Navas CRNP [address] [place] [address] PCP - General Nurse Practitioner 10/04/21 documented as of this encounter
[2023-10-30] MEDS ORDERED: ROPIVACAINE 0.5% 5 MG/ML 30 ML VIAL ONE (06:34)
[2023-10-30 07:37] LABS: INR 1.2 (0.9-1.1); Partial Thromboplastin Ratio 0.9; Partial Thromboplastin Time 26 Seconds (21-31)
[2023-10-30] MEDS ORDERED: MIDAZOLAM HCL 1 MG/ML 2ML VIAL ONE (08:10)
[2023-10-30] MEDS ORDERED: fentaNYL citrate PF 100 MCG/2 ML VIAL ONE (08:10)
[2023-10-30] MEDS ORDERED: LIDOCAINE 2% 2 ML VIAL/AMP(20MG/ML) INFIL ONE (08:11)
[2023-10-30] MEDS ORDERED: PROPOFOL IV EMULSION 10 MG/ML 20 ML VIAL IV ONE (08:11)
[2023-10-30] MEDS ORDERED: fentaNYL citrate PF 100 MCG/2 ML VIAL IV PRN (08:24)
[2023-10-30] MEDS ORDERED: ATROPINE SULFATE 0.1 MG/ML 10ML SYR IV PRN (08:24)
[2023-10-30] MEDS ORDERED: HYDROmorphone INJ 1 MG/ML SYRINGE IV PRN (08:24)
[2023-10-30] MEDS ORDERED: ePHEDrine sulfate 50 MG/ML AMP IV PRN (08:24)
[2023-10-30] MEDS ORDERED: ONDANSETRON INJ 2 MG/ML 2 ML VIAL IV PRN ×2 (08:24→13:11)
[2023-10-30] MEDS ORDERED: BUPIVACAINE LIPOSOME 1.3% 266 MG/20 ML VIAL ONE (09:00)
[2023-10-30] MEDS ORDERED: BUPIVACAINE/EPINEPHRINE 0.25% 1:200,000 30 ML VIAL ONE (09:00)
[2023-10-30] MEDS ORDERED: SODIUM CHLORIDE 0.9% PF 50 ML VIAL ONE (09:00)
[2023-10-30] MEDS ORDERED: ONDANSETRON INJ 2 MG/ML 2 ML VIAL ONE (09:02)
--- NOTE | 2023-10-30 09:34 | History & Physical Bridge Note ---
Date of Service October 30, 2023 History & Physical Bridge Note I have examined the patient, reviewed the History & Physical and in the interval since the performance of the History & Physical I have noted the following changes of clinical significance: no changes noted
[2023-10-30] MEDS ORDERED: DEXAMETHASONE SOD INJ 4 MG/ML VIAL ONE (10:12)
[2023-10-30] MEDS ORDERED: PHENYLEPHRINE HCL 10 MG/ML VIAL ONE (10:41)
--- NOTE | 2023-10-30 11:57 | Operative Report ---
PG Post Operative Report Pre & Post Diagnosis Operation Date: 10/30/23 08:30 Pre-Op Diagnosis: Right Knee Advanced Degenerative Joint Disease Post-Op Diagnosis: Right Knee Advanced Degenerative Joint Disease I identified the patient and participated in the time-out.: Yes Procedure Operation Date: 10/30/23 08:30 Actual Procedures p Right Total Knee Arthroplasty(Right) - Onur Reyna MD Surgeon Onur Reyna MD Pot[employer] Packaging Machine Operator Brenda Hadley PA-C Estimated Blood Loss 50 Findings Consistent with Post-Op Diagnosis Operative findings reveal advanced right knee tricompartment DJD. She had extensive grade 4 etwi-it-xzif disease in all 3 compartments. She had a fixed varus deformity to her knee and about 10 to 15 degree flexion contracture. Moderate-sized joint effusion. Specimens Right knee sent for pathology. Anesthesia Type Spinal MAC Complications none Disposition Accompanied Patient To Recovery: No Indications Patient is a 73-year-old female with multiple medical comorbidities had a several year history of increasing bilateral knee pain discomfort right side greater than left. She has failed all conservative measures. She is markedly debilitated by her pain. She elected proceed with total knee arthroplasty. Description of Procedure Operative implants consist of: 1 Biomet Vanguard size 62.5 right posterior stabilized femoral component. 2. Biomet size 67 tibial tray. 3. 12 mm post stabilized polyethylene insert. 4. 31 x 8 all poly patella. The patient was taken the operating, identified, and placed on the operating table in the supine position. All contact areas were appropriately padded. IV antibiotics tried by anesthesia team. A Mckeon catheter was placed in sterile fashion. Right thigh tent was then placed in the right lower extremities and prepped and draped in usual sterile fashion. The right leg was elevated and exsanguinated with use of an Esmarch and the tourniquet was placed at 300 mmHg. An anterior approach of the right knee was then performed to longitudinal incision centered over the patella. Sharp dissection was carried through subcutaneous tissue down the extensor mechanism. A medial parapatellar arthrotomy incision was made. Some subperiosteal dissection was carried out medially. The fat pad was resected from Neath patella tendon. The lateral patellofemoral ligament was released. Patella s ubluxated laterally and the knee was flexed through the osteophytes taken off distal femur. The ACL and PCL were then released from distal femur the tibia subluxated anteriorly. The external treatment line jig was then placed the interface the tibia and adjusted 14 mm medially. Proximal tibial cut was made remove about a millimeter bone from most deficient aspect medial tibial plateau. Tibia was sized to a size 67. Attention drawn the femur. The distal femur examined the sharp drill. Intramedullary canal was suction. A right 5 degree valgus cutting guide was placed. Distal femoral cutting block was pinned in place. Distal femoral cut was made to take an additional 3 mm of bone off distal femur. The femur was then sized to a size 62.5. The AP cutting block was pinned parallel to the epicondylar axis which was 4 degrees of external rotation. The anterior cut, anterior chamfer, posterior cut, posterior chamfer cuts were made. The box cutting guide was placed in just slight lateral and the box cut was made. The knee was flexed. The remnants of the medial and lateral menisci were excised. The osteophytes taken off the posterior aspect of femur. A trial femoral component was placed. The tibial tray was pinned Dai external rotation and the drill and stem punch were used to create defect in proximal tibia for the tibial tray. The knee was then trialed and 12 mm insert fit most appropriately. Attention drawn the patella. The patella was cleaned of all soft tissues. Patella thickness measured about 20 mm in thickness was cut down to 13. Was sized to a size 31 patella. The locals were drilled for 31 patella. Lateral x-rays removed. Patella button was placed. Knee was taken through range of motion patella tracked nicely with no thumbs test. Attention drawn to placing permanent components. Nupathe all trial components were removed. Bone plug was placed into the distal femur limit blood loss. Double batch Palacos G cement was mixed. Biomet Vanguard size 62.5 right Po stabilized femoral component, size 67 tibial tray, 12 mm pro stabilized polyethylene insert, and a 31 x 8 all poly patella then cemented in place. The knee was brought out into full extension until the cement hardened. Final cement check was then performed. The pericapsular tissues were injected with total 100 cc of combination of 20 of Exparel, 30 cc normal saline, 50 cc of quarter percent Marcaine with epinephrine. Patient did receive 1 g tranexamic acid but the tourniquet was let down for final tourniquet time of 55 minutes. Hemostasis assured use electrocautery. Extensor Meclomen then closed with combination 1 PDS suture #1 Vicryl suture in a [id number] fashion. Extensor Meclomen checked found to be intact through the subcutaneous tissues were then closed with 2 Dexon suture in a buried interrupted fashion skin was closed skin gem. Leg was then cleaned and dried and sterile dressing was Xeroform, 4 fours, sterile cast padding, Vladislav bandage were applied. Patient then transferred to the recovery room in stable condition. The patient tolerated the procedure well and there were no complications. Brenda zepeda, my physician housing assistant property manager, was present for the entire procedure. Her assistance was required for proper patient positioning, prepping and draping, surgical exposure, retraction, perform the technical details of the operation, placement of the implants, closure of the incision site and placement of sterile bandage. I attest to the content of the Intraoperative Record and any orders documented therein. Any exceptions are noted below.
--- NOTE | 2023-10-30 12:06 | XRay Report ---
TWO VIEWS RIGHT KNEE CLINICAL HISTORY: Postoperative examination. FINDINGS: AP and crosstable lateral portable views of the right knee are obtained. A right knee arthr oplasty is in near anatomic alignment. There has been undersurface remodeling of the patella. No acut e fracture is seen. There are expected postoperative changes around the knee including skin clips, so ft tissue edema, and subcutaneous gas. IMPRESSION: Expected postoperative changes status post right knee arthroplasty. No acute fracture is seen. ACT 112: Negative or not required by law. Electronically signed by: Sundar Copeland M.D. 10/30/2023 12:05 PM
[2023-10-30] MEDS ORDERED: WARFARIN SOD 5 MG TAB PO ONE ×2 (12:15→14:38)
--- NOTE | 2023-10-30 12:27 | Anesthesiology Progress Note ---
Date of Service October 30, 2023 Anesthesia Post Procedure Vital Signs Vital Signs: Temp Pulse Pulse Resp BP Pulse Ox O2 Del Method 10/30/23 12:10 73 22 111/46 L 93 Room Air 10/30/23 12:00 69 21 94/80 L 92 Room Air 10/30/23 11:50 83 19 101/41 L 100 Oxymask 10/30/23 11:44 36.9 C 72 19 97/37 L 97 Oxymask 10/30/23 07:13 36.8 C 69 20 134/65 95 Room Air O2 Flow Rate 10/30/23 12:10 10/30/23 12:00 10/30/23 11:50 5 10/30/23 11:44 5 10/30/23 07:13 Pain Intensity Right Knee: Pain Intensity: 8 Transfer of Care Handoff Completed per policy Notes Mental Status: alert / awake / arousable and participated in evaluation Patient Amnestic to Procedure: Yes Nausea / Vomiting: adequately controlled Pain: adequately controlled Airway Patency, RR, SpO2: stable & adequate BP & HR: stable & adequate Hydration State: stable & adequate Neuraxial Anesthesia: was administered and sensory block is resolving Anesthetic Complications: no major complications apparent and Pt Satisfied with anesthetic care
[2023-10-30] MEDS ORDERED: NO NSAIDS SCH (13:11)
[2023-10-30] MEDS ORDERED: NITROGLYCERIN SL 0.4 MG/TAB TAB SL PRN (13:11)
[2023-10-30] MEDS ORDERED: MAGNESIUM HYDROXIDE SUSP 30 ML UDC PO PRN (13:11)
[2023-10-30] MEDS ORDERED: ALUMINUM/MAGNESIUM SUSP 30 ML UDC PO PRN (13:11)
[2023-10-30] MEDS ORDERED: bisacodyL 10 MG SUPP PR PRN (13:11)
[2023-10-30] MEDS ORDERED: oxyCODONE HCL IR 5 MG TAB (IMMEDIATE RELEASE) PO PRN (13:11)
[2023-10-30] MEDS ORDERED: METOCLOPRAMIDE HCL INJ 5 MG/ML 2 ML VIAL IV PRN (13:11)
[2023-10-30] MEDS ORDERED: HYDROmorphone INJ 0.5 MG/0.5 ML SYR IV PRN (13:11)
[2023-10-30] MEDS ORDERED: NALOXONE HCL 0.4 MG/1 ML VIAL/CARP IV PRN (13:11)
[2023-10-30] MEDS: SODIUM CHLORIDE 0.9% 1,000 ML IV SCH ×2 (13:22→23:37)
[2023-10-30] MEDS: ACETAMINOPHEN 500 MG TAB PO SCH ×2 (14:04→20:37)
--- NOTE | 2023-10-30 16:23 | Hospitalist Consultation ---
Date of Consultation October 30, 2023 Assessment & Plan (1) Right knee DJD: POD#[address] Reyna Activity and wound care orders as per ortho Pain control with bowel regimen PT/OT Monitor H/H for acute blood loss anemia and transfuse blood products PRN EBL 50 cc (2) PAF (paroxysmal atrial fibrillation): Rhythm controlled on amiodarone, rate controlled on metoprolol Anticoagulated on Coumadin, discussed anticoagulation with Dr. Reyna, will give Coumadin 10 mg today and reevaluate tomorrow. Patient's home dosing is 2.5 mg on Mondays and 5 mg all other days. (3) Ischemic cardiomyopathy: S/p AICD Appears euvolemic Echo 2020 showed EF of 54% Continue ASA, statin, beta-cachorro, ACEi, torsemide (4) HTN (hypertension): BP controlled, continue lisinopril and metoprolol (5) Tobacco abuse: Patient counseled regarding tobacco cessation Declines nicotine patch at this time DVT PROPHYLAXIS Resuming Coumadin as above, SCDs when INR <2.0 Patient seen in collaboration with Dr. Ayala. Thank you for this consultation. We will follow the patient with you during their hospital stay. You can reach a member of the [facility] Hospitalist Team 26/[address] [facility] [place] [facility]. Supervising Physician Co-Signing Physician Notes Attending addendum: The patient was seen and examined in the medical floor She has significant medical history as mentioned in H&P and status post right TKA this morning Complaints minimal pain and has been ambulating Denies any other significant symptoms On examination Sitting on a chair without any acute distress Hemodynamically stable Chest-clear to auscultate bilaterally Heart-S1-S2, regular Abdomen-benign Extremities-trace edema bilaterally Her labs, imaging studies and EKG reviewed Status post right TKA on 10/30/2023 Remains stable medically Agree with assessment and plan as outlined above by Sarah Ayala History of Present Illness Reason for Consultation: Postop medical management Requesting Physician: Dr. Reyna Attending Physician: Onur Reyna MD History of Present Illness 73-year-old female with PMH paroxysmal atrial fibrillation anticoagulated on Coumadin, ischemic cardiomyopathy s/p AICD, CKD stage III, tobacco abuse, and other problems listed below who is s/p right TKA today by Dr. Reyna. Postoperatively, the patient is doing well. She reports her pain is well- controlled. She denies chest pain or shortness of breath. No lightheadedness or dizziness. Denies abdominal pain and nausea. Of note, patient suffered a mechanical fall about 1 week ago and has extensive bruising over her chest. Allergies Allergy/AdvReac Type Severity Reaction Status Date / Time No Known Allergies Allergy Verified 10/30/23 06:53 Home Medications Medication Instructions Recorded Confirmed Type aspirin 81 mg tablet,delayed 81 mg PO QAM 30 days #30 tabs 02/17/20 10/30/23 Rx release nitroglycerin 0.4 mg sublingual 0.4 mg sublingual UD PRN CHEST 02/17/20 10/30/23 Rx tablet (Nitrostat) PAIN #30 tabs amiodarone 200 mg tablet 200 mg PO QAM 03/20/20 10/30/23 History metoprolol succinate 25 mg 25 mg PO QAM 03/20/20 10/30/23 History tablet,extended release 24 hr omeprazole magnesium 20 mg 20 mg PO QAM 03/22/20 10/30/23 History tablet,delayed release (Prilosec OTC) acetaminophen 325 mg tablet (Mapap 650 mg (2 x 325 mg) PO Q4H PRN 03/29/20 10/30/23 Rx (acetaminophen)) fever or pain #30 tabs multivit-iron 18 mg-folic acid 400 1 tab PO QAM 07/23/21 10/30/23 History mcg-calcium 500 mg-minerals tablet (One-A-Day Womens Formula) atorvastatin 20 mg tablet 80 mg PO QAM 08/07/21 10/30/23 History warfarin 2.5 mg tablet 2.5 mg PO UD 08/07/21 10/30/23 History lisinopril 5 mg tablet 5 mg PO HS 10/09/23 10/30/23 History torsemide 10 mg tablet 20 mg PO QAM 10/09/23 10/30/23 History acetaminophen 500 mg tablet 1,000 mg (2 x 500 mg) PO TID pain 10/28/23 10/30/23 Rx (Tylenol Extra Strength) 30 days #180 tabs cefadroxil 500 mg capsule 500 mg PO BID 7 days #14 caps 10/28/23 10/30/23 Rx ondansetron 4 mg disintegrating 4 mg PO Q8 PRN nausea #20 tabs 10/28/23 10/30/23 Rx tablet oxycodone 5 mg tablet 5 - 10 mg (1 - 2 x 5 mg) PO Q6 PRN 10/28/23 10/30/23 Rx pain #40 tabs sennosides 8.6 mg tablet (Senokot) 8.6 mg PO BID prevent constipation 10/28/23 10/30/23 Rx 14 days #28 tabs Patient History Medical History CAD (coronary artery disease) with nuclear stress revealing prior old anterior IA (silent) Obesity HTN (hypertension) CKD (chronic kidney disease) Stage III CHF (congestive heart failure) chronic systolic CHF LBBB (left bundle branch block) Atrial fibrillation on warfarin; follows with S cardio GERD (gastroesophageal reflux disease) well controlled and stable Poor historian Silent myocardial infarction Presence of combination internal cardiac defibrillator (ICD) and pacemaker Implanted 03/2020, Medtronic; had generator change 06/17/2023- last checked 06/27/2023 Ischemic cardiomyopathy EF initially 30% in 2019- s/p ICD in place; EF 54% with 2020 ECHO Dyslipidemia Surgical History History of implantable cardioverter-defibrillator (ICD) placement medtronic; placed 2019 and generator change with fluoroscopy of leads 06/17/23 [facility] History of tooth extraction Hx of dilation and curettage S/P tonsillectomy Hx of tubal ligation Family History Other Breast cancer FHx: multiple myeloma FHx: uterine cancer No family history of adverse response to anesthesia Social History Smoking Status: Current every day smoker Tobacco Type: Cigarettes Cigarettes Per Day: 20 cigarettes/day; Second Hand Exposure: No; Do You Dip or Chew Tobacco: No; Tobacco Cessation Education Requested by Patient: No Hx Alcohol Use: Yes Alcohol type: hard liquor Hx Substance Use: No Preferred Language: Bhutanese Communication Ability: Effective Grader Tender Required: No Beliefs That Will Affect Care: None marital status: Current Living Situation: Spouse Other Information That Helps Us Care for You: No Feels Safe at Home: Yes Safety Concerns: Feels Safe At This Time Assistive Devices: Glasses, Hospital Bed and Walker Physical Exam Constitutional: WD/WN, vitals as above + obese Eyes: PERRL, conjunctivae normal, anicteric sclerae ENMT: external ear and nose normal, oropharynx normal Respiratory: normal respiratory effort, lungs clear to auscultation Cardiovascular: Rate/Rhythm: regular rate and regular rhythm Vessels: normal peripheral pulses Extremities: no edema Chest (Breasts): Additional Comments: Extensive ecchymosis noted over anterior chest Gastrointestinal (Abdomen): normal bowel sounds, soft, nontender, no hepatosplenomegaly Musculoskeletal: S/p right knee surgery, surgical dressing CDI, CSM checks intact RLE Skin: no rashes, warm and dry Neurologic: PERRL, EOMI, accommodation nl, no face palsy, no dysarthria Psychiatric: A+Ox3, euthymic affect Results & Data Results & Data Vital Signs (Past 12 Hours) Vital Signs Temp Pulse Pulse Resp BP Pulse Ox O2 Del Method 10/30/23 16:00 36.7 C 71 18 114/72 93 Room Air 10/30/23 15:05 37.0 C 67 16 105/64 93 Room Air 10/30/23 14:01 71 18 120/64 95 Room Air 10/30/23 13:54 Room Air 10/30/23 13:30 36.8 C 65 18 114/57 L 95 Room Air 10/30/23 13:00 36.8 C 66 16 109/66 92 Room Air 10/30/23 12:30 66 13 97/68 L 92 Room Air 10/30/23 12:20 36.5 C 66 21 106/47 L 92 Room Air 10/30/23 12:10 73 22 111/46 L 93 Room Air 10/30/23 12:00 69 21 94/80 L 92 Room Air 10/30/23 11:50 83 19 101/41 L 100 Oxymask 10/30/23 11:44 36.9 C 72 19 97/37 L 97 Oxymask 10/30/23 07:13 36.8 C 69 20 134/65 95 Room Air O2 Flow Rate 10/30/23 16:00 10/30/23 15:05 10/30/23 14:01 10/30/23 13:54 10/30/23 13:30 10/30/23 13:00 10/30/23 12:30 10/30/23 12:20 10/30/23 12:10 10/30/23 12:00 10/30/23 11:50 5 10/30/23 11:44 5 10/30/23 07:13
[2023-10-30] MEDS: ceFAZolin 2000MG 2,000 MG/15 ML SYR IV SCH (17:31)
[2023-10-30] MEDS: ASCORBIC ACID 500 MG TAB PO SCH (17:31)
[2023-10-30] MEDS ORDERED: TRANEXAMIC ACID / 0.7% NACL 1,000 MG/100 ML BAG IV SCH (17:45)
[2023-10-30] MEDS: DOCUSATE SODIUM 100 MG CAP PO SCH (20:37)
[2023-10-30] MEDS: SENNA 8.6 MG TAB PO SCH (20:39)
[2023-10-30] MEDS ORDERED: SENNA 8.6 MG TAB PO SCH (21:00)
[2023-10-30] MEDS ORDERED: lisinopril 5 MG TAB PO SCH (21:00)
[2023-10-31] MEDS: ceFAZolin 2000MG 2,000 MG/15 ML SYR IV SCH (02:23)
--- NOTE | 2023-10-31 07:15 | Surgery Progress Note ---
Date of Service October 31, 2023 Assessment & Plan (1) Status post right knee replacement: Plan: 73-year-old female with multiple medical comorbidities now postop day 1 from right knee replacement doing pretty well. She been up walk around her room this morning independently. Pains controlled. She is neurologically intact. Plan: 1. DVT prophylaxis including thigh-high teds SCDs and back on her Coumadin. She got 10 mg yesterday we will give her 5 today and then back to normal dose tomorrow. 2. PT OT. She weight-bear as tolerated right total knee protocol. 3. Pain control doing okay with current pain regimen. 4. Disposition plan to discharge home with some home health likely later today if does okay in therapy. Admission and Anticipated Discharge Date Admission Date: October 30, 2023 Subjective 73-year-old female postop day 1 from right knee replacement. She is doing pretty well. Pain is very manageable. She has been up walk around with a walker by herself this morning. No chest pain or shortness of breath. Not feeling dizzy or lightheaded. Physical Exam Physical Exam: Examination of the right leg reveals the dressing be clean dry and intact. She can dorsiflex and plantarflex her foot appropriately. She can do a straight leg raise. She is neurologically intact. Respiratory: normal respiratory effort, lungs clear to auscultation Cardiovascular: RRR, no murmur, no edema Gastrointestinal (Abdomen): normal bowel sounds, soft, nontender, no hepatosplenomegaly Results & Data Vital Signs (Past 12 Hours) Vital Signs Temp Pulse Resp BP BP Pulse Ox O2 Del Method 10/31/23 06:52 36.9 C 87 18 121/74 98 Room Air 10/31/23 03:32 36.6 C 65 20 134/76 94 Room Air 10/31/23 02:50 Room Air 10/31/23 00:04 36.8 C 66 20 129/69 96 Room Air 10/30/23 19:30 36.3 C L 74 18 131/77 95 Room Air Laboratory Results Labs are pending. PG Care Time/CCT Total # of Minutes Spent Total Time Spent with Patient: Total time spent is greater than 50% in coordination of care (as documented) at patient's floor/unit and/or counseling patient: Coding Level of Care Code 45054 Post Operative Follow-Up Diagnoses Status post right knee replacement Z96.65
[2023-10-31] MEDS ORDERED: WARFARIN SOD 5 MG TAB PO ONE (07:17)
[2023-10-31] MEDS ORDERED: dexAMETHasone 10 MG in SYRINGE 0 ML IV SCH (08:00)
[2023-10-31] MEDS: ACETAMINOPHEN 500 MG TAB PO SCH (08:05)
[2023-10-31] MEDS: ASCORBIC ACID 500 MG TAB PO SCH (08:05)
[2023-10-31] MEDS: DOCUSATE SODIUM 100 MG CAP PO SCH (08:08)
[2023-10-31] MEDS: SENNA 8.6 MG TAB PO SCH (08:09)
[2023-10-31 08:44] LABS: Hematocrit (blood only) 33.2 % (37.0-47.0); Hemoglobin 10.9 g/dl (12.0-16.0); Mean Corpuscular Hgb Conc 32.8 g/dL (32.0-36.0); Mean Corpuscular Volume 100.6 fL (80.0-100.0); Mean Platelet Volume 12.1 fL (9.4-12.4); Platelet Count 217 K/uL (130-400); RDW Coefficient of Variation 14.3 % (11.5-14.5); RDW Standard Deviation 52.6 fL (36.4-46.3); White Blood Count 15.77 K/ul (4.8-10.8)
[2023-10-31 08:54] LABS: BUN Creatinine Ratio 20.7 (10-20); Calcium 8.5 mg/dl (8.6-10.3); Creatinine Clr Calc Pharmacy 36.5 ml/min; Est GFR (African American) 45.3 ml/min; Est GFR (Non-African American) 39.1 ml/min; Potassium 3.9 mmol/L (3.5-5.1)
[2023-10-31] MEDS ORDERED: TORSEMIDE 10 MG TAB PO SCH (09:00)
[2023-10-31] MEDS ORDERED: ATORVASTATIN 40 MG TAB PO SCH (09:00)
[2023-10-31] MEDS ORDERED: METOPROLOL SUCC 25MG EXT REL TAB PO SCH (09:00)
[2023-10-31] MEDS ORDERED: ASPIRIN 81 MG ECTAB PO SCH (09:00)
[2023-10-31] MEDS ORDERED: [UNRECOGNIZED DRUG - OTHER] PO SCH (09:00)
[2023-10-31] MEDS ORDERED: AMIODARONE 200 MG TAB PO SCH (09:00)
[2023-10-31] MEDS ORDERED: PANTOprazole 40 MG TAB PO SCH (09:00)
[2023-10-31] MEDS ORDERED: MULTIVITAMIN TAB PO SCH (09:00)
[2023-10-31 09:08] LABS: INR 1.3 (0.9-1.1); Prothrombin Time 13.6 Seconds (9.0-12.0)
--- NOTE | 2023-10-31 10:53 | Discharge Summary ---
Date of Service October 31, 2023 Principal Diagnosis Same as "Discharge Diagnosis" noted below under Discharge Instructions. Discharge Exam Examination of the right leg reveals the dressing be clean dry and intact. She can dorsiflex and plantarflex her foot appropriately. She can do a straight leg raise. She is neurologically intact. Discharge Data Consultations 10/30/23 13:11 Consult Hospitalist Routine Procedures Performed Operation Date: 10/30/23 08:30 Actual Procedures p Right Total Knee Arthroplasty(Right) - Onur Reyna MD Ordered Studies 10/30/23 05:00 US - OR guided needle placemen Routine Hospital Course (1) Status post right knee replacement: On October 30, 2023 Eva arrived at [facility] and underwent a right total knee arthroplasty without complications. She had a spinal anesthetic. Postoperatively, she was started on aspirin for DVT prophylaxis and transferred to the general orthopedic floor in stable condition. Her hospital course was uneventful. On postoperative day #1, her vital signs were stable and her pain was well-controlled. She participated well with physical therapy working on ambulation and range of motion exercises. She was then discharged home in stable condition. She will follow-up with Dr. Reyna in 2 weeks for postoperative care. PG Care Time/CCT Total # of Minutes Spent Total Time Spent with Patient: Total time spent is greater than 50% in coordination of care (as documented) at patient's floor/unit and/or counseling patient: Discharge Plan Discharge Items Patient Disposition: Home - Home Health Services Reason For Visit: Right Knee DJD Discharge Diagnosis: Right Knee Replacement Activity: Per Instructions section Weightbearing: Full weightbearing Non-emergency contact: Surgeon Call non-emergency contact if: you have any medication questions Follow-up/Referrals: Lizette Navas CRNP [Primary Care Provider] - Diet: Regular Addtl Attending Provider Instructions: ACTIVITY RECOMMENDATIONS: Physical Therapy: * You will go to physical therapy three times each week for four to six weeks after your surgery in order to regain your knee range of motion and to retrain your knee to work properly. * It is just as important to make sure you are getting your knee perfectly straight as it is to regain your knee bend. * Taking a pain pill an hour before therapy can help you have a more productive and comfortable therapy session. Home Exercise: * You were shown a series of exercises (heel props, heel slides, etc.) in the hospital. Do these exercises three to four times each day including the exercises you were shown in physical therapy. Walking: * Get up and walk several times each day. For the first four weeks, try not to stand or walk for more than one hour at a time. If you do stand or walk for more than one hour, you will not hurt anything, but your knee and leg will likely swell. * As you feel comfortable, you may change from the walker or crutches to a cane and then to independent walking. MEDICATIONS: New Medicine: * You will likely be taking one or more of these medications: 1. Oxycodone - A quick and shorter-acting pain medication. Take one to two tablets every six hours to lessen your pain. 2. Coumadin - Thins your blood to lessen the chance of forming a blood clot. * The most common side effects of pain medicine and iron are nausea and constipation. If nausea or constipation is too much of a problem or if you have any questions about your new medicines or doses, call [facility] at . We will try to help you manage these issues. "VERY IMPORTANT TO READ AND REVIEW" Pain: * The immediate post-operative period after knee replacement surgery is often quite painful. * You are given a prescription for pain medicine. You should take it, as directed, when you need it, especially before physical therapy and before going to bed. Pain that interferes with sleep is very common and can last several months. * You will likely need pain medicine for the first four to six weeks. It will not stop all of the pain. The pain will lessen and as you feel better, you may change to milder pain medicine such as Tylenol. * The most common side effects of pain medicine are nausea and constipation, so don't take more than you need. SPECIAL CARE INSTRUCTIONS: TEDs/Elastic Stockings: * The white elastic stockings help limit swelling and prevent blood clots from forming in your legs. The more you wear them, the more they work. * Wear them for six weeks after knee replacement surgery and four weeks after partial knee replacement. Incision Site Care: * Remove dressing postoperative day 2 and then shower. Keep direct shower pressure off the incision site. * After showering, cover gem with dry gauze and change daily or more frequently if the dressing is getting saturated with drainage. * Use the BETH stockings to hold dressing in place. DO NOT apply tape on the skin. * May completely stop using bandage if wound is dry and no drainage * [place] are removed between 2 and 3 weeks post-op. If your follow-up appointment is made before 2 weeks, please have your appointment re- scheduled. It is too early to remove the gem. Prevention of Infection: * Take antibiotics one hour before any dental cleaning, dental work, urological procedure, gastrointestinal procedure or any invasive surgery in order to prevent your new joint from getting infected. * You may get the antibiotics from the doctor performing the procedure or you may call our office at [phone] before and we will call in a prescription to the pharmacy of your choice. Things to Watch For: * Drainage from the incision site that occurs more than one week after your surgery. * Severely increased knee/leg pain or swelling. * Increased redness at the incision site. * Fever above 102 degrees Fahrenheit. * Unusual chest pain or shortness of breath. * Unusual pain or burning with urination. Call [facility] at [phone] with any of the above problems or if you have any questions about your medicines or recovery. FOLLOW UP VISIT: Make an appointment to see your doctor for approximately two weeks after surgery for a progress check and staple removal by calling the office at [phone]. Addtl Assurance Sourcing Manager Provider Instructions: Follow-up with your primary care physician in 1 week. Pending Studies at Discharge: No Stand-Alone Forms: [facility] Cessation Medications and DC Order Prescriptions: Continued omeprazole magnesium [Prilosec OTC] 20 mg Tablet,Delayed Release (Dr/Ec) 20 mg PO QAM Rx Instructions: Before first meal of the day . oxycodone 5 mg tablet 5 - 10 mg PO Q6 PRN (Reason: pain) Qty: 40 0RF Rx Instructions: Take as needed for pain ondansetron 4 mg tablet,disintegrating 4 mg PO Q8 PRN (Reason: nausea) Qty: 20 1RF Rx Instructions: Take as needed for nausea sennosides [Senokot] 8.6 mg tablet 8.6 mg PO BID 14 Days Qty: 28 0RF Rx Instructions: Take two times a day to prevent/treat constipation acetaminophen [Tylenol Extra Strength] 500 mg tablet 1,000 mg PO TID 30 Days Qty: 180 0RF Rx Instructions: Take 3 times per day to lessen pain. cefadroxil 500 mg capsule 500 mg PO BID 7 Days Qty: 14 0RF Rx Instructions: Take 1 cap twice a day to prevent infection One-A-Day Womens Formula 18 mg iron-400 mcg-500 mg Ca tablet 1 tab PO QAM metoprolol succinate 25 mg tablet extended release 24 hr 25 mg PO QAM amiodarone 200 mg tablet 200 mg PO QAM aspirin 81 mg Tablet,Delayed Release (Dr/Ec) 81 mg PO QAM 30 Days Qty: 30 2RF nitroglycerin [Nitrostat] 0.4 mg Tablet, Sublingual 0.4 mg sublingual UD PRN (Reason: CHEST PAIN) Qty: 30 2RF atorvastatin 20 mg tablet 80 mg PO QAM warfarin 2.5 mg tablet 2.5 mg PO UD Rx Instructions: 2.5mg on Friday, 5mg all other days lisinopril 5 mg tablet 5 mg PO HS torsemide 10 mg tablet 20 mg PO QAM Discontinued acetaminophen [Mapap (acetaminophen)] 325 mg Tablet 650 mg PO Q4H PRN (Reason: fever or pain) Qty: 30 0RF Admission Data Admit Date/Time: 10/30/23 11:47 Attending Provider: Onur Reyna Admit Provider: Onur Reyna Primary Care Provider: Lizette Navas Other Providers: [facility]; Lizette Navas Other Interventions: Discharge Summary Assessment (RN) Last Done: 10/31/23 10:42
== END 2023-10-31 11:26 | disposition home health service (06) ==
LOC: ASU 06:27 → 3N 06:27